=== PATIENT | female | born 1940 | race Caucasian/White ===

== ENCOUNTER → 2016-07-25 | Outpatient (CLI) | payer OTHER ==
[~2016-07-25] MED LIST: CHOL20007 PO; DXY100 PO; IBUP-1428 PO; IBUP-1450 PO
[2016-07-25 12:02] LABS: BASO % 0.3 %; BASO ABS # 0.03 K/uL (0-0.2); COMPLETE YES; EOS % 2.2 %; HEMATOCRIT 38.5 % (37-47); IG% 0.2 %; LYMPH % 17.2 %; LYMPH ABS # 1.53 K/uL (1.2-3.4); MEAN CELL VOLUME 83.9 fL (80-100); MEAN CORPUSCULAR HEMOGLOBIN 27.5 pg (25-34); MEAN CORPUSCULAR HGB CONC 32.7 g/dl (32-36); MEAN PLATELET VOLUME 9.3 fL (7.4-10.4); NEUT % 76.1 %; PLATELET COUNT 227 K/uL (130-400); RED BLOOD COUNT 4.59 M/uL (4.2-5.4); WHITE BLOOD COUNT 8.89 K/uL (4.8-10.8)
[2016-07-25 12:31] LABS: C-REACTIVE PROTEIN 1.84 mg/dl (0-0.29); RHEUMATOID FACTOR 16.2 U/mL (0-15); URIC ACID 4.1 mg/dl (2.6-7.2)
== END | disposition home or self-care (01) ==
LOC: C.LAB 11:27
PROVIDERS: ATTEND Orthopaedic Surgery Sports Medicine
DX: M25.532 Pain in left wrist (principal)

== ENCOUNTER 2016-12-28 22:10 | Inpatient (IN) | payer OTHER ==
[~2016-12-28] VITALS: Ht 154.9 cm; Wt 82.8 kg
[~2016-12-28 22:10] MED LIST changes: -DXY100 PO; -IBUP-1450 PO
[2016-12-28] MEDS ORDERED: SODIUM CHLORIDE 0.9% 1000ML 1,000 ML IV STA (23:13)
[2016-12-28] MEDS ORDERED: ONDANSETRON INJ 2 MG/ML 2 ML VIAL IV STA (23:13)
[2016-12-28] MEDS ORDERED: MoRPHine SULFATE 4 MG/ML 1 ML CARP\\VIAL IV STA (23:13)
[2016-12-28] MEDS ORDERED: CEFAZOLIN SOD 1000MG/55 ML D5W IV STA (23:19)
--- NOTE | 2016-12-28 23:19 | EMERGENCY ROOM VISIT NOTE ---
History Report prepared by Tamera: Radha Siegel Under the Supervision of: Dr. Tab Granados D.O. First contact with patient: 23:01 Chief Complaint: ABDOMINAL PAIN Stated Complaint: THROWING UP Nursing Triage Summary: pt reports abdominal pain X 1 days , reports NV X day also , now reports dizziness with movement for 1 day History of Present Illness The patient is a 76 year old female who presents to the Emergency Room with complaints of whole body muscular pain beginning this morning. The patient reports that she has vomited 6 times today and also complains of abdominal pain. Patient notes that she started vomiting from the abdominal pain. Several hours later she became dizzy. The patient states that she has felt dizzy for 4 hours and that her dizziness is exacerbated when she lays down. She states that she has also had a headache and has had diarrhea. Headache started following the vomiting. The patient states that she has been unable to eat or drink today. She denies having any recent surgeries, and states that she had breast cancer 3 years ago. Pt denies change in vision, fevers, chest pain, shortness of breath, pain with urination, and melena. Erythema on her chest and right arm just started today. She has not noticed this before. She does have a history of breast cancer. Source of History: patient Onset: this morning Position: other (whole body) Quality: other (muscular pain) Associated Symptoms: + headache, + vomiting, + abdominal pain, No fevers, No chest pain, No SOB, No melena, No urinary symptoms Note: additional symptom: dizziness Review of Systems See HPI for pertinent positives & negatives. A total of 10 systems reviewed and were otherwise negative. Past Medical & Surgical Medical Problems: (1) No known problems (2) Sepsis Family History No pertinent family history stated. Social History Smoking Status: Never Smoker Marital Status: single Current/Historical Medications Scheduled Cholecalciferol (Vitamin D3), 2,000 INTER.UNIT PO DAILY Scheduled PRN Ibuprofen (Motrin), 200-600 MG PO DIRECTED PRN for Pain or Fever Allergies Coded Allergies: No Known Allergies (Unverified , 12/28/16) Physical Exam Vital Signs Date Time Temp Pulse Resp B/P (MAP) Pulse Ox O2 Delivery O2 Flow Rate FiO2 12/29/16 02:51 36.9 12/29/16 02:00 79 24 137/58 92 Room Air 12/29/16 01:03 84 26 105/40 94 Room Air 12/29/16 00:01 86 27 144/65 95 Room Air 12/28/16 23:23 37.7 86 27 127/55 93 Room Air 12/28/16 23:07 88 12/28/16 22:15 37.6 110 20 138/69 96 Room Air Physical Exam GENERAL: Sitting up in bed, uncomfortable, disheveled non-toxic EYE EXAM: normal conjunctiva OROPHARYNX: no exudate, no erythema, lips, buccal mucosa, and tongue normal and mucous membranes are dry NECK: supple, no nuchal rigidity, no adenopathy, non-tender LUNGS: Clear to auscultation. Normal chest wall mechanics HEART: no murmurs, S1 normal and S2 normal ABDOMEN: abdomen soft, minimal tenderness in epigastric region, normo-active bowel sounds, no masses, no rebound or guarding. CHEST: erythema over right breast tracking into right humerus BACK: Back is symmetrical on inspection and there is no deformity, no midline tenderness, no CVA tenderness. SKIN: no rashes and no bruising UPPER EXTREMITIES: upper extremities are grossly normal. Entirety of right humerus no induration but it is warm and tender. LOWER EXTREMITIES: No pitting edema. NEURO EXAM: Normal sensorium, cranial nerves II-XII intact, normal speech, no weakness of arms, no weakness of legs. Medical Decision & Procedures ER Provider Diagnostic Interpretation: CT:Per my review, radiologist interpretation. CT ABDOMEN & PELVIS: No evidence of acute inflammatory or obstructive process in the abdomen or pelvis to account for epigastric pain. Yye-rj-tsakvvljjlja attenuation left renal lesion measuring approximately 4 cm with scattered calcifications. Further evaluation with renal mass protocol CT or MRI recommended. No hydronephrosis or ureteral calculus. Small hiatal hernia. Small fat-containing umbilical hernia. No associated inflammatory changes. No evidence of acute appendicitis. Atherosclerotic vascular disease. No abdominal aortic anuerysm. Enlarged fibroid uterus. Laboratory Results 12/28/16 23:19 Red Blood Count 4.87, Mean Corpuscular Volume 82.3, Mean Corpuscular Hemoglobin 26.5, Mean Corpuscular Hemoglobin Concent 32.2, Mean Platelet Volume 8.6, Neutrophils (%) (Auto) 94.4, Lymphocytes (%) (Auto) 2.8, Monocytes (%) (Auto) 2.4, Eosinophils (%) (Auto) 0.0, Basophils (%) (Auto) 0.0, Neutrophils # (Auto) 23.93, Lymphocytes # (Auto) 0.72, Monocytes # (Auto) 0.62, Eosinophils # (Auto) 0.00, Basophils # (Auto) 0.01 Test 12/28/16 23:19 12/29/16 00:00 12/29/16 00:30 12/29/16 02:50 White Blood Count 25.37 K/uL (4.8-10.8) Red Blood Count 4.87 M/uL (4.2-5.4) Hemoglobin 12.9 g/dL (12.0-16.0) Hematocrit 40.1 % (37-47) Mean Corpuscular Volume 82.3 fL (80-100) Mean Corpuscular Hemoglobin 26.5 pg (25-34) Mean Corpuscular Hemoglobin Concent 32.2 g/dl (32-36) Platelet Count 200 K/uL (130-400) Mean Platelet Volume 8.6 fL (7.4-10.4) Neutrophils (%) (Auto) 94.4 % Lymphocytes (%) (Auto) 2.8 % Monocytes (%) (Auto) 2.4 % Eosinophils (%) (Auto) 0.0 % Basophils (%) (Auto) 0.0 % Neutrophils # (Auto) 23.93 K/uL (1.4-6.5) Lymphocytes # (Auto) 0.72 K/uL (1.2-3.4) Monocytes # (Auto) 0.62 K/uL (0.11-0.59) Eosinophils # (Auto) 0.00 K/uL (0-0.5) Basophils # (Auto) 0.01 K/uL (0-0.2) RDW Standard Deviation 43.3 fL (36.4-46.3) RDW Coefficient of Variation 14.5 % (11.5-14.5) Immature Granulocyte % (Auto) 0.4 % Immature Granulocyte # (Auto) 0.09 K/uL (0.00-0.02) Est Creatinine Clear Calc Drug Dose 54.7 ml/min Magnesium Level 2.0 mg/dl (1.8-2.4) Total Bilirubin 0.6 mg/dl (0.2-1) Direct Bilirubin 0.2 mg/dl (0-0.2) Aspartate Amino Transf (AST/SGOT) 21 U/L (15-37) Alanine Aminotransferase (ALT/SGPT) 28 U/L (12-78) Alkaline Phosphatase 69 U/L (45-117) Total Protein 7.3 gm/dl (6.4-8.2) Albumin 3.5 gm/dl (3.4-5.0) Lipase 59 U/L (73-393) Lactic Acid Level 1.8 mmol/L (0.4-2.0) Urine Color YELLOW Urine Appearance CLEAR (CLEAR) Urine pH 7.5 (4.5-7.5) Urine Specific Nicholls 1.013 (1.000-1.030) Urine Protein NEG (NEG) Urine Glucose (UA) NEG (NEG) Urine Ketones NEG (NEG) Urine Occult Blood NEG (NEG) Urine Nitrite NEG (NEG) Urine Bilirubin NEG (NEG) Urine Urobilinogen NEG (NEG) Urine Leukocyte Esterase TRACE (NEG) Urine WBC (Auto) 1-5 /hpf (0-5) Urine RBC (Auto) 0-4 /hpf (0-4) Urine Hyaline Casts (Auto) 1-5 /lpf (0-5) Urine Epithelial Cells (Auto) >30 /lpf (0-5) Urine Bacteria (Auto) NEG (NEG) Laboratory results per my review. Medications Administered Medications (Trade) Dose Ordered Sig/Jonathan Route Start Time Stop Time Status Last Admin Dose Admin Sodium Chloride 1,000 ml @ 999 mls/hr Q1H1M STAT IV 12/28/16 23:13 12/29/16 00:13 DC 12/28/16 23:20 999 MLS/HR Ondansetron HCl (Zofran Inj) 4 mg NOW STAT IV 12/28/16 23:13 12/28/16 23:15 DC 12/29/16 00:14 4 MG Morphine Sulfate (MoRPHine SULFATE INJ) 4 mg NOW STAT IV 12/28/16 23:13 12/28/16 23:15 DC 12/29/16 00:15 4 MG Cefazolin Sodium (Ancef 1000mg/55 ml D5W) 1,000 mg NOW STAT IV 12/28/16 23:19 12/28/16 23:20 DC 12/29/16 00:16 1,000 MG Vancomycin HCl 1700 mg/Sodium Chloride 534 ml @ 200 mls/hr ONE STAT IV 12/29/16 01:03 12/29/16 03:43 12/29/16 01:59 200 MLS/HR Acetaminophen (Tylenol Tab) 650 mg 0202 ONCE PO 12/29/16 02:02 12/29/16 02:08 DC 12/29/16 02:53 650 MG ED Course ED COURSE: Vital signs were reviewed and showed hypertensive, tachycardic. The patients medical record was reviewed The above diagnostic studies were performed and reviewed. ED treatments and interventions as stated above. 2304: The patient was evaluated in room B11B. A complete history and physical examination was performed. 2313: Ordered Morphine Sulfate 4 mg IV, Ondansetron HCl 4 mg IV, Sodium Chloride 1,000 ml @ 999 mls/hr IV. 2319: Ordered Cefazolin Sodium 1,000 mg IV. 0051: The patient is in the CT room. 0103: Ordered Vancomycin HCl 1,700 mg/Sodium Chloride 534 mls/hr IV. 0140: I updated the patient. 0220: I reviewed the patient's case with Dr. Stroud. He will evaluate the patient for further management. Medical Decision Differential diagnosis includes etiologies such as sepsis, UTI, pneumonia, metabolic, electrolyte abnormalities, cardiac sources, intracerebral event, toxicologic, neurologic, as well as others were entertained. Patient is a 76-year-old female who presents the ER for nausea vomiting diarrhea which started earlier today. Following that she started to feel dizzy. She does have epigastric abdominal pain. She also has erythema of her right breast and right upper extremity. She admits to diffuse myalgias. History of previous breast cancer. Vitals are remarkable for a low-grade fever and tachycardia. This dose 25,000. BMP along with LFTs, bilirubin and lipase are normal. UA was negative. CT of the abdomen pelvis shows fibroids and calcified renal mass. Patient was given IV antibiotics and admitted to internal medicine for a cellulitis. Blood pressure screening: Patient was found to have an elevated blood pressure and was referred to their primary doctor for recheck and further treatment. Medication Reconciliation: I attest that I have personally reviewed the patient' s current medication list. Consults Time Called: 0200 Consulting Physician: Dr. Chris Arroyo Returned Call: 0220 I reviewed the patient's case with Dr. Stroud. He will evaluate the patient for further management. Impression Primary Impression: Cellulitis Additional Impression: Leukocytosis Scribe Attestation The scribe's documentation has been prepared under my direction and personally reviewed by me in its entirety. I confirm that the note above accurately reflects all work, treatment, procedures, and medical decision making performed by me. Departure Information Dispostion Being Evaluated By Hospitalist Referrals No Doctor, Assigned (PCP) Patient Instructions My [facility] Problem Qualifiers Primary Impression: Cellulitis Site of cellulitis: unspecified site Qualified Codes: L03.90 - Cellulitis, unspecified Additional Impression: Leukocytosis Leukocytosis type: unspecified Qualified Codes: D72.829 - Elevated white blood cell count, unspecified
[2016-12-28] MEDS ORDERED: OPTIRAY 320 IV PRN (23:30)
[2016-12-28 23:31] LABS: HEMATOCRIT 40.1 % (37-47); MEAN CELL VOLUME 82.3 fL (80-100); MEAN CORPUSCULAR HEMOGLOBIN 26.5 pg (25-34); MEAN CORPUSCULAR HGB CONC 32.2 g/dl (32-36); MEAN PLATELET VOLUME 8.6 fL (7.4-10.4); PLATELET COUNT 200 K/uL (130-400); RED BLOOD COUNT 4.87 M/uL (4.2-5.4); WHITE BLOOD COUNT 25.37 K/uL (4.8-10.8)
[2016-12-28] MEDS ORDERED: IBUP-1450 PO (23:40)
[2016-12-28] MEDS ORDERED: CHOL20007 PO (23:41)
[2016-12-28 23:51] LABS: BUN/CREATININE RATIO 18.1 (10-20); CALCIUM 8.7 mg/dl (8.5-10.1); CREATININE 0.88 mg/dl (0.60-1.20)
[2016-12-28 23:52] LABS: BASO ABS # 0.01 K/uL (0-0.2); COMPLETE YES; IG% 0.4 %; LYMPH % 2.8 %; LYMPH ABS # 0.72 K/uL (1.2-3.4); MONO % 2.4 %; NEUT % 94.4 %
[2016-12-29] VITALS (8 sets, daily range): BP systolic 89–149; BP diastolic 41–77; PULSE 69–78; TEMP 36.6–37.6; O2SAT 92–94; Ht 154.9 cm; Wt 82.8 kg
[2016-12-29 00:43] LABS: URINE APPEARANCE CLEAR (CLEAR); URINE BILIRUBIN NEG (NEG); URINE COLOR YELLOW; URINE EPITHELIAL CELL AUTO >30 /lpf (0-5); URINE NITRITE NEG (NEG); URINE PH 7.5 (4.5-7.5); URINE SPECIFIC GRAVITY 1.013 (1.000-1.030); UROBILINOGEN NEG (NEG); ZZUR CULT IF INDIC CLEAN CATCH NO
[2016-12-29 00:45] LABS: MANUAL MICROSCOPIC REQUIRED? NO; REVIEW REQ? NO; SULFASALICYLIC ACID NEG (NEG)
[2016-12-29] MEDS ORDERED: VANCOMYCIN INJ 1,700 MG in SODIUM CHLORIDE 0.9% 500ML 500 ML IV STA (01:03)
[2016-12-29] MEDS ORDERED: ACETAMINOPHEN 325 MG TAB PO ONE (02:02)
[2016-12-29] MEDS ORDERED: ACETAMINOPHEN 325 MG TAB PO PRN (02:15)
--- NOTE | 2016-12-29 02:59 | History and Physical ---
History & Physical Date & Time of Service: Dec 29, 2016 at 02:59 Chief Complaint: Throwing Up Primary Care Physician: Maureen Henderson D.O. History of Present Illness Source: patient, clinic records 2 days history of achy abdominal pain with nausea, emesis, diarrhea symptoms. No chest pain, no shortness of breath. Right upper extremity swelling more than usual which patient attributes to making some shish kebab. Patient denies dysuria symptoms. At the ER patient received IV vancomycin and cefazolin for possible sepsis. 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) Allergies Coded Allergies: No Known Allergies (Unverified , 12/28/16) Home Medications Scheduled Cholecalciferol (Vitamin D3), 2,000 INTER.UNIT PO DAILY Scheduled PRN Ibuprofen (Motrin), 200-600 MG PO DIRECTED PRN for Pain or Fever Physical Exam Vital Signs Date Time Temp Pulse Resp B/P (MAP) Pulse Ox O2 Delivery O2 Flow Rate FiO2 12/29/16 02:51 36.9 12/29/16 02:00 79 24 137/58 92 Room Air 12/29/16 01:03 84 26 105/40 94 Room Air 12/29/16 00:01 86 27 144/65 95 Room Air 12/28/16 23:23 37.7 86 27 127/55 93 Room Air 12/28/16 23:07 88 12/28/16 22:15 37.6 110 20 138/69 96 Room Air General Appearance: + obese, + pertinent finding (pleasant) Head: normocephalic Eyes: normal inspection ENT: normal ENT inspection Neck: + pertinent finding (short) Respiratory/Chest: + decreased breath sounds Cardiovascular: + tachycardia Abdomen/GI: soft Extremities/Musculoskelatal: + pertinent finding (tender right upper extremity swelling) Neurologic/Psych: alert, oriented x 3 Skin: normal color Diagnostics Laboratory Results Results Past 24 Hours Test 12/28/16 23:19 12/29/16 00:00 12/29/16 00:30 12/29/16 02:50 Range/Units White Blood Count 25.37 4.8-10.8 K/uL Red Blood Count 4.87 4.2-5.4 M/uL Hemoglobin 12.9 12.0-16.0 g/dL Hematocrit 40.1 37-47 % Mean Corpuscular Volume 82.3 80-100 fL Mean Corpuscular Hemoglobin 26.5 25-34 pg Mean Corpuscular Hemoglobin Concent 32.2 32-36 g/dl Platelet Count 200 130-400 K/uL Mean Platelet Volume 8.6 7.4-10.4 fL Neutrophils (%) (Auto) 94.4 % Lymphocytes (%) (Auto) 2.8 % Monocytes (%) (Auto) 2.4 % Eosinophils (%) (Auto) 0.0 % Basophils (%) (Auto) 0.0 % Neutrophils # (Auto) 23.93 1.4-6.5 K/uL Lymphocytes # (Auto) 0.72 1.2-3.4 K/uL Monocytes # (Auto) 0.62 0.11-0.59 K/uL Eosinophils # (Auto) 0.00 0-0.5 K/uL Basophils # (Auto) 0.01 0-0.2 K/uL RDW Standard Deviation 43.3 36.4-46.3 fL RDW Coefficient of Variation 14.5 11.5-14.5 % Immature Granulocyte % (Auto) 0.4 % Immature Granulocyte # (Auto) 0.09 0.00-0.02 K/uL Sodium Level 142 136-145 mmol/L Potassium Level 4.0 3.5-5.1 mmol/L Chloride Level 106 98-107 mmol/L Carbon Dioxide Level 27 21-32 mmol/L Anion Gap 9.0 3-11 mmol/L Blood Urea Nitrogen 16 7-18 mg/dl Creatinine 0.88 0.60-1.20 mg/dl Est Creatinine Clear Calc Drug Dose 54.7 ml/min Estimated GFR () 75.0 Estimated GFR (Non- 64.7 BUN/Creatinine Ratio 18.1 10-20 Random Glucose 142 70-99 mg/dl Calcium Level 8.7 8.5-10.1 mg/dl Magnesium Level 2.0 1.8-2.4 mg/dl Total Bilirubin 0.6 0.2-1 mg/dl Direct Bilirubin 0.2 0-0.2 mg/dl Aspartate Amino Transf (AST/SGOT) 21 15-37 U/L Alanine Aminotransferase (ALT/SGPT) 28 12-78 U/L Alkaline Phosphatase 69 45-117 U/L Total Protein 7.3 6.4-8.2 gm/dl Albumin 3.5 3.4-5.0 gm/dl Lipase 59 73-393 U/L Lactic Acid Level 1.8 0.4-2.0 mmol/L Urine Color YELLOW Urine Appearance CLEAR CLEAR Urine pH 7.5 4.5-7.5 Urine Specific Veteran 1.013 1.000-1.030 Urine Protein NEG NEG Urine Glucose (UA) NEG NEG Urine Ketones NEG NEG Urine Occult Blood NEG NEG Urine Nitrite NEG NEG Urine Bilirubin NEG NEG Urine Urobilinogen NEG NEG Urine Leukocyte Esterase TRACE NEG Urine WBC (Auto) 1-5 0-5 /hpf Urine RBC (Auto) 0-4 0-4 /hpf Urine Hyaline Casts (Auto) 1-5 0-5 /lpf Urine Epithelial Cells (Auto) >30 0-5 /lpf Urine Bacteria (Auto) NEG NEG Microbiology Results 12/29/16 Blood Culture, Received Pending 12/28/16 Blood Culture, Received Pending Diagnostic Radiology CT SCAN OF THE ABDOMEN AND PELVIS WITH IV CONTRAST CLINICAL HISTORY: Epigastric abdominal pain. COMPARISON STUDY: No priors. TECHNIQUE: Following the IV administration of 116 cc of Optiray 320, CT scan of the abdomen and pelvis is performed from the lung bases to the proximal femora. Images are reviewed in the axial, sagittal, and coronal planes. IV contrast was administered without complication. Automated dose control exposure was utilized. CT DOSE: 749.54 mGy.cm FINDINGS: Lung bases: The heart is normal in size and without pericardial effusion. The lung bases are clear noting dependent atelectasis. There is a small hiatal hernia. Liver: The contrast-enhanced liver is top normal in size and demonstrates diffusely diminished attenuation consistent with hepatic steatosis. There is no intrahepatic biliary ductal dilatation. The hepatic veins and portal veins are patent. Gallbladder: Unremarkable. Spleen: Normal in size and attenuation. Pancreas: Moderately atrophic. Adrenal glands: Unremarkable. Kidneys: The contrast enhanced kidneys demonstrate cortical atrophy and are without hydronephrosis. The kidneys enhance symmetrically. There is a 4.8 x 3.5 x 2.8 cm low-attenuation lesion arising exophytically from the lower pole of the left kidney. This contains internal septations which contain thick/coarse calcifications and this does not meet criteria for simple cyst. A subcentimeter cortical hypodensity in the upper pole of left kidney likely represents a cyst but is too small for definitive characterization. Abdominal vasculature: The abdominal aorta is normal in course and caliber noting moderate atherosclerotic calcification. Bowel: The small bowel and colon are normal in course and caliber. There are scattered colonic diverticula without CT evidence of acute diverticulitis. The appendix is well-visualized and normal. Peritoneum: There is no intraperitoneal free air or abdominal ascites. There is a fat-containing umbilical hernia. Lymphadenopathy: None. Pelvic viscera: The bladder is normal as visualized. The uterus is enlarged and contains numerous calcified fibroids. No adnexal lesion is seen. Skeletal structures: The skeletal structures are osteopenic. There is moderate lumbosacral spondylosis. No lytic or blastic lesions are seen. IMPRESSION: 1. There are no acute infectious or inflammatory findings in the abdomen or pelvis. 2. There is a 4.8 cm low-attenuation lesion rising the lower pole of left kidney. This contains thick internal calcifications, small septations, and does not meet CT criteria for simple cysts. The appearance is highly concerning for renal neoplasm. Nonemergent follow-up with urology is recommended. 3. Hepatic steatosis. 4. Enlarged fibroid uterus. 5. Additional findings as above. Impression Assessment and Plan AP Sepsis Possible sources : Cellulitis right upper extremity, history chronic lymphedema from right breast cancer surgery diarrhea rule out C. difficile: RUE swelling secondary to cellulitis rule out UE DVT Right breast cancer status post surgery sp hormonal therapy Patient refused chemoradiation as per [facility] outpatient notes. Px has been in remission for greater than 5 years . Recent PET scan negative. Left renal mass likely benign as per records Hyperglycemia rule out diabetes GMF Cultures, stool C. difficile Doxycycline for cellulitis Flagyl for presumptive C. difficile in light of leukocytosis DC Flagyl if stool C. difficile negative Patient may need Vancomycin if C. difficile positive - severe C. difficile, WBC greater than 15 K criterion Check hemoglobin A1c Right upper extremity venous Dopplers DVT prophylaxis Lovenox subcutaneous Full code VTE Prophylaxis VTE Risk Assessment Done? Y/N: Yes Risk Level: Moderate
[2016-12-29] MEDS ORDERED: ONDANSETRON INJ 2 MG/ML 2 ML VIAL IV PRN (03:00)
[2016-12-29] MEDS ORDERED: TRAMADOL HCL 50 MG TAB PO PRN (03:00)
[2016-12-29] MEDS ORDERED: PROMETHAZINE HCL INJ 12.5 MG in SODIUM CHLORIDE 0.9% 50ML 50 ML IV PRN (03:00)
[2016-12-29] MEDS ORDERED: KETOROLAC TROMETHAMINE 15 MG/ML VIAL IV. PRN (03:00)
[2016-12-29] MEDS ORDERED: IBUPROFEN 200 MG TAB PO PRN (03:00)
[2016-12-29] MEDS ORDERED: METRONIDAZOLE 250 MG TAB PO STA (03:04)
[2016-12-29] MEDS ORDERED: SODIUM CHLORIDE 0.45% 1000ML 1,000 ML IV ONE (03:30)
[2016-12-29 04:04] LABS: BUN/CREATININE RATIO 19.6 (10-20); CALCIUM 7.9 mg/dl (8.5-10.1); CREATININE 0.73 mg/dl (0.60-1.20); POTASSIUM 3.9 mmol/L (3.5-5.1)
--- NOTE | 2016-12-29 06:49 | DIAGNOSTIC IMAGING REPORT ---
ULTRASOUND RIGHT UPPER EXTREMITY VENOUS CLINICAL HISTORY: Right arm swelling. COMPARISON STUDY: No priors. TECHNIQUE: Real-time, grayscale, and color Doppler sonography of the deep veins of the right upper extremity is performed. Compression and augmentation were utilized. FINDINGS: There is no sonographic evidence of deep venous thrombosis identified in the right upper extremity. The right internal jugular, axillary, and brachial veins are patent and normally compressible. Normal venous waveforms and augmentation are seen within the right subclavian vein. The cephalic and basilic veins are clear. The visualized radial and ulnar veins are patent. IMPRESSION: There is no sonographic evidence of deep venous thrombosis identified in the right upper extremity. Electronically signed by: Frank Pimentel M.D. 12/29/2016 6:47 AM Dictated Date/Time: 12/29/2016 6:47 AM
[2016-12-29 06:52] LABS: INR 1.2 (0.9-1.1); PARTIAL THROMBOPLASTIN RATIO 1.1; PROTHROMBIN TIME (PATIENT) 12.4 SECONDS (9.0-12.0)
[2016-12-29 06:53] LABS: ESTIMATED AVERAGE GLUCOSE 120 mg/dl; HA1C FLAG Normal (Normal)
[2016-12-29 07:09] LABS: BASO % 0.1 %; BASO ABS # 0.02 K/uL (0-0.2); COMPLETE YES; EOS % 0.1 %; HEMATOCRIT 36.7 % (37-47); IG% 0.2 %; LYMPH % 6.1 %; LYMPH ABS # 1.05 K/uL (1.2-3.4); MEAN CELL VOLUME 83.2 fL (80-100); MEAN CORPUSCULAR HEMOGLOBIN 25.9 pg (25-34); MEAN CORPUSCULAR HGB CONC 31.1 g/dl (32-36); MEAN PLATELET VOLUME 8.7 fL (7.4-10.4); MONO % 3.2 %; NEUT % 90.3 %; PLATELET COUNT 196 K/uL (130-400); RED BLOOD COUNT 4.41 M/uL (4.2-5.4); WHITE BLOOD COUNT 17.35 K/uL (4.8-10.8)
[2016-12-29] MEDS: DOXYCYCLINE HYCLATE 100 MG CAP PO SCH ×2 (07:59→20:24)
--- NOTE | 2016-12-29 08:01 | DIAGNOSTIC IMAGING REPORT ---
CT SCAN OF THE ABDOMEN AND PELVIS WITH IV CONTRAST CLINICAL HISTORY: Epigastric abdominal pain. COMPARISON STUDY: No priors. TECHNIQUE: Following the IV administration of 116 cc of Optiray 320, CT scan of the abdomen and pelvis is performed from the lung bases to the proximal femora. Images are reviewed in the axial, sagittal, and coronal planes. IV contrast was administered without complication. Automated dose control exposure was utilized. CT DOSE: 749.54 mGy.cm FINDINGS: Lung bases: The heart is normal in size and without pericardial effusion. The lung bases are clear noting dependent atelectasis. There is a small hiatal hernia. Liver: The contrast-enhanced liver is top normal in size and demonstrates diffusely diminished attenuation consistent with hepatic steatosis. There is no intrahepatic biliary ductal dilatation. The hepatic veins and portal veins are patent. Gallbladder: Unremarkable. Spleen: Normal in size and attenuation. Pancreas: Moderately atrophic. Adrenal glands: Unremarkable. Kidneys: The contrast enhanced kidneys demonstrate cortical atrophy and are without hydronephrosis. The kidneys enhance symmetrically. There is a 4.8 x 3.5 x 2.8 cm low-attenuation lesion arising exophytically from the lower pole of the left kidney. This contains internal septations which contain thick/coarse calcifications and this does not meet criteria for simple cyst. A subcentimeter cortical hypodensity in the upper pole of left kidney likely represents a cyst but is too small for definitive characterization. Abdominal vasculature: The abdominal aorta is normal in course and caliber noting moderate atherosclerotic calcification. Bowel: The small bowel and colon are normal in course and caliber. There are scattered colonic diverticula without CT evidence of acute diverticulitis. The appendix is well-visualized and normal. Peritoneum: There is no intraperitoneal free air or abdominal ascites. There is a fat-containing umbilical hernia. Lymphadenopathy: None. Pelvic viscera: The bladder is normal as visualized. The uterus is enlarged and contains numerous calcified fibroids. No adnexal lesion is seen. Skeletal structures: The skeletal structures are osteopenic. There is moderate lumbosacral spondylosis. No lytic or blastic lesions are seen. IMPRESSION: 1. There are no acute infectious or inflammatory findings in the abdomen or pelvis. 2. There is a 4.8 cm low-attenuation lesion rising the lower pole of left kidney. This contains thick internal calcifications, small septations, and does not meet CT criteria for simple cysts. The appearance is highly concerning for renal neoplasm. Nonemergent follow-up with urology is recommended. 3. Hepatic steatosis. 4. Enlarged fibroid uterus. 5. Additional findings as above. Electronically signed by: Frank Pimentel M.D. 12/29/2016 8:00 AM Dictated Date/Time: 12/29/2016 7:51 AM
[2016-12-29] MEDS: ENOXAPARIN 40 MG/0.4 ML SYR SQ SCH (08:26)
[2016-12-29] MEDS ORDERED: METRONIDAZOLE 500 MG TAB PO SCH (12:00)
--- NOTE | 2016-12-29 12:31 | Progress Note ---
Medicine Progress Note Date & Time of Visit: Dec 29, 2016 at 11:55. Subjective Pt was seen and examined Lying in bed comfortable with no distress Pt said that she feels much better she does not have any more diarrhea and vomiting she said that her abdominal pain is much better Denies any chest pain, palpitation, dizziness and SOB Objective Last 8 Hrs Date Time Temp Pulse Resp B/P (MAP) Pulse Ox O2 Delivery O2 Flow Rate FiO2 12/29/16 09:10 92 Room Air 12/29/16 07:26 37.0 71 20 89/41 (57) 92 12/29/16 07:13 36.6 70 18 114/75 (88) 94 Room Air Physical Exam: General- No acute distress Head- atraumatic Eyes- PERRL, EOMI ENT- oropharynx clear Neck- supple, no JVD Lungs- clear to auscultation Heart- regular rhythm Abdomen- normal bowel sounds, soft, + mild tender Extremities- no calf tenderness, RUE redness (biceps and triceps area) and swelling Neuro- alert, oriented x 3; PERRL, EOMI; no facial palsy; no dysarthria Skin- warm & dry Laboratory Results: Last 24 Hours Test 12/28/16 23:19 12/29/16 00:00 12/29/16 00:30 12/29/16 03:38 White Blood Count 25.37 K/uL Red Blood Count 4.87 M/uL Hemoglobin 12.9 g/dL Hematocrit 40.1 % Mean Corpuscular Volume 82.3 fL Mean Corpuscular Hemoglobin 26.5 pg Mean Corpuscular Hemoglobin Concent 32.2 g/dl Platelet Count 200 K/uL Mean Platelet Volume 8.6 fL Neutrophils (%) (Auto) 94.4 % Lymphocytes (%) (Auto) 2.8 % Monocytes (%) (Auto) 2.4 % Eosinophils (%) (Auto) 0.0 % Basophils (%) (Auto) 0.0 % Neutrophils # (Auto) 23.93 K/uL Lymphocytes # (Auto) 0.72 K/uL Monocytes # (Auto) 0.62 K/uL Eosinophils # (Auto) 0.00 K/uL Basophils # (Auto) 0.01 K/uL RDW Standard Deviation 43.3 fL RDW Coefficient of Variation 14.5 % Immature Granulocyte % (Auto) 0.4 % Immature Granulocyte # (Auto) 0.09 K/uL Sodium Level 142 mmol/L 140 mmol/L Potassium Level 4.0 mmol/L 3.9 mmol/L Chloride Level 106 mmol/L 109 mmol/L Carbon Dioxide Level 27 mmol/L 27 mmol/L Anion Gap 9.0 mmol/L 4.0 mmol/L Blood Urea Nitrogen 16 mg/dl 14 mg/dl Creatinine 0.88 mg/dl 0.73 mg/dl Est Creatinine Clear Calc Drug Dose 54.7 ml/min 65.9 ml/min Estimated GFR () 75.0 94.0 Estimated GFR (Non- 64.7 81.1 BUN/Creatinine Ratio 18.1 19.6 Random Glucose 142 mg/dl 122 mg/dl Estimated Average Glucose 120 mg/dl Hemoglobin A1c 5.8 % Calcium Level 8.7 mg/dl 7.9 mg/dl Magnesium Level 2.0 mg/dl Total Bilirubin 0.6 mg/dl Direct Bilirubin 0.2 mg/dl Aspartate Amino Transf (AST/SGOT) 21 U/L Alanine Aminotransferase (ALT/SGPT) 28 U/L Alkaline Phosphatase 69 U/L Total Protein 7.3 gm/dl Albumin 3.5 gm/dl Lipase 59 U/L Lactic Acid Level 1.8 mmol/L Urine Color YELLOW Urine Appearance CLEAR Urine pH 7.5 Urine Specific Virgin 1.013 Urine Protein NEG Urine Glucose (UA) NEG Urine Ketones NEG Urine Occult Blood NEG Urine Nitrite NEG Urine Bilirubin NEG Urine Urobilinogen NEG Urine Leukocyte Esterase TRACE Urine WBC (Auto) 1-5 /hpf Urine RBC (Auto) 0-4 /hpf Urine Hyaline Casts (Auto) 1-5 /lpf Urine Epithelial Cells (Auto) >30 /lpf Urine Bacteria (Auto) NEG Test 12/29/16 06:20 12/29/16 06:45 Prothrombin Time 12.4 SECONDS Prothromb Time International Ratio 1.2 Activated Partial Thromboplast Time 29.5 SECONDS Partial Thromboplastin Ratio 1.1 White Blood Count 17.35 K/uL Red Blood Count 4.41 M/uL Hemoglobin 11.4 g/dL Hematocrit 36.7 % Mean Corpuscular Volume 83.2 fL Mean Corpuscular Hemoglobin 25.9 pg Mean Corpuscular Hemoglobin Concent 31.1 g/dl Platelet Count 196 K/uL Mean Platelet Volume 8.7 fL Neutrophils (%) (Auto) 90.3 % Lymphocytes (%) (Auto) 6.1 % Monocytes (%) (Auto) 3.2 % Eosinophils (%) (Auto) 0.1 % Basophils (%) (Auto) 0.1 % Neutrophils # (Auto) 15.66 K/uL Lymphocytes # (Auto) 1.05 K/uL Monocytes # (Auto) 0.56 K/uL Eosinophils # (Auto) 0.02 K/uL Basophils # (Auto) 0.02 K/uL RDW Standard Deviation 45.1 fL RDW Coefficient of Variation 14.9 % Immature Granulocyte % (Auto) 0.2 % Immature Granulocyte # (Auto) 0.04 K/uL Date/Time Source Procedure Growth Status 12/29/16 00:00 Blood Blood Culture Pending Received 12/28/16 23:55 Blood Blood Culture Pending Received Diagnostic Imaging: ULTRASOUND RIGHT UPPER EXTREMITY VENOUS CLINICAL HISTORY: Right arm swelling. COMPARISON STUDY: No priors. TECHNIQUE: Real-time, grayscale, and color Doppler sonography of the deep veins of the right upper extremity is performed. Compression and augmentation were utilized. FINDINGS: There is no sonographic evidence of deep venous thrombosis identified in the right upper extremity. The right internal jugular, axillary, and brachial veins are patent and normally compressible. Normal venous waveforms and augmentation are seen within the right subclavian vein. The cephalic and basilic veins are clear. The visualized radial and ulnar veins are patent. IMPRESSION: There is no sonographic evidence of deep venous thrombosis identified in the right upper extremity. Electronically signed by: Frank Pimentel M.D. 12/29/2016 6:47 AM Dictated Date/Time: 12/29/2016 6:[address] SCAN OF THE ABDOMEN AND PELVIS WITH IV CONTRAST CLINICAL HISTORY: Epigastric abdominal pain. COMPARISON STUDY: No priors. TECHNIQUE: Following the IV administration of 116 cc of Optiray 320, CT scan of the abdomen and pelvis is performed from the lung bases to the proximal femora. Images are reviewed in the axial, sagittal, and coronal planes. IV contrast was administered without complication. Automated dose control exposure was utilized. CT DOSE: 749.54 mGy.cm FINDINGS: Lung bases: The heart is normal in size and without pericardial effusion. The lung bases are clear noting dependent atelectasis. There is a small hiatal hernia. Liver: The contrast-enhanced liver is top normal in size and demonstrates diffusely diminished attenuation consistent with hepatic steatosis. There is no intrahepatic biliary ductal dilatation. The hepatic veins and portal veins are patent. Gallbladder: Unremarkable. Spleen: Normal in size and attenuation. Pancreas: Moderately atrophic. Adrenal glands: Unremarkable. Kidneys: The contrast enhanced kidneys demonstrate cortical atrophy and are without hydronephrosis. The kidneys enhance symmetrically. There is a 4.8 x 3.5 x 2.8 cm low-attenuation lesion arising exophytically from the lower pole of the left kidney. This contains internal septations which contain thick/coarse calcifications and this does not meet criteria for simple cyst. A subcentimeter cortical hypodensity in the upper pole of left kidney likely represents a cyst but is too small for definitive characterization. Abdominal vasculature: The abdominal aorta is normal in course and caliber noting moderate atherosclerotic calcification. Bowel: The small bowel and colon are normal in course and caliber. There are scattered colonic diverticula without CT evidence of acute diverticulitis. The appendix is well-visualized and normal. Peritoneum: There is no intraperitoneal free air or abdominal ascites. There is a fat-containing umbilical hernia. Lymphadenopathy: None. Pelvic viscera: The bladder is normal as visualized. The uterus is enlarged and contains numerous calcified fibroids. No adnexal lesion is seen. Skeletal structures: The skeletal structures are osteopenic. There is moderate lumbosacral spondylosis. No lytic or blastic lesions are seen. IMPRESSION: 1. There are no acute infectious or inflammatory findings in the abdomen or pelvis. 2. There is a 4.8 cm low-attenuation lesion rising the lower pole of left kidney. This contains thick internal calcifications, small septations, and does not meet CT criteria for simple cysts. The appearance is highly concerning for renal neoplasm. Nonemergent follow-up with urology is recommended. 3. Hepatic steatosis. 4. Enlarged fibroid uterus. 5. Additional findings as above. Electronically signed by: Frank Pimentel M.D. 12/29/2016 8:00 AM Dictated Date/Time: 12/29/2016 7:51 AM Assessment & Plan Abdominal pain/Diarrhea/Vomiting Possible related to viral gastroenteritis Doubt about C-diff because pt said that the stool is soft No episode of diarrhea so far today CT abdomen showed no acute infectious or inflammatory findings in the abdomen or pelvis. Was started on Flagyl for Cdiff Stool sample has not been collected since pt has not had any diarrhea since yesterday will d/c Flagyl continue zofran and tramadol for pain tolerated clear liquid diet will advance to full liquid, and advanced as tolerated to regular diet Continue IVF for now Clinically improved significantly Right upper extremities swelling/erythema Possible related to cellulitis vs lymphedema from s/p breast ca U/S RUE negative for DVT Continue doxycycline WBC trending down monitor CBC Left renal lesion Continue monitor as an outpatient Leukocytosis Possible related to RUE cellulitis vs gastroenteritis WBC on admission 23K WBC today 17K afebrile Continue monitor CBC Hx Right breast ca Stable Elevated glucose Hba1c 5.8 Counseling on limited concentrated sugar intake Obesity BMI 34.5 Counseling on diet and exercise DVT Px on Lovenox subq CODE status Full code Current Inpatient Medications: Current Inpatient Medications Medications (Trade) Dose Ordered Sig/Jonathan Route Start Time Stop Time Status Last Admin Dose Admin Ioversol (Optiray 320) 100 ml UD PRN IV 12/28/16 23:30 01/01/17 23:29 Acetaminophen (Tylenol Tab) 650 mg Q6H PRN PO 12/29/16 02:15 01/28/17 02:14 Enoxaparin Sodium (Lovenox Inj) 40 mg Q24H SQ 12/29/16 09:00 01/28/17 08:59 12/29/16 08:26 40 MG Metronidazole (Flagyl Tab) 500 mg TID PO 12/29/16 12:00 01/08/17 11:59 Ondansetron HCl (Zofran Inj) 4 mg Q6H PRN IV 12/29/16 03:00 01/28/17 02:59 Promethazine HCl 12.5 mg/Sodium Chloride 50.5 ml @ 204 mls/hr Q6H PRN IV 12/29/16 03:00 01/28/17 02:59 Tramadol HCl (Ultram Tab) 25 mg Q6H PRN PO 12/29/16 03:00 01/28/17 02:59 Sodium Chloride 1,000 ml @ 75 mls/hr [id number] ONCE IV 12/29/16 03:30 12/29/16 16:49 12/29/16 03:50 75 MLS/HR Ketorolac Tromethamine (Toradol Inj) 15 mg Q6H PRN IV. 12/29/16 03:00 01/03/17 02:59 Ibuprofen (Advil Tab) 400 mg Q6H PRN PO 12/29/16 03:00 01/28/17 02:59 Doxycycline Hyclate (Vibramycin Cap) 100 mg BID PO 12/29/16 09:00 01/08/17 08:59 12/29/16 07:59 100 MG
[2016-12-29] MEDS ORDERED: NURSING VERBAL MED ORDER ONE (12:45)
[2016-12-30] VITALS: O2SAT 94
[2016-12-30 08:00] VITALS: BP 149/83; PULSE 74; TEMP 37; O2SAT 94
[2016-12-30] MEDS: ENOXAPARIN 40 MG/0.4 ML SYR SQ SCH (08:12)
[2016-12-30] MEDS: DOXYCYCLINE HYCLATE 100 MG CAP PO SCH (08:12)
[2016-12-30 11:02] LABS: BASO % 0.2 %; BASO ABS # 0.02 K/uL (0-0.2); COMPLETE YES; EOS % 1.7 %; HEMATOCRIT 37.2 % (37-47); IG% 0.4 %; LYMPH % 12.5 %; LYMPH ABS # 1.26 K/uL (1.2-3.4); MEAN CORPUSCULAR HGB CONC 30.9 g/dl (32-36); MEAN PLATELET VOLUME 8.8 fL (7.4-10.4); MONO % 3.7 %; NEUT % 81.5 %; PLATELET COUNT 193 K/uL (130-400); RED BLOOD COUNT 4.43 M/uL (4.2-5.4); WHITE BLOOD COUNT 10.05 K/uL (4.8-10.8)
--- NOTE | 2016-12-30 13:53 | Progress Note ---
Medicine Progress Note Date & Time of Visit: Dec 30, 2016 at 13:44. Subjective Pt was seen and examined Sitting in chair comfortable with no distress Pt said that she feels much better she said that she does not have any diarrhea she denies any chest pain, palpitation, dizziness and sob Objective Last 8 Hrs Date Time Temp Pulse Resp B/P (MAP) Pulse Ox O2 Delivery O2 Flow Rate FiO2 12/30/16 08:00 37.0 74 18 149/83 (105) 94 Room Air 12/30/16 08:00 94 Room Air Physical Exam: General- No acute distress Head- atraumatic Eyes- PERRL, EOMI ENT- oropharynx clear Neck- supple, no JVD Lungs- clear to auscultation Heart- regular rhythm Abdomen- normal bowel sounds, soft, + mild tender Extremities- no calf tenderness, RUE redness (biceps and triceps area) and swelling improved Neuro- alert, oriented x 3; PERRL, EOMI; no facial palsy; no dysarthria Skin- warm & dry Laboratory Results: Last 24 Hours Test 12/30/16 10:48 White Blood Count 10.05 K/uL Red Blood Count 4.43 M/uL Hemoglobin 11.5 g/dL Hematocrit 37.2 % Mean Corpuscular Volume 84.0 fL Mean Corpuscular Hemoglobin 26.0 pg Mean Corpuscular Hemoglobin Concent 30.9 g/dl Platelet Count 193 K/uL Mean Platelet Volume 8.8 fL Neutrophils (%) (Auto) 81.5 % Lymphocytes (%) (Auto) 12.5 % Monocytes (%) (Auto) 3.7 % Eosinophils (%) (Auto) 1.7 % Basophils (%) (Auto) 0.2 % Neutrophils # (Auto) 8.19 K/uL Lymphocytes # (Auto) 1.26 K/uL Monocytes # (Auto) 0.37 K/uL Eosinophils # (Auto) 0.17 K/uL Basophils # (Auto) 0.02 K/uL RDW Standard Deviation 46.5 fL RDW Coefficient of Variation 15.1 % Immature Granulocyte % (Auto) 0.4 % Immature Granulocyte # (Auto) 0.04 K/uL Assessment & Plan Abdominal pain/Diarrhea/Vomiting Possible related to viral gastroenteritis Doubt about C-diff because pt said that the stool is soft No episode of diarrhea so far today CT abdomen showed no acute infectious or inflammatory findings in the abdomen or pelvis. Was started on Flagyl for Cdiff Stool sample has not been collected since pt has not had any diarrhea Flagyl was discontinued continue zofran and tramadol for pain Tolerated to regular diet D/C IVF Resolved Right upper extremities swelling/erythema Possible related to cellulitis vs lymphedema from s/p breast ca U/S RUE negative for DVT Continue doxycycline WBC trending down to normal monitor CBC Left renal lesion Continue monitor as an outpatient Leukocytosis Possible related to RUE cellulitis vs gastroenteritis WBC on admission 23K WBC today 1oK afebrile Stable Hx Right breast ca Stable Elevated glucose Hba1c 5.8 Counseling on limited concentrated sugar intake Obesity BMI 34.5 Counseling on diet and exercise DVT Px on Lovenox subq CODE status Full code Disposition Discharge home today Follow up with your primary care provider Dr. Henderson on 01/05/17 @ 11:15 am Current Inpatient Medications: Current Inpatient Medications Medications (Trade) Dose Ordered Sig/Jonathan Route Start Time Stop Time Status Last Admin Dose Admin Ioversol (Optiray 320) 100 ml UD PRN IV 12/28/16 23:30 01/01/17 23:29 Acetaminophen (Tylenol Tab) 650 mg Q6H PRN PO 12/29/16 02:15 01/28/17 02:14 12/29/16 16:57 650 MG Enoxaparin Sodium (Lovenox Inj) 40 mg Q24H SQ 12/29/16 09:00 01/28/17 08:59 12/30/16 08:12 40 MG Ondansetron HCl (Zofran Inj) 4 mg Q6H PRN IV 12/29/16 03:00 01/28/17 02:59 Promethazine HCl 12.5 mg/Sodium Chloride 50.5 ml @ 204 mls/hr Q6H PRN IV 12/29/16 03:00 01/28/17 02:59 Tramadol HCl (Ultram Tab) 25 mg Q6H PRN PO 12/29/16 03:00 01/28/17 02:59 Ketorolac Tromethamine (Toradol Inj) 15 mg Q6H PRN IV. 12/29/16 03:00 01/03/17 02:59 Ibuprofen (Advil Tab) 400 mg Q6H PRN PO 12/29/16 03:00 01/28/17 02:59 Doxycycline Hyclate (Vibramycin Cap) 100 mg BID PO 12/29/16 09:00 01/08/17 08:59 12/30/16 08:12 100 MG
[2016-12-30] MEDS ORDERED: DXY100 PO ×2 (13:56→14:03)
--- NOTE | 2016-12-30 14:01 | Discharge Instructions ---
Discharge Instructions Date of Service Dec 30, 2016. Admission Reason for Admission: Abdominal pain/Diarrhea/Vomiting Discharge Discharge Diagnosis / Problem: Gastroenteritis, RUE cellulitis, Left renal lesion, Elevated glucose Discharge Goals Goal(s): Decrease discomfort, Improve function, Increase independence, Improve disease control Activity Recommendations Activity Limitations: resume your previous activity (as tolerated) . Instructions / Follow-Up Instructions / Follow-Up Follow up with your Primary care provider Dr. Henderson on 01/05 @ 11:15 am Complete abx course Current Hospital Diet Patient's current hospital diet: Regular Diet Discharge Diet Recommended Diet: Regular Diet Pending Studies Studies pending at discharge: no Laboratory Results Hemoglobin A1c Test 12/28/16 23:19 Range/Units Estimated Average Glucose 120 mg/dl Hemoglobin A1c 5.8 H 4.5-5.6 % Medical Emergencies . Who to Call and When: Medical Emergencies: If at any time you feel your situation is an emergency, please call 911 immediately. . Non-Emergent Contact Non-Emergency issues call your: Primary Care Provider Call Non-Emergent contact if: you have a fever, you have any medication questions . . "Provider Documentation" section prepared by Kael Cheung. . VTE Core Measure Inpt VTE Proph given/why not?: Enoxaparin (Lovenox)SQ
[2016-12-30 14:17] VITALS: BP 149/83; PULSE 74; TEMP 37; O2SAT 94
--- NOTE | 2017-01-02 19:55 | Discharge Summary ---
Discharge Summary Date of Service Jan 02, 2017. Discharge Summary Admission Date: Dec 29, 2016 at 02:20 Discharge Date: Dec 30, 2016 Discharge Disposition: Home Principal Diagnosis: Gastroenteritis Secondary Diagnoses/Problems: Gastroenteritis RUE cellulitis Left renal lesion Elevated glucose Leukocytosis Obesity Hx of Right breast CA Procedures: CT SCAN OF THE ABDOMEN AND PELVIS WITH IV CONTRAST CLINICAL HISTORY: Epigastric abdominal pain. COMPARISON STUDY: No priors. TECHNIQUE: Following the IV administration of 116 cc of Optiray 320, CT scan of the abdomen and pelvis is performed from the lung bases to the proximal femora. Images are reviewed in the axial, sagittal, and coronal planes. IV contrast was administered without complication. Automated dose control exposure was utilized. CT DOSE: 749.54 mGy.cm FINDINGS: Lung bases: The heart is normal in size and without pericardial effusion. The lung bases are clear noting dependent atelectasis. There is a small hiatal hernia. Liver: The contrast-enhanced liver is top normal in size and demonstrates diffusely diminished attenuation consistent with hepatic steatosis. There is no intrahepatic biliary ductal dilatation. The hepatic veins and portal veins are patent. Gallbladder: Unremarkable. Spleen: Normal in size and attenuation. Pancreas: Moderately atrophic. Adrenal glands: Unremarkable. Kidneys: The contrast enhanced kidneys demonstrate cortical atrophy and are without hydronephrosis. The kidneys enhance symmetrically. There is a 4.8 x 3.5 x 2.8 cm low-attenuation lesion arising exophytically from the lower pole of the left kidney. This contains internal septations which contain thick/coarse calcifications and this does not meet criteria for simple cyst. A subcentimeter cortical hypodensity in the upper pole of left kidney likely represents a cyst but is too small for definitive characterization. Abdominal vasculature: The abdominal aorta is normal in course and caliber noting moderate atherosclerotic calcification. Bowel: The small bowel and colon are normal in course and caliber. There are scattered colonic diverticula without CT evidence of acute diverticulitis. The appendix is well-visualized and normal. Peritoneum: There is no intraperitoneal free air or abdominal ascites. There is a fat-containing umbilical hernia. Lymphadenopathy: None. Pelvic viscera: The bladder is normal as visualized. The uterus is enlarged and contains numerous calcified fibroids. No adnexal lesion is seen. Skeletal structures: The skeletal structures are osteopenic. There is moderate lumbosacral spondylosis. No lytic or blastic lesions are seen. IMPRESSION: 1. There are no acute infectious or inflammatory findings in the abdomen or pelvis. 2. There is a 4.8 cm low-attenuation lesion rising the lower pole of left kidney. This contains thick internal calcifications, small septations, and does not meet CT criteria for simple cysts. The appearance is highly concerning for renal neoplasm. Nonemergent follow-up with urology is recommended. 3. Hepatic steatosis. 4. Enlarged fibroid uterus. 5. Additional findings as above. Electronically signed by: Frank Pimentel M.D. 12/29/2016 8:00 AM Dictated Date/Time: 12/29/2016 7:51 AM [~ rep ct add3]] ULTRASOUND RIGHT UPPER EXTREMITY VENOUS CLINICAL HISTORY: Right arm swelling. COMPARISON STUDY: No priors. TECHNIQUE: Real-time, grayscale, and color Doppler sonography of the deep veins of the right upper extremity is performed. Compression and augmentation were utilized. FINDINGS: There is no sonographic evidence of deep venous thrombosis identified in the right upper extremity. The right internal jugular, axillary, and brachial veins are patent and normally compressible. Normal venous waveforms and augmentation are seen within the right subclavian vein. The cephalic and basilic veins are clear. The visualized radial and ulnar veins are patent. IMPRESSION: There is no sonographic evidence of deep venous thrombosis identified in the right upper extremity. Electronically signed by: Frank Pimentel M.D. 12/29/2016 6:47 AM Dictated Date/Time: 12/29/2016 6:47 AM Medication Reconciliation New Medications: Doxycycline Hyclate (Doxycycline Hyclate) 100 Mg Cap 100 MG PO BID for 6 Days, #12 CAP Continued Medications: Cholecalciferol (Vitamin D3) 2,000 Unit Tab 2000 INTER.UNIT PO DAILY for 90 Days, TAB 3 Refills Ibuprofen (Motrin) 600 Mg Tab 200-600 MG PO DIRECTED PRN for Pain or Fever, #15 TAB Admission Information HPI (per Admitting provider): 2 days history of achy abdominal pain with nausea, emesis, diarrhea symptoms. No chest pain, no shortness of breath. Right upper extremity swelling more than usual which patient attributes to making some shish kebab. Patient denies dysuria symptoms. At the ER patient received IV vancomycin and cefazolin for possible sepsis. Physical Exam (per Admitting): General Appearance: + obese, + pertinent finding (pleasant) Head: normocephalic Eyes: normal inspection ENT: normal ENT inspection Neck: + pertinent finding (short) Respiratory/Chest: + decreased breath sounds Cardiovascular: + tachycardia Abdomen/GI: soft Extremities/Musculoskelatal: + pertinent finding (tender right upper extremity swelling) Neurologic/Psych: alert, oriented x 3 Skin: normal color Hospital Course Abdominal pain/Diarrhea/Vomiting Possible related to viral gastroenteritis Doubt about C-diff because pt said that the stool is soft No episode of diarrhea so far today CT abdomen showed no acute infectious or inflammatory findings in the abdomen or pelvis. Was started on Flagyl for Cdiff Stool sample has not been collected since pt has not had any diarrhea Flagyl was discontinued continue zofran and tramadol for pain Tolerated to regular diet D/C IVF Resolved Right upper extremities swelling/erythema Possible related to cellulitis vs lymphedema from s/p breast ca U/S RUE negative for DVT Continue doxycycline WBC trending down to normal monitor CBC Left renal lesion Continue monitor as an outpatient Leukocytosis Possible related to RUE cellulitis vs gastroenteritis WBC on admission 23K WBC today 1oK afebrile Stable Hx Right breast ca Stable Elevated glucose Hba1c 5.8 Counseling on limited concentrated sugar intake Obesity BMI 34.5 Counseling on diet and exercise DVT Px on Lovenox subq CODE status Full code Disposition Discharge home today Follow up with your primary care provider Dr. Henderson on 01/05/17 @ 11:15 am Total time spent on discharge = 35 minutes This includes examination of the patient, discharge planning, medication reconciliation, and communication with other providers. Discharge Instructions Discharge Instructions Date of Service Dec 30, 2016. Admission Reason for Admission: Abdominal pain/Diarrhea/Vomiting Discharge Discharge Diagnosis / Problem: Gastroenteritis, RUE cellulitis, Left renal lesion, Elevated glucose Discharge Goals Goal(s): Decrease discomfort, Improve function, Increase independence, Improve disease control Activity Recommendations Activity Limitations: resume your previous activity (as tolerated) . Instructions / Follow-Up Instructions / Follow-Up Follow up with your Primary care provider Dr. Henderson on 01/05 @ 11:15 am Complete abx course Current Hospital Diet Patient's current hospital diet: Regular Diet Discharge Diet Recommended Diet: Regular Diet Pending Studies Studies pending at discharge: no Laboratory Results Hemoglobin A1c Test 12/28/16 23:19 Range/Units Estimated Average Glucose 120 mg/dl Hemoglobin A1c 5.8 H 4.5-5.6 % Medical Emergencies . Who to Call and When: Medical Emergencies: If at any time you feel your situation is an emergency, please call 911 immediately. . Non-Emergent Contact Non-Emergency issues call your: Primary Care Provider Call Non-Emergent contact if: you have a fever, you have any medication questions . . "Provider Documentation" section prepared by Kael Cheung. . VTE Core Measure Inpt VTE Proph given/why not?: Enoxaparin (Lovenox)SQ Additional Copies To Maureen Henderson D.O.
== END 2016-12-30 15:01 | disposition home or self-care (01) | DRG 603 ==
LOC: C.EDB 22:13 → MERGE 12-29 02:20 → EEVIPCON 12-29 02:20 → C.MS2W 12-29 02:20 → ENRESERV 12-29 02:28
PROVIDERS: ADMIT Emergency Medicine; ATTEND Internal Medicine
DX: L03.113 Cellulitis of right upper limb (principal); A08.4 Viral intestinal infection, unspecified; N61.0 Mastitis without abscess; Z85.3 Personal history of malignant neoplasm of breast; N28.9 Disorder of kidney and ureter, unspecified; E66.9 Obesity, unspecified; Z68.34 Body mass index [BMI] 34.0-34.9, adult

== ENCOUNTER 2021-06-24 15:58 | Inpatient (IN) ==
[2021-06-24] MEDS ORDERED: ONDANSETRON INJ 2 MG/ML 2 ML VIAL IV STA (16:56)
[2021-06-24] MEDS ORDERED: VANCOMYCIN HCL 1,250 MG in SODIUM CHLORIDE 0.9% 500 ML IV ONE (16:56)
[2021-06-24] MEDS ORDERED: VANCOMYCIN CONSULT ACTIVE PRN (16:56)
[2021-06-24] MEDS ORDERED: CEFEPIME 2,000 MG/20 ML VIAL IV STA (16:56)
[2021-06-24] MEDS ORDERED: SODIUM CHLORIDE 0.9% 500 ML IV SCH (17:00)
[2021-06-24] MEDS ORDERED: SODIUM CHLORIDE 0.9% 1000ML 1,000 ML IV SCH (17:00)
[2021-06-24 17:13] LABS: Basophils # (auto) 0.01 K/uL (0-0.2); Basophils % (auto) 0.1 %; Eosinophils # (auto) 0.01 K/uL (0-0.5); Eosinophils % (auto) 0.1 %; Hematocrit (blood only) 42.8 % (37-47); Hemoglobin 13.6 g/dL (12.0-16.0); Immature Granulocytes # (auto) 0.04 K/uL (0.00-0.02); Immature Granulocytes % (auto) 0.2 %; Lymphocytes # (auto) 0.66 K/uL (1.2-3.4); Lymphocytes % (auto) 3.9 %; Mean Corpuscular Hemoglobin 26.8 pg (25-34); Mean Corpuscular Hgb Conc 31.8 g/dL (32-36); Mean Corpuscular Volume 84.4 fL (80-100); Mean Platelet Volume 10.9 fL (7.4-10.4); Monocytes # (auto) 0.43 K/uL (0.11-0.59); Monocytes % (auto) 2.5 %; Neutrophils # (auto) 15.94 K/uL (1.4-6.5); Neutrophils % (auto) 93.2 %; Platelet Count 212 K/uL (130-400); RDW Standard Deviation 49.6 fL (36.4-46.3); Red Blood Count 5.07 M/uL (4.2-5.4); White Blood Count 17.09 K/uL (4.8-10.8)
--- NOTE | 2021-06-24 17:26 | XRay Report ---
XR chest 1V portable CLINICAL HISTORY: weakness COMPARISON STUDY: Chest radiograph January 10, 2019. FINDINGS: Lung volumes are diminished. There are probable bibasilar opacities. There is no pneumothor ax or pleural effusion. Cardiomediastinal silhouette is stable. There is no evidence for pulmonary ed lucy. Mild right hilar fullness is noted. IMPRESSION: 1. Suspected bibasilar opacities which may reflect an infectious process. Atelectasis could appear si milar although is considered less likely. Radiographic follow-up is recommended. 2. Right hilar fullness. This is likely due to pulmonary vessels however can be assessed on follow-up chest radiographs. ACT 112: Negative or not required by law. Electronically signed by: Luc Salvador M.D. 06/24/2021 5:25 PM
[2021-06-24 17:40] LABS: Alanine Aminotransferase 36 (12-78); Albumin Level 3.6 gm/dl (3.4-5.0); Aspartate Aminotransferase 32 U/L (15-37); BUN Creatinine Ratio 26.5 (10-20); Blood Urea Nitrogen 19 mg/dl (7-18); Calcium 9.5 mg/dl (8.5-10.1); Carbon Dioxide 25 mmol/L (21-32); Chloride 106 mmol/L (98-107); Creatinine Clr Calc Pharmacy 56.7 ml/min; Est GFR (African American) 92.3 ml/min; Est GFR (Non-African American) 79.7 ml/min; Glucose 136 mg/dl (70-99); Magnesium 2.1 mg/dl (1.8-2.4); Potassium 4.3 mmol/L (3.5-5.1); Sodium 138 mmol/L (136-145)
[2021-06-24 17:52] LABS: Albumin Globulin Ratio 0.8 (0.9-2); Alkaline Phosphatase 82 U/L (45-117); Bilirubin,Total 0.7 mg/dl (0.2-1); Globulin 4.7 gm/dl (2.5-4.0); Total Protein 8.3 gm/dl (6.4-8.2); Troponin I < 0.015 ng/ml (0-0.045)
--- NOTE | 2021-06-24 18:21 | Emergency Department Note ---
Impression & Plan Cellulitis of right breast, Alejandrina Gehrig disease, History of breast cancer, Sinus tachycardia, Leukocytosis ED Provider Note CHIEF COMPLAINT: Right breast pain HISTORY OF PRESENT ILLNESS: This 81-year-old female patient presents to the emergency department with complaints of right breast pain and burning. 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 She does live at home by herself and cares for her own needs however. Patient has close friends, but she does see daily but does not live with. According to the friend Dunia, the patient comes to their home daily " to get out" and states that she does not have any caregivers. The patient called her early this morning and stated that she was having 2 days of increasing right breast burning. Patient does have a history of breast cancer in the right breast. She does have a history of partial mastectomy but denies ever having radiation to this breast. She denies any recent injuries, open wounds or drainage. Patient is able to answer most questions appropriately with verbal cues. Friend Dunia states pt's primary language is Ecuadorean however she is able to understand most Arabic. REVIEW OF SYSTEMS: A review of systems was performed with positives and pertinent negatives listed in the history of present illness. 10 systems were reviewed and are otherwise negative. ALLERGIES: see below MEDICATIONS: see below PMH: see below SOCIAL HISTORY: see below DDx: Cellulitis, abscess, MRSA infection, necrotizing fasciitis, dermatitis, drug eruption, allergic reaction, as well as other pathologies. PHYSICAL EXAM: Vital signs reviewed. General: Well-appearing 81-year-old female, in no significant distress. HEENT: No scleral icterus, PERRLA, neck supple. Atraumatic. Cardiovascular: Regular rate and rhythm, no extra sounds. Pulmonary: Clear to auscultation bilaterally, normal work of breathing. On nasal cannula oxygen Abdomen: Soft, nontender, nondistended, positive bowel sounds. Musculoskeletal: Atraumatic, no peripheral edema. Neurologic: Patient awake alert and answers questions with verbal ques, nods appropriately. non-verbal at baseline. Skin: Warm, dry, erythematous and painful indurated right breast with blotchy rash spreading around to the back. No vesicular lesions or open wounds. Area is warm. EMERGENCY DEPARTMENT COURSE/MDM: Patient was evaluated and appeared to be in no significant distress. IV access was obtained and laboratory work was drawn. The patient was placed on a monitor car operator and noted to be in a normal sinus rhythm. Hydrated with normal saline solution, laboratory work including blood cultures and lactate were drawn. Patient is noted to have a leukocytosis. She was medicated with IV vancomycin and IV cefepime. I did speak with the patient's closest family member Dnuia who stated she is "not anointed a caregiver" and reiterated that the patient will likely need services if she becomes dependent. Case was discussed with the hospitalist service who evaluated the patient for admission and further management. MONITORING: An order for cardiac monitoring was placed and the patient is noted to be in a NSR at 100 beats per minute. EKG: Sinus tachycardia at 118 bpm. No PVCs, no PACs. Poor quality baseline for interpretation, normal QT interval. Normal axis. Nonspecific T wave abnormality DISPOSITION: Admission Past Med/Surg History Medical History History of breast cancer Alejandrina Gehrig disease Osteoarthritis Renal mass "PET scan 05/14/2010- partially calcified left renal lower pole 30x36 mm mass. PET scan 09/27/13 showed stable partially calcified mass lower pole L kidney." Uterine leiomyoma Surgical History History of carpal tunnel release History of partial mastectomy of right breast (04/14/10) Family History Mother Diabetes Other Heart disease Social History Smoking Status: Never smoker Second Hand Exposure: No; Hx Alcohol Use: No Hx Substance Use: No Preferred Language: Ecuadorean Communication Ability: Impaired Communication Tools: Other Crime Laboratory Analyst Required: Yes Beliefs That Will Affect Care: None marital status: Single Current Living Situation: Alone Feels Safe at Home: Yes Assistive Devices: Denture - Lower and Glasses Allergies Allergies Allergy/AdvReac Type Severity Reaction Status Date / Time No Known Drug Allergies Allergy Verified 03/14/19 07:51 Home Meds Home Medications Medication Instructions Recorded Confirmed acetaminophen 650 mg tablet 650 mg PO Q8H PRN 06/24/21 06/24/21 aspirin 81 mg capsule 81 mg PO MOFR@0900 06/24/21 06/24/21 cholecalciferol (vitamin D3) 25 25 mcg PO DAILY 06/24/21 06/24/21 mcg (1,000 unit) tablet food supplemt, lactose-reduced 1 ea PO DAILY 06/24/21 06/24/21 (Ensure High Protein) naproxen sodium 220 mg capsule 220 mg PO DAILY PRN 06/24/21 06/24/21 riluzole 50 mg tablet 50 mg PO BID 06/24/21 06/24/21 rosuvastatin 5 mg tablet 5 mg PO MOFR@0900 06/24/21 06/24/21 Previous Rx's Medication Instructions Recorded amoxicillin 875 mg-potassium 1 tab PO BID 8 Days #16 tab 06/27/21 clavulanate 125 mg tablet (Augmentin) Results & Data (ED) Vital Signs Vital Signs - 24 hr 06/24/21 15:51 06/24/21 16:11 06/24/21 16:57 Temperature 36.9 C 36.9 C Temperature Source Oral Oral Pulse Rate 105 H 99 H Pulse Rate [Apical] 105 H Pulse Rhythm Regular Pulse Strength Normal Respiratory Rate 18 18 14 Respiratory Effort / Characteristics Non-Labored Spontaneous Respiratory Depth Normal Normal Blood Pressure 162/114 H Blood Pressure [Right Arm] 162/114 H Blood Pressure Mean 130 Blood Pressure Mean [Right Arm] 130 Pulse Oximetry 89 L 95 94 Oxygen Delivery Method Room Air Nasal Cannula Nasal Cannula Oxygen Flow Rate 2 2 Sepsis Recent Fever Within 48 Hours No Sepsis New/Unexplained Change in Mental Status N/A Sepsis Action Taken by Nursing No Action Required 06/24/21 18:11 Temperature Temperature Source Pulse Rate Pulse Rate [Apical] 100 H Pulse Rhythm Pulse Strength Respiratory Rate 18 Respiratory Effort / Characteristics Respiratory Depth Blood Pressure Blood Pressure [Right Arm] 169/94 H Blood Pressure Mean Blood Pressure Mean [Right Arm] 119 Pulse Oximetry 95 Oxygen Delivery Method Nasal Cannula Oxygen Flow Rate 2 Sepsis Recent Fever Within 48 Hours Sepsis New/Unexplained Change in Mental Status Sepsis Action Taken by Alf Medications Current Medication List: was personally reviewed by me Laboratory Data Attestation: I reviewed the patient's lab results. Result diagrams: 06/27/21 07:33 06/27/21 07:33 Lab Results 06/24/21 06/24/21 06/24/21 Range/Units 16:20 16:20 16:20 WBC 17.09 H (4.8-10.8) K/uL RBC 5.07 (4.2-5.4) M/uL Hgb 13.6 (12.0-16.0) g/dL Hct 42.8 (37-47) % MCV 84.4 (80-100) fL MCH 26.8 (25-34) pg MCHC 31.8 L (32-36) g/dL RDW Std Deviation 49.6 H (36.4-46.3) fL RDW Coeff of Jazmin 16.0 H (11.5-14.5) % Plt Count 212 (130-400) K/uL MPV 10.9 H (7.4-10.4) fL Immature Gran % (Auto) 0.2 % Neut % (Auto) 93.2 % Lymph % (Auto) 3.9 % Early % (Auto) 2.5 % Eos % (Auto) 0.1 % Baso % (Auto) 0.1 % Neut # (Auto) 15.94 H (1.4-6.5) K/uL Lymph # (Auto) 0.66 L (1.2-3.4) K/uL Early # (Auto) 0.43 (0.11-0.59) K/uL Eos # (Auto) 0.01 (0-0.5) K/uL Baso # (Auto) 0.01 (0-0.2) K/uL Immature Gran # (Auto) 0.04 H (0.00-0.02) K/uL Sodium 138 (136-145) mmol/L Potassium 4.3 (3.5-5.1) mmol/L Chloride 106 (98-107) mmol/L Carbon Dioxide 25 (21-32) mmol/L Anion Gap 7.0 (3-11) BUN 19 H (7-18) mg/dl Creatinine 0.72 (0.6-1.2) mg/dl Est Cr Clr Drug Dosing 56.7 ml/min Est GFR ( Amer) 92.3 ml/min Est GFR (Non-Af Amer) 79.7 ml/min BUN/Creatinine Ratio 26.5 H (10-20) Glucose 136 H (70-99) mg/dl Lactate (0.4-2.0) mmol/L Calcium 9.5 (8.5-10.1) mg/dl Magnesium 2.1 (1.8-2.4) mg/dl Total Bilirubin 0.7 (0.2-1) mg/dl AST 32 (15-37) U/L ALT 36 (12-78) Alkaline Phosphatase 82 (45-117) U/L Troponin I < 0.015 (0-0.045) ng/ml Total Protein 8.3 H (6.4-8.2) gm/dl Albumin 3.6 (3.4-5.0) gm/dl Globulin 4.7 H (2.5-4.0) gm/dl Albumin/Globulin Ratio 0.8 L (0.9-2) Procalcitonin 0.24 (0-0.5) ng/ml TSH 1.420 (0.300-4.500) uIu/ml Specimen Hemolysis SARS-CoV-2 (PCR) (Negative) Influenza Type A (PCR) (Neg) Influenza Type B (PCR) (Neg) RSV (RT-PCR) (Neg) 06/24/21 06/24/21 Range/Units 16:53 17:37 WBC (4.8-10.8) K/uL RBC (4.2-5.4) M/uL Hgb (12.0-16.0) g/dL Hct (37-47) % MCV (80-100) fL MCH (25-34) pg MCHC (32-36) g/dL RDW Std Deviation (36.4-46.3) fL RDW Coeff of Jazmin (11.5-14.5) % Plt Count (130-400) K/uL MPV (7.4-10.4) fL Immature Gran % (Auto) % Neut % (Auto) % Lymph % (Auto) % Early % (Auto) % Eos % (Auto) % Baso % (Auto) % Neut # (Auto) (1.4-6.5) K/uL Lymph # (Auto) (1.2-3.4) K/uL Early # (Auto) (0.11-0.59) K/uL Eos # (Auto) (0-0.5) K/uL Baso # (Auto) (0-0.2) K/uL Immature Gran # (Auto) (0.00-0.02) K/uL Sodium (136-145) mmol/L Potassium (3.5-5.1) mmol/L Chloride (98-107) mmol/L Carbon Dioxide (21-32) mmol/L Anion Gap (3-11) BUN (7-18) mg/dl Creatinine (0.6-1.2) mg/dl Est Cr Clr Drug Dosing ml/min Est GFR ( Amer) ml/min Est GFR (Non-Af Amer) ml/min BUN/Creatinine Ratio (10-20) Glucose (70-99) mg/dl Lactate 0.7 (0.4-2.0) mmol/L Calcium (8.5-10.1) mg/dl Magnesium (1.8-2.4) mg/dl Total Bilirubin (0.2-1) mg/dl AST (15-37) U/L ALT (12-78) Alkaline Phosphatase (45-117) U/L Troponin I (0-0.045) ng/ml Total Protein (6.4-8.2) gm/dl Albumin (3.4-5.0) gm/dl Globulin (2.5-4.0) gm/dl Albumin/Globulin Ratio (0.9-2) Procalcitonin (0-0.5) ng/ml TSH (0.300-4.500) uIu/ml Specimen Hemolysis SARS-CoV-2 (PCR) NEGATIVE (Negative) Influenza Type A (PCR) Negative (Neg) Influenza Type B (PCR) Negative (Neg) RSV (RT-PCR) Negative (Neg) Administered Medications Discontinued Medications Acetaminophen (Acetaminophen 500 Mg Tab) 1,000 mg PO NOW STA Stop: 06/24/21 18:58 Last Admin: 06/24/21 19:36 Dose: Not Given Documented by: [id number] Acetaminophen (Acetaminophen 325 Mg Tab) 650 mg PO Q4H PRN PRN Reason: Pain or Fever Stop: 07/24/21 22:21 Last Admin: 06/25/21 01:36 Dose: 650 mg Documented by: [id number] Al Hydrox/Mg Hydrox/Simethicone (Gi Cocktail Ed Use) Confirm Administered Dose 1 dose PO .STK-MED ONE Stop: 06/24/21 19:40 Last Admin: 06/24/21 19:59 Dose: 1 dose Documented by: [id number] Al Hydrox/Mg Hydrox/Simethicone (Aluminum/Magnesium/Simeth (Maalox Max) 30 Ml Udc) 30 ml PO NOW STA Stop: 06/25/21 00:41 Last Admin: 06/25/21 01:38 Dose: Not Given Documented by: [id number] Aspirin (Aspirin 81 Mg Ectab) 81 mg PO MOFR@0900 [facility] Stop: 07/27/21 08:59 Last Admin: 06/27/21 08:09 Dose: 81 mg Documented by: [id number] Enoxaparin Sodium (Enoxaparin Inj 40 Mg/0.4 Ml Syr) 40 mg SQ HS [facility] Stop: 07/24/21 22:59 Last Admin: 06/26/21 20:05 Dose: 40 mg Documented by: [id number] Admin: 06/25/21 21:05 Dose: 40 mg Documented by: [id number] Admin: 06/25/21 01:34 Dose: 40 mg Documented by: [id number] Sodium Chloride (Nss) 500 mls @ 999 mls/hr IV .Q31M [facility] Stop: 06/24/21 17:30 Last Infusion: 06/24/21 18:14 Dose: 0 mls/hr Documented by: [id number] Admin: 06/24/21 17:00 Dose: 999 mls/hr Documented by: [id number] Sodium Chloride (Nss 1000ml) 1,000 mls @ 150 mls/hr IV .Q6H40M [facility] Stop: 06/24/21 23:39 Last Infusion: 06/25/21 00:10 Dose: 0 mls/hr Documented by: [id number] Admin: 06/24/21 19:58 Dose: 150 mls/hr Documented by: [id number] Vancomycin HCl 1,250 mg/ (Sodium Chloride) 525 mls @ 200 mls/hr IV NOW ONE Stop: 06/24/21 19:33 Last Infusion: 06/24/21 22:02 Dose: 0 mls/hr Documented by: [id number] Admin: 06/24/21 18:07 Dose: 200 mls/hr Documented by: [id number] Cefepime HCl (Maxipime) 2,000 mg in 20 mls @ 5 mls/min IV NOW STA; Protocol Stop: 06/24/21 16:59 Last Admin: 06/24/21 17:50 Dose: 5 mls/min Documented by: [id number] Piperacillin Sod/Tazobactam (Sod 3.375 gm/ Dextrose) 115 mls @ 230 mls/hr IV NOW ONE; Protocol Stop: 06/24/21 23:29 Last Infusion: 06/25/21 02:07 Dose: 0 mls/hr Documented by: [id number] Admin: 06/25/21 01:35 Dose: 230 mls/hr Documented by: [id number] Piperacillin Sod/Tazobactam (Sod 3.375 gm/ Dextrose) 115 mls @ 28.75 mls/hr IV Q8H MELITA; Protocol Stop: 07/02/21 05:59 Last Infusion: 06/25/21 17:05 Dose: 0 mls/hr Documented by: [id number] Admin: 06/25/21 13:26 Dose: 28.8 mls/hr Documented by: [id number] Infusion: 06/25/21 09:07 Dose: 0 mls/hr Documented by: [id number] Admin: 06/25/21 05:59 Dose: 28.8 mls/hr Documented by: [id number] Promethazine HCl 12.5 mg/ (Sodium Chloride) 50.5 mls @ 202 mls/hr IV NOW STA Stop: 06/25/21 00:54 Last Infusion: 06/25/21 01:37 Dose: 0 mls/hr Documented by: [id number] Admin: 06/25/21 00:59 Dose: 202 mls/hr Documented by: [id number] Famotidine 20 mg/ Syringe 5 mls @ 2.5 mls/min IV BID MELITA Stop: 07/25/21 00:44 Last Admin: 06/27/21 08:14 Dose: 2.5 mls/min Documented by: [id number] Admin: 06/26/21 20:05 Dose: 2.5 mls/min Documented by: [id number] Admin: 06/26/21 08:49 Dose: 2.5 mls/min Documented by: [id number] Admin: 06/25/21 21:05 Dose: 2.5 mls/min Documented by: [id number] Admin: 06/25/21 07:40 Dose: 2.5 mls/min Documented by: [id number] Admin: 06/25/21 00:59 Dose: 2.5 mls/min Documented by: [id number] Vancomycin HCl 750 mg/ Sodium (Chloride) 265 mls @ 200 mls/hr IV Q12H MELITA Stop: 07/02/21 05:59 Last Infusion: 06/25/21 07:22 Dose: 0 mls/hr Documented by: [id number] Admin: 06/25/21 05:59 Dose: 200 mls/hr Documented by: [id number] Ampicillin Sodium/Sulbactam Sodium 3,000 mg/ Sodium Chloride 108 mls @ 200 mls/hr IV Q6H MELITA; Protocol Stop: 07/02/21 19:59 Last Infusion: 06/27/21 14:21 Dose: 0 mls/hr Documented by: [id number] Admin: 06/27/21 13:37 Dose: 200 mls/hr Documented by: [id number] Infusion: 06/27/21 09:13 Dose: 0 mls/hr Documented by: [id number] Admin: 06/27/21 08:14 Dose: 200 mls/hr Documented by: [id number] Infusion: 06/27/21 02:03 Dose: 0 mls/hr Documented by: [id number] Admin: 06/27/21 01:27 Dose: 200 mls/hr Documented by: [id number] Infusion: 06/26/21 20:08 Dose: 0 mls/hr Documented by: [id number] Admin: 06/26/21 19:34 Dose: 200 mls/hr Documented by: [id number] Infusion: 06/26/21 15:11 Dose: 0 mls/hr Documented by: [id number] Admin: 06/26/21 14:31 Dose: 200 mls/hr Documented by: [id number] Infusion: 06/26/21 09:33 Dose: 0 mls/hr Documented by: [id number] Admin: 06/26/21 08:49 Dose: 200 mls/hr Documented by: [id number] Infusion: 06/26/21 02:10 Dose: 0 mls/hr Documented by: [id number] Admin: 06/26/21 01:37 Dose: 200 mls/hr Documented by: [id number] Infusion: 06/25/21 23:08 Dose: 0 mls/hr Documented by: [id number] Admin: 06/25/21 22:24 Dose: 200 mls/hr Documented by: [id number] Miscellaneous (Riluzole~Order Awaiting Action) 1 ea N/A QS MELITA Stop: 07/24/21 22:59 Last Admin: 06/27/21 14:38 Dose: Not Given Documented by: [id number] Admin: 06/27/21 08:09 Dose: Not Given Documented by: [id number] Admin: 06/26/21 23:00 Dose: Not Given Documented by: [id number] Admin: 06/26/21 17:18 Dose: Not Given Documented by: [id number] Admin: 06/26/21 08:49 Dose: Not Given Documented by: [id number] Admin: 06/25/21 23:45 Dose: Not Given Documented by: [id number] Admin: 06/25/21 13:26 Dose: Not Given Documented by: [id number] Admin: 06/25/21 07:54 Dose: Not Given Documented by: [id number] Admin: 06/25/21 01:36 Dose: Not Given Documented by: [id number] Admin: 06/25/21 01:36 Dose: Not Given Documented by: [id number] Miscellaneous Information (Consult Pharmacy) 1 ea N/A NOW STA Stop: 06/24/21 20:13 Last Admin: 06/25/21 01:36 Dose: Not Given Documented by: [id number] Nitroglycerin (Nitroglycerin Sl 0.4 Mg/Tab Tab) 0.4 mg SL NOW STA Stop: 06/24/21 20:03 Last Admin: 06/24/21 20:20 Dose: 0.4 mg Documented by: [id number] Ondansetron HCl (Ondansetron Inj 2 Mg/Ml 2 Ml Vial) 4 mg IV NOW STA Stop: 06/24/21 16:57 Last Admin: 06/24/21 17:50 Dose: 4 mg Documented by: [id number] Ondansetron HCl (Ondansetron Inj 2 Mg/Ml 2 Ml Vial) 4 mg IV Q6H PRN PRN Reason: Nausea Stop: 07/24/21 20:02 Last Admin: 06/24/21 20:23 Dose: 4 mg Documented by: [id number] Potassium Chloride (Potassium Chloride 20 Meq/15 Ml Udc) 40 meq PO NOW STA Stop: 06/26/21 09:44 Last Admin: 06/26/21 10:43 Dose: 40 meq Documented by: [id number] Rosuvastatin Calcium (Rosuvastatin Calcium 5 Mg Tab) 5 mg PO MOFR@0900 [facility] Stop: 07/27/21 08:59 Last Admin: 06/27/21 08:09 Dose: 5 mg Documented by: [id number] Vitamin D (Cholecalciferol 1,000 Units 25 Mcg Tab) 1,000 units PO DAILY MELITA Stop: 07/25/21 08:59 Last Admin: 06/27/21 08:09 Dose: 1,000 units Documented by: [id number] Admin: 06/26/21 08:49 Dose: 1,000 units Documented by: [id number] Admin: 06/25/21 09:03 Dose: 1,000 units Documented by: [id number] Imaging Data Radiologist's Impression: Chest X-Ray 06/24/21 16:57 XR chest 1V portable CLINICAL HISTORY: weakness COMPARISON STUDY: Chest radiograph January 10, 2019. FINDINGS: Lung volumes are diminished. There are probable bibasilar opacities. There is no pneumothorax or pleural effusion. Cardiomediastinal silhouette is stable. There is no evidence for pulmonary edema. Mild right hilar fullness is noted. IMPRESSION: 1. Suspected bibasilar opacities which may reflect an infectious process. Atelectasis could appear similar although is considered less likely. Radiographic follow-up is recommended. 2. Right hilar fullness. This is likely due to pulmonary vessels however can be assessed on follow-up chest radiographs. ACT 112: Negative or not required by law. Electronically signed by: Luc Salvador M.D. 06/24/2021 5:25 PM Blood Pressure Blood Pressure Findings: Elevated blood pressure Blood Pressure Disposition: further management by hospitalist Discharge Plan Visit Data Chief Complaint: Illness Stated Complaint: Illness ED Provider: Viridiana Correa Discharge Problem: Cellulitis of right breast, Alejandrina Gehrig disease, History of breast cancer, Sinus tachycardia, Leukocytosis Patient Disposition: Admitted As Inpatient Discharge Instructions Interventions: ED Discharge Assessment Last Done: 06/24/21 22:08
--- NOTE | 2021-06-24 18:59 | History & Physical Report ---
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 Afebrile, WBC 17.09, lactate wnl Cellulitis of R breast extending to back and R arm Started on empiric cefepime and vanco - will transition to zosyn/vanc to cover for possible aspiration pna in setting of dysphagia 2/2 ALS Follow blood culture (2) History of breast cancer: Plan: Remote history of right-sided breast cancer approximately 10 years ago and is status post partial mastectomy. Denies any previous radiation (3) Alejandrina Gehrig disease: Plan: Lives alone and completes ADLs but admits to needing more help. Essentially non- verbal, communicates by nodding yes/no. Eats pureed foods only and crushes pills in jello or applesauce Follows with Dr. Salmon Continue Riluzole BID Fall, aspiration precautions PT/OT evaluations for services, possible placement (4) Sinus tachycardia: Plan: HR 100-120 in setting of infection Initial troponin negative Difficult to elicit history from but endorsing epigastric pain - given ntg without improvement, refused GI cocktail Repeat trop once more, monitor on tele, continue gentle fluids (5) Abnormal CXR: Plan: CXR with suspected bibasilar opacities which may reflect an infectious process. Atelectasis could appear similar although is considered less likely Concern for aspiration given dysphagia 2/2 ALS, on a strict pureed diet Continue zosyn to cover for possible aspiration pna DVT Ppx: SQ lovenox Code status: DNR per discussion with patient via material stockkeeper yard PCP: [facility] Dispcelia: Admitted to [facility] tele Patient seen in collaboration with Dr. Anna. Please see addendum. 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 History of ALS and is essentially nonverbal but lives alone and cares for herself. Primary language is Bangladeshi but can understand some [place]ican. History obtained with help of Bangladeshi material stockkeeper yard over ipad as well as phone call with friend, Dunia. Patient developed right breast pain that is aching over the past 2 days with associated subjective fever and chills. Noted to have redness extended to right upper arm today which she did not notice earlier. No recent insect bites or skin tears to area. Does have remote history of right-sided breast cancer approximately 10 years ago and is status post partial mastectomy. Denies any previous radiation. Denies any headache, nausea, vomiting, abdominal pain, dysuria, diarrhea or constipation. Ambulates independently but has become less steady on her own. Both patient and Dunia feel she needs more assistance. Eats pureed foods and has pills crushed in applesauce or jello. Follows with Dr. Salmon of [facility]. During interview, patient with increased heart rate. Repeat EKG showing sinus tachycardia at 117 bpm. Patient then endorsed lower chest/epigastric discomfort. Difficult to tell if pain is from cellulitis given patient is non- verbal and in distress. Given nitroglycerin sublingual tab without improvement. Patient refused GI cocktail. Initial troponin negative. Will continue to monitor closely, admitting to med tele. Allergies Allergy/AdvReac Type Severity Reaction Status Date / Time No Known Drug Allergies Allergy Verified 03/14/19 07:51 Home Medications Medication Instructions Recorded Confirmed Type acetaminophen 650 mg tablet 650 mg PO Q8H PRN 06/24/21 06/24/21 History aspirin 81 mg capsule 81 mg PO MOFR@0900 06/24/21 06/24/21 History cholecalciferol (vitamin D3) 25 25 mcg PO DAILY 06/24/21 06/24/21 History mcg (1,000 unit) tablet food supplemt, lactose-reduced 1 ea PO DAILY 06/24/21 06/24/21 History (Ensure High Protein) naproxen sodium 220 mg capsule 220 mg PO DAILY PRN 06/24/21 06/24/21 History riluzole 50 mg tablet 50 mg PO BID 06/24/21 06/24/21 History rosuvastatin 5 mg tablet 5 mg PO MOFR@0900 06/24/21 06/24/21 History Past Med/Surg History Medical History History of breast cancer Alejandrina Gehrig disease Osteoarthritis Renal mass "PET scan 05/14/2010- partially calcified left renal lower pole 30x36 mm mass. PET scan 09/27/13 showed stable partially calcified mass lower pole L kidney." Uterine leiomyoma Surgical History History of carpal tunnel release History of partial mastectomy of right breast (04/14/10) Family History Mother Diabetes Other Heart disease Social History Smoking Status: Never smoker Second Hand Exposure: No; Hx Alcohol Use: No Hx Substance Use: No Preferred Language: Bangladeshi Communication Ability: Effective Plant Engineering Manager Required: Yes Beliefs That Will Affect Care: None Current Living Situation: Alone Other Information That Helps Us Care for You: No Feels Safe at Home: Yes Safety Concerns: Feels Safe At This Time Assistive Devices: None Review of Systems Review of Systems: At least ten systems reviewed and negative except as noted in the HPI. Physical Exam Physical Exam: General Appearance: WD/WN, vitals as above, NAD, sitting up at side of bed, answers yes/no questions Head: normocephalic, atraumatic Eyes: normal inspection, PERRL, conjunctivae normal, anicteric sclerae ENT: external ear and nose normal, oropharynx normal Neck: normal visual inspection, trachea midline, no thyromegaly Respiratory: normal respiratory effort, lungs clear to auscultation, no wheeze, rales, rhonchi. No accessory muscle use Cardiovascular: tachycardic rate, rhythm, no murmur, normal peripheral pulses, no BLE edema. Vessels: no JVD Abdomen/GI: normal bowel sounds, soft, nontender, no hepatosplenomegaly Extremities/Musculoskeletal: no cyanosis or clubbing, extremities motor strength 5/5 Neurologic: PERRL, EOMI, accommodation nl, no face palsy, CN's II-XI intact bilaterally and moves all extremities Psychiatric: Alert + Oriented, non-verbal, euthymic affect Skin: warm/dry, + warm, erythematous and painful indurated right breast with blotchy rash spreading around to the back and to R upper arm. No open lesions or wounds Results & Data Results & Data ([facility]) Vital Signs (Past 12 Hours) Vital Signs Temp Pulse Pulse Resp BP BP Pulse Ox 06/24/21 18:11 100 H 18 169/94 H 95 06/24/21 16:57 99 H 14 94 06/24/21 16:11 36.9 C 105 H 18 162/114 H 95 06/24/21 15:51 36.9 C 105 H 18 162/114 H 89 L Laboratory Results Short CBC 06/24/21 Range/Units 16:20 WBC 17.09 H (4.8-10.8) K/uL Hgb 13.6 (12.0-16.0) g/dL Hct 42.8 (37-47) % Plt Count 212 (130-400) K/uL BMP 06/24/21 16:20 Sodium 138 Potassium 4.3 Chloride 106 Carbon Dioxide 25 BUN 19 H Creatinine 0.72 Glucose 136 H Calcium 9.5 Cardiac Enzymes 06/24/21 Range/Units 16:20 Troponin I < 0.015 (0-0.045) ng/ml Liver Function 06/24/21 Range/Units 16:20 Total Bilirubin 0.7 (0.2-1) mg/dl AST 32 (15-37) U/L ALT 36 (12-78) Alkaline Phosphatase 82 (45-117) U/L Albumin 3.6 (3.4-5.0) gm/dl Diagnostic Findings Chest X-Ray 06/24/21 16:57 XR chest 1V portable CLINICAL HISTORY: weakness COMPARISON STUDY: Chest radiograph January 10, 2019. FINDINGS: Lung volumes are diminished. There are probable bibasilar opacities. There is no pneumothorax or pleural effusion. Cardiomediastinal silhouette is stable. There is no evidence for pulmonary edema. Mild right hilar fullness is noted. IMPRESSION: 1. Suspected bibasilar opacities which may reflect an infectious process. Atelectasis could appear similar although is considered less likely. Radiographic follow-up is recommended. 2. Right hilar fullness. This is likely due to pulmonary vessels however can be assessed on follow-up chest radiographs. ACT 112: Negative or not required by law. Electronically signed by: Luc Salvador M.D. 06/24/2021 5:25 PM ECG Additional Comments: sinus tachycardia Code Status & VTE Plan VTE Prophylaxis Plan VTE Prophylaxis will be ordered: Yes Supervising Physician Co-Signing Physician Notes Care coordinated with Lori Mortensen PA-C. Agree with above note. Patient seen and examined. Please refer to her notes for full details. Vital signs reviewed. Physical exam: General exam: Alert and oriented. Not in acute distress. CVS: S1 and S2 heard, regular rate and rhythm, no murmurs. RS: Clear to auscultation, no wheezing or crackles. ABD: Soft, bowel sounds present, nontender, no distention. CLINICAL SERVICES SPECIALIST: Nonfocal. skin: Erythema right breast extending to right arm EXT: No edema, no erythema. Labs: Reviewed. Assessment and plan: Right breast and arm cellulitis on vanco and zosyn. Mnitor response ALS non verbal answers yes and no by showing hand or nodding. on pureed diet lives alone Friend helps her But Need more help or placement. Bangladeshi speaking but seems to understand [place]ican. For complicated questions may need to use material stockkeeper yard. Other diagnosis and plan of care as per Lori Mortensen PA-C.. Norbert navarro MD.
[2021-06-24 19:17] LABS: Influenza A virus by PCR Negative (Neg); Influenza B virus by PCR Negative (Neg); RSV by PCR Negative (Neg); SARS CoV2 RNA(COVID-19) InHosp NEGATIVE (Negative)
[2021-06-24] MEDS: ACETAMINOPHEN 500 MG TAB PO STA ×2 (19:32→19:36)
[2021-06-24] MEDS ORDERED: GI COCKTAIL ED USE PO ONE (19:39)
[2021-06-24] MEDS ORDERED: NITROGLYCERIN SL 0.4 MG/TAB TAB SL STA (20:02)
[2021-06-24] MEDS ORDERED: ONDANSETRON INJ 2 MG/ML 2 ML VIAL IV PRN (20:03)
[2021-06-24] MEDS ORDERED: CONSULT PHARMACY STA (20:12)
[2021-06-24 21:35] LABS: Appearance Urine Cloudy (Clear); Bacteria Urine Automated Negative (Negative); Bilirubin Urine Negative (Negative); Blood Urine Negative (Negative); Color Urine Yellow; Epithelial Cell Urine Auto >30 /lpf (0-5); Glucose Urine UA Negative (Negative); Ketones Urine 3+ (Negative); Leukocyte Esterase Urine Negative (Negative); Nitrite Urine Negative (Negative); Protein Urine 1+ (Negative); RBC Urine Automated 0-4 /hpf (0-4); Specific Gravity Urine 1.021 (1.000-1.030); Urobilinogen Urine Negative (Negative)
[2021-06-24] MEDS ORDERED: POLYETHYLENE (MIRALAX) 17 GM PACK PO PRN (22:22)
[2021-06-24] MEDS ORDERED: ACETAMINOPHEN 325 MG TAB PO PRN (22:22)
[2021-06-24] MEDS ORDERED: PIPERACILL/TAZOBAC CONSULT ACTIVE PRN (22:48)
[2021-06-24] MEDS ORDERED: PIPERACILLIN/TAZOBACTAM 3.375 GM in DEXTROSE 5% 100 ML IV ONE (23:00)
[2021-06-25] MEDS ORDERED: PROMETHAZINE HCL 12.5 MG in SODIUM CHLORIDE 0.9% 50 ML IV STA (00:40)
[2021-06-25] MEDS ORDERED: ALUMINUM/MAGNESIUM/SIMETH (MAALOX MAX) 30 ML UDC PO STA (00:40)
[2021-06-25] MEDS: FAMOTIDINE 20 MG in SYRINGE 3 ML IV SCH ×3 (00:59→21:05)
[2021-06-25] MEDS: ENOXAPARIN INJ 40 MG/0.4 ML SYR SQ SCH ×2 (01:34→21:05)
[2021-06-25] MEDS: PIPERACILLIN/TAZOBACTAM 3.375 GM in DEXTROSE 5% 100 ML IV SCH ×2 (05:59→13:26)
[2021-06-25] MEDS ORDERED: VANCOMYCIN HCL 750 MG in SODIUM CHLORIDE 0.9% 250 ML IV SCH (06:00)
[2021-06-25 06:03] LABS: Hematocrit (blood only) 35.6 % (37-47); Mean Corpuscular Hemoglobin 26.3 pg (25-34); Mean Corpuscular Hgb Conc 30.9 g/dL (32-36); Mean Platelet Volume 10.2 fL (7.4-10.4); Platelet Count 173 K/uL (130-400); RDW Coefficient of Variation 16.3 % (11.5-14.5); RDW Standard Deviation 50.5 fL (36.4-46.3); Red Blood Count 4.19 M/uL (4.2-5.4); White Blood Count 14.21 K/uL (4.8-10.8)
[2021-06-25 06:32] LABS: BUN Creatinine Ratio 24.3 (10-20); Calcium 8.6 mg/dl (8.5-10.1); Creatinine Clr Calc Pharmacy 59.7 ml/min; Est GFR (African American) 96.9 ml/min; Est GFR (Non-African American) 83.6 ml/min; Potassium 3.7 mmol/L (3.5-5.1)
[2021-06-25] MEDS: CHOLECALCIFEROL 1,000 UNITS 25 MCG TAB PO SCH (09:03)
--- NOTE | 2021-06-25 11:16 | Electrocardiogram Report ---
Test Reason : Blood Pressure : / mmHG Vent. Rate : 118 BPM Atrial Rate : 118 BPM P-R Int : 170 ms QRS Dur : 074 ms QT Int : 308 ms P-R-T Axes : 052 -11 046 degrees QTc Int : 431 ms Poor data quality, interpretation may be adversely affected Sinus tachycardia Nonspecific T wave abnormality Abnormal ECG When compared with ECG of 24-JUN-2021 16:29, (unconfirmed) Nonspecific T wave abnormality, worse in Lateral leads Confirmed by Eulalio Hernandez ([id number]) on 06/25/2021 11:16:13 AM Referred By: REFERRED SELF Confirmed By:Kg Hernandez
--- NOTE | 2021-06-25 11:21 | Electrocardiogram Report ---
Test Reason : Blood Pressure : / mmHG Vent. Rate : 102 BPM Atrial Rate : 102 BPM P-R Int : 138 ms QRS Dur : 080 ms QT Int : 324 ms P-R-T Axes : 078 -12 044 degrees QTc Int : 422 ms Poor data quality, interpretation may be adversely affected Sinus tachycardia Poor R wave progression, consider anterior AL vs. lead placement vs. LVH Abnormal ECG When compared with ECG of 10-JAN-2019 17:13, Vent. rate has increased BY 41 BPM Nonspecific T wave abnormality now evident in Inferior leads Nonspecific T wave abnormality now evident in Lateral leads Confirmed by Eulalio Hernandez ([id number]) on 06/25/2021 11:21:19 AM Referred By: REFERRED SELF Confirmed By:Kg Hernandez
--- NOTE | 2021-06-25 18:37 | Hospitalist Progress Note ---
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 She is being managed for the following: (1) Cellulitis of right breast: Plan: Afebrile, WBC 17.09, lactate wnl at presentation. Cellulitis of R breast extending to back and R arm/right upper chest Started on empiric cefepime and vanco 06/24-->transitioned to zosyn/vanc 06/24 to cover for possible aspiration pna in setting of dysphagia 2/2 ALS 06/25 MRSA screen negative Admitting blood culture: Pending Per patient, no pain and redness has stayed same. We will discontinue vancomycin, switch Zosyn 06/24 to Unasyn 06/25. (2) History of breast cancer: Plan: Remote history of right-sided breast cancer approximately 10 years ago and is status post partial mastectomy. Denies any previous radiation (3) Alejandrina Gehrig disease: Plan: Lives alone and completes ADLs but admits to needing more help. Essentially non- verbal, communicates by nodding yes/no. Eats pureed foods only and crushes pills in jello or applesauce Follows with Dr. Salmon Continue Riluzole BID Fall, aspiration precautions Speech evaluated: Known silent aspirator with both thin and nectar thick liquids, recommends pured foods, medication crushed and placed in a carrier. Does not recommend thickened liquids. PT/OT evaluations for services, possible placement (4) Sinus tachycardia: Plan: HR 100-120 in setting of infection Continue telemetry, troponin x2 - Resolved (5) Abnormal CXR: Plan: CXR with suspected bibasilar opacities which may reflect an infectious process. Atelectasis could appear similar although is considered less likely Concern for aspiration given dysphagia 2/2 ALS, on a strict pureed diet Continue Unasyn 06/25 to cover for possible aspiration pna DVT Ppx: SQ lovenox Code status: DNR per discussion with patient via japanese interpreter PCP: [facility] Dispo: Continue med telemetry, expect discharge in next 1 to 2 days pending improvement in her erythema. Also pending blood culture results. Admission and Anticipated Discharge Date Admission Date: June 24, 2021 Subjective Patient was sitting up in bed, on room air, NAD, no new acute events overnight. Patient can reply in" no" to questions but cannot communicate in Kittitian. ROS were negative for any pain/fever/chills/increasing erythema on the right chest/other ROS. Physical Exam Physical Exam: GENERAL: Alert and oriented x3. NAD, on RA. HEENT: No pallor, no icterus. Pupils equal, round and reactive to light. Oral mucosa moist. NECK: No JVD, no neck masses. HEART: S1 and S2 heard. Regular rate and rhythm. No murmur, no gallop. RESPIRATORY SYSTEM: Normal AP diameter. No accessory muscle use. No wheezing, no crackles. ABDOMEN: Soft, bowel sounds present, nontender, no distention. CENTRAL NERVOUS SYSTEM: No facial droop. Speech is clear. Obeys simple commands. Moves extremities. EXTREMITIES: No edema, no erythema seen. Rt Breast / Chest Exam: Erythema noted, induration of skin noted, minimal tenderness over erythematous area, Erythema extending from Rt breast to Rt upper chest, no axillary LAD noted. Results & Data Results & Data ([facility]) Vital Signs (Past 12 Hours) Vital Signs Temp Pulse Pulse Resp BP BP Pulse Ox 06/25/21 15:50 36.5 C 64 16 110/65 90 06/25/21 14:50 77 06/25/21 11:45 36.9 C 81 18 121/84 95 06/25/21 10:57 64 06/25/21 07:14 37.4 C 69 18 109/51 L 95
[2021-06-25] MEDS: AMPICILLIN/SULBACTAM SOD 3,000 MG in 0.9 % SODIUM CHLORIDE 100 ML IV SCH (22:24)
[2021-06-26] MEDS: AMPICILLIN/SULBACTAM SOD 3,000 MG in 0.9 % SODIUM CHLORIDE 100 ML IV SCH ×4 (01:37→19:34)
[2021-06-26 07:35] LABS: Hematocrit (blood only) 35.9 % (37-47); Mean Corpuscular Hemoglobin 26.2 pg (25-34); Mean Corpuscular Hgb Conc 30.6 g/dL (32-36); Mean Corpuscular Volume 85.5 fL (80-100); Platelet Count 179 K/uL (130-400); RDW Coefficient of Variation 16.2 % (11.5-14.5); RDW Standard Deviation 50.3 fL (36.4-46.3); White Blood Count 8.61 K/uL (4.8-10.8)
[2021-06-26 08:01] LABS: BUN Creatinine Ratio 28.2 (10-20); Calcium 8.6 mg/dl (8.5-10.1); Creatinine Clr Calc Pharmacy 64.6 ml/min; Est GFR (African American) 99.4 ml/min; Est GFR (Non-African American) 85.8 ml/min; Potassium 3.4 mmol/L (3.5-5.1)
--- NOTE | 2021-06-26 08:41 | Ultrasound Report ---
RIGHT BREAST ULTRASOUND TO ASSESS FOR ABSCESS CLINICAL HISTORY: Previous right breast surgery. Breast erythema and induration. Evaluate for abscess . COMPARISON STUDY: Screening mammogram November 27, 2014. TECHNIQUE: Sonography of the right breast was performed at site of induration and erythema to assess for abscess. FINDINGS: No right breast fluid collection was identified to suggest abscess. No sonographic abnormal ity was identified within the right breast at site of pain and induration. However, please note that the study was not performed to evaluate for mass. IMPRESSION: 1. No right breast abscess identified by sonography. 2. Please note that this study was not performed to evaluate for mass. Therefore, follow-up nonemerge nt diagnostic breast ultrasound and mammogram is recommended. ACT 112: Negative or not required by law. Electronically signed by: Luc Salvador M.D. 06/26/2021 8:40 AM
[2021-06-26] MEDS: CHOLECALCIFEROL 1,000 UNITS 25 MCG TAB PO SCH (08:49)
[2021-06-26] MEDS: FAMOTIDINE 20 MG in SYRINGE 3 ML IV SCH ×2 (08:49→20:05)
[2021-06-26] MEDS ORDERED: POTASSIUM CHLORIDE CRTAB 20 MEQ TABCR PO STA (09:11)
[2021-06-26] MEDS ORDERED: POTASSIUM CHLORIDE 20 MEQ/15 ML UDC PO STA (09:43)
--- NOTE | 2021-06-26 15:25 | Hospitalist Progress Note ---
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 She is being managed for the following: (1) Cellulitis of right breast: Plan: Afebrile, WBC 17.09, lactate wnl at presentation. Cellulitis of R breast extending to back and R arm/right upper chest Started on empiric cefepime and vanco 06/24-->transitioned to zosyn/vanc 06/24 to cover for possible aspiration pna in setting of dysphagia /2 ALS 06/25 MRSA screen negative Admitting blood culture: No growth at 48 hours, await final results. Per patient, no pain Erythema has been resolving. switched Zosyn 06/24 to Unasyn 06/25. Continue with Unasyn Transition to Amoxil Clav upon discharge. (2) History of breast cancer: Plan: Remote history of right-sided breast cancer approximately 10 years ago and is status post partial mastectomy. Denies any previous radiation (3) Alejandrina Gehrig disease: Plan: Lives alone and completes ADLs but admits to needing more help. Essentially non- verbal, communicates by nodding yes/no. Eats pureed foods only and crushes pills in jello or applesauce Follows with Dr. Salmon Continue Riluzole BID Fall, aspiration precautions Speech evaluated: Known silent aspirator with both thin and nectar thick liquids, recommends pured foods, medication crushed and placed in a carrier. Does not recommend thickened liquids. PT/OT evaluations for services, possible placement (4) Sinus tachycardia: Plan: HR 100-120 in setting of infection Continue telemetry, troponin x2 - Resolved (5) Abnormal CXR: Plan: CXR with suspected bibasilar opacities which may reflect an infectious process. Atelectasis could appear similar although is considered less likely Concern for aspiration given dysphagia 2/2 ALS, on a strict pureed diet Continue Unasyn 06/25 to cover for possible aspiration pna DVT Ppx: SQ lovenox Code status: DNR per discussion with patient via certified court/medical interpreter PCP: [facility] Dispo: Stable for discharge unless new issues arises overnight. Prescription for outpatient speech therapy provided. Admission and Anticipated Discharge Date Admission Date: June 24, 2021 Subjective Patient was sitting up in bed, on room air, NAD, no new acute events overnight. Patient can reply in" no" to questions but cannot communicate effectively, can't produce voice. ROS were negative for any pain/fever/chills/increasing erythema on the right chest/other ROS. Physical Exam Physical Exam: GENERAL: Alert and oriented x3. NAD, on RA. HEENT: No pallor, no icterus. Pupils equal, round and reactive to light. Oral mucosa moist. NECK: No JVD, no neck masses. HEART: S1 and S2 heard. Regular rate and rhythm. No murmur, no gallop. RESPIRATORY SYSTEM: Normal AP diameter. No accessory muscle use. No wheezing, no crackles. ABDOMEN: Soft, bowel sounds present, nontender, no distention. CENTRAL NERVOUS SYSTEM: No facial droop. Speech is clear. Obeys simple commands. Moves extremities. EXTREMITIES: No edema, no erythema seen. Rt Breast / Chest Exam: Erythema over the right breast, right chest, right arm improving. No axillary LAD noted. Results & Data Results & Data ([facility]) Vital Signs (Past 12 Hours) Vital Signs Temp Pulse Resp BP Pulse Ox 06/26/21 11:13 36.5 C 83 18 153/81 H 93 06/26/21 07:51 36.4 C L 73 18 154/77 H 90 06/26/21 04:19 36.5 C 70 16 141/83 H 93
[2021-06-26] MEDS: ENOXAPARIN INJ 40 MG/0.4 ML SYR SQ SCH (20:05)
[2021-06-27] MEDS: AMPICILLIN/SULBACTAM SOD 3,000 MG in 0.9 % SODIUM CHLORIDE 100 ML IV SCH ×3 (01:27→13:37)
[2021-06-27] MEDS: CHOLECALCIFEROL 1,000 UNITS 25 MCG TAB PO SCH (08:09)
[2021-06-27] MEDS: FAMOTIDINE 20 MG in SYRINGE 3 ML IV SCH (08:14)
[2021-06-27 08:19] LABS: Hematocrit (blood only) 37.6 % (37-47); Hemoglobin 11.6 g/dL (12.0-16.0); Mean Corpuscular Hemoglobin 26.2 pg (25-34); Mean Corpuscular Hgb Conc 30.9 g/dL (32-36); Mean Corpuscular Volume 85.1 fL (80-100); Mean Platelet Volume 9.8 fL (7.4-10.4); Platelet Count 204 K/uL (130-400); RDW Coefficient of Variation 15.9 % (11.5-14.5); RDW Standard Deviation 50.2 fL (36.4-46.3); Red Blood Count 4.42 M/uL (4.2-5.4); White Blood Count 6.17 K/uL (4.8-10.8)
[2021-06-27 08:51] LABS: BUN Creatinine Ratio 26.6 (10-20); Calcium 8.8 mg/dl (8.5-10.1); Creatinine Clr Calc Pharmacy 65.8 ml/min; Est GFR (African American) 99.9 ml/min; Est GFR (Non-African American) 86.2 ml/min; Potassium 3.7 mmol/L (3.5-5.1)
[2021-06-27] MEDS ORDERED: ROSUVASTATIN CALCIUM 5 MG TAB PO SCH (09:00)
[2021-06-27] MEDS ORDERED: ASPIRIN 81 MG ECTAB PO SCH (09:00)
--- NOTE | 2021-06-27 11:58 | Discharge Summary ---
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 History of ALS and is essentially nonverbal but lives alone and cares for herself. Primary language is Monegasque but can understand some Solomon Islander. History obtained with help of Monegasque database marketing analyst over ipad as well as phone call with friend, Dunia. Patient developed right breast pain that is aching over the past 2 days with associated subjective fever and chills. Noted to have redness extended to right upper arm today which she did not notice earlier. No recent insect bites or skin tears to area. Does have remote history of right-sided breast cancer approximately 10 years ago and is status post partial mastectomy. Denies any previous radiation. Denies any headache, nausea, vomiting, abdominal pain, dysuria, diarrhea or constipation. Ambulates independently but has become less steady on her own. Both patient and Dunia feel she needs more assistance. Eats pureed foods and has pills crushed in applesauce or jello. Follows with Dr. Salmon of [place]. During interview, patient with increased heart rate. Repeat EKG showing sinus tachycardia at 117 bpm. Patient then endorsed lower chest/epigastric discomfort. Difficult to tell if pain is from cellulitis given patient is non-v erbal and in distress. Given nitroglycerin sublingual tab without improvement. Patient refused GI cocktail. Initial troponin negative. Will continue to monitor closely, admitting to [facility]. Admission Exam Per Admitting Provider General Appearance:WD/WN, vitals as above, NAD, sitting up at side of bed, answers yes/no questions Head: normocephalic, atraumatic Eyes:normal inspection, PERRL, conjunctivae normal, anicteric sclerae ENT: external ear and nose normal, oropharynx normal Neck: normal visual inspection, trachea midline, no thyromegaly Respiratory:normal respiratory effort, lungs clear to auscultation, no wheeze, rales, rhonchi. No accessory muscle use Cardiovascular: tachycardic rate, rhythm, no murmur, normal peripheral pulses, no BLE edema. Vessels: no JVD Abdomen/GI: normal bowel sounds, soft, nontender, no hepatosplenomegaly Extremities/Musculoskeletal: no cyanosis or clubbing, extremities motor strength 5/5 Neurologic: PERRL, EOMI, accommodation nl, no face palsy, CN's II-XI intact bilaterally and moves all extremities Psychiatric:Alert + Oriented, non-verbal, euthymic affect Skin: warm/dry, + warm, erythematous and painful indurated right breast with blotchy rash spreading around to the back and to R upper arm. No open lesions or wounds Principal Diagnosis Cellulitis of right breast Concern for aspiration pneumonia Discharge Exam GENERAL: Alert and oriented x3. NAD, on RA. HEENT: No pallor, no icterus. Pupils equal, round and reactive to light. Oral mucosa moist. NECK: No JVD, no neck masses. HEART: S1 and S2 heard. Regular rate and rhythm. No murmur, no gallop. RESPIRATORY SYSTEM: Normal AP diameter. No accessory muscle use. No wheezing, no crackles. ABDOMEN: Soft, bowel sounds present, nontender, no distention. CENTRAL NERVOUS SYSTEM: No facial droop. Speech is clear. Obeys simple commands. Moves extremities. EXTREMITIES: No edema, no erythema seen. Rt Breast / Chest Exam: Erythema over the right breast, right chest, right arm significantly improved. No axillary LAD noted. 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 She wasmanaged for the following: (1) Cellulitis of right breast: Plan: Afebrile, WBC 17.09, lactate wnl at presentation. Cellulitis of R breast extending to back and R arm/right upper chest Started on empiric cefepime and vanco 06/24-->transitioned to zosyn/vanc 06/24 to cover for possible aspiration pna in setting of dysphagia /2 ALS 06/25 MRSA screen negative Admitting blood culture: No growth at 48 hours, await final results. Per patient, no pain Erythema has been resolving-significant improvement on the day of discharge.. switched Zosyn 06/24 to Unasyn 06/25.---> Will be transitioned to Augmentin upon discharge. (2) History of breast cancer: Plan: Remote history of right-sided breast cancer approximately 10 years ago and is status post partial mastectomy. Denies any previous radiation (3) Alejandrina Gehrig disease: Plan: Lives alone and completes ADLs but admits to needing more help. Essentially non- verbal, communicates by nodding yes/no. Eats pureed foods only and crushes pills in jello or applesauce Follows with Dr. Salmon Continue Riluzole BID Fall, aspiration precautions Speech evaluated: Known silent aspirator with both thin and nectar thick liquids, recommends pured foods, medication crushed and placed in a carrier. Does not recommend thickened liquids. PT/OT evaluations for services, possible placement (4) Sinus tachycardia: Plan: HR 100-120 in setting of infection Continue telemetry, troponin x2 - Resolved (5) Abnormal CXR: Plan: CXR with suspected bibasilar opacities which may reflect an infectious process. Atelectasis could appear similar although is considered less likely Concern for aspiration given dysphagia 2/2 ALS, on a strict pureed diet Continue Unasyn 06/25 to cover for possible aspiration pna DVT Ppx: SQ lovenox Code status: DNR per discussion with patient via database marketing analyst Patient is being discharged home with following instruction at the point of discharge: Follow-up with your primary care physician within a week time. Take antibiotics for 8 more days. Follow-up with speech therapy as an outpatient, prescription has been provided. Speech therapy evaluated while inpatient, recommends pured foods, and medication crushed and placed in pured food. No thin, thick and nectar thick liquids recommended. Take medications as prescribed. Total Time Total Time Spent Total Time Spent (In Minutes): 35 Discharge Plan Discharge Items Patient Disposition: Home - Self-Care Reason For Visit: R BREAST CELLULITIS, POSSIBLE PNA Discharge Diagnosis: Cellulitis of right breast Concern for aspiration pneumonia Activity: Resume your previous activity Non-emergency contact: Primary Care Provider Call non-emergency contact if: you have any medication questions, your symptoms worsen, your temperature is above 101, your wound has increased redness and your wound has increased drainage Follow-up/Referrals: [facility] [Other] ([facility] will call you with an appointment for speech evaluation and treatment. ) Cindy Coelho MD [Primary Care Provider] - (Date & Time 07/01/2021 8:20 AM Provider Cindy Borrero MD Department General Internal Medicine [facility] ) Diet: Regular Diet Texture: Pureed (blended smooth) Addtl Attending Provider Instructions: Follow-up with your primary care physician within a week time. Take antibiotics for 8 more days. Follow-up with speech therapy as an outpatient, prescription has been provided. Speech therapy evaluated while inpatient, recommends pured foods, and medication crushed and placed in pured food. No thin, thick and nectar thick liquids recommended. Take medications as prescribed. Pending Studies at Discharge: Yes (Admitting blood culture final results.) Stand-Alone Forms: My [facility], Smoking Cessation Medications and DC Order Prescriptions: New amoxicillin-pot clavulanate [Augmentin] 875-125 mg tablet 1 tab PO BID 8 Days Qty: 16 RF: 0 Continued riluzole 50 mg tablet 50 mg PO BID RF: 0 acetaminophen 650 mg Tablet 650 mg PO Q8H PRN (Reason: Pain) RF: 0 Ensure High Protein Liquid 1 ea PO DAILY RF: 0 rosuvastatin 5 mg Tablet 5 mg PO MOFR@0900 RF: 0 cholecalciferol (vitamin D3) 25 mcg (1,000 unit) Tablet 25 mcg PO DAILY RF: 0 naproxen sodium 220 mg Capsule 220 mg PO DAILY PRN (Reason: Pain) RF: 0 aspirin 81 mg Capsule 81 mg PO MOFR@0900 RF: 0 Discharge Orders: Discharge Order (Routine); Ordered 06/27/21 Ordered By: Russ Lion Admission Data Admit Date/Time: 06/24/21 18:54 Attending Provider: Russ Lion Admit Provider: Norbert Anna Primary Care Provider: Cindy Coelho Other Providers: Norbert Anna
== END 2021-06-27 15:39 | disposition home or self-care (01) | DRG 602 ==
LOC: ED 15:58 → EDINP 18:54 → SUATTDRO 18:54 → 2N 22:08

== ENCOUNTER 2021-12-22 16:04 | Observation (INO) ==
[2021-12-22 18:23] LABS: Basophils # (auto) 0.02 K/uL (0-0.2); Basophils % (auto) 0.2 %; Eosinophils # (auto) 0.36 K/uL (0-0.5); Eosinophils % (auto) 3.4 %; Hematocrit (blood only) 42.9 % (37-47); Hemoglobin 13.4 g/dL (12.0-16.0); Immature Granulocytes # (auto) 0.02 K/uL (0.00-0.02); Immature Granulocytes % (auto) 0.2 %; Lymphocytes % (auto) 20.6 %; Mean Corpuscular Hemoglobin 26.6 pg (25-34); Mean Corpuscular Hgb Conc 31.2 g/dL (32-36); Mean Corpuscular Volume 85.3 fL (80-100); Mean Platelet Volume 9.7 fL (7.4-10.4); Monocytes # (auto) 0.57 K/uL (0.11-0.59); Monocytes % (auto) 5.3 %; Neutrophils # (auto) 7.51 K/uL (1.4-6.5); Neutrophils % (auto) 70.3 %; Platelet Count 218 K/uL (130-400); RDW Coefficient of Variation 16.2 % (11.5-14.5); RDW Standard Deviation 50.7 fL (36.4-46.3); Red Blood Count 5.03 M/uL (4.2-5.4); White Blood Count 10.68 K/uL (4.8-10.8)
[2021-12-22 19:11] LABS: Albumin Globulin Ratio 1.5 (0.9-2); Albumin Level 4.1 gm/dl (3.4-5.0); BUN Creatinine Ratio 30.1 (10-20); Bilirubin,Total 0.4 mg/dl (0.2-1.0); Calcium 9.3 mg/dl (8.5-10.1); Creatinine Clr Calc Pharmacy 49.4 ml/min; Est GFR (African American) 90.8 ml/min; Est GFR (Non-African American) 78.3 ml/min; Globulin 2.8 gm/dl (2.5-4.0); Potassium 4.5 mmol/L (3.5-5.1); Total Protein 6.9 gm/dl (6.0-8.3)
--- NOTE | 2021-12-22 19:23 | Emergency Department Note ---
Impression & Plan Dizziness, Fall, Chest pain, Low back pain ED Provider Note Provider: Ammon Bruno MD DATE OF SERVICE: 12/22/2021 CHIEF COMPLAINT: Dizzy, fall, chest pain, low back HISTORY OF PRESENT ILLNESS: Patient is a 81-year-old female history of ALS by report and breast cancer presenting here today for the past 2 days with feeling dizzy and suffered a fall yesterday. Patient primarily speaks Belizean but uses her family member as well as [employer] jerrica to communicate. Offered formal [place]an translation services which she declined but she does understand a fair amount of Korean at a minimum. Patient able to ambulate. Reports that she slid when she was getting onto the toilet and struck her low back and right elbow on the ground complaint of low back pain and minimal pain of the right elbow. Also having some pain across left chest with palpitations. Denies any headache but states she is still a bit dizzy. Denies neck pain or upper back pain. Denies abdominal pain. Reportedly has been losing weight over the last 2 years since her last diagnosis and family members concerned that she is not eating enough. Patient reports she did take some Tylenol which helped with her pain some. REVIEW OF SYSTEMS: A total of 10 review of systems was obtained and negative except as stated above in the HPI. 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 Head: normocephalic and atraumatic without chapa sign or raccoon eyes. EYES: No injection, discharge or icterus. PERRL, EOMI. NECK: Trachea midline. Supple. No midline cervical tenderness appreciated ENT: Mucous membranes pink and moist. Pharynx without erythema or exudate. TMs clear bilaterally LUNGS: Airway patent. No retractions. Breath sounds clear with good air entry bilaterally. HEART: Regular rate and rhythm. No chest wall tenderness ABDOMEN: Soft and non-tender, without guarding or rebound. No hepatosplenomegaly or masses BACK: Some mild upper lumbar back tenderness without significant bruising or crepitus or contusion noted. SKIN: Acyanotic, warm, dry, without rashes EXTREMITIES: Without swelling, tenderness or deformity except for a partially healed very small less than centimeter abrasion of the right elbow without significant bony tenderness. NEUROLOGICAL: No focal deficits. No facial droop. Normal strength and tone in the extremities. Sensation to gross touch normal. Ambulatory. EK bpm normal sinus rhythm. No PVC or PAC. No acute ST segment elevation or depression with a QTC of 418. Some baseline artifact in the lateral leads. CONTINUOUS CARDIAC MONITORING: was ordered and showed a heart rate of 70s-80s bpm in normal sinus rhythm GCS 15. Patient's laboratory studies and imaging reviewed. Differential includes Benign positional vertigo, dehydration, hypovolemia, anemia, tumor, infection, hypoglycemia, electrolyte abnormalities, cardiac sources, intracerebral event, toxicologic, neurologic, traumatic, as well as other pathologies. IMPRESSION/MEDICAL DECISION MAKING: Patient unable to speak but ambulatory in the room and seems understand what I am saying. She declined formal translation services. Here with family. On 81 mg aspirin suffered a fall but having dizziness since palpitations before this. Basic labs were obtained. EKG obtained. Patient with abrasion right elbow but moves it well without significant tenderness I doubt fracture. Lumbar x-rays to be obtained but lower suspicion for significant spinal fracture given her very ease of ambulation and lack of other neurological symptoms by report of lower extremities. For support little bit of chest discomfort could be fall related. EKG and again troponin were completed with her palpitation component anyway and x-rays obtained of the chest. CT of the head given the fall was obtained. Blood work without anemia white blood cell count of 10.6 top end of normal. No significant electrolyte abnormality is noted renal dysfunction. No significant LFT abnormality noted. CT of the head radiology without acute findings such as intracranial bleed. I doubt any significant cervical spine injury based on negative Nexus criteria. Troponin not elevated and I doubt acute ACS with this. CK not elevated. Chest x-ray without evidence of pneumothorax or other traumatic pathology. Lumbar spine x-ray without significant abnormality noted beyond spondylitic change and osteopenia. Reevaluation states her dizziness and palpitations were mainly yesterday and does not have any currently. Discussed with her at length options. Given a small amount of IV fluid. Given the fact she lives alone with intermittent palpitations and dizziness discussed further observation of her here overnight which she wished to pursue as opposed to further outpatient follow-up. DIAGNOSIS: Dizzy, fall, chest pain, low back pain, palpitations DISPOSITION: Hospitalist will evaluate Patient was agreeable with this plan. Past Med/Surg History Medical History History of breast cancer Alejandrina Gehrig disease Osteoarthritis Renal mass "PET scan 05/14/2010- partially calcified left renal lower pole 30x36 mm mass. PET scan 09/27/13 showed stable partially calcified mass lower pole L kidney." Uterine leiomyoma Surgical History History of carpal tunnel release History of partial mastectomy of right breast (04/14/10) Family History Mother Diabetes Other Heart disease Social History Smoking Status: Never smoker Second Hand Exposure: No; Hx Alcohol Use: No Hx Substance Use: No Preferred Language: Bel[place]an Communication Ability: Impaired Communication Tools: Other Quantitative Research Analyst Required: Yes Beliefs That Will Affect Care: None marital status: Single Current Living Situation: Alone Feels Safe at Home: Yes Assistive Devices: Denture - Lower and Glasses Allergies Allergies Allergy/AdvReac Type Severity Reaction Status Date / Time No Known Drug Allergies Allergy Unknown Verified 12/22/21 19:26 Home Meds Home Medications Medication Instructions Recorded Confirmed aspirin 81 mg tablet,delayed 81 mg PO 2XWK 12/22/21 12/22/21 release cholecalciferol (vitamin D3) 25 25 mcg PO DAILY 12/22/21 12/22/21 mcg (1,000 unit) tablet (Vitamin D3) fluticasone propionate 50 2 spray INTRANASAL QAM 12/22/21 12/22/21 mcg/actuation nasal spray,suspension food supplemt, lactose-reduced 1 ea PO TID 12/22/21 12/22/21 (Ensure High Protein) mirtazapine 15 mg tablet 7.45 mg PO HS 12/22/21 12/22/21 Results & Data (ED) Vital Signs Vital Signs - 24 hr 12/22/21 16:21 12/22/21 20:32 12/22/21 21:00 Temperature 36.5 C Temperature Source Temporal Artery Scan Pulse Rate 92 H 75 78 Respiratory Rate 20 25 H 24 Respiratory Effort / Characteristics Non-Labored Respiratory Depth Normal Blood Pressure 172/71 H Blood Pressure Mean 104 Pulse Oximetry 96 96 Oxygen Delivery Method Room Air Room Air Sepsis Recent Fever Within 48 Hours No Sepsis New/Unexplained Change in Mental Status No Sepsis Action Taken by Nursing No Action Required 12/22/21 21:28 12/22/21 21:30 12/22/21 22:00 Temperature Temperature Source Pulse Rate 72 70 70 Respiratory Rate 17 24 25 H Respiratory Effort / Characteristics Respiratory Depth Blood Pressure 172/91 H Blood Pressure Mean 118 Pulse Oximetry 97 Oxygen Delivery Method Room Air Sepsis Recent Fever Within 48 Hours Sepsis New/Unexplained Change in Mental Status Sepsis Action Taken by Nursing Laboratory Data Result diagrams: 12/22/21 18:07 12/22/21 18:07 Lab Results 12/22/21 12/22/21 12/22/21 Range/Units 16:21 18:07 18:07 WBC 10.68 (4.8-10.8) K/uL RBC 5.03 (4.2-5.4) M/uL Hgb 13.4 (12.0-16.0) g/dL Hct 42.9 (37-47) % MCV 85.3 (80-100) fL MCH 26.6 (25-34) pg MCHC 31.2 L (32-36) g/dL RDW Std Deviation 50.7 H (36.4-46.3) fL RDW Coeff of Jazmin 16.2 H (11.5-14.5) % Plt Count 218 (130-400) K/uL MPV 9.7 (7.4-10.4) fL Immature Gran % (Auto) 0.2 % Neut % (Auto) 70.3 % Lymph % (Auto) 20.6 % [place] % (Auto) 5.3 % Eos % (Auto) 3.4 % Baso % (Auto) 0.2 % Neut # (Auto) 7.51 H (1.4-6.5) K/uL Lymph # (Auto) 2.20 (1.2-3.4) K/uL [place] # (Auto) 0.57 (0.11-0.59) K/uL Eos # (Auto) 0.36 (0-0.5) K/uL Baso # (Auto) 0.02 (0-0.2) K/uL Immature Gran # (Auto) 0.02 (0.00-0.02) K/uL Sodium 143 (136-145) mmol/L Potassium 4.5 (3.5-5.1) mmol/L Chloride 105 (98-107) mmol/L Carbon Dioxide 34 H (21-32) mmol/L Anion Gap 4 (3-11) BUN 22 (6-23) mg/dl Creatinine 0.73 (0.6-1.2) mg/dl Est Cr Clr Drug Dosing 49.4 ml/min Est GFR ( Amer) 90.8 ml/min Est GFR (Non-Af Amer) 78.3 ml/min BUN/Creatinine Ratio 30.1 H (10-20) Glucose 93 (70-99(Fasting)) mg/dl Calcium 9.3 (8.5-10.1) mg/dl Magnesium 2.2 (1.7-2.4) mg/dl Total Bilirubin 0.4 (0.2-1.0) mg/dl AST 22 (13-39) U/L ALT 13 (7-52) U/L Alkaline Phosphatase 39 (34-104) U/L Total Creatine Kinase 169 (26-192) U/L Troponin I High Sens 7.3 (0-14) pg/ml Total Protein 6.9 (6.0-8.3) gm/dl Albumin 4.1 (3.4-5.0) gm/dl Globulin 2.8 (2.5-4.0) gm/dl Albumin/Globulin Ratio 1.5 (0.9-2) TSH (0.300-4.500) uIu/ml 12/22/21 Range/Units 18:07 WBC (4.8-10.8) K/uL RBC (4.2-5.4) M/uL Hgb (12.0-16.0) g/dL Hct (37-47) % MCV (80-100) fL MCH (25-34) pg MCHC (32-36) g/dL RDW Std Deviation (36.4-46.3) fL RDW Coeff of Jazmin (11.5-14.5) % Plt Count (130-400) K/uL MPV (7.4-10.4) fL Immature Gran % (Auto) % Neut % (Auto) % Lymph % (Auto) % [place] % (Auto) % Eos % (Auto) % Baso % (Auto) % Neut # (Auto) (1.4-6.5) K/uL Lymph # (Auto) (1.2-3.4) K/uL [place] # (Auto) (0.11-0.59) K/uL Eos # (Auto) (0-0.5) K/uL Baso # (Auto) (0-0.2) K/uL Immature Gran # (Auto) (0.00-0.02) K/uL Sodium (136-145) mmol/L Potassium (3.5-5.1) mmol/L Chloride (98-107) mmol/L Carbon Dioxide (21-32) mmol/L Anion Gap (3-11) BUN (6-23) mg/dl Creatinine (0.6-1.2) mg/dl Est Cr Clr Drug Dosing ml/min Est GFR ( Amer) ml/min Est GFR (Non-Af Amer) ml/min BUN/Creatinine Ratio (10-20) Glucose (70-99(Fasting)) mg/dl Calcium (8.5-10.1) mg/dl Magnesium (1.7-2.4) mg/dl Total Bilirubin (0.2-1.0) mg/dl AST (13-39) U/L ALT (7-52) U/L Alkaline Phosphatase (34-104) U/L Total Creatine Kinase (26-192) U/L Troponin I High Sens (0-14) pg/ml Total Protein (6.0-8.3) gm/dl Albumin (3.4-5.0) gm/dl Globulin (2.5-4.0) gm/dl Albumin/Globulin Ratio (0.9-2) TSH 1.377 (0.300-4.500) uIu/ml Administered Medications Discontinued Medications Lactated Ringer's (Lr) 500 mls @ 999 mls/hr IV .Q31M ONE Stop: 12/22/21 21:27 Last Infusion: 12/22/21 22:40 Dose: 0 mls/hr Documented by: [id number] Admin: 12/22/21 21:30 Dose: 999 mls/hr Documented by: [id number] Imaging Data Radiologist's Impression: Lumbar Spine X-Ray 12/22/21 19:16 LUMBAR SPINE 3 VIEWS CLINICAL HISTORY: Fall. Low back pain. FINDINGS: 3 views of the lumbar spine are compared to study dated 06/24/2011. The skeletal structures are osteopenic. There is no radiographic evidence of acute fracture or malalignment. Vertebral body height and alignment are maintained throughout the lumbar spine. Anterior and lateral marginal osteophyt es are seen throughout. The transverse and spinous processes appear intact. Minimal dextrocurvature of the lower lumbar spine is centered at L4. Facet arthropathy is noted in the mid to lower lumbar region. Moderate disc space narrowing is seen at L4-L5 and L5-S1 with posterior disc osteophyte complexes at these levels. Only mild disc space narrowing is seen at the remaining lumbar levels. The visualized bony pelvis appears intact. Sclerotic change is seen in the sacroiliac joints. There is no bowel obstruction. Atherosclerotic calcification is noted in the abdominal aorta. IMPRESSION: 1. No acute bony abnormality is seen involving the lumbar spine. 2. Osteopenia and spondylotic change as above. Dictated: 12/22/2021 7:49 PM Transcribed: 12/22/2021 8:15 PM Leah [id number] [facility] Electronically signed by: Frank Pimentel M.D. 12/22/2021 8:[address] 12/22/21 19:17 CT SCAN OF THE BRAIN WITHOUT IV CONTRAST CLINICAL HISTORY: Fall. Dizziness. COMPARISON STUDY: No priors. TECHNIQUE: Unenhanced axial CT scan of the brain is performed from the vertex to the skull base. A dose lowering technique was utilized adhering to the prin ciples of SELENA. CT DOSE: 537.48 mGy.cm FINDINGS: Brain parenchyma: There is age-related involutional change noting mild subcortical and periventricular microangiopathic disease. There is no hemorrhage, mass effect, or evidence of acute territorial ischemia by CT criteria. Kaplan-white matter differentiation is preserved. No extra-axial fluid collection is seen. Ventricles, sulci, cisterns: Prominent secondary to involutional change. Intracranial vasculature: There is atherosclerotic calcification of the cavernous carotid arteries. Calvarium: The skeletal structures are osteopenic. No depressed calvarial fracture is identified. Sinuses and mastoids: The visualized paranasal sinuses are clear. The mastoid air cells are well pneumatized. Orbits: The bony orbits are grossly intact. IMPRESSION: There is no hemorrhage, mass effect, or evidence of acute territorial ischemia by CT criteria. ACT 112: Negative or not required by law. Electronically signed by: Frank Pimentel M.D. 12/22/2021 8:30 PM Chest X-Ray 12/22/21 19:20 TWO VIEW CHEST CLINICAL HISTORY: Dizziness. Atypical chest pain. Fall. FINDINGS: PA and lateral chest radiographs are compared to study dated 06/16/2021. The cardiomediastinal silhouette is unremarkable. The lungs and pleural spaces are clear. There is no pneumothorax. The skeletal structures are osteopenic. The bony thorax appears intact. IMPRESSION: No active disease in the chest. ACT 112: Negative or not required by law. Electronically signed by: Frank Pimentel M.D. 12/22/2021 7:51 PM Discharge Plan Visit Data Chief Complaint: Illness Stated Complaint: NOT EATING, CANNOT TALK, THROAT ED Provider: Ammon Bruno Discharge Problem: Dizziness, Fall, Chest pain, Low back pain Patient Disposition: Being Evaluated by Hospitalist Discharge Instructions Interventions: ED Discharge Assessment Last Done: 12/22/21 23:50
--- NOTE | 2021-12-22 19:53 | XRay Report ---
TWO VIEW CHEST CLINICAL HISTORY: Dizziness. Atypical chest pain. Fall. FINDINGS: PA and lateral chest radiographs are compared to study dated 06/16/2021. The cardiomediasti nal silhouette is unremarkable. The lungs and pleural spaces are clear. There is no pneumothorax. Th e skeletal structures are osteopenic. The bony thorax appears intact. IMPRESSION: No active disease in the chest. ACT 112: Negative or not required by law. Electronically signed by: Frank Pimentel M.D. 12/22/2021 7:51 PM
--- NOTE | 2021-12-22 20:29 | XRay Report ---
LUMBAR SPINE 3 VIEWS CLINICAL HISTORY: Fall. Low back pain. FINDINGS: 3 views of the lumbar spine are compared to study dated 06/24/2011. The skeletal structures are osteopenic. There is no radiographic evidence of acute fracture or malali gnment. Vertebral body height and alignment are maintained throughout the lumbar spine. Anterior and lateral marginal osteophytes are seen throughout. The transverse and spinous processes appear intact. Minimal dextrocurvature of the lower lumbar spine is centered at L4. Facet arthropathy is noted in t he mid to lower lumbar region. Moderate disc space narrowing is seen at L4-L5 and L5-S1 with posterio r disc osteophyte complexes at these levels. Only mild disc space narrowing is seen at the remaining lumbar levels. The visualized bony pelvis appears intact. Sclerotic change is seen in the sacroiliac joints. There is no bowel obstruction. Atherosclerotic calcification is noted in the abdominal aorta. IMPRESSION: 1. No acute bony abnormality is seen involving the lumbar spine. 2. Osteopenia and spondylotic change as above. Dictated: 12/22/2021 7:49 PM Transcribed: 12/22/2021 8:15 PM Leah [id number] [facility] Electronically signed by: Frank Pimentel M.D. 12/22/2021 8:28 PM
[2021-12-22 20:31] LABS: Magnesium 2.2 mg/dl (1.7-2.4)
--- NOTE | 2021-12-22 20:31 | CT Scan Report ---
CT SCAN OF THE BRAIN WITHOUT IV CONTRAST CLINICAL HISTORY: Fall. Dizziness. COMPARISON STUDY: No priors. TECHNIQUE: Unenhanced axial CT scan of the brain is performed from the vertex to the skull base. A do se lowering technique was utilized adhering to the principles of ALARA. CT DOSE: 537.48 mGy.cm FINDINGS: Brain parenchyma: There is age-related involutional change noting mild subcortical and periventricula r microangiopathic disease. There is no hemorrhage, mass effect, or evidence of acute territorial isc hemia by CT criteria. Kaplan-white matter differentiation is preserved. No extra-axial fluid collection is seen. Ventricles, sulci, cisterns: Prominent secondary to involutional change. Intracranial vasculature: There is atherosclerotic calcification of the cavernous carotid arteries. Calvarium: The skeletal structures are osteopenic. No depressed calvarial fracture is identified. Sinuses and mastoids: The visualized paranasal sinuses are clear. The mastoid air cells are well pneu matized. Orbits: The bony orbits are grossly intact. IMPRESSION: There is no hemorrhage, mass effect, or evidence of acute territorial ischemia by CT surjit del cid. ACT 112: Negative or not required by law. Electronically signed by: Frank Pimentel M.D. 12/22/2021 8:30 PM
[2021-12-22 20:35] LABS: Troponin I High Sensitivity 7.3 pg/ml (0-14)
[2021-12-22] MEDS ORDERED: LACTATED RINGER'S 500 ML IV ONE (20:57)
--- NOTE | 2021-12-22 22:32 | History & Physical Report ---
Date of Service December 22, 2021 Assessment & Plan (1) Atypical chest pain: Plan: ? ACS Hypertension, elevated Not on maintenance medications. 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 No Cardiology consultation as per patient request unless necessary. 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 It may contain grammatical or spelling errors. Kindly contact undersigned for clarification of any documentation item in question. History of Present Illness Chief Complaint: Chest pain Primary Care Provider: Cindy Borrero MD History obtained from patient, family, and records. History somewhat limited from patient secondary to nonverbal state secondary to ALS. Medical history significant for hypertension, hyperlipidemia, right breast cancer status post surgery, radiation, ALS. Last confinement May 2021 for right breast cellulitis. 4 days history of achy chest pain complaints with palpitations. No shortness of breath no cough. Intermittent symptoms. 2 days ago, patient had a mechanical fall at home causing her to fall on her low back and right elbow. No head trauma, no LOC. Significant weight loss the last few months from swallowing problem as per patient's cousin. Patient currently comfortable at the ER. 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[place] Allergies Allergy/AdvReac Type Severity Reaction Status Date / Time No Known Drug Allergies Allergy Unknown Verified 12/22/21 19:26 Home Medications Medication Instructions Recorded Confirmed Type aspirin 81 mg tablet,delayed 81 mg PO 2XWK 12/22/21 12/22/21 History release cholecalciferol (vitamin D3) 25 25 mcg PO DAILY 12/22/21 12/22/21 History mcg (1,000 unit) tablet (Vitamin D3) fluticasone propionate 50 2 spray INTRANASAL QAM 12/22/21 12/22/21 History mcg/actuation nasal spray,suspension food supplemt, lactose-reduced 1 ea PO TID 12/22/21 12/22/21 History (Ensure High Protein) mirtazapine 15 mg tablet 7.45 mg PO HS 12/22/21 12/22/21 History Past Med/Surg History Medical History History of breast cancer Alejandrina Gehrig disease Osteoarthritis Renal mass "PET scan 05/14/2010- partially calcified left renal lower pole 30x36 mm mass. PET scan 09/27/13 showed stable partially calcified mass lower pole L kidney." Uterine leiomyoma Surgical History History of carpal tunnel release History of partial mastectomy of right breast (04/14/10) Family History Mother Diabetes Other Heart disease Social History Smoking Status: Never smoker Second Hand Exposure: No; Do You Dip or Chew Tobacco: No; Tobacco Cessation Education Requested by Patient: No Hx Alcohol Use: No Hx Substance Use: No Preferred Language: American Communication Ability: Effective Communication Tools: Other Embossing Clerk Required: No Beliefs That Will Affect Care: None marital status: Single Current Living Situation: Alone Other Information That Helps Us Care for You: No Feels Safe at Home: Yes Safety Concerns: Feels Safe At This Time Assistive Devices: Glasses Assistive Devices Comment: cell phone to translate and speak for her Review of Systems Review of Systems: Somewhat limited secondary to patient's nonverbal state Physical Exam Physical Exam: GENERAL: Comfortable, pleasant, nonverbal, no respiratory distress SKIN: Normal color, warm HEENT: Bespectacled, pink palpebral conjunctivae, no ptosis, moist buccal mucosa NECK : Supple, no tenderness CHEST : CTA, no tenderness HEART : RRR, no obvious murmurs ABDOMEN: Some distention, nontender EXTREMITIES : No LE swelling/tenderness, no other conspicuous deformities noted NEUROLOGIC : Coherent, no facial asymmetry, nonverbal, no other gross focality Results & Data Results & Data ([facility]) Vital Signs (Past 12 Hours) Vital Signs Temp Pulse Resp BP Pulse Ox 12/22/21 16:21 36.5 C 92 H 20 172/71 H 96 Laboratory Results Laboratory Results WBC 10.68 K/uL (4.8-10.8) 12/22/21 18:07 RBC 5.03 M/uL (4.2-5.4) 12/22/21 18:07 Hgb 13.4 g/dL (12.0-16.0) 12/22/21 18:07 Hct 42.9 % (37-47) 12/22/21 18:07 MCV 85.3 fL (80-100) 12/22/21 18:07 MCH 26.6 pg (25-34) 12/22/21 18:07 MCHC 31.2 g/dL (32-36) L 12/22/21 18:07 RDW Std Deviation 50.7 fL (36.4-46.3) H 12/22/21 18:07 RDW Coeff of Jazmin 16.2 % (11.5-14.5) H 12/22/21 18:07 Plt Count 218 K/uL (130-400) 12/22/21 18:07 MPV 9.7 fL (7.4-10.4) 12/22/21 18:07 Immature Gran % (Auto) 0.2 % 12/22/21 18:07 Neut % (Auto) 70.3 % 12/22/21 18:07 Lymph % (Auto) 20.6 % 12/22/21 18:07 [place] % (Auto) 5.3 % 12/22/21 18:07 Eos % (Auto) 3.4 % 12/22/21 18:07 Baso % (Auto) 0.2 % 12/22/21 18:07 Neut # (Auto) 7.51 K/uL (1.4-6.5) H 12/22/21 18:07 Lymph # (Auto) 2.20 K/uL (1.2-3.4) 12/22/21 18:07 [place] # (Auto) 0.57 K/uL (0.11-0.59) 12/22/21 18:07 Eos # (Auto) 0.36 K/uL (0-0.5) 12/22/21 18:07 Baso # (Auto) 0.02 K/uL (0-0.2) 12/22/21 18:07 Immature Gran # (Auto) 0.02 K/uL (0.00-0.02) 12/22/21 18:07 Sodium 143 mmol/L (136-145) 12/22/21 18:07 Potassium 4.5 mmol/L (3.5-5.1) 12/22/21 18:07 Chloride 105 mmol/L (98-107) 12/22/21 18:07 Carbon Dioxide 34 mmol/L (21-32) H 12/22/21 18:07 Anion Gap 4 (3-11) 12/22/21 18:07 BUN 22 mg/dl (6-23) 12/22/21 18:07 Creatinine 0.73 mg/dl (0.6-1.2) 12/22/21 18:07 Est Cr Clr Drug Dosing 49.4 ml/min 12/22/21 18:07 Est GFR ( Amer) 90.8 ml/min 12/22/21 18:07 Est GFR (Non-Af Amer) 78.3 ml/min 12/22/21 18:07 BUN/Creatinine Ratio 30.1 (10-20) H 12/22/21 18:07 Glucose 93 mg/dl (70-99(Fasting)) 12/22/21 18:07 Calcium 9.3 mg/dl (8.5-10.1) 12/22/21 18:07 Magnesium 2.2 mg/dl (1.7-2.4) 12/22/21 16:21 Total Bilirubin 0.4 mg/dl (0.2-1.0) 12/22/21 18:07 AST 22 U/L (13-39) 12/22/21 18:07 ALT 13 U/L (7-52) 12/22/21 18:07 Alkaline Phosphatase 39 U/L (34-104) 12/22/21 18:07 Total Creatine Kinase 169 U/L (26-192) 12/22/21 16:21 Troponin I High Sens 7.3 pg/ml (0-14) 12/22/21 16:21 Total Protein 6.9 gm/dl (6.0-8.3) 12/22/21 18:07 Albumin 4.1 gm/dl (3.4-5.0) 12/22/21 18:07 Globulin 2.8 gm/dl (2.5-4.0) 12/22/21 18:07 Albumin/Globulin Ratio 1.5 (0.9-2) 12/22/21 18:07 TSH 1.377 uIu/ml (0.300-4.500) 12/22/21 18:07 SARS-CoV-2, RNA, NAAT NEGATIVE (NEGATIVE) 12/22/21 Unknown Impressions Lumbar Spine X-Ray 12/22/21 19:16 LUMBAR SPINE 3 VIEWS CLINICAL HISTORY: Fall. Low back pain. FINDINGS: 3 views of the lumbar spine are compared to study dated 06/24/2011. The skeletal structures are osteopenic. There is no radiographic evidence of acute fracture or malalignment. Vertebral body height and alignment are maintained throughout the lumbar spine. Anterior and lateral marginal osteophytes are seen throughout. The transverse and spinous processes appear intact. Minimal dextrocurvature of the lower lumbar spine is centered at L4. Facet arthropathy is noted in the mid to lower lumbar region. Moderate disc space narrowing is seen at L4-L5 and L5-S1 with posterior disc osteophyte complexes at these levels. Only mild disc space narrowing is seen at the remaining lumbar levels. The visualized bony pelvis appears intact. Sclerotic change is seen in the sacroiliac joints. There is no bowel obstruction. Atherosclerotic calcification is noted in the abdominal aorta. IMPRESSION: 1. No acute bony abnormality is seen involving the lumbar spine. 2. Osteopenia and spondylotic change as above. Dictated: 12/22/2021 7:49 PM Transcribed: 12/22/2021 8:15 PM Leah [id number] [facility]_[place] Electronically signed by: Frank Pimentel M.D. 12/22/2021 8:[address] 12/22/21 19:17 CT SCAN OF THE BRAIN WITHOUT IV CONTRAST CLINICAL HISTORY: Fall. Dizziness. COMPARISON STUDY: No priors. TECHNIQUE: Unenhanced axial CT scan of the brain is performed from the vertex to the skull base. A dose lowering technique was utilized adhering to the principles of ALARA. CT DOSE: 537.48 mGy.cm FINDINGS: Brain parenchyma: There is age-related involutional change noting mild subcortical and periventricular microangiopathic disease. There is no hemorrhage, mass effect, or evidence of acute territorial ischemia by CT criteria. Kaplan-white matter differentiation is preserved. No extra-axial fluid collection is seen. Ventricles, sulci, cisterns: Prominent secondary to involutional change. Intracranial vasculature: There is atherosclerotic calcification of the cavernous carotid arteries. Calvarium: The skeletal structures are osteopenic. No depressed calvarial fracture is identified. Sinuses and mastoids: The visualized paranasal sinuses are clear. The mastoid air cells are well pneumatized. Orbits: The bony orbits are grossly intact. IMPRESSION: There is no hemorrhage, mass effect, or evidence of acute territorial ischemia by CT criteria. ACT 112: Negative or not required by law. Electronically signed by: Frank Pimentel M.D. 12/22/2021 8:30 PM Chest X-Ray 12/22/21 19:20 TWO VIEW CHEST CLINICAL HISTORY: Dizziness. Atypical chest pain. Fall. FINDINGS: PA and lateral chest radiographs are compared to study dated 06/16/2021. The cardiomediastinal silhouette is unremarkable. The lungs and pleural spaces are clear. There is no pneumothorax. The skeletal structures are osteopenic. The bony thorax appears intact. IMPRESSION: No active disease in the chest. ACT 112: Negative or not required by law. Electronically signed by: Frank Pimentel M.D. 12/22/2021 7:51 PM Diagnostic Findings EKG as per my interpretation: Rate 75, NSR, LAD, LAFB, no ischemia
[2021-12-23] MEDS ORDERED: PROMETHAZINE HCL 6.25 MG in SODIUM CHLORIDE 0.9% 50 ML IV PRN (00:26)
[2021-12-23] MEDS ORDERED: ACETAMINOPHEN 325 MG TAB PO PRN (00:26)
[2021-12-23] MEDS ORDERED: NITROGLYCERIN SL 0.4 MG/TAB TAB SL PRN (00:26)
[2021-12-23] MEDS ORDERED: lisinopril 2.5 MG TAB PO SCH (01:05)
[2021-12-23 01:44] LABS: D Dimer 300 ug/L FEU (0-500); Partial Thromboplastin Ratio 0.9
[2021-12-23 06:27] LABS: Basophils # (auto) 0.02 K/uL (0-0.2); Basophils % (auto) 0.2 %; Eosinophils # (auto) 0.29 K/uL (0-0.5); Eosinophils % (auto) 3.4 %; Hematocrit (blood only) 41.9 % (37-47); Hemoglobin 13.1 g/dL (12.0-16.0); Immature Granulocytes # (auto) 0.01 K/uL (0.00-0.02); Immature Granulocytes % (auto) 0.1 %; Lymphocytes # (auto) 1.82 K/uL (1.2-3.4); Lymphocytes % (auto) 21.5 %; Mean Corpuscular Hemoglobin 26.5 pg (25-34); Mean Corpuscular Hgb Conc 31.3 g/dL (32-36); Mean Corpuscular Volume 84.8 fL (80-100); Mean Platelet Volume 9.7 fL (7.4-10.4); Monocytes # (auto) 0.56 K/uL (0.11-0.59); Monocytes % (auto) 6.6 %; Neutrophils # (auto) 5.77 K/uL (1.4-6.5); Neutrophils % (auto) 68.2 %; Platelet Count 189 K/uL (130-400); RDW Coefficient of Variation 16.1 % (11.5-14.5); RDW Standard Deviation 50.1 fL (36.4-46.3); Red Blood Count 4.94 M/uL (4.2-5.4); White Blood Count 8.47 K/uL (4.8-10.8)
[2021-12-23 06:55] LABS: BUN Creatinine Ratio 31.5 (10-20); Creatinine Clr Calc Pharmacy 60.7 ml/min; Est GFR (Non-African American) 89.8 ml/min; Potassium 3.8 mmol/L (3.5-5.1)
[2021-12-23 07:16] LABS: Troponin I High Sensitivity 8.6 pg/ml (0-14)
[2021-12-23] MEDS ORDERED: ENOXAPARIN INJ 40 MG/0.4 ML SYR SQ SCH (09:00)
[2021-12-23] MEDS ORDERED: FOOD SUPPLEMT LACTOSE REDUCED PO SCH (09:00)
[2021-12-23] MEDS ORDERED: FLUTICASONE PROPIONATE NA SPR 16 GM BTL SCH (09:00)
--- NOTE | 2021-12-23 09:03 | Electrocardiogram Report ---
Test Reason : Blood Pressure : / mmHG Vent. Rate : 076 BPM Atrial Rate : 076 BPM P-R Int : 154 ms QRS Dur : 074 ms QT Int : 372 ms P-R-T Axes : 025 -12 026 degrees QTc Int : 418 ms Poor data quality, interpretation may be adversely affected Normal sinus rhythm Normal ECG When compared with ECG of 24-JUN-2021 19:29, Vent. rate has decreased BY 42 BPM Nonspecific T wave abnormality no longer present Confirmed by Aren Hanson ([id number]) on 12/23/2021 9:02:49 AM Referred By: REFERRED SELF Confirmed By:Aren Hanson
--- NOTE | 2021-12-23 15:53 | Hospitalist Progress Note ---
Date of Service December 23, 2021 Assessment & Plan (1) Atypical chest pain: Plan: Presented with atypical chest pain No more chest pain since admission Serial troponins have been negative EKG no significant change Echo of the heart showed-mild concentric LVH, LV systolic function is normal, LV wall motion is normal, EF 60 to 65%, RV systolic function is normal, left atrial size is normal, right atrial size is normal, no significant valvular pathology Remains free for any symptoms Should be discharged home this afternoon Hypertension, elevated Not on maintenance medications. 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 Advised to have pured diet, slippery with scanty fluid DVT prophylaxis per Lovenox subcu DNR Will discharge home this afternoon Admission and Anticipated Discharge Date Admission Date: December 22, 2021 Subjective 12/23/2021 The patient was seen and examined in telemetry unit She is verbally noncommunicative and communicates with writing through translation Denies any symptoms and definitely no chest pain since admission Has had swallowing evaluation and has been tolerating pured diet 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 and what she will be doing at home Review of Systems Review of Systems: All systems reviewed and are unremarkable except as noted below Physical Exam Physical Exam: Sitting at the edge of the bed without any acute distress Constitutional: well developed, well nourished and average body habitus; not ill appearing Eyes: PERRL, conjunctivae normal, anicteric sclerae ENMT: external ear and nose normal, oropharynx normal Neck: trachea midline, no thyromegaly Respiratory: no respiratory distress Auscultation: lungs clear to auscultation bilaterally; no crackles Cardiovascular: Rate/Rhythm: regular rate and regular rhythm; not tachycardic Heart Sounds: normal S1 and normal S2; no murmur Extremities: no edema Gastrointestinal (Abdomen): Inspection/Auscultation: abdomen not distended Percussion/Palpation: abdomen soft; abdomen nontender Musculoskeletal: No acute arthritis in any joint Neurologic: Alert and awake. Verbal and noncommunicative. Intelligent and communicates with writing with translation Lymphatic: no cervical or axillary lymphadenopathy Results & Data Results & Data ([facility]) Vital Signs (Past 12 Hours) Vital Signs Temp Pulse Pulse Resp BP Pulse Ox 12/23/21 15:48 36.6 C 78 18 121/77 95 12/23/21 07:52 36.4 C L 79 18 151/77 H 94 12/23/21 07:24 64 Laboratory Results Short CBC 12/22/21 12/23/21 Range/Units 18:07 05:21 WBC 10.68 8.47 (4.8-10.8) K/uL Hgb 13.4 13.1 (12.0-16.0) g/dL Hct 42.9 41.9 (37-47) % Plt Count 218 189 (130-400) K/uL BMP 12/22/21 12/23/21 18:07 05:21 Sodium 143 142 Potassium 4.5 3.8 Chloride 105 104 Carbon Dioxide 34 H 34 H BUN 22 17 Creatinine 0.73 0.54 L Glucose 93 89 Calcium 9.3 9.0 Cardiac Enzymes 12/22/21 Range/Units 16:21 Total Creatine Kinase 169 (26-192) U/L Liver Function 12/22/21 Range/Units 18:07 Total Bilirubin 0.4 (0.2-1.0) mg/dl AST 22 (13-39) U/L ALT 13 (7-52) U/L Alkaline Phosphatase 39 (34-104) U/L Albumin 4.1 (3.4-5.0) gm/dl Medications Administered Current Inpatient Medications Acetaminophen (Acetaminophen 325 Mg Tab) 650 mg PO Q4H PRN PRN Reason: Pain or Fever Stop: 01/22/22 00:25 Aspirin (Aspirin 81 Mg Ectab) 81 mg PO MoTh [facility] Stop: 01/24/22 08:59 Enoxaparin Sodium (Enoxaparin Inj 40 Mg/0.4 Ml Syr) 40 mg SQ QAM MELITA Stop: 01/22/22 08:59 Last Admin: 12/23/21 08:04 Dose: 40 mg Documented by: Fluticasone Propionate (Fluticasone Propionate Na Spr 16 Gm Btl) 2 sprays NA QAM MELITA Stop: 01/22/22 08:59 Last Admin: 12/23/21 08:04 Dose: 2 sprays Documented by: Promethazine HCl 6.25 mg/ (Sodium Chloride) 50.25 mls @ 201 mls/hr IV Q6H PRN PRN Reason: Nausea And Vomiting Stop: 01/22/22 00:25 Lisinopril (Lisinopril 2.5 Mg Tab) [facility] [place]: 01/22/22 01:04 Last Admin: 12/23/21 01:44 Dose: 2.5 mg Documented by: Mirtazapine (Mirtazapine Tab 15 Mg Tab) 7.5 mg PO [facility] Stop: 01/22/22 20:59 Nitroglycerin (Nitroglycerin Sl 0.4 Mg/Tab Tab) 0.4 mg SL UD PRN PRN Reason: Chest Pain Stop: 01/22/22 00:25
[2021-12-23] MEDS ORDERED: MIRTAZAPINE TAB 15 MG TAB PO SCH (21:00)
[2021-12-25] MEDS ORDERED: ASPIRIN 81 MG ECTAB PO SCH (09:00)
--- NOTE | 2021-12-30 11:44 | Discharge Summary ---
Date of Service December 23, 2021 Admission HPI Per Admitting Provider History obtained from patient, family, and records. History somewhat limited from patient secondary to nonverbal state secondary to ALS. Medical history significant for hypertension, hyperlipidemia, right breast cancer status post surgery, radiation, ALS. Last confinement May 2021 for right breast cellulitis. 4 days history of achy chest pain complaints with palpitations. No shortness of breath no cough. Intermittent symptoms. 2 days ago, patient had a mechanical fall at home causing her to fall on her low back and right elbow. No head trauma, no LOC. Significant weight loss the last few months from swallowing problem as per patient's cousin. Patient currently comfortable at the ER. 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[place] Admission Exam Per Admitting Provider Physical Exam: GENERAL: Comfortable, pleasant, nonverbal, no respiratory distress SKIN: Normal color, warm HEENT: Bespectacled, pink palpebral conjunctivae, no ptosis, moist buccal mucosa NECK : Supple, no tenderness CHEST : CTA, no tenderness HEART : RRR, no obvious murmurs ABDOMEN: Some distention, nontender EXTREMITIES : No LE swelling/tenderness, no other conspicuous deformities noted NEUROLOGIC : Coherent, no facial asymmetry, nonverbal, no other gross focality Principal Diagnosis Atypical chest pain, no ACS, difficulty with swallowing, hypertension,ALS Discharge Exam Sitting at the edge of the bed without any acute distress Constitutional well developed, well nourished and average body habitus; not ill appearing Eyes PERRL, conjunctivae normal, anicteric sclerae ENMT external ear and nose normal, oropharynx normal Neck trachea midline, no thyromegaly Respiratory no respiratory distress Auscultation: lungs clear to auscultation bilaterally; no crackles Cardiovascular Rate/Rhythm: regular rate and regular rhythm; not tachycardic Heart Sounds: normal S1 and normal S2; no murmur Extremities: no edema Gastrointestinal (Abdomen) Inspection/Auscultation: abdomen not distended Percussion/Palpation: abdomen soft; abdomen nontender Lymphatic no cervical or axillary lymphadenopathy Discharge Data Allergies Allergy/AdvReac Type Severity Reaction Status Date / Time No Known Drug Allergies Allergy Unknown Verified 12/22/21 19:26 Consultations 12/22/21 21:47 ED Decision to Admit Stat Ordered Studies 12/22/21 19:17 CT head/brain wo con Stat Hospital Course (1) Atypical chest pain: Presented with atypical chest pain No more chest pain since admission Serial troponins have been negative EKG no significant change Echo of the heart showed-mild concentric LVH, LV systolic function is normal, LV wall motion is normal, EF 60 to 65%, RV systolic function is normal, left atrial size is normal, right atrial size is normal, no significant valvular pathology Remains free for any symptoms Should be discharged home this afternoon Hypertension, elevated Not on maintenance medications. 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 Advised to have pured diet, slippery with scanty fluid DVT prophylaxis per Lovenox subcu DNR Will discharge home this afternoon Total Time Total Time Spent Total Time Spent (In Minutes): 35 minutes Discharge Plan Discharge Items Patient Disposition: Home - Self-Care Reason For Visit: CP Discharge Diagnosis: Atypical chest pain, no ACS, difficulty with swallowing, hypertension,ALS Condition on Discharge: Good Activity: Resume your previous activity Non-emergency contact: Primary Care Provider Call non-emergency contact if: you have any medication questions and your symptoms worsen Follow-up/Referrals: Cindy Borrero MD [Primary Care Provider] - (Your doctor's office will call with an appointment within 7 days) Diet Comment: Pured, slippery with thin liquids Addtl Attending Provider Instructions: Please take precautions to avoid falls Lisinopril 2.5 mg has been started to control your blood pressure please continue Take time to swallow and follow the instructions as per the speech therapist Pending Studies at Discharge: No Stand-Alone Forms: My QWiPS, Smoking Cessation Medications and DC Order Prescriptions: New lisinopril 2.5 mg Tablet 2.5 mg PO QAM 30 Days Qty: 30 RF: 0 Continued mirtazapine 15 mg tablet 7.45 mg PO HS RF: 0 aspirin 81 mg Tablet,Delayed Release (Dr/Ec) 81 mg PO 2XWK RF: 0 fluticasone propionate 50 mcg/actuation Evangeline,Suspension 2 spray INTRANASAL QAM RF: 0 Ensure High Protein Liquid 1 ea PO TID RF: 0 cholecalciferol (vitamin D3) [Vitamin D3] 25 mcg (1,000 unit) Tablet 25 mcg PO DAILY RF: 0 Discharge Orders: Discharge Order (Routine); Ordered 12/23/21 Ordered By: Duglas Bergman Admission Data Admit Date/Time: 12/22/21 22:35 Attending Provider: Duglas Bergman Admit Provider: Edis Stroud Primary Care Provider: Cindy Borrero Other Providers: Edis Stroud Other Interventions: Discharge Summary Assessment (RN) Last Done: 12/23/21 16:13
== END 2021-12-23 17:54 | disposition home or self-care (01) ==
LOC: ED 16:04 → 2S 16:04 → SUATTDRO 22:35 → 2S 23:50

== ENCOUNTER 2022-02-03 13:08 | Inpatient (IN) ==
[2022-02-03] MEDS ORDERED: VANCOMYCIN CONSULT ACTIVE PRN (13:46)
[2022-02-03] MEDS ORDERED: AMPICILLIN/SULBACTAM SOD 3,000 MG in 0.9 % SODIUM CHLORIDE 100 ML IV STA (13:46)
[2022-02-03 14:37] LABS: Basophils # (auto) 0.02 K/uL (0-0.2); Basophils % (auto) 0.3 %; Eosinophils # (auto) 0.01 K/uL (0-0.50); Eosinophils % (auto) 0.1 %; Hematocrit (blood only) 41.7 % (34.1-44.9); Hemoglobin 12.9 g/dl (12.0-16.0); Immature Granulocytes # (auto) 0.03 K/uL (0.00-0.02); Immature Granulocytes % (auto) 0.4 %; Lymphocytes # (auto) 0.86 K/uL (1.2-3.4); Lymphocytes % (auto) 11.7 %; Mean Corpuscular Hemoglobin 27.4 pg (25.0-34.0); Mean Corpuscular Hgb Conc 30.9 g/dL (32.0-36.0); Mean Corpuscular Volume 88.7 fL (80.0-100.0); Mean Platelet Volume 9.7 fL (9.4-12.3); Monocytes # (auto) 0.21 K/uL (0.24-0.82); Monocytes % (auto) 2.9 %; Neutrophils # (auto) 6.19 K/uL (1.4-6.5); Neutrophils % (auto) 84.6 %; Platelet Count 170 K/uL (130-400); RDW Coefficient of Variation 14.7 % (11.5-14.5); White Blood Count 7.32 K/ul (4.8-10.8)
--- NOTE | 2022-02-03 15:16 | Emergency Department Note ---
Impression & Plan Pneumonia ED Provider Note Addendum: After patient was admitted nursing noted that she was weak on the right side and had a right facial droop at around 1835 hrs. Stroke alert was initiated. I did evaluate the patient and she did have drift of the right arm and right facial droop. I did contact [facility] internal medicine, Dr. Merida as well as order CT and CT angiography. He did evaluate the patient in the emergency department as she was taken to her room after CT imaging. I did consult with [facility] telestroke, Dr. Castillo. As she is within the window a stroke telemetry consult was performed. [facility] hospitalist and [facility] consulted together and TNKase was recommended. Patient was given TNKase by hospitalist direction. I refer you to the EMR for further details. INFORMANT: Patient and friend ED PROVIDER(S): Winston Sanchez MD CHIEF COMPLAINT: Shortness of breath PLAN: Disposition: Admitted Condition: Good Outpatient prescription management: none Referral: None MEDICAL DECISION MAKING: Patient presented to the emergency department because of increased shortness of breath and weakness. 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 The patient underwent a work-up. Chest x-ray did not show any significant abnormalities. She was requiring some supplemental oxygen. Her CBC and chemistry panel were unremarkable except for mild elevation of her CO2. Patient was given broad-spectrum antibiotics due to the pneumonia found yesterday. She denied any significant problems with aspiration but does have occasional episodes of choking. She was covered with Unasyn and vancomycin. Consultation was made with the [facility] service. Patient was evaluated in the emergency department and admitted. Triage Nursing notes reviewed and agree them. Vital Signs: reviewed and remarkable for no significant abnormalities Differential diagnosis: Reactive airway disease, pneumonia, pneumothorax, COPD, CHF, infections, cardiac ischemia, pulmonary embolism, musculoskeletal, gastrointestinal, as well as other pathologies. Diagnostics interpreted by me: ECG: Twelve-lead ECG reveals normal sinus rhythm at 77 bpm. Left atrial lodgment. No ST elevation or depression. No PACs or PVCs. Cardiac Monitoring: Cardiac monitoring ordered by me: The patient was placed on continuous cardiac monitoring and observed. It revealed a normal sinus rhythm at 88 beats per minute without ectopy or evidence of dysrhythmia. Imaging studies: Chest x-ray. Findings: A chest x-ray was performed and revealed no pneumothorax, effusion, infiltrate, pulmonary edema, free air under the diaphragm, or wide mediastinum. Impression: No acute disease. 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 This started over the last few days and is worse. Patient was in the ER yesterday and had been found to have pneumonia on CT imaging. She was started on Levaquin yesterday. She was unable to take the medication and swallow today. Friend is present and notes that she was very weak and not doing well at home. The patient also notes the following associated symptoms, generalized weakness. The patient has found no relieving factors. Current pain is rated as 0/10. Patient does not speak but is able to follow commands well and does not yes or no to questions. Pt denies LOC, headache, fevers, chills, diaphoresis, visual changes, neck pain, chest pain, nausea, vomiting, abdominal pain, back pain, melena, hematochezia, urinary symptoms, numbness, rash, or other complaints. ROS: See above HPI for pertinent positives & negatives. A total of 10 systems reviewed and were otherwise negative. PAST MEDICAL HISTORY:See Below , ALS, aphasia PAST SURGICAL HISTORY:See Below, FAMILY HISTORY:See Below SOCIAL HISTORY:See Below, non-smoker HOME MEDICATIONS:See Below ALLERGIES:See Below VITALS:See Below PHYSICAL EXAMINATION: GENERAL: Awake, tired-appearing, in no distress HENT: Normocephalic, atraumatic. Oropharynx unremarkable. EYES: Normal conjunctiva. Sclera non-icteric. NECK: Inspection normal. Non-tender. Supple. No nuchal rigidity. FROM. No masses. RESPIRATORY: Clear to auscultation. No wheezes. No rales. Normal respiratory effort. CARDIAC: Normal rate. Normal rhythm. No murmurs. No rubs. Extremities warm and well perfused. Pulses equal. No JVD. GI: Soft, non-distended. No tenderness to palpation. No rebound or guarding. No masses. RECTAL: Deferred. MUSCULOSKELETAL: Atraumatic. Chest examination reveals no tenderness. The back is symmetrical on inspection without obvious abnormality. There is no CVA tenderness to palpation. No joint edema. LOWER EXTREMITIES: Calves are equal size bilaterally and non-tender. No edema. No discoloration. NEURO: Aphasia which patient friend and patient note is chronic. Focal normal sensorium. No sensory or motor deficits noted. SKIN: No rash or jaundice noted. Winston Sanchez MD Past Med/Surg History Medical History History of breast cancer Alejandrina Gehrig disease Osteoarthritis Renal mass "PET scan 05/14/2010- partially calcified left renal lower pole 30x36 mm mass. PET scan 09/27/13 showed stable partially calcified mass lower pole L kidney." Uterine leiomyoma Surgical History History of carpal tunnel release History of partial mastectomy of right breast (04/14/10) Family History Mother Diabetes Other Heart disease Social History Smoking Status: Never smoker Second Hand Exposure: No; Hx Alcohol Use: No Hx Substance Use: No Preferred Language: [facility] Communication Ability: Effective Communication Tools: Other Head Of Ict Required: No Beliefs That Will Affect Care: None marital status: Single Current Living Situation: Alone Feels Safe at Home: Yes Assistive Devices: None Allergies Allergies Allergy/AdvReac Type Severity Reaction Status Date / Time No Known Drug Allergies Allergy Unknown Verified 02/03/22 15:14 Home Meds Home Medications Medication Instructions Recorded Confirmed aspirin 81 mg tablet,delayed 81 mg PO 2XWK 12/22/21 02/03/22 release cholecalciferol (vitamin D3) 25 25 mcg PO DAILY 12/22/21 02/03/22 mcg (1,000 unit) tablet (Vitamin D3) fluticasone propionate 50 2 spray intranasal QAM 12/22/21 02/03/22 mcg/actuation nasal spray,suspension food supplemt, lactose-reduced 1 ea PO TID 12/22/21 02/03/22 (Ensure High Protein oral liquid) mirtazapine 15 mg tablet 7.45 mg PO HS 12/22/21 02/03/22 Previous Rx's Medication Instructions Recorded levofloxacin 750 mg tablet 750 mg PO DAILY 7 days #7 tabs 02/02/22 Results & Data (ED) Vital Signs Vital Signs - 24 hr 02/03/22 13:11 02/03/22 14:46 02/03/22 14:50 Temperature 36.7 C Temperature Source Temporal Artery Scan Pulse Rate 87 85 83 Pulse Rate from SpO2 Sensor 86 84 Respiratory Rate 18 20 21 Respiratory Effort / Characteristics Non-Labored Respiratory Depth Normal Respiratory Pattern Regular Blood Pressure 167/85 H Blood Pressure Mean 112 Pulse Oximetry 89 L 99 98 Oxygen Delivery Method Room Air Nasal Cannula Nasal Cannula Oxygen Flow Rate 2 2 Sepsis Recent Fever Within 48 Hours No Sepsis New/Unexplained Change in Mental Status No Sepsis Action Taken by Nursing No Action Required Oxygen Flow Rate - Titration Pulse Oximetry Post Tiitration 02/03/22 15:00 02/03/22 15:10 02/03/22 14:00 Temperature Temperature Source Pulse Rate 83 88 Pulse Rate from SpO2 Sensor 83 89 Respiratory Rate 22 21 Respiratory Effort / Characteristics Respiratory Depth Respiratory Pattern Blood Pressure 164/71 H Blood Pressure Mean 102 Pulse Oximetry 99 99 88 L Oxygen Delivery Method Nasal Cannula Nasal Cannula Room Air Oxygen Flow Rate 2 2 Sepsis Recent Fever Within 48 Hours Sepsis New/Unexplained Change in Mental Status Sepsis Action Taken by Nursing Oxygen Flow Rate - Titration 2 Pulse Oximetry Post Tiitration 99 02/03/22 15:18 02/03/22 16:30 02/03/22 17:00 Temperature Temperature Source Pulse Rate 85 88 92 H Pulse Rate from SpO2 Sensor 85 88 92 H Respiratory Rate 25 H 26 H 19 Respiratory Effort / Characteristics Respiratory Depth Respiratory Pattern Blood Pressure 168/80 H 150/94 H 153/77 H Blood Pressure Mean 109 112 102 Pulse Oximetry 99 98 98 Oxygen Delivery Method Room Air Oxygen Flow Rate Sepsis Recent Fever Within 48 Hours Sepsis New/Unexplained Change in Mental Status Sepsis Action Taken by Nursing Oxygen Flow Rate - Titration Pulse Oximetry Post Tiitration 02/03/22 17:30 Temperature Temperature Source Pulse Rate 88 Pulse Rate from SpO2 Sensor 88 Respiratory Rate 17 Respiratory Effort / Characteristics Respiratory Depth Respiratory Pattern Blood Pressure 145/65 H Blood Pressure Mean 91 Pulse Oximetry 98 Oxygen Delivery Method Room Air Oxygen Flow Rate Sepsis Recent Fever Within 48 Hours Sepsis New/Unexplained Change in Mental Status Sepsis Action Taken by Nursing Oxygen Flow Rate - Titration Pulse Oximetry Post Tiitration Laboratory Data Result diagrams: 02/03/22 14:26 02/03/22 14:26 Lab Results 02/03/22 02/03/22 02/03/22 Range/Units 14:26 14:26 14:26 WBC 7.32 (4.8-10.8) K/ul RBC 4.70 (3.93-5.22) M/uL Hgb 12.9 (12.0-16.0) g/dl Hct 41.7 (34.1-44.9) % MCV 88.7 (80.0-100.0) fL MCH 27.4 (25.0-34.0) pg MCHC 30.9 L (32.0-36.0) g/dL RDW Std Deviation 47.0 H (36.4-46.3) fL RDW Coeff of Jazmin 14.7 H (11.5-14.5) % Plt Count 170 (130-400) K/uL MPV 9.7 (9.4-12.3) fL Immature Gran % (Auto) 0.4 % Neut % (Auto) 84.6 % Lymph % (Auto) 11.7 % Zavala % (Auto) 2.9 % Eos % (Auto) 0.1 % Baso % (Auto) 0.3 % Neut # (Auto) 6.19 (1.4-6.5) K/uL Lymph # (Auto) 0.86 L (1.2-3.4) K/uL [place] # (Auto) 0.21 L (0.24-0.82) K/uL Eos # (Auto) 0.01 (0-0.50) K/uL Baso # (Auto) 0.02 (0-0.2) K/uL Immature Gran # (Auto) 0.03 H (0.00-0.02) K/uL Sodium 142 (136-145) mmol/L Potassium 4.0 (3.5-5.1) mmol/L Chloride 102 (98-107) mmol/L Carbon Dioxide 37 H (21-32) mmol/L Anion Gap 3 (3-11) BUN 17 (6-23) mg/dl Creatinine 0.56 L (0.6-1.2) mg/dl Est Cr Clr Drug Dosing Not Reportable Est GFR ( Amer) 102.8 ml/min Est GFR (Non-Af Amer) 88.7 ml/min BUN/Creatinine Ratio 30.4 H (10-20) Glucose 109 H (70-99(Fasting)) mg/dl POC Glucose (70-99) mg/dl Calcium 9.0 (8.5-10.1) mg/dl Magnesium 1.9 (1.7-2.4) mg/dl Total Bilirubin 0.5 (0.2-1.0) mg/dl AST 18 (13-39) U/L ALT 16 (7-52) U/L Alkaline Phosphatase 36 (34-104) U/L Troponin I High Sens 7.3 (0-14) pg/ml B-Natriuretic Peptide 19 (0-100) pg/ml Total Protein 6.6 (6.0-8.3) gm/dl Albumin 4.0 (3.4-5.0) gm/dl Globulin 2.6 (2.5-4.0) gm/dl Albumin/Globulin Ratio 1.5 (0.9-2) Procalcitonin (0-0.5) ng/ml Nasal Screen MRSA (PCR) (Negative) SARS-CoV-2 (PCR) (Negative) 02/03/22 02/03/22 02/03/22 Range/Units 14:26 15:32 15:48 WBC (4.8-10.8) K/ul RBC (3.93-5.22) M/uL Hgb (12.0-16.0) g/dl Hct (34.1-44.9) % MCV (80.0-100.0) fL MCH (25.0-34.0) pg MCHC (32.0-36.0) g/dL RDW Std Deviation (36.4-46.3) fL RDW Coeff of Jazmin (11.5-14.5) % Plt Count (130-400) K/uL MPV (9.4-12.3) fL Immature Gran % (Auto) % Neut % (Auto) % Lymph % (Auto) % [place] % (Auto) % Eos % (Auto) % Baso % (Auto) % Neut # (Auto) (1.4-6.5) K/uL Lymph # (Auto) (1.2-3.4) K/uL [place] # (Auto) (0.24-0.82) K/uL Eos # (Auto) (0-0.50) K/uL Baso # (Auto) (0-0.2) K/uL Immature Gran # (Auto) (0.00-0.02) K/uL Sodium (136-145) mmol/L Potassium (3.5-5.1) mmol/L Chloride (98-107) mmol/L Carbon Dioxide (21-32) mmol/L Anion Gap (3-11) BUN (6-23) mg/dl Creatinine (0.6-1.2) mg/dl Est Cr Clr Drug Dosing Est GFR ( Amer) ml/min Est GFR (Non-Af Amer) ml/min BUN/Creatinine Ratio (10-20) Glucose (70-99(Fasting)) mg/dl POC Glucose (70-99) mg/dl Calcium (8.5-10.1) mg/dl Magnesium (1.7-2.4) mg/dl Total Bilirubin (0.2-1.0) mg/dl AST (13-39) U/L ALT (7-52) U/L Alkaline Phosphatase (34-104) U/L Troponin I High Sens (0-14) pg/ml B-Natriuretic Peptide (0-100) pg/ml Total Protein (6.0-8.3) gm/dl Albumin (3.4-5.0) gm/dl Globulin (2.5-4.0) gm/dl Albumin/Globulin Ratio (0.9-2) Procalcitonin < 0.05 (0-0.5) ng/ml Nasal Screen MRSA (PCR) Negative (Negative) SARS-CoV-2 (PCR) NEGATIVE (Negative) 02/03/22 Range/Units 18:28 WBC (4.8-10.8) K/ul RBC (3.93-5.22) M/uL Hgb (12.0-16.0) g/dl Hct (34.1-44.9) % MCV (80.0-100.0) fL MCH (25.0-34.0) pg MCHC (32.0-36.0) g/dL RDW Std Deviation (36.4-46.3) fL RDW Coeff of Jazmin (11.5-14.5) % Plt Count (130-400) K/uL MPV (9.4-12.3) fL Immature Gran % (Auto) % Neut % (Auto) % Lymph % (Auto) % [place] % (Auto) % Eos % (Auto) % Baso % (Auto) % Neut # (Auto) (1.4-6.5) K/uL Lymph # (Auto) (1.2-3.4) K/uL [place] # (Auto) (0.24-0.82) K/uL Eos # (Auto) (0-0.50) K/uL Baso # (Auto) (0-0.2) K/uL Immature Gran # (Auto) (0.00-0.02) K/uL Sodium (136-145) mmol/L Potassium (3.5-5.1) mmol/L Chloride (98-107) mmol/L Carbon Dioxide (21-32) mmol/L Anion Gap (3-11) BUN (6-23) mg/dl Creatinine (0.6-1.2) mg/dl Est Cr Clr Drug Dosing Est GFR ( Amer) ml/min Est GFR (Non-Af Amer) ml/min BUN/Creatinine Ratio (10-20) Glucose (70-99(Fasting)) mg/dl POC Glucose 122 H (70-99) mg/dl Calcium (8.5-10.1) mg/dl Magnesium (1.7-2.4) mg/dl Total Bilirubin (0.2-1.0) mg/dl AST (13-39) U/L ALT (7-52) U/L Alkaline Phosphatase (34-104) U/L Troponin I High Sens (0-14) pg/ml B-Natriuretic Peptide (0-100) pg/ml Total Protein (6.0-8.3) gm/dl Albumin (3.4-5.0) gm/dl Globulin (2.5-4.0) gm/dl Albumin/Globulin Ratio (0.9-2) Procalcitonin (0-0.5) ng/ml Nasal Screen MRSA (PCR) (Negative) SARS-CoV-2 (PCR) (Negative) Administered Medications Sodium Chloride (Nss 1000ml) 1,000 mls @ 125 mls/hr IV .Q8H STA Stop: 02/03/22 23:24 Last Admin: 02/03/22 15:41 Dose: 125 mls/hr Documented By: LASHAY Discontinued Medications Ampicillin Sodium/Sulbactam Sodium 3,000 mg/ Sodium Chloride 108 mls @ 200 mls/hr IV NOW STA; Protocol Stop: 02/03/22 14:18 Last Infusion: 02/03/22 17:23 Dose: 0 mls/hr Documented By: Admin: 02/03/22 15:40 Dose: 200 mls/hr Documented By: LASHAY Vancomycin HCl 1,250 mg/ (Sodium Chloride) 525 mls @ 200 mls/hr IV NOW ONE Stop: 02/03/22 16:23 Last Admin: 02/03/22 16:22 Dose: Not Given Documented By: LASHAY Ioversol (Optiray 320 125ml) 118 ml IV ONCE ONE Stop: 02/03/22 18:41 Last Admin: 02/03/22 18:44 Dose: 118 ml Documented By: ASIYA Imaging Data Radiologist's Impression: Chest X-Ray 02/03/22 13:27 XR chest 1V portable CLINICAL HISTORY: Dyspnea COMPARISON STUDY: Chest radiograph February 02, 2022. FINDINGS: Lung volumes are mildly diminished. Minimal left basilar opacity favors atelectasis. There is no pneumothorax or pleural effusion. Cardiac size is normal. Mediastinal contours are normal. There is no evidence for pulmonary edema. IMPRESSION: No acute cardiopulmonary findings. ACT 112: Negative or not required by law. Electronically signed by: Luc Salvador M.D. 02/03/2022 3:[address] 02/03/22 18:37 CT OF THE HEAD WITHOUT CONTRAST CLINICAL HISTORY: Stroke Like Symptoms. Right arm weakness. COMPARISON STUDY: Head CT December 22, 2021. TECHNIQUE: Helical axial images of the head were obtained without IV contrast. Automated exposure control was utilized for the study. A dose lowering technique was utilized adhering to the principles of ALARA. FINDINGS: The study is mildly compromised by motion artifact. White matter hypodensities are similar to prior exam and favor small vessel disease. No acute intracranial hemorrhage, midline shift or mass effect is present. The ventricular system is unremarkable. The basal cisterns are patent. No extra- axial collections are present. There are no findings to suggest acute dural sinus thrombosis or acute territorial infarct. No significant calvarial abnormalities are present. Visualized portions of the sinuses and mastoid air cells are clear. IMPRESSION: No acute intracranial findings. Exam mildly compromised by motion artifact. ACT 112: Negative or not required by law. Electronically signed by: Luc Salvador M.D. 02/03/2022 6:52 PM Head CTA 02/03/22 18:37 CT angio head w con CLINICAL HISTORY: Stroke Like Symptoms . Right-sided arm weakness and right arm droop. Decreased responsiveness. COMPARISON STUDY: Noncontrast CT from 02/03/2022 CT DOSE: 1416.40 mGy.cm TECHNIQUE: CT Angio of the brain was performed.followed by image post processing with coronal, and sagittal MIP reformats. Contrast Volume: Optiray 320, 119 ml FINDINGS: Vascular findings: There is normal enhancement within the internal carotid arteries bilaterally. There is normal enhancement noted within the anterior, middle and posterior cerebral arteries. Nonvascular findings: There is homogeneous attenuation of the brain parenchyma bilaterally. There is no evidence for an acute infarct or cerebral edema. IMPRESSION: 1. Negative CT angiogram of the brain with contrast. ACT 112: Negative or not required by law. Electronically signed by: Pradeep Tapia M.D. 02/03/2022 7:04 PM Neck CTA 02/03/22 18:37 CT ANGIOGRAPHY OF THE NECK WITH CONTRAST CLINICAL HISTORY: Stroke Like Symptoms COMPARISON STUDY: No previous studies for comparison. Technique: CT angiography of the carotid and vertebral arteries was obtained using Optiray and 3D reconstruction on an independent workstation. NASCET criteria was utilized. Automated exposure control was utilized for the study. A dose lowering technique was utilized adhering to the principles of ALARA. Findings: Visualized portions of the lung apices are unremarkable. There is no acute cervical spine fracture. No cervical lymphadenopathy is present. This exam is moderately compromised by motion artifact. The bilateral vertebral arteries are patent. No stenosis or dissection within the bilateral vertebral arteries is noted. Moderate plaque is noted within visualized portions of the aortic arch. The right common carotid artery is patent. The cervical right internal carotid artery is suboptimally assessed given artifact although is likely patent. The left common carotid artery is patent. The cervical left internal carotid artery is suboptimally assessed due to artifact. There is atherosclerotic plaque within the proximal left internal carotid artery with suspected stenosis. IMPRESSION: 1. Atherosclerotic plaque with suspected stenosis of the proximal left internal carotid artery. However, exam significantly compromised by motion artifact. A repeat CTA of the neck is suggested. 2. Suboptimal evaluation of the cervical right internal carotid artery however no definite stenosis within this vessel. 3. Patent bilateral vertebral arteries. ACT 112: Negative or not required by law. Electronically signed by: Luc Salvador M.D. 02/03/2022 6:59 PM Discharge Plan Visit Data Chief Complaint: Shortness of Breath/Dyspnea Stated Complaint: Unable to eat / drink, unable to urinate, sob ED Provider: Winston Sanchez Discharge Problem: Pneumonia Forms Stand Alone Forms: My [facility] Prescriptions Prescriptions: No Action mirtazapine 15 mg tablet 7.45 mg PO HS Rx Instructions: 1/2 tablet dose aspirin 81 mg Tablet,Delayed Release (Dr/Ec) 81 mg PO 2XWK fluticasone propionate 50 mcg/actuation [place],Suspension 2 spray INTRANASAL QAM Rx Instructions: 2 sprays into each nostril Ensure High Protein Liquid 1 ea PO TID cholecalciferol (vitamin D3) [Vitamin D3] 25 mcg (1,000 unit) Tablet 25 mcg PO DAILY levofloxacin 750 mg tablet 750 mg PO DAILY 7 Days Qty: 7 0RF Referrals Referrals: Cindy Borrero MD [Primary Care Provider] -
[2022-02-03 15:20] LABS: Troponin I High Sensitivity 7.3 pg/ml (0-14)
[2022-02-03 15:22] LABS: Alanine Aminotransferase 16 U/L (7-52); Albumin Globulin Ratio 1.5 (0.9-2); Alkaline Phosphatase 36 U/L (34-104); Anion Gap 3 (3-11); Aspartate Aminotransferase 18 U/L (13-39); BUN Creatinine Ratio 30.4 (10-20); Bilirubin,Total 0.5 mg/dl (0.2-1.0); Blood Urea Nitrogen 17 mg/dl (6-23); Carbon Dioxide 37 mmol/L (21-32); Chloride 102 mmol/L (98-107); Est GFR (African American) 102.8 ml/min; Est GFR (Non-African American) 88.7 ml/min; Globulin 2.6 gm/dl (2.5-4.0); Glucose 109 mg/dl (70-99(Fasting)); Magnesium 1.9 mg/dl (1.7-2.4); Sodium 142 mmol/L (136-145); Total Protein 6.6 gm/dl (6.0-8.3)
--- NOTE | 2022-02-03 15:23 | XRay Report ---
XR chest 1V portable CLINICAL HISTORY: Dyspnea COMPARISON STUDY: Chest radiograph February 02, 2022. FINDINGS: Lung volumes are mildly diminished. Minimal left basilar opacity favors atelectasis. There is no pneumothorax or pleural effusion. Cardiac size is normal. Mediastinal contours are normal. Ther e is no evidence for pulmonary edema. IMPRESSION: No acute cardiopulmonary findings. ACT 112: Negative or not required by law. Electronically signed by: Luc Salvador M.D. 02/03/2022 3:21 PM
[2022-02-03] MEDS ORDERED: SODIUM CHLORIDE 0.9% 1000ML 1,000 ML IV STA (15:25)
--- NOTE | 2022-02-03 15:38 | History & Physical Report ---
Date of Service February 03, 2022 Assessment & Plan (1) Hypoxia: (2) Pneumonia: (3) Weakness: (4) Ambulatory dysfunction: (5) Alejandrina Gehrig disease: Plan This is a 81-year-old female who has significant past medical history of bulbar amyotrophic lateral sclerosis, HTN, HLD, LVH, history of right breast cancer status post partial mastectomy who presents to the ER secondary to inability to swallow antibiotic pills. Hypoxia Early RLL Pneumonia - documented on CT on 02/02, possible aspiration component admit to med tele continue antibiotics with IV unasyn and azithromycin, pt having difficulty swallowing pills supportive care gentle fluids x 1 L nebs prn pt did have speech eval 12/23/21 - dx with esophageal dysfunction recommending pureed diet, sippery with thin liquids, aspiration and gerd precautions, no further f/u was recommended procalcitonin negative Generalized Weakness Ambulatory dysfunction ALS follows [facility] neurology previously had been on riluzole, but currently not taking per OP neuro notes consult PT/OT pt may benefit from rehab as well as placement, per extended family Dunia pt having more and more difficulty caring for self and she is unable to care of her or be her caregiver DVT ppx: SQ Lovenox Dispo: med tele, CM to be involved as pt may beed rehab/placement after PNA treatment PCP: Dr. Borrero FULL CODE Pt was seen and examined in collaboration with Dr. Merida, please see addendum History of Present Illness Chief Complaint: SOB and inability to take pills. Primary Care Provider: Cindy Borrero MD This is a 81-year-old female who has significant past medical history of bulbar amyotrophic lateral sclerosis, HTN, HLD, LVH, history of right breast cancer status post partial mastectomy who presents to the ER secondary to inability to swallow antibiotic pills. Of significance patient was seen in ER yesterday on 02/02/2022. This visit was secondary to complaining of left lower back pain that started approximately 2 weeks ago. It was also noted that she has been eating and drinking less over the past several months secondary to her ALS. Yesterday her blood work did not show significant leukocytosis or anemia, her D-dimer was negative, BMP along with LFTs and troponin was negative. Her urinalysis was negative for infection. CT abdomen pelvis did reveal a questionable developing early pneumonia of the right lower lobe. She was given IV fluids and started on oral Levaquin. When patient returned home she continued to be generally weak, not eating and drinking and difficulty swallowing pills. She was then brought back to the ER by her friend. Today hemodynamically she remained stable although she was saturating 88% on room air requiring small amount of supplemental oxygen. She does wear 2 L of oxygen at bedtime. Her CBC and CMP was again generally unremarkable. Chest x-ray did not show any acute cardiopulmonary abnormality. She was started on IV vancomycin and Unasyn. Hx difficult to obtain from pt given ALS and lack of ability to communicate verbally. Hx mostly obtained from providers. She is able to shake head yes/no and she understands. She c/o sob and weakness. She denies f/c/s, cough, chest pain, n/v/d abdominal pain. Did talk to friend Dunia who is her second contact. Patient has been unable to take care of self. She has been getting increasingly weak and complaining of short of breath. She does wear 2 L of oxygen at bedtime. When discharged home from ER last evening was unable to swallow pills and therefore brought back to ED. Overall poor intake. Taina is an extended family member, there is no immediate family close by. They do make sure she has meals, although she rarely eats them. She was diagnosed with ALS approximately 3 years ago and since has lost about 100 pounds. Up until a few days ago has still been driving. Allergies Allergy/AdvReac Type Severity Reaction Status Date / Time No Known Drug Allergies Allergy Unknown Verified 02/03/22 15:14 Home Medications Medication Instructions Recorded Confirmed Type aspirin 81 mg tablet,delayed 81 mg PO 2XWK 12/22/21 02/03/22 History release cholecalciferol (vitamin D3) 25 25 mcg PO DAILY 12/22/21 02/03/22 History mcg (1,000 unit) tablet (Vitamin D3) fluticasone propionate 50 2 spray intranasal QAM 12/22/21 02/03/22 History mcg/actuation nasal spray,suspension food supplemt, lactose-reduced 1 ea PO TID 12/22/21 02/03/22 History (Ensure High Protein oral liquid) mirtazapine 15 mg tablet 7.45 mg PO HS 12/22/21 02/03/22 History levofloxacin 750 mg tablet 750 mg PO DAILY 7 days #7 tabs 02/02/22 02/03/22 Rx Past Med/Surg History Medical History History of breast cancer Alejandrina Gehrig disease Osteoarthritis Renal mass "PET scan 05/14/2010- partially calcified left renal lower pole 30x36 mm mass. PET scan 09/27/13 showed stable partially calcified mass lower pole L kidney." Uterine leiomyoma Surgical History History of carpal tunnel release History of partial mastectomy of right breast (04/14/10) Family History Mother Diabetes Other Heart disease Social History Smoking Status: Never smoker Second Hand Exposure: No; Hx Alcohol Use: No Hx Substance Use: No Preferred Language: Tanzanian Communication Ability: Effective Communication Tools: Other Signals Intelligence Superintendent Required: No Beliefs That Will Affect Care: None marital status: Single Current Living Situation: Alone Feels Safe at Home: Yes Assistive Devices: None Review of Systems Review of Systems: All systems reviewed & are unremarkable except as noted in HPI & below and Other (difficult in setting of als) Physical Exam Physical Exam: Please refer to the addendum for physical exam findings by Dr. Merida Results & Data Results & Data ([facility]) Vital Signs (Past 12 Hours) Vital Signs Temp Pulse Resp BP Pulse Ox O2 Del Method 02/03/22 13:11 36.7 C 87 18 167/85 H 89 L Room Air Diagnostic Findings Chest X-Ray 02/03/22 13:27 XR chest 1V portable CLINICAL HISTORY: Dyspnea COMPARISON STUDY: Chest radiograph February 02, 2022. FINDINGS: Lung volumes are mildly diminished. Minimal left basilar opacity favors atelectasis. There is no pneumothorax or pleural effusion. Cardiac size is normal. Mediastinal contours are normal. There is no evidence for pulmonary edema. IMPRESSION: No acute cardiopulmonary findings. ACT 112: Negative or not required by law. Electronically signed by: Luc Salvador M.D. 02/03/2022 3:21 PM Medications Administered Medication List Sodium Chloride (Nss 1000ml) 1,000 mls @ 125 mls/hr IV .Q8H STA Stop: 02/03/22 23:24 Last Admin: 02/03/22 15:41 Dose: 125 mls/hr Documented By: NH Discontinued Medications Ampicillin Sodium/Sulbactam Sodium 3,000 mg/ Sodium Chloride 108 mls @ 200 mls/hr IV NOW STA; Protocol Stop: 02/03/22 14:18 Last Admin: 02/03/22 15:40 Dose: 200 mls/hr Documented By: NH Vancomycin HCl 1,250 mg/ (Sodium Chloride) 525 mls @ 200 mls/hr IV NOW ONE Stop: 02/03/22 16:23 Last Admin: 02/03/22 16:22 Dose: Not Given Documented By: NH ECG Rate (beats per minute): 77 Rhythm: normal sinus Additional Comments: qtc 420ms COVID-19 Results Results COVID-19 Adm Lab Results: RBC 4.70 M/uL (3.93-5.22) 02/03/22 WBC 7.32 K/ul (4.8-10.8) 02/03/22 Hgb 12.9 g/dl (12.0-16.0) 02/03/22 Hct 41.7 % (34.1-44.9) 02/03/22 Plt Count 170 K/uL (130-400) 02/03/22 Neutrophils (%) (Auto) 84.6 % 02/03/22 Lymphocytes (%) (Auto) 11.7 % 02/03/22 Monocytes # (Auto) 0.21 K/uL (0.24-0.82) L 02/03/22 Eosinophils # (Auto) 0.01 K/uL (0-0.50) 02/03/22 Immature Granulocyte % (Auto) 0.4 % 02/03/22 Neutrophils # (Auto) 6.19 K/uL (1.4-6.5) 02/03/22 Lymphocytes # (Auto) 0.86 K/uL (1.2-3.4) L 02/03/22 Monocytes # (Auto) 0.21 K/uL (0.24-0.82) L 02/03/22 Eosinophils # (Auto) 0.01 K/uL (0-0.50) 02/03/22 Basophils # (Auto) 0.02 K/uL (0-0.2) 02/03/22 Immature Granulocyte # (Auto) 0.03 K/uL (0.00-0.02) H 02/03 Na 142 mmol/L (136-145) 02/03/22 K 4.0 mmol/L (3.5-5.1) 02/03/22 Cl 102 mmol/L (98-107) 02/03/22 CO2 37 mmol/L (21-32) H 02/03/22 Anion Gap 3 (3-11) 02/03/22 BUN 17 mg/dl (6-23) 02/03/22 Creatinine 0.56 mg/dl (0.6-1.2) L 02/03/22 BUN/Creatinine Ratio 30.4 (10-20) H 02/03/22 Glucose Level 109 mg/dl (70-99(Fasting)) H 02/03/22 Ca 9.0 mg/dl (8.5-10.1) 02/03/22 Total Bilirubin 0.5 mg/dl (0.2-1.0) 02/03/22 AST/SGOT 18 U/L (13-39) 02/03/22 ALT/SGPT 16 U/L (7-52) 02/03/22 Alkaline Phosphatase 36 U/L (34-104) 02/03/22 Total Protein 6.6 gm/dl (6.0-8.3) 02/03/22 Albumin 4.0 gm/dl (3.4-5.0) 02/03/22 Globulin 2.6 gm/dl (2.5-4.0) 02/03/22 Albumin/Globulin Ratio 1.5 (0.9-2) 02/03/22 Procalcitonin < 0.05 ng/ml (0-0.5) 02/03/22 PTT 24.8 Seconds (21.0-31.0) 02/03/22 INR 1.0 (0.9-1.1) 02/03/22 COVID-19 PCR NEGATIVE (Negative) 02/03/22 Chest X-Ray 02/03/22 Code Status & VTE Plan Code Status FULL CODE VTE Prophylaxis Plan VTE Prophylaxis will be ordered: Yes Supervising Physician Co-Signing Physician Notes Pt is a 81 y/o F with hx of ALS with dysarthria, HTN, HLD, R breast Ca s/p partial mastectomy initially admitted for pneumonia with hypoxia with decline in function. PE: NAD but appeared a little lethargic Lungs: overall good respiratory afford and CTA Cardiac: normal S1/S2, no murmur Abd: ND, NT, soft MSK: no LE edema Psych: pt is nonverbal but understand and follows command A/P: Acute CVA with R sided weakness and R facial droop: -stroke alert was called at 6:30 pm -CT head: no acute bleeding -[place] neurologist was called: since the symptoms started acutely pt is a candidate for tPA. However it was a difficult evaluation due to pts aphasia. -I discussed the case with pts niece (Maribeth who live in [place]: [phone]). Per her, pt does not have a POA. Pt's cousin lives in [place] and has a brother in [place]. Per Maribeth pt would proceed with tPA. ---- I tried to explain the benefit and risk (also the neurologist) of tPA. Pt nodded yes when we asked her whether she would like to proceed with tPA. -Stopped DVT ppx lovenox and aspirin -repeat CT head and MRI brain in 24 hrs and Neurology consult ordered -Pt transferred to ICU (Informed the ICU doc) Pneumonia with Hypoxia: -CXR showed no acute finding but on CT abd yesterday it showed Patchy alveolar opacity within the deep right costophrenic angle with air bronchograms most characteristic of an early pneumonia - due to difficulty with speech will cover for possible aspiration with unasyn and azithromycin - if pts hypoxia improve then can change the abx to liquid augmentin Ambulatory dysfunction with worsening functional status: -pt/ot -palliative care consult Dr. Merida
[2022-02-03] MEDS: VANCOMYCIN HCL 1,250 MG in SODIUM CHLORIDE 0.9% 500 ML IV ONE ×2 (15:40→16:22)
[2022-02-03] MEDS ORDERED: OPTIRAY 320 125ml IV ONE (18:40)
--- NOTE | 2022-02-03 18:54 | CT Scan Report ---
CT OF THE HEAD WITHOUT CONTRAST CLINICAL HISTORY: Stroke Like Symptoms. Right arm weakness. COMPARISON STUDY: Head CT December 22, 2021. TECHNIQUE: Helical axial images of the head were obtained without IV contrast. Automated exposure con trol was utilized for the study. A dose lowering technique was utilized adhering to the principles o f ALARA. FINDINGS: The study is mildly compromised by motion artifact. White matter hypodensities are similar to prior exam and favor small vessel disease. No acute intracranial hemorrhage, midline shift or mass effect is present. The ventricular system is unremarkable. The basal cisterns are patent. No extra-a xial collections are present. There are no findings to suggest acute dural sinus thrombosis or acute territorial infarct. No significant calvarial abnormalities are present. Visualized portions of the s inuses and mastoid air cells are clear. IMPRESSION: No acute intracranial findings. Exam mildly compromised by motion artifact. ACT 112: Negative or not required by law. Electronically signed by: Luc Salvador M.D. 02/03/2022 6:52 PM
--- NOTE | 2022-02-03 19:01 | CT Scan Report ---
CT ANGIOGRAPHY OF THE NECK WITH CONTRAST CLINICAL HISTORY: Stroke Like Symptoms COMPARISON STUDY: No previous studies for comparison. Technique: CT angiography of the carotid and vertebral arteries was obtained using Optiray and 3D rec onstruction on an independent workstation. NASCET criteria was utilized. Automated exposure control was utilized for the study. A dose lowering technique was utilized adhering to the principles of ALA RA. Findings: Visualized portions of the lung apices are unremarkable. There is no acute cervical spine f racture. No cervical lymphadenopathy is present. This exam is moderately compromised by motion artifa ct. The bilateral vertebral arteries are patent. No stenosis or dissection within the bilateral verte bral arteries is noted. Moderate plaque is noted within visualized portions of the aortic arch. The r ight common carotid artery is patent. The cervical right internal carotid artery is suboptimally asse ssed given artifact although is likely patent. The left common carotid artery is patent. The cervical left internal carotid artery is suboptimally assessed due to artifact. There is atherosclerotic plaq ue within the proximal left internal carotid artery with suspected stenosis. IMPRESSION: 1. Atherosclerotic plaque with suspected stenosis of the proximal left internal carotid artery. [facility] er, exam significantly compromised by motion artifact. A repeat CTA of the neck is suggested. 2. Suboptimal evaluation of the cervical right internal carotid artery however no definite stenosis w ithin this vessel. 3. Patent bilateral vertebral arteries. ACT 112: Negative or not required by law. Electronically signed by: Luc Salvador M.D. 02/03/2022 6:59 PM
--- NOTE | 2022-02-03 19:06 | CT Scan Report ---
CT angio head w con CLINICAL HISTORY: Stroke Like Symptoms . Right-sided arm weakness and right arm droop. Decreased resp onsiveness. COMPARISON STUDY: Noncontrast CT from 02/03/2022 CT DOSE: 1416.40 mGy.cm TECHNIQUE: CT Angio of the brain was performed.followed by image post processing with coronal, and s agittal MIP reformats. Contrast Volume: Optiray 320, 119 ml FINDINGS: Vascular findings: There is normal enhancement within the internal carotid arteries bilaterally. The re is normal enhancement noted within the anterior, middle and posterior cerebral arteries. Nonvascular findings: There is homogeneous attenuation of the brain parenchyma bilaterally. There is no evidence for an acute infarct or cerebral edema. IMPRESSION: 1. Negative CT angiogram of the brain with contrast. ACT 112: Negative or not required by law. Electronically signed by: Pradeep Tapia M.D. 02/03/2022 7:04 PM
[2022-02-03] MEDS ORDERED: TENECTEPLASE IV ONE ×2 (19:45→23:27)
[2022-02-03 19:58] LABS: Partial Thromboplastin Ratio 0.9; Partial Thromboplastin Time 24.8 Seconds (21.0-31.0); Prothrombin Time 11.1 Seconds (9.0-12.0)
--- NOTE | 2022-02-03 23:24 | Critical Care Consultation ---
Date of Consultation February 03, 2022 Assessment & Plan (1) Admitted to intensive care unit: Reason Critically Ill: 81-year-old female with acute RIGHT-sided facial droop concerning for CVA who is status post TNKase administration requiring close monitoring status post thrombolytic administration. NEURO - * CAM ICU: NEGATIVE * CVA: * Patient with acute RIGHT-sided facial droop while waiting on admission in the emergency department. She is status post TNKase administration. RIGHT-sided facial droop persists. Appears to have equal strength of the upper and lower extremities bilaterally. 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 * Continue neurochecks per unit protocol. * Permissive hypertension for now. * Follow-up MRI. * 24-hour follow-up CT. * Neuro consult. * ALS: * Patient still ambulates, but has been progressively weak. Additionally, she is reportedly lost approximately 100 pounds. Her p.o. intake is affected by aspiration. She is nonverbal. CARDIAC/VASCULAR - * HTN/HLD: * Continue home Rx when clinically appropriate. * Permissive HTN s/p acute CVA. * Monitor on telemetry. RESPIRATORY - * RLL Pneumonia: * Patient likely w/ chronic aspiration. * Recent swallow eval w/ pureed diet recommendation. Patient claims she keeps up with this diet. * Continue w/ current antibiotic regime for now. * Chronic hypoxic respiratory failure: * 2/2 ALS. * Continue w/ home O2 therapy (2L) GI/NUTRITION - * Consider GI consult for ongoing plan as patient continues to aspirate. RENAL/LYTES - * No significant electrolyte derangements. * IVF: NSS @ 80 mL/hr - * No concerns at this time. ENDO - * No h/o DM or Thyroid Dz * BSGs per unit protocol. ISS --> gtt per unit policy. HEME - * Stable H&H * Monitor s/s bleeding s/p TNKase administration. ID - * ??RLL PNA: * Likely 2/2 aspiration. * Unasyn/Azithromycin LINES/IV ACCESS - * PIVs x2 DVT PROPHYLAXIS - * Hold on chemoprophylaxis s/p TNKase administration. * SCDs I have personally spent 32 minutes of critical care time in the direct management of this patient. This is a life/limb threatening event. This includes time spent evaluating patient, direct bedside care, chart review, placing orders, interpretation of diagnostic studies, discussion with consultants, patient, and family members, as well as other required patient management activities. This time is exclusive of all separately billable procedures, and teaching time and separate from and in addition to any other critical care service time. Thank you for allowing us to participate in the care of this patient. Please refer to my attending physician's documentation for any further recommendations. (2) CVA (cerebral vascular accident): (3) Thrombolytic therapy administered within 2 hours of onset of symptoms: (4) Alejandrina Gehrig disease: (5) Pneumonia: Supervising Physician Co-Signing Physician Notes Patient seen and examined. EMR reviewed. Discussed with critical care EVELIN from overnight. Agree with assessment plan as noted. For additional details, please refer to critical care progress note from 02/04/2022 History of Present Illness Attending Physician: Carmine Merida MD History of Present Illness Patient is a 81-year-old female with a significant past medical history of ALS, hypertension, hyperlipidemia, and chronic respiratory failure on home oxygen. She presented the emergency department today with inability to swallow her pills. She was seen in the emergency department yesterday and diagnosed with RIGHT lower lobe pneumonia presumed to be aspiration. Unfortunately, she has felt increasingly weak and tired and there was concern for dehydration. She had been admitted for IV antibiotics for pneumonia, however during the stay in the emergency department, she developed acute RIGHT-sided facial droop. She was evaluated by stroke neurology and they had agreed to proceed with TNKase. Patient mid to the ICU for ongoing management status post TNKase administration. Upon evaluation in the ICU, the patient is awake, alert, and oriented. She communicates by nodding her head yes or no. She does complain of some ongoing flank pain for which she was seen in the emergency department yesterday. She reports the pain is not new or worse. She denies complaints of headaches, dizziness, lightheadedness, chest pain, palpitations, shortness of breath, nausea, or vomiting. She does ambulate, but does agree that she has been more weak recently. She acknowledges that she has been coughing after eating and drinking as well. Otherwise, HPI limited secondary to patient's inability to communicate verbally. Allergies Allergy/AdvReac Type Severity Reaction Status Date / Time No Known Drug Allergies Allergy Unknown Verified 02/03/22 15:14 Home Medications Medication Instructions Recorded Confirmed Type aspirin 81 mg tablet,delayed 81 mg PO 2XWK 12/22/21 02/03/22 History release cholecalciferol (vitamin D3) 25 25 mcg PO DAILY 12/22/21 02/03/22 History mcg (1,000 unit) tablet (Vitamin D3) fluticasone propionate 50 2 spray intranasal QAM 12/22/21 02/03/22 History mcg/actuation nasal spray,suspension food supplemt, lactose-reduced 1 ea PO TID 12/22/21 02/03/22 History (Ensure High Protein oral liquid) mirtazapine 15 mg tablet 7.45 mg PO HS 12/22/21 02/03/22 History levofloxacin 750 mg tablet 750 mg PO DAILY 7 days #7 tabs 02/02/22 02/03/22 Rx Patient History Medical History History of breast cancer Alejandrina Gehrig disease Osteoarthritis Renal mass "PET scan 05/14/2010- partially calcified left renal lower pole 30x36 mm mass. PET scan 09/27/13 showed stable partially calcified mass lower pole L kidney." Uterine leiomyoma Surgical History History of carpal tunnel release History of partial mastectomy of right breast (04/14/10) Family History Mother Diabetes Other Heart disease Social History Smoking Status: Never smoker Second Hand Exposure: No; Do You Dip or Chew Tobacco: No; Tobacco Cessation Education Requested by Patient: No Hx Alcohol Use: No Hx Substance Use: No Preferred Language: Palauan Communication Ability: Effective Communication Tools: Other Territory Account Representative Required: No Beliefs That Will Affect Care: None marital status: Single Current Living Situation: Alone Other Information That Helps Us Care for You: No Feels Safe at Home: Yes Safety Concerns: Feels Safe At This Time Assistive Devices: Glasses and Other Review of Systems Review of Systems: A complete 10 point review of systems was reviewed with the patient with pertinent positives and negatives as per history of present illness. All else were negative. Physical Exam Physical Exam: VITAL SIGNS - Vital signs and nursing notes were reviewed. GENERAL - 81-year-old female appearing her stated age who is in no acute distress. Answers yes/no questions by nodding her head. SKIN - Without rashes. HEAD - NC/AT. EYES - PERRL with EOMI bilaterally. Sclera anicteric. EARS - No deformities of external structures noted on gross examination bilaterally. NOSE - Midline and without cyanosis. No epistaxis or purulent drainage noted. MOUTH/OROPHARYNX - Without perioral cyanosis. Buccal mucosa pink and moist. NECK - Neck with FROM. Supple to palpation. No nuchal rigidity. LUNGS - Chest wall symmetric without accessory muscle use, intercostals retractions, or central cyanosis. Normal vesicular breath sounds CTA B/L. No wheezes, rales, or rhonchi appreciated. CARDIAC - RRR with S1/S2. No murmur, rubs, or gallops appreciated. ABDOMEN - Abdominal contour flat without pulsations or visible masses. BS normoactive all four quadrants. Mid abdominal TTP. EXTREMITIES - No clubbing or peripheral cyanosis. No pretibial edema present. +3/5 radial and dorsalis pedis pulses palpated throughout. +4/5 strength noted in UE/LE bilaterally. NEUROLOGIC - RIGHT sided facial droop present. Strength essential equal bilaterally of the extremities. PSYCH - A&Ox3 and cooperates fully with examiner. Answers yes/no questions. Results & Data Results & Data ([facility]) Vital Signs (Past 12 Hours) Vital Signs Temp Pulse Pulse Resp BP BP Pulse Ox 02/03/22 22:47 86 02/03/22 22:47 89 22 146/84 H 98 02/03/22 22:15 89 02/03/22 22:15 88 22 133/73 98 02/03/22 21:49 86 02/03/22 21:49 87 21 135/68 98 02/03/22 21:30 83 02/03/22 21:30 87 22 119/61 99 02/03/22 21:17 85 02/03/22 21:17 87 22 124/75 98 02/03/22 21:01 83 21 122/71 02/03/22 21:01 87 23 122/71 99 02/03/22 20:48 83 02/03/22 20:48 83 21 118/58 L 98 02/03/22 20:30 78 02/03/22 20:30 80 21 114/62 100 02/03/22 20:16 86 02/03/22 20:16 35.7 C L 86 22 136/66 92 02/03/22 20:05 87 94 02/03/22 20:06 88 02/03/22 20:00 86 02/03/22 20:00 87 22 125/70 92 02/03/22 19:45 86 21 130/65 92 02/03/22 17:30 88 17 145/65 H 98 02/03/22 17:00 92 H 19 153/77 H 98 02/03/22 16:30 88 26 H 150/94 H 98 02/03/22 15:18 85 25 H 168/80 H 99 02/03/22 14:00 88 L 02/03/22 15:10 88 21 164/71 H 99 02/03/22 15:00 83 22 99 02/03/22 14:50 83 21 98 02/03/22 14:46 85 20 99 02/03/22 13:11 36.7 C 87 18 167/85 H 89 L O2 Del Method O2 Flow Rate 02/03/22 22:47 02/03/22 22:47 Nasal Cannula 2 02/03/22 22:15 02/03/22 22:15 Nasal Cannula 2 02/03/22 21:49 02/03/22 21:49 Nasal Cannula 2 02/03/22 21:30 02/03/22 21:30 Nasal Cannula 2 02/03/22 21:17 02/03/22 21:17 Nasal Cannula 2 02/03/22 21:01 02/03/22 21:01 Nasal Cannula 2 02/03/22 20:48 02/03/22 20:48 Room Air 02/03/22 20:30 02/03/22 20:30 Nasal Cannula 2 02/03/22 20:16 02/03/22 20:16 Nasal Cannula 2 02/03/22 20:05 Nasal Cannula 2 02/03/22 20:06 02/03/22 20:00 02/03/22 20:00 Nasal Cannula 2 02/03/22 19:45 Nasal Cannula 2 02/03/22 17:30 Room Air 02/03/22 17:00 Room Air 02/03/22 16:30 02/03/22 15:18 02/03/22 14:00 Room Air 02/03/22 15:10 Nasal Cannula 2 02/03/22 15:00 Nasal Cannula 2 02/03/22 14:50 Nasal Cannula 2 02/03/22 14:46 Nasal Cannula 2 02/03/22 13:11 Room Air Coding Level of Care Code Critical Care 1st 30-74 mins Diagnoses Admitted to intensive care unit Z78.9 CVA (cerebral vascular accident) I63.9 Thrombolytic therapy administered within 2 hours of onset of symptoms Alejandrina Gehrig disease G12.21 Pneumonia J18.9 Time Spent (min) 32
[2022-02-03] MEDS ORDERED: PHARMACIST DISCHARGE MED REC CONSULT PRN (23:27)
[2022-02-03] MEDS ORDERED: No Aspirin within 24hrs of THROMBOLYTIC-Stroke SCH (23:27)
[2022-02-03] MEDS ORDERED: SODIUM CHLORIDE 0.9% 1000ML 1,000 ML IV SCH (23:27)
[2022-02-03] MEDS ORDERED: ACETAMINOPHEN 325 MG TAB PO PRN (23:27)
[2022-02-03] MEDS ORDERED: ALUMINUM/MAGNESIUM SUSP 30 ML UDC PO PRN (23:27)
[2022-02-03] MEDS ORDERED: STAT IV STA (23:27)
[2022-02-03] MEDS ORDERED: guaiFENesin 600 MG TABCR PO PRN (23:27)
[2022-02-03] MEDS ORDERED: FOOD SUPPLEMT LACTOSE REDUCED PO SCH (23:27)
[2022-02-03] MEDS ORDERED: ALBUTEROL 0.083% NEBU SOLN 3 ML VIAL NEB PRN (23:27)
[2022-02-03] MEDS ORDERED: MAGNESIUM HYDROXIDE SUSP 30 ML UDC PO PRN (23:27)
[2022-02-03] MEDS ORDERED: SODIUM CHLORIDE 0.9% 10ML FLUSH IV STA (23:27)
[2022-02-03] MEDS ORDERED: POLYETHYLENE (MIRALAX) 17 GM PACK PO PRN (23:27)
[2022-02-04] MEDS: Patient's HEIGHT &/or WEIGHT Needed SCH ×2 (01:17→01:28)
[2022-02-04] MEDS: AZITHROMYCIN 500 MG in DEXTROSE 5% 250 ML IV SCH ×2 (01:28→23:55)
[2022-02-04] MEDS: AMPICILLIN/SULBACTAM SOD 3,000 MG in 0.9 % SODIUM CHLORIDE 100 ML IV SCH ×5 (01:28→23:55)
[2022-02-04 02:01] LABS: Appearance Urine Clear (Clear); Bacteria Urine Automated Negative (Negative); Bilirubin Urine Negative (Negative); Blood Urine 3+ (Negative); Color Urine Yellow; Epithelial Cell Urine Auto >30 /lpf (0-5); Glucose Urine UA Negative (Negative); Ketones Urine Negative (Negative); Leukocyte Esterase Urine Negative (Negative); Nitrite Urine Negative (Negative); Protein Urine Negative (Negative); RBC Urine Automated >30 /hpf (0-4); Specific Gravity Urine > 1.045 (1.000-1.030); Urobilinogen Urine Negative (Negative); pH Urine 5.5 (4.5-7.5)
[2022-02-04 05:20] LABS: Basophils # (auto) 0.03 K/uL (0-0.2); Basophils % (auto) 0.2 %; Eosinophils # (auto) 0.01 K/uL (0-0.50); Eosinophils % (auto) 0.1 %; Hematocrit (blood only) 44.5 % (34.1-44.9); Hemoglobin 12.9 g/dl (12.0-16.0); Immature Granulocytes # (auto) 0.09 K/uL (0.00-0.02); Immature Granulocytes % (auto) 0.6 %; Lymphocytes # (auto) 0.87 K/uL (1.2-3.4); Lymphocytes % (auto) 6.2 %; Mean Corpuscular Hemoglobin 27.2 pg (25.0-34.0); Mean Corpuscular Volume 93.9 fL (80.0-100.0); Mean Platelet Volume 9.7 fL (9.4-12.3); Monocytes # (auto) 0.73 K/uL (0.24-0.82); Monocytes % (auto) 5.2 %; Neutrophils # (auto) 12.32 K/uL (1.4-6.5); Neutrophils % (auto) 87.7 %; Platelet Count 189 K/uL (130-400); RDW Coefficient of Variation 14.6 % (11.5-14.5); RDW Standard Deviation 50.1 fL (36.4-46.3); Red Blood Count 4.74 M/uL (3.93-5.22); White Blood Count 14.05 K/ul (4.8-10.8)
[2022-02-04] MEDS: CHOLECALCIFEROL 1,000 UNITS 25 MCG TAB PO SCH (05:31)
[2022-02-04 05:43] LABS: Albumin Globulin Ratio 1.7 (0.9-2); Albumin Level 3.8 gm/dl (3.4-5.0); BUN Creatinine Ratio 25.5 (10-20); Bilirubin,Total 0.3 mg/dl (0.2-1.0); Calcium 8.5 mg/dl (8.5-10.1); Creatinine Clr Calc Pharmacy 59.6 ml/min; Est GFR (African American) 103.4 ml/min; Est GFR (Non-African American) 89.2 ml/min; Globulin 2.3 gm/dl (2.5-4.0); Phosphorus 5.1 mg/dl (2.5-4.9); Potassium 3.9 mmol/L (3.5-5.1); Total Protein 6.1 gm/dl (6.0-8.3)
--- NOTE | 2022-02-04 06:33 | Electrocardiogram Report ---
Test Reason : Blood Pressure : / mmHG Vent. Rate : 077 BPM Atrial Rate : 077 BPM P-R Int : 146 ms QRS Dur : 080 ms QT Int : 372 ms P-R-T Axes : 054 -05 042 degrees QTc Int : 420 ms Poor data quality, interpretation may be adversely affected Normal sinus rhythm Possible Left atrial enlargement Borderline ECG When compared with ECG of 02-FEB-2022 16:35, No significant change was found Confirmed by Modesto Hale ([id number]) on 02/04/2022 6:32:49 AM Referred By: REFERRED SELF Confirmed By:Modesto Hale
[2022-02-04 07:12] LABS: Estimated Average Glucose 111 mg/dl; Hemoglobin A1C 5.5 % (4.5-5.6)
[2022-02-04 07:30] LABS: iSTAT Allen Test Pass; iSTAT Art Bld Gas pCO2 Correct 101 mmHg (35-46); iSTAT Arterial Blood Gas HCO3 46 meg/L (19-24); iSTAT Arterial Blood Gas pCO2 104 mmHg (35-46); iSTAT Arterial Blood Gas pH 7.25 (7.35-7.45); iSTAT Arterial Blood Gas pO2 185 mmHg (80-95); iSTAT Arterial Blood Gas pO2 C 181; iSTAT Carbon Dioxide > 40 mmol/L (24-31); iSTAT Hematocrit 42 % (37-47); iSTAT Hemoglobin 14.3 g/dl (12.0-16.0); iSTAT Potassium 3.9 mmol/L (3.3-5.0); iSTAT Site L Radial; iSTAT Sodium 141 mmol/L (135-144)
--- NOTE | 2022-02-04 09:49 | Neurology Consultation ---
Date of Consultation February 04, 2022 Assessment & Plan (1) Stroke-like episode: (2) Thrombolytic therapy administered within 2 hours of onset of symptoms: (3) Left carotid artery stenosis: (4) Alejandrina Gehrig disease: Plan Possible stroke localizing to the left cerebral hemisphere occurring in the context of possible stenosis of the proximal left internal carotid artery (technically compromised CTA examination) in a patient with bulbar ALS diagnosed about 3 years ago. Patient had presented with right-sided weakness yesterday occurring in the context of shortness of breath due to evolving right lower lobe pneumonia. She did have a telestroke consultation in the emergency department and was administered TNKase. She does not appear to have obvious focal deficits or right-sided weakness on her neurological examination this morning. She does have chronic bulbar weakness due to ALS. Follow-up with results of repeat CT of the head as well as brain MRI. Would recommend a carotid ultrasound as well as a repeat CT angiogram of the neck. Daily low-dose aspirin may be started 24 hours after administration of TNKase. Would also recommend a statin, goal LDL less than 70. Continue medical management of blood pressure per acute stroke parameters. Obtain up-to-date transthoracic echocardiogram with bubble study. Consider mobile cardiac outpatient telemetry. Consultations with PT/OT/speech therapy. Patient is not on specific treatment for her ALS, has not tolerated riluzole previously. Given elevated risk for aspiration due to patient's motor neuron disease may need to consider GI consultation. Continue supportive care, I will follow along. 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 She has not tolerated riluzole. Her bulbar ALS has continued to decline, notably affecting her speech. She has had intact strength for the limbs, no associated difficulty with walking. She presented to the emergency department yesterday for shortness of breath, weakness, noted to have right-sided weakness, right facial droop. Right upper extremity 3 out of 5, right lower extremity 4 out of5, downward drift. Telestroke consultation ensued, CT angiography/CT of the head revealing potential hypodensity within the left MCA deep white matter suggestive of low perfusion/stroke. Patient was administered IV TNKase. This morning, patient appears to have fairly symmetrical strength of the arms and legs. Follow-up CT of the head and brain MRI have been ordered. Her blood pressure has been fairly normal. Although she is nonverbal, she denies headache or vision loss. Patient was taking low-dose aspirin intermittently as an outpatient, not on a statin. Admission further complicated by early right lower lobe pneumonia, possible aspiration component, on IV antibiotics. She is also been weak in general with poor p.o. intake. Allergies Allergy/AdvReac Type Severity Reaction Status Date / Time No Known Drug Allergies Allergy Unknown Verified 02/03/22 15:14 Home Medications Medication Instructions Recorded Confirmed Type aspirin 81 mg tablet,delayed 81 mg PO 2XWK 12/22/21 02/03/22 History release cholecalciferol (vitamin D3) 25 25 mcg PO DAILY 12/22/21 02/03/22 History mcg (1,000 unit) tablet (Vitamin D3) fluticasone propionate 50 2 spray intranasal QAM 12/22/21 02/03/22 History mcg/actuation nasal spray,suspension food supplemt, lactose-reduced 1 ea PO TID 12/22/21 02/03/22 History (Ensure High Protein oral liquid) mirtazapine 15 mg tablet 7.45 mg PO HS 12/22/21 02/03/22 History levofloxacin 750 mg tablet 750 mg PO DAILY 7 days #7 tabs 02/02/22 02/03/22 Rx Patient History Medical History History of breast cancer Alejandrina Gehrig disease Osteoarthritis Renal mass "PET scan 05/14/2010- partially calcified left renal lower pole 30x36 mm mass. PET scan 09/27/13 showed stable partially calcified mass lower pole L kidney." Uterine leiomyoma Surgical History History of carpal tunnel release History of partial mastectomy of right breast (04/14/10) Family History Mother Diabetes Other Heart disease Social History Smoking Status: Never smoker Second Hand Exposure: No; Do You Dip or Chew Tobacco: No; Tobacco Cessation Education Requested by Patient: No Hx Alcohol Use: No Hx Substance Use: No Preferred Language: Bulgarian Communication Ability: Effective Communication Tools: Other Deputy Chief Executive Required: No Beliefs That Will Affect Care: None marital status: Single Current Living Situation: Alone Other Information That Helps Us Care for You: No Feels Safe at Home: Yes Safety Concerns: Feels Safe At This Time Assistive Devices: Glasses and Other Review of Systems Constitutional: no fever Eyes: no blind spots and no diplopia Ear, Nose, Mouth, Throat: no hearing loss Respiratory: + cough and + dyspnea Cardiovascular: no chest pain Gastrointestinal: no nausea and no vomiting Genitourinary: no dysuria Musculoskeletal: + back pain; no myalgia Integumentary: no rash Neurologic: as per Subjective / HPI; no headache(s) and no memory loss Psychiatric: no depression and no anxiety Hematologic / Lymphatic: no easy bleeding Exam (Neuro) Constitutional: well developed and well nourished; no acute distress Eyes: normal visual esposito by confrontation, PERRL, normal accommodation and EOM intact bilaterally; no fundoscopic abnormality, no nystagmus and no papilledema Cardiovascular: Vessels: normal carotid upstroke; no carotid bruit Neurologic: Oriented to:: Person, Place and Time Memory: Short Term Intact and Remote Intact Attention: Span Intact and Concentration Intact Desmond guage: Naming Objects and Repeating Phrases Speech Fluency: Dysarthria and Other (Nonverbal in the context of severe bulbar ALS) Fund of Knowledge: Vocabulary Cranial Nerves: Normal II (Visual esposito full to confrontation, visual acuity normal), III, IV, (Pupils equal round reactive to light and accommodation, eye movements normal), V (Facial sensation intact), VIII (Hearing intact), IX, X (Palate elevates to midline), XI (Shoulder shrug intact) and XII (Tongue protrudes to midline); Abnorm VII (There is bilateral facial weakness) Motor Strength: Normal Upper Extremities; negative Normal Lower Extremities or Pronator Drift Motor Tone: Normal Lower Extremities and Normal Upper Extremities Muscle Bulk/Involuntary Movements: No Involuntary Movements; negative Muscle Atrophy Sensation: Light Touch Intact, Pain/Temperature Intact, Vibration Intact and Proprioception Intact Coordination: negative Finger-Nose Abnormal or Heel-Lipscomb Abnormal Deep Tendon Reflexes: Rt Triceps: 2+, Lt Triceps: 2+, Rt Biceps: 2+, Lt Biceps: 2+, Rt Brachioradialis: 2+, Lt Brachioradialis: 2+, Rt Patellar: 2+, Lt Patellar: 2+, Rt Ankle: 2+ and Lt Ankle: 2+ Special Tests: negative Babinski Present Details: Gait cannot be tested in the context of patient's current neurological status. Patient does not have an obvious hemiparesis this morning, appears to move her arms symmetrically, withdraws both lower limbs symmetrically to plantar stimulation, but otherwise, legs seem symmetrically weak. Results & Data ([facility]) Vital Signs (Past 12 Hours) Vital Signs Temp Pulse Pulse Resp BP BP Pulse Ox 02/04/22 08:00 79 02/04/22 08:37 81 26 H 95 02/04/22 08:00 36.5 C 85 26 H 92 02/04/22 07:00 36.3 C L 81 20 140/74 97 02/04/22 06:00 36.9 C 75 18 107/49 L 99 02/04/22 05:00 76 19 127/65 99 02/04/22 04:00 83 20 131/67 98 02/04/22 03:30 81 20 125/64 98 02/04/22 03:00 83 19 127/64 99 02/04/22 02:30 84 18 124/67 99 02/04/22 02:00 36.8 C 73 20 102/56 L 100 02/04/22 01:30 85 24 131/65 96 02/04/22 01:00 36.9 C 82 23 132/57 L 98 02/03/22 23:30 02/04/22 00:54 02/04/22 00:30 73 21 103/55 L 98 02/04/22 00:00 75 19 111/58 L 98 02/03/22 23:27 02/03/22 23:30 86 24 138/85 98 02/03/22 23:00 36.8 C 83 22 144/73 H 98 02/03/22 23:30 86 24 98 02/03/22 23:30 138/85 02/03/22 23:00 83 22 98 02/03/22 23:00 144/73 H 02/03/22 22:47 86 02/03/22 22:47 89 22 146/84 H 98 02/03/22 22:15 89 02/03/22 22:15 88 22 133/73 98 02/03/22 21:49 86 02/03/22 21:49 87 21 135/68 98 02/03/22 21:30 83 02/03/22 21:30 87 22 119/61 99 02/03/22 21:17 85 02/03/22 21:17 87 22 124/75 98 Pulse Ox O2 Del Method O2 Del Method O2 Flow Rate FiO2 02/04/22 08:00 02/04/22 08:37 30 02/04/22 08:00 02/04/22 07:00 02/04/22 06:00 02/04/22 05:00 02/04/22 04:00 02/04/22 03:30 02/04/22 03:00 Nasal Cannula 2 02/04/22 02:30 Nasal Cannula 2 02/04/22 02:00 Nasal Cannula 2 02/04/22 01:30 Nasal Cannula 2 02/04/22 01:00 Nasal Cannula 2 02/03/22 23:30 Nasal Cannula 2 02/04/22 00:54 98 Nasal Cannula 02/04/22 00:30 02/04/22 00:00 Nasal Cannula 2 02/03/22 23:27 Nasal Cannula 02/03/22 23:30 Nasal Cannula 2 02/03/22 23:00 Nasal Cannula 2 02/03/22 23:30 02/03/22 23:30 02/03/22 23:00 Nasal Cannula 2 02/03/22 23:00 02/03/22 22:47 02/03/22 22:47 Nasal Cannula 2 02/03/22 22:15 02/03/22 22:15 Nasal Cannula 2 02/03/22 21:49 02/03/22 21:49 Nasal Cannula 2 02/03/22 21:30 02/03/22 21:30 Nasal Cannula 2 02/03/22 21:17 02/03/22 21:17 Nasal Cannula 2 Laboratory Results WBC 14.05, hemoglobin 12.9, hematocrit 44.5, MCV 93.9, platelet count 189, sodium 141, potassium 3.9, BUN 14, creatinine 0.55, glucose 155, hemoglobin A1c 5.5, calcium 8.5, magnesium 2.0, triglycerides 122, cholesterol 174, LDL 107, VLDL 24, HDL [address] of the head negative for hemorrhage or obvious acute findings. CT angiogram of the head and neck revealed atherosclerotic plaque with suspected stenosis of the proximal left internal carotid artery although exam compromised by motion artifact. Repeat CTA of the neck suggested. I did independently review these images. There are some periventricular white matter lucencies seen in both cerebral hemispheres, perhaps a bit more prominent in the left frontal region. I believe this is the area of abnormality that was mentioned by the telestroke specialist. This finding was not specifically mentioned by the interpreting radiologist. The finding, of course, is not highly specific. Medications Administered Electrocardiogram reveals a normal sinus rhythm, 82 bpm. An echocardiogram completed December 23, 2021 for chest pain, had revealed mild concentric left ventricular hypertrophy, normal left ventricular systolic function and wall motion, ejection fraction 60 to 65%, normal left atrial size, no significant valvular pathology, no ASD. Coding Level of Care Code 32960 Initial In Care Lvl 3 Diagnoses Stroke-like episode R29.90 Thrombolytic therapy administered within 2 hours of onset of symptoms Left carotid artery stenosis I65.22 Alejandrina Gehrig disease G12.21
[2022-02-04] MEDS: ONDANSETRON INJ 2 MG/ML 2 ML VIAL IV PRN ×2 (10:15→23:54)
--- NOTE | 2022-02-04 10:43 | Critical Care Progress Note ---
Date of Service February 04, 2022 Assessment & Plan (1) Stroke-like episode: (2) Left carotid artery stenosis: (3) Thrombolytic therapy administered within 2 hours of onset of symptoms: (4) Hypoxia: (5) Ambulatory dysfunction: (6) Pneumonia: (7) Alejandrina Gehrig disease: Plan Reason Critically Ill: Glen is a 81 year old female coming into the ICU s/p acute stroke episode requiring TNKase. Neuro CAM ICU: Negative Stroke-like Episode: -Developed R sided facial droop and weakness in ED ~18:30 last night, patient already non-verbal due to ALS. Initial NIHSS 12. -Given TNKase last night 19:48. -Head CT/CTA w/o acute intracranial findings. CTA neck w/ possible stenosis of L proximal carotid artery. -Neurology consulted: -Repeat CT head, CTA neck, obtain brain MRI, carotid duplex US. -Daily low dose ASA 24 hrs post TNKase. -BP per acute stroke parameters. -Repeat CT brain, MRI of brain ordered for 19:00. -Neuro checks per protocol. ALS: -Neuro consulted, patient had not tolerated riluzole previously. Recommend PT/OT/speech therapy consult. Cardiac Hypertension: -s/p stroke and TNKase, keep blood pressures below 170 systolic. Per neurology if blood pressure goes below 110-120 systolic can fluid resuscitate, avoid pressors. L Carotid Stenosis: -Possible stenosis of L carotid artery seen on CTA neck however motion artifact present. -Carotid duplex showing 50-69% L carotid artery. HLD: -Per neuro recommend statin with goal LDL <70. Respiratory Hypercapnic Hypoxic respiratory failure: -CO2 elevated to 46 on admission. -Most likely secondary to ALS progression causing decreased diaphragmatic and intercostal excursion. -BiPAP as needed. -May likely need continued BiPAP use at home at night and during day vs trach tube. -Will need to clarify goals of care. GI NPO, speech therapy consulted and recommended stay NPO. Dietiary/nutrition consulted. May benefit from PEG tube or other feeding apparatus given poor PO intake, aspiration risk, will depend on patient's goals of care. Renal/Electrolytes Kidney function and electrolytes within normal limits. Replete as needed. Strict I&Os. Endo No history of diabetes or thyroid disease. ICU Hyperglycemia protocol. Heme Hemoglobin, platelets stable. AM CBC. ID ?RLL Pneumonia: -Patient w/ previous early signs of pneumonia to RLL on imaging. Started on Levofloxacin at the time. -Cannot intake oral antibiotics at the current time. On Unasyn, azithromycin. -CXR w/o evidence of infiltrate or consolidation, either pneumonia resolved or bronchiectasis. -Patient has remained afebrile, WBC 7.32 -> 14.05 may be from acute stroke event. -Procal <0.05 -Continue to monitor Lines/IV Access Peripheral IV lines. DVT Prophylaxis Holding in setting of TNKase. SCDs. May need to hold on ASA 81mg due to difficulty with swallowing. Dispo: ICU. Palliative consulted for patient's goals of care. May need trach + PEG tube with new oxygen requirement and poor PO intake from ALS progression, if patient would not like to proceed with that may need to look further into hospice. Admission and Anticipated Discharge Date Admission Date: February 03, 2022 Supervising Physician Co-Signing Physician Notes Patient seen and examined. EMR reviewed. Images were independently reviewed. Case was discussed with the critical care EVELIN from overnight as well as with family practice resident. Agree with assessment plan as noted in the [facility] resident note. Patient was reviewed on multidisciplinary rounds and discussed with hospitalist at bedside. The patient has several issues currently. She has a stroke and received tPA. Her NIH remains unreliable given her underlying ALS but she is not had any bleeding complications. We will perform follow-up CT scan at about 7 PM tonight to ensure no bleeding complications associated with tPA. Post stroke order set completed although it is unclear how much of these orders may be applicable in someone who has advancing ALS. The bigger concern is that the patient has advancing ALS with hypercarbic respiratory failure and dysphagia. I met with the patient at bedside with the attending physician at bedside. We discussed the implications of her hypercarbic respiratory failure. Options would be to continue with noninvasive positive pressure ventilation or potentially consider intubation with plans for tracheostomy. The patient indicated that she wanted to function more on symptom management and quality of life which I certainly think is reasonable given her advanced age and prognosis. We also discussed her dysphagia and potential need for enteral access including long-term NG tube placement or PEG placement. The patient declines these interventions as well. It appears that she wants to focus more on palliative measures and palliative care consultation is currently pending. She may be appropriate for home hospice. We touched on CODE STATUS. I advised the patient that if she did not want to pursue tracheostomy or PEG tube placement and long-term, it does not seem consistent to pursue full-court measures in the event of a cardiopulmonary arrest. I would recommend against CPR or defibrillation or intubation or mechanical ventilation at this point. The patient is taking it under advisement. She appears to be appropriate to make decisions at this point in time. Would recommend transition to DNR/DNI status. The patient is critically ill at this point time with life-threatening illness. Total of 45 minutes in critical care time was spent evaluation management stabilization of this patient. Subjective Patient seen at the bedside today w/ BiPAP on and non-verbal at baseline tough to gauge subjective. Patient would shake head yes or no and point at times. She indicated she was having 3/10 abdominal pain throughout, most prominent at the left abdomen. Per nursing she hasn't had a bowel movement since she's been here but has not indicated she's had a bowel movement. She has had some nausea an deandre denies chest pain, fevers, or chills. Review of Systems Constitutional: as per Subjective / HPI Physical Exam Constitutional: WD/WN, vitals as above Patient resting comfortably in bed with head of bed up to around 65 degrees, BiPAP in place. ENMT: Pupils equal in size, constricted to 2-3mm. Mild droop noted to R orbicularis oculi muscle. Respiratory: Mild inspiratory and expiratory wheeze bilaterally. Cardiovascular: RRR, no murmur, no edema Gastrointestinal (Abdomen): BS+, mildly distended, soft, tender to palpation in all 4 quadrants, no rebound or guarding. Musculoskeletal: No cyanosis or clubbing, Strength 5/5 bilateral upper extremities, 3/5 bilateral lower extremities. Neurologic: Sensation in tact bilaterally at upper and lower extremities. CN 2-12 intact. Results & Data Results & Data ([facility]) Vital Signs (Past 12 Hours) Vital Signs Temp Pulse Pulse Resp BP BP Pulse Ox 02/04/22 09:00 36.5 C 84 22 143/78 H 90 02/04/22 08:00 79 02/04/22 08:37 81 26 H 95 02/04/22 08:00 36.5 C 85 26 H 92 02/04/22 07:00 36.3 C L 81 20 140/74 97 02/04/22 06:00 36.9 C 75 18 107/49 L 99 02/04/22 05:00 76 19 127/65 99 02/04/22 04:00 83 20 131/67 98 02/04/22 03:30 81 20 125/64 98 02/04/22 03:00 83 19 127/64 99 02/04/22 02:30 84 18 124/67 99 02/04/22 02:00 36.8 C 73 20 102/56 L 100 02/04/22 01:30 85 24 131/65 96 02/04/22 01:00 36.9 C 82 23 132/57 L 98 02/03/22 23:30 02/04/22 00:54 02/04/22 00:30 73 21 103/55 L 98 02/04/22 00:00 75 19 111/58 L 98 02/03/22 23:27 02/03/22 23:30 86 24 138/85 98 02/03/22 23:00 36.8 C 83 22 144/73 H 98 02/03/22 23:30 86 24 98 02/03/22 23:30 138/85 02/03/22 23:00 83 22 98 02/03/22 23:00 144/73 H 02/03/22 22:47 86 02/03/22 22:47 89 22 146/84 H 98 Pulse Ox O2 Del Method O2 Del Method O2 Flow Rate FiO2 02/04/22 09:00 BiPAP 30 02/04/22 08:00 02/04/22 08:37 30 02/04/22 08:00 02/04/22 07:00 02/04/22 06:00 02/04/22 05:00 02/04/22 04:00 02/04/22 03:30 02/04/22 03:00 Nasal Cannula 2 02/04/22 02:30 Nasal Cannula 2 02/04/22 02:00 Nasal Cannula 2 02/04/22 01:30 Nasal Cannula 2 02/04/22 01:00 Nasal Cannula 2 02/03/22 23:30 Nasal Cannula 2 02/04/22 00:54 98 Nasal Cannula 02/04/22 00:30 02/04/22 00:00 Nasal Cannula 2 02/03/22 23:27 Nasal Cannula 02/03/22 23:30 Nasal Cannula 2 02/03/22 23:00 Nasal Cannula 2 02/03/22 23:30 02/03/22 23:30 02/03/22 23:00 Nasal Cannula 2 02/03/22 23:00 02/03/22 22:47 02/03/22 22:47 Nasal Cannula 2 Resident Activity Tracking Resident Involvement: Resident Care Provided Care Provided: Adult Hospital Medicine
[2022-02-04 12:07] LABS: iSTAT Allen Test Pass; iSTAT Art Bld Gas pCO2 Correct 91 mmHg (35-46); iSTAT Art Bld Gas pH Corrected 7.252 (7.35-7.45); iSTAT Arterial Blood Gas HCO3 40 meg/L (19-24); iSTAT Arterial Blood Gas pCO2 93 mmHg (35-46); iSTAT Arterial Blood Gas pH 7.25 (7.35-7.45); iSTAT Arterial Blood Gas pO2 89 mmHg (80-95); iSTAT Arterial Blood Gas pO2 C 87; iSTAT Carbon Dioxide > 40 mmol/L (24-31); iSTAT Hematocrit 39 % (37-47); iSTAT Hemoglobin 13.3 g/dl (12.0-16.0); iSTAT Site L Brachial; iSTAT Sodium 144 mmol/L (135-144)
[2022-02-04 12:07] LABS: iSTAT Allen Test Pass; iSTAT Arterial Blood Gas HCO3 40 meg/L (19-24); iSTAT Arterial Blood Gas pCO2 97 mmHg (35-46); iSTAT Arterial Blood Gas pH 7.22 (7.35-7.45); iSTAT Arterial Blood Gas pO2 91 mmHg (80-95); iSTAT Carbon Dioxide > 40 mmol/L (24-31); iSTAT Site L Radial
--- NOTE | 2022-02-04 12:58 | Ultrasound Report ---
CAROTID ARTERY ULTRASOUND CLINICAL HISTORY: stenosis L proximal carotid artery on CTA COMPARISON STUDY: CTA of the neck February 03, 2022. TECHNIQUE: Real-time, grayscale, and color Doppler sonography of the carotid and vertebral arteries w as performed. Images were viewed in the transverse and longitudinal planes. FINDINGS: There is extensive atherosclerotic plaque present within the proximal left internal carotid artery a nd moderate plaque within the proximal right internal carotid. Velocity measurements are listed below . COMMON CAROTID PEAK SYSTOLIC VELOCITY (CM/S): RIGHT 54 LEFT 56 ICA PEAK SYSTOLIC VELOCITY (CM/S): RIGHT 91 LEFT 165 Systolic ratio between the left internal to common carotid artery is elevated at 2.9. Antegrade flow is seen in the vertebral arteries. The external carotid arteries are patent. IMPRESSION: Findings suggestive of 50-69% stenosis of the proximal left internal carotid artery. ACT 112: Negative or not required by law. Electronically signed by: Luc Salvador M.D. 02/04/2022 12:56 PM
--- NOTE | 2022-02-04 13:52 | Billing Data ---
Date of Service February 04, 2022 Coding Level of Care Code Critical Care 1st - mins
--- NOTE | 2022-02-04 16:02 | Hospitalist Progress Note ---
Date of Service February 04, 2022 Assessment & Plan (1) Hypoxia: (2) Pneumonia: (3) Weakness: (4) Ambulatory dysfunction: (5) Alejandrina Gehrig disease: Plan This is a 81-year-old female who has significant past medical history of bulbar amyotrophic lateral sclerosis, HTN, HLD, LVH, history of right breast cancer status post partial mastectomy who presents to the ER secondary to inability to swallow antibiotic pills then developed R sided facial droop and weakness in ED ~18:30 last night. Stroke-like episode: Stroke alert called and thrombolytic therapy (TNKase) administered within 2 hours of onset of symptoms CTA head/Neck showed no evidence for an acute infarct or cerebral edema. CT head negative for acute finding carotid u/s showed 50-69% stenosis of the proximal left internal carotid artery. Echo showed to hyperdynamic left ventricular systolic function is present with ejection fraction 65 to 70%. No significant valvular heart disease Neuro on board MRI head and repeat CT head pending Continue PT/OT/Speech eval Aspirin added, will add statin Continue monitor closely Hypercapnic Hypoxic respiratory failure Most likely secondary to ALS progression causing decreased diaphragmatic and int ercostal excursion. ABG showed PCO2 91 and pH 7.25 Possible related to aspiration pneumonia CXR showed minimal left basilar opacity favors atelectasis. speech on board recommended to continue to keep NPO (OK with Ice and sips water) for now and reevaluate procalcitonin negative Currently on IV unasyn and azithromycin Generalized Weakness Ambulatory dysfunction Dyshagia ALS follows [facility] neurology previously had been on riluzole, but currently not taking it because pt was not able to tolerate riluzole Dysphagia due to muscle weakness Pt made it clear that she does not want any invasive treatment such as tube feeding or tracheostomy DVT ppx: will start on subq anticoagulant as per protocol for the TNkase FULL CODE Discussed about code status. She is thinking about it. She said that she had a copy of her advance directive in the car. Will talk to her family member Dunia to try to look for the advance directive. Pt was seen and examined in collaboration with Dr. Merida, please see addendum Admission and Anticipated Discharge Date Admission Date: February 03, 2022 Subjective Pt was seen and examined for follow up of stroke like symptoms Stroke alert called for R sided facial droop and weakness in ED ~18:30 last night, patient already non-verbal due to ALS. Initial NIHSS 12. Lying in bed with no acute distress Pt failed swallow eval by speech Knot Tier discussed with patient about her prognosis and disease process Pt does not want any aggressive management such as tube feeding or tracheostomy Discussed about code status, pt said that she will think about it She asked me to call Dunia because she a copy of advance directive that she keeps in the car I spoke to Dunia provided with update and answered all her questions Dunia is on her way to come to the hospital. Dunia said that her patient's brother and sister are coming from [place] Currently patient said that she is ok Review of Systems Review of Systems: All systems reviewed & are unremarkable except as noted in Subjective Physical Exam Physical Exam: General- No acute distress Head- atraumatic Eyes- PERRL, EOMI, ENT- oropharynx clear Neck- supple, no JVD Lungs- clear to auscultation Heart- regular rhythm; no murmur Abdomen- normal bowel sounds, soft, nontender Extremities- no calf tenderness Neuro- alert, oriented, nonverbal but understand and follows command , moves extremity Skin- warm & dry Results & Data Results & Data ([facility]) Vital Signs (Past 12 Hours) Vital Signs Temp Pulse Pulse Resp BP Pulse Ox O2 Del Method 02/04/22 08:00 BiPAP 02/04/22 15:00 36.5 C 94 H 23 116/62 98 02/04/22 14:00 90 20 104/58 L 99 02/04/22 13:00 36.5 C 88 19 100/68 97 Nasal Cannula 02/04/22 12:00 36.5 C 91 H 26 H 101/55 L 97 Nasal Cannula 02/04/22 11:08 82 26 H 96 02/04/22 11:00 36.5 C 78 21 97/67 L 91 02/04/22 10:00 36.5 C 78 21 140/68 91 BiPAP 02/04/22 09:00 36.5 C 84 22 143/78 H 90 BiPAP 02/04/22 08:00 79 02/04/22 08:37 81 26 H 95 02/04/22 08:00 36.5 C 85 26 H 92 02/04/22 07:00 36.3 C L 81 20 140/74 97 02/04/22 06:00 36.9 C 75 18 107/49 L 99 02/04/22 05:00 76 19 127/65 99 O2 Flow Rate FiO2 02/04/22 08:00 30 02/04/22 15:00 02/04/22 14:00 02/04/22 13:00 2 02/04/22 12:00 2 02/04/22 11:08 30 02/04/22 11:00 02/04/22 10:00 30 02/04/22 09:00 30 02/04/22 08:00 02/04/22 08:37 30 02/04/22 08:00 02/04/22 07:00 02/04/22 06:00 02/04/22 05:00
[2022-02-04] MEDS ORDERED: GADOBUTROL 65ML VIAL IV ONE (19:37)
--- NOTE | 2022-02-04 20:00 | Magnetic Resonance Report ---
MR brain wo/w con HISTORY: 81 years-old Female 24 hrs TPA acute strokelike symptoms COMPARISON: Head CT 02/03/2022 TECHNIQUE: Multiplanar multisequence MRI of the brain was obtained both with and without the use of 4 .5 cc Gadavist FINDINGS: There is no restricted diffusion to suggest acute or subacute infarct. Midline structures appear unre markable. Partially empty sella. Degenerative changes of the imaged cervical spine. No acute intracra nial hemorrhage, midline shift, abnormal extra-axial collection, hydrocephalus or intracranial mass. Mild involutional changes with mild T2/FLAIR hyperintense foci throughout the white matter. The study is motion degraded. There is no abnormal intra-axial enhancement. There is mild diffuse thickening w ith increased enhancement of the pachymeninges. Cerebral venous sinuses and major arterial flow voids appear patent. Mastoid air cells and paranasal sinuses are clear. The skull, orbits and soft tissues are unremarkable. IMPRESSION: 1. Motion degraded exam. No acute intracranial hemorrhage, midline shift, hydrocephalus or acute infa rct. 2. There is mild diffuse thickening with increased enhancement of the pachymeninges. There is a nonsp ecific finding. The primary differential consideration would be spontaneous intracranial hypotension. Infection considered less likely. ACT 112: Negative or not required by law. The above report was generated using voice recognition software. It may contain grammatical, syntax o r spelling errors. Electronically signed by: Otf Sin M.D. 02/04/2022 7:57 PM
--- NOTE | 2022-02-04 20:06 | CT Scan Report ---
CT head/brain wo con CLINICAL HISTORY: 81 years-old Female with after tpa. Acute strokelike symptoms TECHNIQUE: Multiple axial CT images of the head were obtained without contrast. A dose lowering tech nique was utilized adhering to the principles of ALARA. CT DOSE: 638.56 mGycm COMPARISON: Head CT 02/03/2022 FINDINGS: No acute intracranial hemorrhage, midline shift, intracranial mass, hydrocephalus, territorial ischem ia or abnormal extra-axial collection. Mild involutional changes with mild white matter hypodensities . The calvarium is intact. The paranasal sinuses, mastoid air cells, and middle ear cavities are clear . IMPRESSION: No acute intracranial abnormality. ACT 112: Negative or not required by law. The above report was generated using voice recognition software. It may contain grammatical, syntax o r spelling errors. Electronically signed by: Otf Sin M.D. 02/04/2022 8:04 PM
[2022-02-04] MEDS: ASPIRIN 81 MG CHEW PO SCH (20:48)
--- NOTE | 2022-02-04 22:35 | Communication Note ---
Date of Service: February 04, 2022 At change of shift, it was communicated that the patient was DNR/DNI status. After speaking with nursing staff, this had not been officially changed, however the patient had expressed that she would not want intubation or aggressive measures otherwise. Unfortunately, the patient was at MRI followed by CT scan at change of shift initially went to evaluate the patient. Upon return, the patient was more somnolent and difficult to awake. I did apply BiPAP and addressed ventilator settings. After approximately 30 minutes, patient was able to respond. She was able to confirm her birthday and current year as well as location. I did ask about her discussion regarding CODE STATUS early in the day. She confirms with head-nodding that she would not want intubated or trach. Additionally, she confirms that she would not want chest compressions. Patient's CODE STATUS updated in chart. Coding Level of Care Code Critical Care 1st 30-74 mins Time Spent (min) 20
[2022-02-05] MEDS: AMPICILLIN/SULBACTAM SOD 3,000 MG in 0.9 % SODIUM CHLORIDE 100 ML IV SCH ×4 (06:11→23:26)
[2022-02-05 06:36] LABS: BUN Creatinine Ratio 30.3 (10-20); Calcium 8.9 mg/dl (8.5-10.1); Creatinine Clr Calc Pharmacy 36.8 ml/min; Est GFR (African American) 71.4 ml/min; Est GFR (Non-African American) 61.6 ml/min; Magnesium 2.1 mg/dl (1.7-2.4); Phosphorus 5.2 mg/dl (2.5-4.9); Potassium 4.3 mmol/L (3.5-5.1)
[2022-02-05 06:57] LABS: Hematocrit (blood only) 42.2 % (34.1-44.9); Mean Corpuscular Hemoglobin 26.9 pg (25.0-34.0); Mean Corpuscular Hgb Conc 28.4 g/dL (32.0-36.0); Mean Corpuscular Volume 94.6 fL (80.0-100.0); Mean Platelet Volume 9.9 fL (9.4-12.3); Platelet Count 166 K/uL (130-400); RDW Coefficient of Variation 14.6 % (11.5-14.5); RDW Standard Deviation 50.9 fL (36.4-46.3); Red Blood Count 4.46 M/uL (3.93-5.22); White Blood Count 14.68 K/ul (4.8-10.8)
[2022-02-05 07:02] LABS: Basophils # (auto) 0.02 K/uL (0-0.2); Basophils % (auto) 0.1 %; Immature Granulocytes # (auto) 0.07 K/uL (0.00-0.02); Immature Granulocytes % (auto) 0.5 %; Lymphocytes # (auto) 0.31 K/uL (1.2-3.4); Lymphocytes % (auto) 2.1 %; Monocytes % (auto) 2.7 %; Neutrophils # (auto) 13.88 K/uL (1.4-6.5); Neutrophils % (auto) 94.6 %
--- NOTE | 2022-02-05 07:30 | Critical Care Progress Note ---
Date of Service February 05, 2022 Assessment & Plan (1) Stroke-like episode: (2) Left carotid artery stenosis: (3) Thrombolytic therapy administered within 2 hours of onset of symptoms: (4) Hypoxia: (5) Ambulatory dysfunction: (6) Pneumonia: (7) Alejandrina Gehrig disease: Plan Reason Critically Ill: Glen is a 81 year old female coming into the ICU s/p acute stroke episode requiring TNKase. Neuro CAM ICU: Negative Stroke-like Episode: -Developed R sided facial droop and weakness in ED ~18:30 last night, patient already non-verbal due to ALS. Initial NIHSS 12. -Given TNKase last night 19:48. -Head CT/CTA w/o acute intracranial findings. CTA neck w/ possible stenosis of L proximal carotid artery. -Neurology consulted: -Repeat CT head, CTA neck, obtain brain MRI, carotid duplex US. -Daily low dose ASA 24 hrs post TNKase. -BP per acute stroke parameters. -Repeat CT brain, MRI of brain w/o signs of acute bleed or stroke. -Neuro checks per protocol. ALS: -Neuro consulted, patient had not tolerated riluzole previously. Recommend PT/OT/speech therapy consult. Cardiac Hypertension: -s/p stroke and TNKase, keep blood pressures below 170 systolic. Per neurology if blood pressure goes below 110-120 systolic can fluid resuscitate, avoid pressors. L Carotid Stenosis: -Possible stenosis of L carotid artery seen on CTA neck however motion artifact present. -Carotid duplex showing 50-69% L carotid artery. HLD: -Per neuro recommend statin with goal LDL <70. Respiratory Hypercapnic Hypoxic respiratory failure: -CO2 elevated to 46 on admission. -Most likely secondary to ALS progression causing decreased diaphragmatic and intercostal excursion. -May likely need continued BiPAP use at home at night and during day as patient indicated she would not want a trach tube. -BiPAP and O2 as needed. GI NPO, speech therapy consulted and recommended stay NPO. Dietiary/nutrition consulted. May benefit from PEG tube or other feeding apparatus given poor PO intake, aspiration risk, however patient seems to not want aggressive measures done. On LR at 125ml/hr. Renal/Electrolytes Kidney function and electrolytes within normal limits. Replete as needed. Strict I&Os. Endo No history of diabetes or thyroid disease. ICU Hyperglycemia protocol. Heme Hemoglobin, platelets stable. AM CBC. ID ?RLL Pneumonia: -Patient w/ previous early signs of pneumonia to RLL on imaging. Started on Levofloxacin at the time. -Cannot intake oral antibiotics at the current time. On Unasyn, azithromycin. -CXR w/o evidence of infiltrate or consolidation, either pneumonia resolved or bronchiectasis. -Patient has remained afebrile, WBC 7.32 -> 14.05 may be from acute stroke event. -Procal <0.05 -Continue to monitor Lines/IV Access Peripheral IV lines. DVT Prophylaxis Holding in setting of TNKase. SCDs. Patient unable to take ASA 81mg due to NPO status. Dispo: ICU, stable for downgrade at this time. Palliative consulted for patient's goals of care. Will need to get set up with palliative outpatient for further needs and goals of care assistance. Admission and Anticipated Discharge Date Admission Date: February 03, 2022 Supervising Physician Co-Signing Physician Notes Patient seen and examined. EMR reviewed. Discussed on multidisciplinary rounds and with family practice resident. Agree with assessment plan as noted. The patient has hypercapnic respiratory failure due to neuromuscular weakness. She also has dysphagia secondary to her ALS. Solutions to these problems have been well addressed with the patient previously and would include noninvasive positive pressure ventilation and or tracheostomy as well as enteric access and possible PEG tube placement. The patient has declined all of these interventions and wishes to be comfortable. Palliative care consultation is pending. There is no role for parenteral nutrition in this patient. She becomes somnolent and then when BiPAP is applied, she improves and then requests or removes the BiPAP. Unfortunately it appears that the patient is end-stage at this point time. Palliative care consultation is pending and appropriate. The patient would be eligible for hospice treatment. Should she elect to pursue additional interventions, tracheostomy might be considered as well as PEG tube placement but again the patient has declined these previously. Patient will be transferred out of the intensive care unit. Long-term manageme nt per the hospitalist. Critical care services will sign off. Feel free to contact us if we can be of additional assistance Subjective Patient seen at the bedside this morning, feeling so so based off her hand gestures. She indicates she does not like the BiPAP and would prefer to not have it on. Review of Systems Constitutional: as per Subjective / HPI Physical Exam Constitutional: WD/WN, vitals as above Patient lying comfortably in bed not in any acute distress with BiPAP on. Respiratory: Mild inspiratory and expiratory wheezes bilaterally. Cardiovascular: RRR, no murmur, no edema Psychiatric: Patient non-verbal, communicates via hand gestures and head nods. Results & Data Results & Data ([facility]) Vital Signs (Past 12 Hours) Vital Signs Temp Pulse Pulse Resp BP BP Pulse Ox 02/05/22 06:00 36.7 C 96 H 25 H 99 02/05/22 06:00 126/73 02/05/22 05:00 36.9 C 97 H 3 L 02/05/22 05:00 111/59 L 02/05/22 00:00 93 H 02/05/22 04:00 37.3 C 96 H 2 L 110/63 97 02/05/22 02:00 37.9 C H 99 H 27 H 97 02/05/22 02:00 100/62 02/05/22 01:10 98/52 L 02/05/22 01:10 38.1 C H 103 H 21 98 02/05/22 01:00 38.1 C H 91 H 13 99 02/05/22 00:24 207/167 H 02/05/22 00:24 37.9 C H 87 21 96 02/04/22 23:28 135/68 02/04/22 23:28 37.7 C H 106 H 26 H 96 02/04/22 22:00 36.9 C 101 H 2 L 99 02/04/22 22:00 133/61 02/04/22 21:00 37.1 C 101 H 7 L 100 02/04/22 21:00 129/58 L 02/04/22 22:40 29 H 94 02/04/22 20:32 96 H 1 L 100 02/04/22 20:32 37.1 C 120/55 L 02/04/22 20:00 02/04/22 20:00 37.1 C 96 H 8 L 120/55 L 100 O2 Del Method O2 Flow Rate FiO2 02/05/22 06:00 02/05/22 06:00 02/05/22 05:00 02/05/22 05:00 02/05/22 00:00 02/05/22 04:00 02/05/22 02:00 02/05/22 02:00 02/05/22 01:10 02/05/22 01:10 02/05/22 01:00 02/05/22 00:24 02/05/22 00:24 02/04/22 23:28 02/04/22 23:28 02/04/22 22:00 02/04/22 22:00 02/04/22 21:00 02/04/22 21:00 02/04/22 22:40 30 02/04/22 20:32 02/04/22 20:32 02/04/22 20:00 Nasal Cannula 2 02/04/22 20:00 Nasal Cannula 2 Resident Activity Tracking Resident Involvement: Resident Care Provided Care Provided: Adult Hospital Medicine
[2022-02-05] MEDS: CHOLECALCIFEROL 1,000 UNITS 25 MCG TAB PO SCH (07:50)
[2022-02-05] MEDS ORDERED: ICU PROTOCOL FOR HYPERGLYCEMIA SCH (09:00)
[2022-02-05] MEDS: LACTATED RINGER'S 1,000 ML IV SCH ×2 (11:10→21:00)
--- NOTE | 2022-02-05 11:30 | Billing Data ---
Date of Service February 05, 2022 Coding Level of Care Code 80736 Subseq Hosp Care Lvl 3
--- NOTE | 2022-02-05 13:02 | Neurology Progress Note ---
Date of Service February 05, 2022 Assessment & Plan (1) Stroke-like episode: (2) Left carotid artery stenosis: (3) Thrombolytic therapy administered within 2 hours of onset of symptoms: (4) IBALS (isolated bulbar amyotrophic lateral sclerosis): Plan 81-year-old female with a history of bulbar ALS which has been present for the past 3 to 4 years with associated weight loss, but without significant impact on gait, ambulatory function, or use of the limbs. Presented to the medical center 02/03 with shortness of breath and associated right-sided weakness, telestroke consultation ensued, received TNKase. Complete resolution of symptoms. Unremarkable brain MRI without evidence of acute or subacute stroke. Does have a moderate stenosis, 50 to 69%, of the proximal left internal carotid artery on ultrasound. This finding is not likely clinically significant, however. No evidence of hemorrhage on MRI or follow-up CT of the head. Would recommend daily low-dose aspirin, 81 mg/day. Would also recommend starting a statin, goal LDL less than 70. Consider mobile cardiac outpatient telemetry. No specific treatment for patient's bulbar ALS, has not tolerated riluzole previously. Fortunately, her motor neuron disease has not significantly affected her ability to walk or use of her limbs. Patient has indicated that she does not want any invasive treatment such as tube feeding or tracheostomy. She may continue to follow with [facility] neurology for her bulbar ALS. No further immediate neurologic recommendations. Admission and Anticipated Discharge Date Admission Date: February 03, 2022 Subjective Follow-up for stroke like episode Patient alert, family at bedside, no shortness of breath or hemiplegia. Continues to have profound bulbar palsy, inability to speak, protrude or move tongue, in the context of bulbar ALS. Follow-up imaging reviewed including brain MRI, CT of the head, and carotid ultrasound. Patient has a 50 to 69% stenosis of the proximal left internal carotid artery. Previous CT angiogram of the neck was technically limited but had also suggested a left carotid stenosis. MRI of the brain was a bit motion degraded but negative for acute or subacute stroke. There was nonspecific enhancement of the meninges as well. I did independently review these images. No restricted diffusion, no blooming artifact. There is mild chronic small vessel ischemic disease noted on T2/FLAIR sequences. There is mild generalized atrophy, no hydrocephalus. I was able to appreciate the mild leptomeningeal enhancement with gadolinium enhanced sequences. Review of Systems Eyes: no blind spots and no diplopia Neurologic: as per Subjective / HPI; no localized weakness, no loss of sensation and no headache(s) Results & Data ([facility]) Vital Signs (Past 12 Hours) Vital Signs Temp Pulse Pulse Resp BP Pulse Ox O2 Del Method 02/05/22 11:00 37.5 C 88 12 108/55 L 97 02/05/22 10:00 37.2 C 92 H 20 111/61 95 02/05/22 09:00 36.9 C 98 H 24 123/70 98 BiPAP 02/05/22 08:00 36.8 C 94 H 12 103/57 L 100 02/05/22 08:00 103/57 L 02/05/22 07:00 37.0 C 93 H 12 81/35 L 100 Room Air 02/05/22 08:00 93 H 02/05/22 10:08 90 29 H 94 02/05/22 10:07 90 29 H 94 BiPAP 02/05/22 06:00 36.7 C 96 H 25 H 99 02/05/22 06:00 126/73 02/05/22 05:00 36.9 C 97 H 3 L 02/05/22 05:00 111/59 L 02/05/22 04:00 37.3 C 96 H 2 L 110/63 97 02/05/22 02:00 37.9 C H 99 H 27 H 97 02/05/22 02:00 100/62 02/05/22 01:10 98/52 L 02/05/22 01:10 38.1 C H 103 H 21 98 02/05/22 01:00 38.1 C H 91 H 13 99 O2 Flow Rate FiO2 02/05/22 11:00 02/05/22 10:00 02/05/22 09:00 30 02/05/22 08:00 02/05/22 08:00 02/05/22 07:00 2 02/05/22 08:00 02/05/22 10:08 30 02/05/22 10:07 30 02/05/22 06:00 02/05/22 06:00 02/05/22 05:00 02/05/22 05:00 02/05/22 04:00 02/05/22 02:00 02/05/22 02:00 02/05/22 01:10 02/05/22 01:10 02/05/22 01:00 Laboratory Results WBC 14.68, hemoglobin 12.0, hematocrit 42.2, MCV 94.6, platelet count 166, sodium 145, potassium 4.3, BUN 27, creatinine 0.89, glucose 134, calcium 8.9, magnesium 2.1, triglycerides 122, cholesterol 174, LDL 107, VLDL 24, HDL 43 Diagnostic Findings Follow-up CT of the head, brain MRI, and carotid ultrasound are as described in the history of present illness. An echocardiogram completed yesterday revealed normal to hyperdynamic left ventricular systolic function, left ventricular EF 65 to 70%, no significant valvular disease. Exam (Neuro) Neurologic: Oriented to:: Person and Place Attention: Span Intact and Concentration Intact Speech Fluency: Other (Unable to speak due to profound bulbar palsy) Fund of Knowledge: Vocabulary Cranial Nerves: Normal II, III, IV, and VIII Motor Strength: Normal Lower Extremities and Normal Upper Extremities Sensation: Light Touch Intact Coding Level of Care Code 96001 Subseq Hosp Care Lvl 2 Diagnoses Stroke-like episode R29.90 Left carotid artery stenosis I65.22 Thrombolytic therapy administered within 2 hours of onset of symptoms IBALS (isolated bulbar amyotrophic lateral sclerosis) G12.21
[2022-02-05] MEDS: ONDANSETRON INJ 2 MG/ML 2 ML VIAL IV PRN (13:59)
--- NOTE | 2022-02-05 15:31 | Palliative Care Consultation ---
Date of Consultation February 05, 2022 Assessment & Plan (1) Palliative care encounter: I talked with Glen about her illness. From what I could get from our visit, she lives alone in her apartment. She is independent for her ADLs and apparently had been driving until recently. She has had significant weight loss of 72 lbs since December of 2018. She denies problems with eating or drinking at home. We talked about concerns that she is not swallowing properly and she indicated that she wanted a sip of water. I observed her taking a small sip and most of the water ran out of her mouth. She did have some coughing. She has indicated with other providers that she would not want PEG tube or artificial feeding, she would not want CPR or intubation. She nods when I asked her about this. I asked her who would make decisions for her if she were unable to do so and she indicated that it would be her brother. She attempted to write his name but I was not able to read it. I asked her if she had ever thought about her dying time and what she would want that to be like. She shook her head no and proceeded to push the call button to call for the nurse. She received zofran and was repositioned. I asked her if she would like to discuss this further and she shook her head no. (2) IBALS (isolated bulbar amyotrophic lateral sclerosis): History of Present Illness Reason for Consultation: goals of care Requesting Physician: Dr. Cheung Attending Physician: Kael Cheung MD History of Present Illness 81 yo lady with bulbar ALS three years ago [facility] She presented with shortness of breath and right sided weakness. MRI was negative for evidence of stroke and symptoms have improved. She does have hypercapnic, hypoxic respiratory failure and uses bipap at night and sometimes during the day. She is also being treated for possible aspiration pneumonia and was evaluated by speech therapy. She unfortunately had no evidence of functional swallow on evaluation. She is unable to speak and communicates by writing on a notepad, however, her writing is difficult to read and her primary language is Hungarian. She is awake and alert at the time of my visit. She answers yes or no questions and attempts to write some answers. She denies pain. SHe did complain of nausea and has received IV zofran for relief. She denied dyspnea or anxiety. Allergies Allergy/AdvReac Type Severity Reaction Status Date / Time No Known Drug Allergies Allergy Unknown Verified 02/03/22 15:14 Home Medications Medication Instructions Recorded Confirmed Type aspirin 81 mg tablet,delayed 81 mg PO 2XWK 12/22/21 02/03/22 History release cholecalciferol (vitamin D3) 25 25 mcg PO DAILY 12/22/21 02/03/22 History mcg (1,000 unit) tablet (Vitamin D3) fluticasone propionate 50 2 spray intranasal QAM 12/22/21 02/03/22 History mcg/actuation nasal spray,suspension food supplemt, lactose-reduced 1 ea PO TID 12/22/21 02/03/22 History (Ensure High Protein oral liquid) mirtazapine 15 mg tablet 7.45 mg PO HS 12/22/21 02/03/22 History levofloxacin 750 mg tablet 750 mg PO DAILY 7 days #7 tabs 02/02/22 02/03/22 Rx Patient History Medical History History of breast cancer Alejandrina Gehrig disease Osteoarthritis Renal mass "PET scan 05/14/2010- partially calcified left renal lower pole 30x36 mm mass. PET scan 09/27/13 showed stable partially calcified mass lower pole L ki tonyey." Uterine leiomyoma Surgical History History of carpal tunnel release History of partial mastectomy of right breast (04/14/10) Family History Mother Diabetes Other Heart disease Social History Smoking Status: Never smoker Second Hand Exposure: No; Do You Dip or Chew Tobacco: No; Tobacco Cessation Education Requested by Patient: No Hx Alcohol Use: No Hx Substance Use: No Preferred Language: Hungarian Communication Ability: Impaired Communication Tools: Other Smoke Jumper Supervisor Required: No Beliefs That Will Affect Care: None marital status: Single Current Living Situation: Alone How many Children do You have: 0 Other Information That Helps Us Care for You: No Feels Safe at Home: Yes Safety Concerns: Feels Safe At This Time Assistive Devices: Glasses and Other Review of Systems Review of Systems: ESAS Pain 0/3 Nausea 1/3 Fatigue 2/3 Drowsiness 0/3 Anxiety 0/3 Dyspnea 0/3 PPS 50% Physical Exam Constitutional: no acute distress Respiratory: normal respiratory effort; no labored breathing Cardiovascular: Rate/Rhythm: regular rate and regular rhythm Gastrointestinal (Abdomen): nontender Skin: cool to touch Neurologic: nonverbal Psychiatric: Orientation: oriented x 3 Results & Data ([facility]) Vital Signs (Past 12 Hours) Vital Signs Temp Pulse Pulse Resp BP Pulse Ox O2 Del Method 02/05/22 13:00 99.9 F H 88 12 124/65 99 02/05/22 12:00 99.5 F 106 H 26 H 118/84 99 Nasal Cannula 02/05/22 08:00 BiPAP 02/05/22 11:00 99.5 F 88 12 108/55 L 97 02/05/22 10:00 99.0 F 92 H 20 111/61 95 02/05/22 09:00 98.4 F 98 H 24 123/70 98 BiPAP 02/05/22 08:00 98.2 F 94 H 12 103/57 L 100 02/05/22 08:00 103/57 L 02/05/22 07:00 98.6 F 93 H 12 81/35 L 100 Room Air 02/05/22 08:00 93 H 02/05/22 10:08 90 29 H 94 02/05/22 10:07 90 29 H 94 BiPAP 02/05/22 06:00 98.1 F 96 H 25 H 99 02/05/22 06:00 126/73 02/05/22 05:00 98.4 F 97 H 3 L 02/05/22 05:00 111/59 L 02/05/22 04:00 99.1 F 96 H 2 L 110/63 97 O2 Flow Rate FiO2 02/05/22 13:00 02/05/22 12:00 2 02/05/22 08:00 30 02/05/22 11:00 02/05/22 10:00 02/05/22 09:00 30 02/05/22 08:00 02/05/22 08:00 02/05/22 07:00 2 02/05/22 08:00 02/05/22 10:08 30 02/05/22 10:07 30 02/05/22 06:00 02/05/22 06:00 02/05/22 05:00 02/05/22 05:00 02/05/22 04:00 PG Care Time/CCT Total # of Minutes Spent Total Time Spent: 45 Total Time Spent with Patient: Total time spent is greater than 50% in coordination of care (as documented) at patient's floor/unit and/or counseling patient: goals of care Coding Level of Care Code 48039 Initial Inpt Care Lvl 1 Diagnoses Palliative care encounter Z51.5 IBALS (isolated bulbar amyotrophic lateral sclerosis) G12.21
[2022-02-05] MEDS: ASPIRIN 81 MG CHEW PO SCH (21:30)
[2022-02-05] MEDS ORDERED: ACETAMINOPHEN 1,000 MG/100 ML VIAL IV PRN (22:49)
--- NOTE | 2022-02-05 22:54 | Electrocardiogram Report ---
Test Reason : Blood Pressure : / mmHG Vent. Rate : 082 BPM Atrial Rate : 082 BPM P-R Int : 158 ms QRS Dur : 080 ms QT Int : 356 ms P-R-T Axes : 057 -05 033 degrees QTc Int : 415 ms Normal sinus rhythm When compared with ECG of 03-FEB-2022 14:03, No significant change Confirmed by Modesto Hale [id number]) on 02/05/2022 10:54:23 PM Referred By: REFERRED SELF Confirmed By:Modesto Hale
[2022-02-05] MEDS: AZITHROMYCIN 500 MG in DEXTROSE 5% 250 ML IV SCH (23:29)
--- NOTE | 2022-02-05 23:55 | Hospitalist Progress Note ---
Date of Service February 05, 2022 Assessment & Plan (1) Hypoxia: (2) Pneumonia: (3) Weakness: (4) Ambulatory dysfunction: (5) Alejandrina Gehrig disease: Plan This is a 81-year-old female who has significant past medical history of bulbar amyotrophic lateral sclerosis, HTN, HLD, LVH, history of right breast cancer status post partial mastectomy who presents to the ER secondary to inability to swallow antibiotic pills then developed R sided facial droop and weakness in ED ~18:30 last night. Stroke-like episode: Stroke alert called and thrombolytic therapy (TNKase) administered within 2 hours of onset of symptoms CTA head/Neck showed no evidence for an acute infarct or cerebral edema. CT head negative for acute finding carotid u/s showed 50-69% stenosis of the proximal left internal carotid artery. Echo showed to hyperdynamic left ventricular systolic function is present with ejection fraction 65 to 70%. No significant valvular heart disease Neuro on board MRI head and CT head showed no acute infarct Continue PT/OT/Speech eval Pt has not been taking the aspirin since she is not able to swallow, will change to CO Continue monitor closely Hypercapnic Hypoxic respiratory failure Most likely secondary to ALS progression causing decreased diaphragmatic and intercostal excursion. ABG showed PCO2 91 and pH 7.25 Possible related to aspiration pneumonia CXR showed minimal left basilar opacity favors atelectasis. speech on board recommended to continue to keep NPO (OK with Ice and sips water) for now and reevaluate procalcitonin negative Currently on IV unasyn and azithromycin Generalized Weakness Ambulatory dysfunction Dyshagia ALS follows [facility] neurology previously had been on riluzole, but currently not taking it because pt was not able to tolerate riluzole Dysphagia due to muscle weakness Pt made it clear that she does not want any invasive treatment such as tube feeding or tracheostomy Palliative care on board for goal of care Will discuss with case management for placement DVT ppx: will start subq lovenox Code Status DNR Disposition Will transfer out of the ICU Admission and Anticipated Discharge Date Admission Date: February 03, 2022 Subjective Pt was seen and examined for follow up of stroke like symptoms Stroke alert called for R sided facial droop and weakness in ED on the day of the admission Currently pt lying in bed with no acute distress with family member at bedside Pt feels good due to her hand gesture thumb up She brianna not like to wear the Bipap She said that she would like to stay alive for her 82's old birthday Update provided with the family at bedside Denies any chest pain, palpitation, dizziness and SOB Review of Systems Review of Systems: All systems reviewed & are unremarkable except as noted in Subjective Physical Exam Physical Exam: General- No acute distress Head- atraumatic Eyes- PERRL, EOMI, ENT- oropharynx clear Neck- supple, no JVD Lungs- clear to auscultation Heart- regular rhythm; no murmur Abdomen- normal bowel sounds, soft, nontender Extremities- no calf tenderness Neuro- alert, oriented, nonverbal but understand and follows command , moves extremity Skin- warm & dry Results & Data Results & Data ([facility]) Vital Signs (Past 12 Hours) Vital Signs Temp Pulse Resp BP Pulse Ox O2 Del Method O2 Flow Rate 02/05/22 23:10 87 02/05/22 21:00 37.5 C 94 H 99 02/05/22 21:00 91/44 L 02/05/22 20:00 37.7 C H 91 H 19 98 02/05/22 19:00 37.8 C H 88 7 L 99 02/05/22 19:00 115/63 02/05/22 20:00 Nasal Cannula 2 02/05/22 16:00 88 02/05/22 13:00 37.7 C H 88 12 124/65 99 02/05/22 12:00 37.5 C 106 H 26 H 118/84 99 Nasal Cannula 2
[2022-02-06] MEDS: LACTATED RINGER'S 1,000 ML IV SCH ×2 (05:13→13:59)
[2022-02-06] MEDS: AMPICILLIN/SULBACTAM SOD 3,000 MG in 0.9 % SODIUM CHLORIDE 100 ML IV SCH ×4 (05:13→23:10)
[2022-02-06 07:44] LABS: Hematocrit (blood only) 40.3 % (34.1-44.9); Hemoglobin 11.5 g/dl (12.0-16.0); Mean Corpuscular Hemoglobin 27.1 pg (25.0-34.0); Mean Corpuscular Hgb Conc 28.5 g/dL (32.0-36.0); Platelet Count 115 K/uL (130-400); RDW Coefficient of Variation 14.6 % (11.5-14.5); RDW Standard Deviation 50.5 fL (36.4-46.3); Red Blood Count 4.24 M/uL (3.93-5.22); White Blood Count 11.25 K/ul (4.8-10.8)
[2022-02-06] MEDS: CHOLECALCIFEROL 1,000 UNITS 25 MCG TAB PO SCH (07:52)
[2022-02-06 07:59] LABS: BUN Creatinine Ratio 41.5 (10-20); Calcium 8.8 mg/dl (8.5-10.1); Creatinine Clr Calc Pharmacy 50.4 ml/min; Est GFR (African American) 97.9 ml/min; Est GFR (Non-African American) 84.4 ml/min; Potassium 3.8 mmol/L (3.5-5.1)
[2022-02-06] MEDS ORDERED: ENOXAPARIN INJ 40 MG/0.4 ML SYR SQ SCH (09:00)
[2022-02-06] MEDS: ACETAMINOPHEN 65 ML IV PRN (09:25)
--- NOTE | 2022-02-06 18:07 | Hospitalist Progress Note ---
Date of Service February 06, 2022 Assessment & Plan (1) Hypoxia: (2) Pneumonia: (3) Weakness: (4) Ambulatory dysfunction: (5) Alejandrina Gehrig disease: Plan This is a 81-year-old female who has significant past medical history of bulbar amyotrophic lateral sclerosis, HTN, HLD, LVH, history of right breast cancer status post partial mastectomy who presents to the ER secondary to inability to swallow antibiotic pills then developed R sided facial droop and weakness in ED ~18:30 last night. Stroke-like episode: Stroke alert called and thrombolytic therapy (TNKase) administered within 2 hours of onset of symptoms CTA head/Neck showed no evidence for an acute infarct or cerebral edema. CT head negative for acute finding carotid u/s showed 50-69% stenosis of the proximal left internal carotid artery. Echo showed to hyperdynamic left ventricular systolic function is present with ejection fraction 65 to 70%. No significant valvular heart disease Neuro on board MRI head and CT head showed no acute infarct Continue PT/OT/Speech eval Pt has not been taking the aspirin since she is not able to swallow, will change to [place] not sure if pt will take it Continue monitor closely Hypercapnic Hypoxic respiratory failure Most likely secondary to ALS progression causing decreased diaphragmatic and intercostal excursion. ABG showed PCO2 91 and pH 7.25 Possible related to aspiration pneumonia CXR showed minimal left basilar opacity favors atelectasis. speech on board recommended puree diet ( allow permissive aspiration). pat and brother understand the risk procalcitonin negative Currently on IV unasyn and azithromycin Pt does not want to use the Bipap at night Generalized Weakness Ambulatory dysfunction Dyshagia ALS follows [facility] [address] neurology previously had been on riluzole, but currently not taking it because pt was not able to tolerate riluzole Dysphagia due to muscle weakness Pt made it clear that she does not want any invasive treatment such as tube feeding or tracheostomy Palliative care on board for goal of care case discussed with case management for placement DVT ppx: on lovenox Code Status DNR Disposition Pt will need alf care Admission and Anticipated Discharge Date Admission Date: February 03, 2022 Subjective Pt was seen and examined for follow up of stroke like symptoms Sitting in chair eating her meal with brother and sister in law at bedside Pt feels good due to her hand gesture thumb up She did not use the Bipap last night because she does not like to wear the Bipap Update provided with the brother at bedside Brother lives in [place]. He agreed that patient needs 24hr care and pt will need placement Denies any chest pain, palpitation, dizziness and SOB Review of Systems Review of Systems: All systems reviewed & are unremarkable except as noted in Subjective Physical Exam Physical Exam: General- No acute distress Head- atraumatic Eyes- PERRL, EOMI, ENT- oropharynx clear Neck- supple, no JVD Lungs- clear to auscultation Heart- regular rhythm; no murmur Abdomen- normal bowel sounds, soft, nontender Extremities- no calf tenderness Neuro- alert, oriented, nonverbal but understand and follows command , moves extremity Skin- warm & dry Results & Data Results & Data ([facility]) Vital Signs (Past 12 Hours) Vital Signs Temp Pulse Resp BP Pulse Ox O2 Del Method O2 Flow Rate 02/06/22 11:00 37.0 C 124 H 14 88 L 02/06/22 11:00 166/98 H 02/06/22 08:00 Nasal Cannula 2 02/06/22 08:00 77 02/06/22 10:28 36.8 C 75 15 99 02/06/22 10:28 144/61 H 02/06/22 10:00 36.8 C 81 18 99 02/06/22 09:00 36.9 C 71 15 100 02/06/22 09:00 106/51 L 02/06/22 09:00 36.8 C 02/06/22 08:10 150/61 H 02/06/22 08:10 36.7 C 81 21 95 02/06/22 08:00 36.6 C 85 20 97 02/06/22 07:00 36.5 C 74 15 100
[2022-02-06] MEDS: ASPIRIN 81 MG CHEW PO SCH (20:15)
[2022-02-06] MEDS: AZITHROMYCIN 500 MG in DEXTROSE 5% 250 ML IV SCH (23:09)
[2022-02-07] MEDS: AMPICILLIN/SULBACTAM SOD 3,000 MG in 0.9 % SODIUM CHLORIDE 100 ML IV SCH ×4 (06:04→23:05)
[2022-02-07 06:57] LABS: Base Excess ABG 24.5 mEq/L (-9-1.8); HCO3 ABG 55 mmol/L (19-24); Oxygen Saturation ABG 96.1 % (90-95); PCO2 ABG 84 mmHg (35-46); PO2 ABG 61 mmHg (80-95); pH ABG 7.42 (7.35-7.45)
[2022-02-07 07:02] LABS: INR 1.1 (0.9-1.1); Prothrombin Time 11.3 Seconds (9.0-12.0)
[2022-02-07 07:20] LABS: Allen Test Pos (Pos)
[2022-02-07 07:23] LABS: BUN Creatinine Ratio 53.3 (10-20); Calcium 8.5 mg/dl (8.5-10.1); Creatinine Clr Calc Pharmacy 72.8 ml/min; Est GFR (African American) 110.5 ml/min; Est GFR (Non-African American) 95.3 ml/min; Phosphorus 1.9 mg/dl (2.5-4.9); Potassium 3.8 mmol/L (3.5-5.1)
[2022-02-07] MEDS ORDERED: POTASSIUM PHOS 3 MMOL/1 ML INFUSION IV STA (07:40)
[2022-02-07] MEDS ORDERED: POTASSIUM PHOSPHATE 15 MMOL in DEXTROSE 5% 250 ML IV ONE (08:15)
--- NOTE | 2022-02-07 08:55 | CT Scan Report ---
CT head/brain wo con CLINICAL HISTORY: ams, low platelets Technique: Contiguous axial CT images of the head were acquired from the base of the skull to the deandre siomara without intravenous contrast administration. Images were viewed in brain, subdural and bone [facility]. Automated dose lowering techniques and/or adjustment according to patient size were utilized for this exam. Comparison: Comparison is made to CT head 02/04/2022 Findings: The ventricles, basal cisterns, and cerebral sulci are normal. There is no acute intracranial hemorrh age or evidence of acute territorial infarction. Neither mass effect, shift of the midline structures , nor abnormal extra-axial fluid collections are shown. Imaged portions of the paranasal sinuses and mastoid air cells are clear. The orbits appear normal. There are no acute fractures of the calvaria or scalp swelling. Impression: No acute intracranial hemorrhage, no evidence of acute territorial infarction or other acute intracra nial disease process. ACT 112: Negative or not required by law. Electronically signed by: Bharat Haji M.D. 02/07/2022 8:54 AM
[2022-02-07] MEDS: CHOLECALCIFEROL 1,000 UNITS 25 MCG TAB PO SCH (11:55)
[2022-02-07] MEDS: ACETAMINOPHEN 65 ML IV PRN (16:15)
[2022-02-07] MEDS: ONDANSETRON INJ 2 MG/ML 2 ML VIAL IV PRN (16:54)
[2022-02-07] MEDS ORDERED: SODIUM CHLORIDE 0.45 % 1,000 ML IV ONE (21:09)
[2022-02-07] MEDS: AZITHROMYCIN 500 MG in DEXTROSE 5% 250 ML IV SCH (23:42)
--- NOTE | 2022-02-07 23:42 | Hospitalist Progress Note ---
Date of Service February 07, 2022 Assessment & Plan (1) Hypoxia: (2) Pneumonia: (3) Weakness: (4) Ambulatory dysfunction: (5) Alejandrina Gehrig disease: Plan This is a 81-year-old female who has significant past medical history of bulbar amyotrophic lateral sclerosis, HTN, HLD, LVH, history of right breast cancer status post partial mastectomy who presents to the ER secondary to inability to swallow antibiotic pills then developed R sided facial droop and weakness in ED ~18:30 last night. Stroke-like episode: Stroke alert called and thrombolytic therapy (TNKase) administered within 2 hours of onset of symptoms CTA head/Neck showed no evidence for an acute infarct or cerebral edema. CT head negative for acute finding carotid u/s showed 50-69% stenosis of the proximal left internal carotid artery. Echo showed to hyperdynamic left ventricular systolic function is present with ejection fraction 65 to 70%. No significant valvular heart disease Neuro on board MRI head and CT head showed no acute infarct Continue PT/OT/Speech eval Pt has not been taking the aspirin since she is not able to swallow, will change to [place] not sure if pt will take it Continue monitor closely Hypercapnic Hypoxic respiratory failure Most likely secondary to ALS progression causing decreased diaphragmatic and intercostal excursion. ABG showed PCO2 91 and pH 7.25 Refused to use BIPAP last night. ABG today with Pco2 84 Possible related to aspiration pneumonia CXR showed minimal left basilar opacity favors atelectasis. speech on board recommended puree diet ( allow permissive aspiration). pat and brother understand the risk procalcitonin negative Currently on IV unasyn and azithromycin Pt continue does not want to use the Bipap at night Generalized Weakness Ambulatory dysfunction Dyshagia ALS follows [facility] neurology previously had been on riluzole, but currently not taking it because pt was not able to tolerate riluzole Dysphagia due to muscle weakness Pt made it clear that she does not want any invasive treatment such as tube feeding or tracheostomy Palliative care on board for goal of care case discussed with case management for placement DVT ppx: on lovenox Code Status DNR Disposition Pt will need residential care Admission and Anticipated Discharge Date Admission Date: February 03, 2022 Subjective Pt was seen and examined for follow up of stroke like symptoms Lying in bed with no acute distress Pt refused to used the Bipap last night This morning she was confused and ABG showed CO2 retention Discussed with patient and brother at bedside about to use the bipap at night and during sleep Pt continue to make the "no" gesture that she is not going to use the BIPAP brother and sister in law are trying to talk to the patient to see if they can convince her to use the Bppap Denies any chest pain, palpitation, dizziness and SOB Review of Systems Review of Systems: All systems reviewed & are unremarkable except as noted in Subjective Physical Exam Physical Exam: General- No acute distress Head- atraumatic Eyes- PERRL, EOMI, ENT- oropharynx clear Neck- supple, no JVD Lungs- clear to auscultation Heart- regular rhythm; no murmur Abdomen- normal bowel sounds, soft, nontender Extremities- no calf tenderness Neuro- alert, oriented, nonverbal but understand and follows command , moves extremity Skin- warm & dry Results & Data Results & Data ([facility]) Vital Signs (Past 12 Hours) Vital Signs Temp Pulse Pulse Resp BP BP Pulse Ox 02/07/22 23:16 36.6 C 72 16 156/82 H 95 02/07/22 23:10 63 02/07/22 21:50 74 22 95 02/07/22 19:00 75 02/07/22 18:45 36.7 C 76 18 166/84 H 93 02/07/22 16:00 85 02/07/22 15:31 36.9 C 78 17 186/91 H 93 02/07/22 11:53 37.0 C 80 16 175/78 H 91 O2 Del Method O2 Flow Rate 02/07/22 23:16 Nasal Cannula 2 02/07/22 23:10 02/07/22 21:50 2 02/07/22 19:00 02/07/22 18:45 Nasal Cannula 2 02/07/22 16:00 02/07/22 15:31 Nasal Cannula 2 02/07/22 11:53
[2022-02-08 00:21] LABS: Base Excess VBG 26.2 mEq/L; HCO3 VBG 55 mmol/L; Oxygen Saturation VBG < 60.0 %; PCO2 VBG 76 mmHg (38-50); PO2 VBG 27 mmHg; pH VBG 7.47 (7.36-7.41)
[2022-02-08] MEDS: AMPICILLIN/SULBACTAM SOD 3,000 MG in 0.9 % SODIUM CHLORIDE 100 ML IV SCH ×4 (05:11→23:33)
[2022-02-08 06:37] LABS: INR 1.1 (0.9-1.1); Prothrombin Time 11.8 Seconds (9.0-12.0)
[2022-02-08] MEDS: CHOLECALCIFEROL 1,000 UNITS 25 MCG TAB PO SCH (08:50)
--- NOTE | 2022-02-08 17:01 | Hospitalist Progress Note ---
Date of Service February 08, 2022 Assessment & Plan (1) Hypoxia: (2) Pneumonia: (3) Weakness: (4) Ambulatory dysfunction: (5) Alejandrina Gehrig disease: Plan This is a 81-year-old female who has significant past medical history of bulbar amyotrophic lateral sclerosis, HTN, HLD, LVH, history of right breast cancer status post partial mastectomy who presents to the ER secondary to inability to swallow antibiotic pills then developed R sided facial droop and weakness in ED ~18:30 last night. Stroke-like episode: Stroke alert called and thrombolytic therapy (TNKase) administered within 2 hours of onset of symptoms CTA head/Neck showed no evidence for an acute infarct or cerebral edema. CT head negative for acute finding carotid u/s showed 50-69% stenosis of the proximal left internal carotid artery. Echo showed to hyperdynamic left ventricular systolic function is present with ejection fraction 65 to 70%. No significant valvular heart disease Neuro on board MRI head and CT head showed no acute infarct Continue PT/OT/Speech eval Pt has not been taking the aspirin since she is not able to swallow, will change to [place] not sure if pt will take it Continue monitor closely Hypercapnic Hypoxic respiratory failure Most likely secondary to ALS progression causing decreased diaphragmatic and intercostal excursion. ABG showed PCO2 91 and pH 7.25 Refused to use BIPAP last night. ABG today with Pco2 84 Possible related to aspiration pneumonia CXR showed minimal left basilar opacity favors atelectasis. speech on board recommended puree diet ( allow permissive aspiration). pat and brother understand the risk procalcitonin negative Currently on IV unasyn and azithromycin Pt continue does not want to use the Bipap at night Generalized Weakness Ambulatory dysfunction Dyshagia ALS follows [facility] neurology previously had been on riluzole, but currently not taking it because pt was not able to tolerate riluzole Dysphagia due to muscle weakness Pt made it clear that she does not want any invasive treatment such as tube feeding or tracheostomy Palliative care on board for goal of care case discussed with case management for placement I am planning to discuss with the family because nurse said that they wanted patient to get tube feeding I was present when decorative cutting machine tender talked to patient about tube feeding and pt refused it I again mentioned it to the patient and she refused it while she was AAOx3 Brother and Dunia mentioned tube feeding with her and she refused Now daughter in law is pushing for tube feeding Will discuss with daughter in the presence of the patient about tube feeding again Will discuss with palliative care in the morning DVT ppx: on lovenox Code Status DNR Disposition Pt will need jail care Admission and Anticipated Discharge Date Admission Date: February 03, 2022 Subjective Pt was seen and examined for follow up of stroke like symptoms, CO2 retention Lying in bed with no acute distress Last night acetylene plant operator spoke to family and family was able to convince pt to wear the Bipap Today patient had the BIPap for the entire morning I am planning to discuss with the family because nurse said that they wanted patient to get tube feeding I was present when decorative cutting machine tender talked to patient about tube feeding and pt refused it I again mentioned it to the patient and she refused it while she was oriented brother and Dunia mentioned tube feeding with her and she refused Now daughter in law is pushing for tube feeding Will discuss with daughter in the presence of the patient about tube feeding again Denies any chest pain, palpitation, dizziness and SOB Review of Systems Review of Systems: All systems reviewed & are unremarkable except as noted in Subjective Physical Exam Physical Exam: General- No acute distress Head- atraumatic Eyes- PERRL, EOMI, ENT- oropharynx clear Neck- supple, no JVD Lungs- clear to auscultation Heart- regular rhythm; no murmur Abdomen- normal bowel sounds, soft, nontender Extremities- no calf tenderness Neuro- alert, oriented, nonverbal but understand and follows command , moves extremity Skin- warm & dry Results & Data Results & Data ([facility]) Vital Signs (Past 12 Hours) Vital Signs Temp Pulse Pulse Resp BP Pulse Ox Pulse Ox 02/08/22 15:36 65 02/08/22 15:09 36.2 C L 68 18 172/79 H 98 02/08/22 15:06 69 17 95 02/08/22 11:43 68 16 92 02/08/22 09:51 02/08/22 08:00 96 02/08/22 09:23 87 02/08/22 09:23 63 24 93 02/08/22 08:00 36.5 C 76 16 166/83 H 97 O2 Del Method O2 Del Method O2 Flow Rate O2 Flow Rate 02/08/22 15:36 02/08/22 15:09 BiPAP 02/08/22 15:06 2 02/08/22 11:43 2 02/08/22 09:51 BiPAP 2 02/08/22 08:00 Nasal Cannula 2 02/08/22 09:23 02/08/22 09:23 2 02/08/22 08:00 Nasal Cannula 1
--- NOTE | 2022-02-08 22:51 | Communication Note ---
Date of Service: February 08, 2022 Received call from nurse that patient [id number] wanted to discuss with me about tube feeding. I went to the room to talk to her, unfortunately she left already. I used google engineering document control clerk to ask patient about tube finding. Pt now changed her mind now that she wants tube feeding. Will talk to palliative care tomorrow. Will consult GI for tube feeding placement. MD Skye
[2022-02-09] MEDS: AZITHROMYCIN 500 MG in DEXTROSE 5% 250 ML IV SCH (00:11)
[2022-02-09] MEDS: AMPICILLIN/SULBACTAM SOD 3,000 MG in 0.9 % SODIUM CHLORIDE 100 ML IV SCH ×3 (05:33→17:11)
[2022-02-09 07:40] LABS: Base Excess ABG 22.7 mEq/L (-9-1.8); HCO3 ABG 51 mmol/L (19-24); Oxygen Saturation ABG 99.2 % (90-95); PCO2 ABG 72 mmHg (35-46); PO2 ABG 93 mmHg (80-95); pH ABG 7.46 (7.35-7.45)
[2022-02-09 07:47] LABS: INR 1.1 (0.9-1.1); Prothrombin Time 11.9 Seconds (9.0-12.0)
[2022-02-09] MEDS: CHOLECALCIFEROL 1,000 UNITS 25 MCG TAB PO SCH (08:02)
[2022-02-09 08:06] LABS: Allen Test Pos (Pos)
[2022-02-09 08:09] LABS: BUN Creatinine Ratio 39.1 (10-20); Calcium 8.2 mg/dl (8.5-10.1); Creatinine Clr Calc Pharmacy 71.2 ml/min; Est GFR (African American) 109.7 ml/min; Est GFR (Non-African American) 94.6 ml/min; Potassium 3.4 mmol/L (3.5-5.1)
[2022-02-09] MEDS ORDERED: POTASSIUM CHLORIDE / WTR 10 MEQ/100 ML PLCT IV ONE (09:45)
--- NOTE | 2022-02-09 10:00 | Gastrointestinal Consultation ---
Date of Consultation February 09, 2022 Assessment & Plan (1) IBALS (isolated bulbar amyotrophic lateral sclerosis): 81 year old female with history of ALS admitted w/ acute stroke episode requiring TNKase GI asked to evaluate regarding PEG tube placement, video swallow from 2020 showing overall poor pharyngeal constriction resulting in silent aspiration, who had previously accepted the risk of permissive aspiration, now family and patient requesting PEG placement. No family at bedside. Unable to reach family member, Fred, by phone Will discuss with attending. Thank you for allowing us to participate in the care of this patient. Please call with any acute changes, questions or concerns. Please see addendum below with additional recommendation from my supervising physician. (2) Dysphagia: Supervising Physician Co-Signing Physician Notes I performed a history and physical examination of the patient today, including specifically on physical exam - soft abdomen. I have discussed the patient's management with the advanced practitioner. Please refer to the nurse practitioner's note for the documented findings and plan of care. Dysphagia due to ALS. Patient agreed for PEG and she can take her own decisions hence will proceed with EGD with PEG tube placement tomorrow. History of Present Illness Reason for Consultation: PEG consult Requesting Physician: Skye Attending Physician: Kael Cheung MD History of Present Illness 81 year female admitted to the ICU this admission for acute stroke episode requiring TNKase, history of ALS, HTN, carotid stenosis, dyslipidemia, hypercapnic hypoxic respiratory failure GI asked to evaluate for PEG tube. Cecilmateusz in her admission, this was offered to her however, she had denied. Presently, family requesting and now patient is agreeable to PEG placement. Video Swallow 2020: Overall poor pharyngeal constriction resulting in silent aspiration with the thin liquid and nectar thick liquid barium. This improved with chin tuck maneuver.. Please see the speech pathologist report for detailed findings and recommendations. Allergies Allergy/AdvReac Type Severity Reaction Status Date / Time No Known Drug Allergies Allergy Unknown Verified 02/03/22 15:14 Home Medications Medication Instructions Recorded Confirmed Type aspirin 81 mg tablet,delayed 81 mg PO 2XWK 12/22/21 02/03/22 History release cholecalciferol (vitamin D3) 25 25 mcg PO DAILY 12/22/21 02/03/22 History mcg (1,000 unit) tablet (Vitamin D3) fluticasone propionate 50 2 spray intranasal QAM 12/22/21 02/03/22 History mcg/actuation nasal spray,suspension food supplemt, lactose-reduced 1 ea PO TID 12/22/21 02/03/22 History (Ensure High Protein oral liquid) mirtazapine 15 mg tablet 7.45 mg PO HS 12/22/21 02/03/22 History levofloxacin 750 mg tablet 750 mg PO DAILY 7 days #7 tabs 02/02/22 02/03/22 Rx Patient History Medical History History of breast cancer Alejandrina Gehrig disease Osteoarthritis Renal mass "PET scan 05/14/2010- partially calcified left renal lower pole 30x36 mm mass. PET scan 09/27/13 showed stable partially calcified mass lower pole L k idney." Uterine leiomyoma Surgical History History of carpal tunnel release History of partial mastectomy of right breast (04/14/10) Family History Mother Diabetes Other Heart disease Social History Smoking Status: Never smoker Second Hand Exposure: No; Hx Alcohol Use: No Hx Substance Use: No Preferred Language: Faroese Communication Ability: Impaired Communication Tools: Other Research Statistician Required: No Beliefs That Will Affect Care: None marital status: Single Current Living Situation: Alone How many Children do You have: 0 Feels Safe at Home: Yes Assistive Devices: Glasses and Other Review of Systems Review of Systems: All systems reviewed & are unremarkable except as noted in HPI & below Physical Exam Constitutional: WD/WN, vitals as above Neck: trachea midline, no thyromegaly Respiratory: normal respiratory effort; no respiratory distress and no labored breathing Gastrointestinal (Abdomen): normal bowel sounds, soft, nontender, no hepat osplenomegaly Skin: no rashes, warm and dry Results & Data ([facility]) Vital Signs (Past 12 Hours) Vital Signs Temp Pulse Pulse Resp BP BP Pulse Ox 02/09/22 08:00 02/09/22 07:52 36.4 C L 56 L 16 130/62 96 02/09/22 07:29 65 02/09/22 07:17 65 25 H 97 02/09/22 02:59 36.5 C 67 18 168/78 H 94 02/08/22 22:30 65 26 H 96 02/08/22 22:43 36.5 C 61 20 147/89 H 94 02/08/22 22:59 61 02/08/22 22:04 Pulse Ox O2 Del Method O2 Del Method O2 Flow Rate 02/09/22 08:00 96 BiPAP 02/09/22 07:52 BiPAP 02/09/22 07:29 02/09/22 07:17 2 02/09/22 02:59 Nasal Cannula 2 02/08/22 22:30 2 02/08/22 22:43 BiPAP 02/08/22 22:59 02/08/22 22:04 Nasal Cannula 2 Laboratory Results 02/09/22 02/09/22 02/09/22 Range/Units 07:21 07:21 07:21 PT 11.9 (9.0-12.0) Seconds INR 1.1 (0.9-1.1) ABG pH 7.46 H (7.35-7.45) ABG pCO2 72 H (35-46) mmHg ABG pO2 93 (80-95) mmHg ABG HCO3 51 H (19-24) mmol/L ABG O2 Saturation 99.2 H (90-95) % ABG Base Excess 22.7 H (-9-1.8) mEq/L [place] Test Pos (Pos) Oxygen Given 2L Sodium 146 H (136-145) mmol/L Potassium 3.4 L (3.5-5.1) mmol/L Chloride 98 (98-107) mmol/L Carbon Dioxide 44 H* (21-32) mmol/L Anion Gap 4 (3-11) BUN 18 (6-23) mg/dl Creatinine 0.46 L (0.6-1.2) mg/dl Est Cr Clr Drug Dosing 71.2 ml/min Est GFR ( Amer) 109.7 ml/min Est GFR (Non-Af Amer) 94.6 ml/min BUN/Creatinine Ratio 39.1 H (10-20) Glucose 88 (70-99(Fasting)) mg/dl Calcium 8.2 L (8.5-10.1) mg/dl
--- NOTE | 2022-02-09 13:54 | Palliative Care Progress Note ---
Date of Service February 09, 2022 Assessment & Plan (1) Dysphagia: Plan: Currently on a pureed diet. She had consistently indicated with multiple provides that she did not want artificial feeding when asked last week. She is DNR/DNI. She also indicated that she would want her brother Andrea to be her surrogate decision maker. Over the weekend she indicated that she would like to have PEG tube placement. I spoke with her about this and she nodded and pointed to her abdomen when I asked her what she thought about a feeding tube. She nodded both times on different occasions when I asked her if she would want to be fed through the tube rather than by mouth. I pointed out the change from her previously indicated wishes and she essentially denied not wanting feeding tube in the past. We talked about risk of aspiration of oral secretions even with artificial feeding. I confirmed with her that she would want her brother, Andrea, to be her surrogate decision maker. She nodded. She then dialed the number for her cousin Irina Gonsales and asked me to talk with her. Irina tells me that Andrea and his are in the area visiting from [place]. She does not want to make decisions for Anaida. I explained that at this time, she is capable of making her own decisions and that we want to honor what she wants as long as its clear that she understands the implications of her decision. She will be coming in with Andrea and his tomorrow and we will meet to discuss this further. (2) Palliative care encounter: (3) IBALS (isolated bulbar amyotrophic lateral sclerosis): Admission and Anticipated Discharge Date Admission Date: February 03, 2022 Subjective Ambulating with walker and PT supervision today. Denies pain or dyspnea. She is now saying that she would want PEG tube for artificial feeding. Review of Systems Review of Systems: ESAS Pain 0/3 Dyspnea 0/3 Anxiety 0/3 Nausea 0/3 Drowsiness 0/3 PPS 50% Physical Exam Constitutional: no acute distress ENMT: Mouth: oral mucous membranes not dry Respiratory: normal respiratory effort; no labored breathing Musculoskeletal: Extremities: extremities normal to inspection Neurologic: nonverbal, cognition intact Results & Data ([facility]) Vital Signs (Past 12 Hours) Vital Signs Temp Pulse Pulse Pulse Resp BP BP 02/09/22 10:54 97.9 F 65 18 179/83 H 02/09/22 08:00 02/09/22 07:52 97.5 F L 56 L 16 130/62 02/09/22 07:29 65 02/09/22 07:17 65 25 H 02/09/22 02:59 97.7 F 67 18 168/78 H Pulse Ox Pulse Ox O2 Del Method O2 Del Method O2 Flow Rate 02/09/22 10:54 96 Nasal Cannula 2 02/09/22 08:00 96 BiPAP 02/09/22 07:52 96 BiPAP 02/09/22 07:29 02/09/22 07:17 97 2 02/09/22 02:59 94 Nasal Cannula 2 PG Care Time/CCT Total # of Minutes Spent Total Time Spent: 30 Total Time Spent with Patient: Total time spent is greater than 50% in coordination of care (as documented) at patient's floor/unit and/or counseling patient:goals of care, surrogate decision maker Coding Level of Care Code 36359 Subseq Hosp Care Lvl 2 Diagnoses Dysphagia R13.10 Palliative care encounter Z51.5 IBALS (isolated bulbar amyotrophic lateral sclerosis) G12.21
[2022-02-09] MEDS ORDERED: hydrALAZINE HCL 20 MG/ML VIAL IV PRN (18:35)
--- NOTE | 2022-02-09 22:39 | Hospitalist Progress Note ---
Date of Service February 09, 2022 Assessment & Plan (1) Hypoxia: (2) Pneumonia: (3) Weakness: (4) Ambulatory dysfunction: (5) Alejandrina Gehrig disease: Plan This is a 81-year-old female who has significant past medical history of bulbar amyotrophic lateral sclerosis, HTN, HLD, LVH, history of right breast cancer status post partial mastectomy who presents to the ER secondary to inability to swallow antibiotic pills then developed R sided facial droop and weakness in ED ~18:30 last night. Stroke-like episode: Stroke alert called and thrombolytic therapy (TNKase) administered within 2 hours of onset of symptoms CTA head/Neck showed no evidence for an acute infarct or cerebral edema. CT head negative for acute finding carotid u/s showed 50-69% stenosis of the proximal left internal carotid artery. Echo showed to hyperdynamic left ventricular systolic function is present with ejection fraction 65 to 70%. No significant valvular heart disease Neuro on board MRI head and CT head showed no acute infarct Continue PT/OT/Speech eval Pt has not been taking the aspirin since she is not able to swallow, will change to NH not sure if pt will take it Continue monitor closely Hypercapnic Hypoxic respiratory failure Most likely secondary to ALS progression causing decreased diaphragmatic and intercostal excursion. ABG showed PCO2 72 and pH 7.46 today Possible related to aspiration pneumonia CXR showed minimal left basilar opacity favors atelectasis. speech on board recommended puree diet ( allow permissive aspiration). pat and brother understand the risk procalcitonin negative Currently on IV unasyn and azithromycin She has been using the Bipap Generalized Weakness Ambulatory dysfunction Dyshagia ALS follows [facility] neurology previously had been on riluzole, but currently not taking it because pt was not able to tolerate riluzole Dysphagia due to muscle weakness Pt made it clear that she does not want any invasive treatment such as tube feeding or tracheostomy Palliative care on board for goal of care case discussed with case management for placement I am planning to discuss with the family because nurse said that they wanted patient to get tube feeding I was present when business objects developer talked to patient about tube feeding and pt refused it I again mentioned it to the patient and she refused it while she was AAOx3 Brother and Dunia mentioned tube feeding with her and she refused Now daughter in law is pushing for tube feeding Will discuss with Cousin in the presence of the patient about tube feeding again Will discuss with palliative care in the morning 02/09 Gastro on board Plan for Peg tube tomorrow DVT ppx: on lovenox Code Status DNR Disposition Pt will need senior care care Admission and Anticipated Discharge Date Admission Date: February 03, 2022 Subjective Pt was seen and examined for follow up of stroke like symptoms, CO2 retention Lying in bed with no acute distress with brother, sister in law and her cousin Fred Pt has been using the Bipap at night I updated the family at bedside and answered all the questions Denies any chest pain, palpitation, dizziness and SOB Review of Systems Review of Systems: All systems reviewed & are unremarkable except as noted in Subjective Physical Exam Physical Exam: General- No acute distress Head- atraumatic Eyes- PERRL, EOMI, ENT- oropharynx clear Neck- supple, no JVD Lungs- clear to auscultation Heart- regular rhythm; no murmur Abdomen- normal bowel sounds, soft, nontender Extremities- no calf tenderness Neuro- alert, oriented, nonverbal but understand and follows command , moves extremity Skin- warm & dry Results & Data Results & Data ([facility]) Vital Signs (Past 12 Hours) Vital Signs Temp Pulse Pulse Resp BP BP Pulse Ox 02/09/22 20:37 02/09/22 19:38 182/84 H 02/09/22 19:15 36.7 C 72 18 185/80 H 98 02/09/22 16:00 70 02/09/22 14:46 37.0 C 71 16 185/80 H 97 02/09/22 10:54 36.6 C 65 18 179/83 H 96 O2 Del Method O2 Flow Rate 02/09/22 20:37 Nasal Cannula 2 02/09/22 19:38 02/09/22 19:15 Nasal Cannula 2 02/09/22 16:00 02/09/22 14:46 Nasal Cannula 3 02/09/22 10:54 Nasal Cannula 2
[2022-02-10] MEDS: AZITHROMYCIN 500 MG in DEXTROSE 5% 250 ML IV SCH ×2 (00:44→23:48)
[2022-02-10] MEDS: AMPICILLIN/SULBACTAM SOD 3,000 MG in 0.9 % SODIUM CHLORIDE 100 ML IV SCH ×5 (00:44→22:54)
[2022-02-10] MEDS ORDERED: METOPROLOL TARTRATE 1 MG/ML VIAL IV STA ×2 (04:15→20:16)
[2022-02-10] MEDS: ACETAMINOPHEN 1,000 MG/100 ML VIAL IV PRN ×2 (05:30→11:14)
--- NOTE | 2022-02-10 06:06 | Communication Note ---
Date of Service: February 10, 2022
[2022-02-10] MEDS ORDERED: cloNIDine HCL 0.1 MG/24 HR TRANSDERM SYS TD SCH (06:15)
[2022-02-10] MEDS ORDERED: LORazepam 0.25 MG in SYRINGE 0.125 ML IV STA ×2 (06:45→20:16)
[2022-02-10] MEDS: METOPROLOL TARTRATE 1 MG/ML VIAL IV SCH ×4 (07:03→23:49)
[2022-02-10] MEDS ORDERED: CHECK CLONIDINE PATCH PLACEMENT SCH (08:00)
--- NOTE | 2022-02-10 08:00 | Anesthesiology Consultation ---
Date of Service February 10, 2022 Assessment & Plan (1) Encounter for pre-operative examination: Chart Review Chart Review: Acceptable Risk for Surgery, Patient NOT seen in Pre Admission Testing and entry engineer initiated Consults Requested none Proposed Anesthesia Anesthesia Type: MAC Risk / Benefits Reviewed With: PT / POA / Parent / Guardian, Accepts Plan and Informed Consent Obtained History Surgery Operation Date: 02/10/22 16:00 Proposed Procedures p Esophagogastroduodenoscopy Dr Tha Almazan MD s Peg Tube Placement Dr Tha Almazan MD Height/Weight Height: 5 ft Weight: 52.7 kg Allergies Allergy/AdvReac Type Severity Reaction Status Date / Time No Known Drug Allergies Allergy Unknown Verified 02/03/22 15:14 Medications Home Medications Medication Instructions Recorded Confirmed Last Taken aspirin 81 mg tablet,delayed 81 mg PO 2XWK 12/22/21 02/03/22 Unknown release cholecalciferol (vitamin D3) 25 25 mcg PO DAILY 12/22/21 02/03/22 Unknown mcg (1,000 unit) tablet (Vitamin D3) fluticasone propionate 50 2 spray intranasal QAM 12/22/21 02/03/22 Unknown mcg/actuation nasal spray,suspension food supplemt, lactose-reduced 1 ea PO TID 12/22/21 02/03/22 Unknown (Ensure High Protein oral liquid) mirtazapine 15 mg tablet 7.45 mg PO HS 12/22/21 02/03/22 Unknown levofloxacin 750 mg tablet 750 mg PO DAILY 7 days #7 tabs 02/02/22 02/03/22 Unknown Active Medications Generic Name Dose Route Start Last Admin Trade Name Freq PRN Reason Stop Dose Admin Albuterol 2.5 mg 02/03/22 23:27 02/05/22 10:06 Albuterol 0.083% Nebu Soln 3 Ml Vial NEB 03/05/22 23:26 2.5 mg Q6R PRN Administration sob/wheezing Protocol Aspirin 81 mg 02/04/22 20:00 02/06/22 20:15 Aspirin 81 Mg Chew PO 03/06/22 19:59 81 mg Q24H MELITA Administration Enoxaparin Sodium 40 mg 02/06/22 09:00 02/06/22 09:26 Enoxaparin Inj 40 Mg/0.4 Ml Syr SQ 03/08/22 08:59 40 mg QAM MELITA Administration Hydralazine HCl 5 mg 02/09/22 18:35 02/10/22 06:14 Hydralazine Hcl 20 Mg/Ml Vial IV 03/11/22 18:44 5 mg Q6H PRN Administration for SBP above 160 Ampicillin Sodium/Sulbactam 108 mls @ 200 mls/hr 02/04/22 00:00 02/10/22 06:20 Sodium 3,000 mg/ Sodium IV 02/11/22 00:00 Infused Chloride Q6H MELITA Infusion Protocol Azithromycin 500 mg/ Dextrose 255 mls @ 125 mls/hr 02/04/22 00:00 02/10/22 02:50 IV 02/11/22 00:00 Infused Q24H MELITA Infusion Acetaminophen 1,000 mg in 100 mls @ 400 mls/hr 02/10/22 04:14 02/10/22 05:45 Ofirmev IV 02/13/22 04:13 Infused Q8H PRN Infusion pain/fever Metoprolol Tartrate 2.5 mg 02/10/22 06:40 02/10/22 07:03 Metoprolol Tartrate 1 Mg/Ml Vial IV 03/12/22 06:39 2.5 mg Q6 MELITA Administration Ondansetron HCl 4 mg 02/03/22 23:27 02/07/22 16:54 Ondansetron Inj 2 Mg/Ml 2 Ml Vial IV 03/05/22 23:26 4 mg Q6H PRN Administration Nausea Vitamin D 1,000 units 02/04/22 09:00 02/09/22 08:02 Cholecalciferol 1,000 Units 25 Mcg Tab PO 03/06/22 08:59 Not Given DAILY MELITA Past Medical History Medical History Encounter for pre-operative examination History of breast cancer Alejandrina Gehrig disease Osteoarthritis Renal mass "PET scan 05/14/2010- partially calcified left renal lower pole 30x36 mm mass. PET scan 09/27/13 showed stable partially calcified mass lower pole L kidney." Uterine leiomyoma Past Family History Family History Mother Diabetes Other Heart disease Past Surgical History Surgical History History of carpal tunnel release History of partial mastectomy of right breast (04/14/10) Social History Smoking Status: Never smoker Do You Dip or Chew Tobacco: No Hx Alcohol Use: No Hx Substance Use: No substance use type: does not use Physical Exam Vital Signs Last Vital Signs Temp 36.7 C 02/10/22 06:40 Pulse 68 02/10/22 07:03 Resp 18 02/10/22 06:40 BP 184/80 H 02/10/22 07:03 Pulse Ox 97 02/10/22 06:40 O2 Del Method 02/10/22 06:40 O2 Flow Rate 2 02/10/22 06:40 FiO2 30 02/05/22 10:08 Testing Laboratory Results 02/06/22 07:27 02/09/22 07:21 PT 11.9 Seconds (9.0-12.0) 02/09/22 07:21 INR 1.1 (0.9-1.1) 02/09/22 07:21 APTT 24.8 Seconds (21.0-31.0) 02/03/22 19:27 Hemoglobin A1c 5.5 % (4.5-5.6) 02/04/22 04:48 Urine Color Yellow 02/04/22 01:40 Urine Appearance Clear (Clear) 02/04/22 01:40 Urine pH 5.5 (4.5-7.5) 02/04/22 01:40 Ur Specific [place] > 1.045 (1.000-1.030) H 02/04/22 01:40 Urine Protein Negative (Negative) 02/04/22 01:40 Urine Glucose (UA) Negative (Negative) 02/04/22 01:40 Urine Ketones Negative (Negative) 02/04/22 01:40 Urine Nitrite Negative (Negative) 02/04/22 01:40 Ur Leukocyte Esterase Negative (Negative) 02/04/22 01:40 Urine WBC (Auto) 10-30 /hpf (0-5) H 02/04/22 01:40 Urine RBC (Auto) >30 /hpf (0-4) H 02/04/22 01:40 U Hyaline Cast (Auto) 5-10 /lpf (0-5) H 02/04/22 01:40 U Epithel Cells (Auto) >30 /lpf (0-5) H 02/04/22 01:40 Urine Bacteria (Auto) Negative (Negative) 02/04/22 01:40 Blood Type AB Positive 02/03/22 19:27 Antibody Screen NEGATIVE 02/03/22 19:27 02/03/22 14:26 Aerobic Blood Culture - Final Blood No growth in Aerobic bottle after 5 days. Anaerobic Blood Culture - Final No growth in Anaerobic bottle after 5 days. 02/03/22 14:26 Aerobic Blood Culture - Final Blood No growth in Aerobic bottle after 5 days. Anaerobic Blood Culture - Final No growth in Anaerobic bottle after 5 days. 02/04/22 01:40 Urine Culture - Final Urine,Clean Catch Gardnerella-like bacilli Corynbact.sp not urealyticum Electrocardiogram Date: 02/03/22 Blood Pressure : / mmHG Vent. Rate : 082 BPM Atrial Rate : 082 BPM P-R Int : 158 ms QRS Dur : 080 ms QT Int : 356 ms P-R-T Axes : 057 -05 033 degrees QTc Int : 415 ms Normal sinus rhythm When compared with ECG of 03-FEB-2022 14:03, No significant change Chest X-Ray Date: 02/03/22 CLINICAL HISTORY: Dyspnea COMPARISON STUDY: Chest radiograph February 02, 2022. FINDINGS: Lung volumes are mildly diminished. Minimal left basilar opacity favors atelectasis. There is no pneumothorax or pleural effusion. Cardiac size is normal. Mediastinal contours are normal. There is no evidence for pulmonary edema. IMPRESSION: No acute cardiopulmonary findings. Echocardiogram Date: 02/04/22 EF: 65-70% LV Function: normal Other Findings: + LVH (mild, concentric) Valvular Disease: + no significant valvular disease
[2022-02-10] MEDS ORDERED: PROPOFOL IV EMULSION 10 MG/ML 20 ML VIAL IV ONE (08:29)
[2022-02-10] MEDS ORDERED: LIDOCAINE 2% MPF LOCAL 5 ML VIAL INFIL ONE (08:32)
--- NOTE | 2022-02-10 08:47 | History & Physical Bridge Note ---
Date of Service February 10, 2022 History & Physical Bridge Note I have examined the patient, reviewed the History & Physical and in the interval since the performance of the History & Physical I have noted the following changes of clinical significance: no changes noted PEG tube today. Patient was explained in detail regarding risks, benefits, limitations and alternatives of the above endoscopic procedure. Risks of intravenous sedation used for procedure were also explained. Risks include, but not limited to perforation, bleeding, infection, respiratory distress, cardiac arrest and . Patient is also aware about the possibility of missed lesion. Patient's questions were answered. The patient verbalized understanding the information and agreed to undergo the procedure.
[2022-02-10 09:22] LABS: Hematocrit (blood only) 38.8 % (34.1-44.9); Hemoglobin 11.9 g/dl (12.0-16.0); Mean Corpuscular Hemoglobin 27.2 pg (25.0-34.0); Mean Corpuscular Hgb Conc 30.7 g/dL (32.0-36.0); Mean Corpuscular Volume 88.6 fL (80.0-100.0); Platelet Count 121 K/uL (130-400); RDW Standard Deviation 45.7 fL (36.4-46.3); Red Blood Count 4.38 M/uL (3.93-5.22); White Blood Count 8.12 K/ul (4.8-10.8)
[2022-02-10 09:25] LABS: BUN Creatinine Ratio 32.6 (10-20); Calcium 8.7 mg/dl (8.5-10.1); Creatinine Clr Calc Pharmacy 76.2 ml/min; Est GFR (African American) 112.1 ml/min; Est GFR (Non-African American) 96.7 ml/min; Potassium 3.4 mmol/L (3.5-5.1)
--- NOTE | 2022-02-10 09:32 | GI REPORT ---
Patient Name: Glen Govea Procedure Date: 02/10/2022 8:43 AM Date of : 1940 Admit Type: Inpatient Age: 81 Gender: Female Attending MD: Avila Almazan MD Procedure: Upper GI endoscopy Providers: Avila Almazan MD Referring MD: DALILA SIMENTAL Indications: Place PEG due to neurological disorder causing impaired swallowing Medicines: Propofol per Anesthesia Complications: No immediate complications. Estimated Blood Loss: Estimated blood loss: none. Procedure: Pre-Anesthesia Assessment: - Prior to the procedure, a History and Physical was performed, and patient medications, allergies and sensitivities were reviewed. The patient's tolerance of previous anesthesia was reviewed. - The risks and benefits of the procedure and the sedation options and risks were discussed with the patient. All questions were answered and informed consent was obtained. - Patient identification and proposed procedure were verified prior to the procedure by the physician and the nurse. The procedure was verified in the procedure room. - Pre-procedure physical examination revealed no contraindications to sedation. After obtaining informed consent, the endoscope was passed under direct vision. Throughout the procedure, the patient's blood pressure, pulse, and oxygen saturations were monitored continuously. The Endoscope was introduced through the mouth, and advanced to the second part of duodenum. The upper GI endoscopy was accomplished without difficulty. The patient tolerated the procedure well. Findings: The examined esophagus was normal. The entire examined stomach was normal. The patient was placed in the supine position for PEG placement. The stomach was insufflated to appose gastric and abdominal burgess. A site was located in the body of the stomach with excellent transillumination and manual external pressure for placement. The abdominal wall was marked and prepped in a sterile manner. The area was anesthetized with 2 mL of 1% lidocaine. The trocar needle was introduced through the abdominal wall and into the stomach under direct endoscopic view. A snare was introduced through the endoscope and opened in the gastric lumen. The guide wire was passed through the trocar and into the open snare. The snare was closed around the guide wire. The endoscope and snare were removed, pulling the wire out through the mouth. A skin incision was made at the site of needle insertion. The externally removable 20 Fr Nadeem-Cook gastrostomy tube was lubricated. The G-tube was tied to the guide wire and pulled through the mouth and into the stomach. The trocar needle was removed, and the gastrostomy tube was pulled out from the stomach through the skin. The external bumper was attached to the gastrostomy tube, and the tube was cut to remove the guide wire. The final position of the gastrostomy tube was confirmed by relook endoscopy, and skin marking noted to be 2 cm at the external bumper. The final tension and compression of the abdominal wall by the PEG tube and external bumper were checked and revealed that the bumper was moderately tight and mildly deforming the skin. The feeding tube was capped, and the tube site cleaned and dressed. The duodenal bulb and second portion of the duodenum were normal. Impression: - Normal esophagus. - Normal stomach. - Normal duodenal bulb and second portion of the duodenum. - An externally removable PEG placement was successfully completed. - No specimens collected. Recommendation: - [facility]. - Please follow the post-PEG recommendations including: Nutrition consult for formula and volume, dry dressing only, NPO x4 hrs then water today and may use PEG tomorrow for feedings. Avila Almazan MD 02/10/2022 9:31:51 AM This report has been signed electronically. Note Initiated On: 02/10/2022 8:43 AM Number of Addenda: 0 I attest to the content of the Intraoperative Record and orders documented therein, exceptions below {[id number]}
[2022-02-10] MEDS: CHOLECALCIFEROL 1,000 UNITS 25 MCG TAB PO SCH (10:39)
[2022-02-10] MEDS ORDERED: hydrALAZINE HCL 20 MG/ML VIAL IV STA (10:39)
--- NOTE | 2022-02-10 11:04 | Anesthesiology Progress Note ---
Date of Service February 10, 2022 Anesthesia Post Procedure Vital Signs Vital Signs: Temp Pulse Pulse Pulse Resp BP BP 02/10/22 10:20 36.6 C 63 18 201/83 H 02/10/22 10:03 61 16 195/95 H 02/10/22 09:48 68 14 199/87 H 02/10/22 09:33 71 14 203/100 H 02/10/22 08:18 36.5 C 60 16 205/98 H 02/10/22 06:40 36.7 C 69 18 02/10/22 07:03 68 184/80 H 02/10/22 06:00 63 177/77 H 02/10/22 05:17 02/10/22 05:17 75 02/10/22 05:17 60 183/70 H 02/10/22 04:36 36.9 C 69 18 188/89 H 02/10/22 04:32 69 188/89 H 02/09/22 19:45 144/78 H 02/09/22 22:55 36.8 C 68 18 167/80 H 02/09/22 20:37 02/09/22 19:38 182/84 H 02/09/22 19:15 36.7 C 72 18 185/80 H 02/09/22 16:00 70 02/09/22 14:46 37.0 C 71 16 BP Pulse Ox O2 Del Method O2 Flow Rate 02/10/22 10:20 96 Nasal Cannula 2 02/10/22 10:03 97 Nasal Cannula 2 02/10/22 09:48 93 Room Air 02/10/22 09:33 97 Nasal Cannula 2 02/10/22 08:18 98 Room Air 02/10/22 06:40 116/73 97 Nasal Cannula 2 02/10/22 07:03 02/10/22 06:00 02/10/22 05:17 Nasal Cannula 2 02/10/22 05:17 02/10/22 05:17 02/10/22 04:36 96 Nasal Cannula 2 02/10/22 04:32 02/09/22 19:45 02/09/22 22:55 99 Nasal Cannula 2 02/09/22 20:37 Nasal Cannula 2 02/09/22 19:38 02/09/22 19:15 98 Nasal Cannula 2 02/09/22 16:00 02/09/22 14:46 185/80 H 97 Nasal Cannula 3 Pain Intensity Left Back: Pain Intensity: 0 Head: Pain Intensity: 0 Transfer of Care Handoff Completed per policy Notes Mental Status: alert / awake / arousable and participated in evaluation Patient Amnestic to Procedure: Yes Nausea / Vomiting: adequately controlled Pain: adequately controlled Airway Patency, RR, SpO2: stable & adequate BP & HR: stable & adequate Hydration State: stable & adequate Anesthetic Complications: no major complications apparent and Pt Satisfied with anesthetic care
[2022-02-10] MEDS ORDERED: KETOROLAC TROMETHAMINE 15 MG/ML VIAL IV ONE (13:58)
[2022-02-10] MEDS ORDERED: MoRPHine SULFATE 5 MG/0.25 ML UDP PO PRN (17:09)
--- NOTE | 2022-02-10 17:17 | Hospitalist Progress Note ---
Date of Service February 10, 2022 Assessment & Plan (1) Hypoxia: (2) Pneumonia: (3) Weakness: (4) Ambulatory dysfunction: (5) Alejandrina Gehrig disease: Plan This is a 81-year-old female who has significant past medical history of bulbar amyotrophic lateral sclerosis, HTN, HLD, LVH, history of right breast cancer status post partial mastectomy who presents to the ER secondary to inability to swallow antibiotic pills then developed R sided facial droop and weakness in ED ~18:30 last night. Stroke-like episode: Stroke alert called and thrombolytic therapy (TNKase) administered within 2 hours of onset of symptoms CTA head/Neck showed no evidence for an acute infarct or cerebral edema. CT head negative for acute finding carotid u/s showed 50-69% stenosis of the proximal left internal carotid artery. Echo showed to hyperdynamic left ventricular systolic function is present with ejection fraction 65 to 70%. No significant valvular heart disease Neuro on board MRI head and CT head showed no acute infarct Continue PT/OT/Speech eval Will change aspirin to Peg tube starting tomorrow Continue monitor closely Hypercapnic Hypoxic respiratory failure Most likely secondary to ALS progression causing decreased diaphragmatic and intercostal excursion. ABG showed PCO2 72 and pH 7.46 today Possible related to aspiration pneumonia CXR showed minimal left basilar opacity favors atelectasis. speech on board recommended puree diet ( allow permissive aspiration). pat and brother understand the risk procalcitonin negative Currently on IV unasyn and azithromycin She has been using the Bipap Generalized Weakness Ambulatory dysfunction Dyshagia ALS follows [facility] neurology previously had been on riluzole, but currently not taking it because pt was not able to tolerate riluzole Dysphagia due to muscle weakness Pt made it clear that she does not want any invasive treatment such as tube feeding or tracheostomy Palliative care on board for goal of care case discussed with case management for placement I am planning to discuss with the family because nurse said that they wanted patient to get tube feeding I was present when chemist helper talked to patient about tube feeding and pt refused it I again mentioned it to the patient and she refused it while she was AAOx3 Brother and Dunia mentioned tube feeding with her and she refused Now daughter in law is pushing for tube feeding Will discuss with Cousin in the presence of the patient about tube feeding again Will discuss with palliative care in the morning 02/10 S/P peg tube placement by gastro Ok to use peg tube tomorrow Nutrition consult Will Change her medication to PO HTN Started on Vasotec IV Will plan to start on PO med once able to use the peg tube DVT ppx: will resume lovenox subq in am Code Status DNR Disposition Pt will need senior living care placement Admission and Anticipated Discharge Date Admission Date: February 03, 2022 Subjective Pt was seen and examined for follow up of stroke like symptoms, CO2 retention Lying in bed with no acute distress with brother, sister in law and her cousin Fred at bedside Pt just came back from the OR for the peg tube placement She is complaint of tenderness around the peg tube placement Denies any chest pain, palpitation, dizziness and SOB Review of Systems Review of Systems: All systems reviewed & are unremarkable except as noted in Subjective Physical Exam Physical Exam: General- No acute distress Head- atraumatic Eyes- PERRL, EOMI, ENT- oropharynx clear Neck- supple, no JVD Lungs- clear to auscultation Heart- regular rhythm; no murmur Abdomen- normal bowel sounds, +peg tube placement Extremities- no calf tenderness Neuro- alert, oriented, nonverbal but understand and follows command , moves extremity Skin- warm & dry Results & Data Results & [facility] ([facility]) Vital Signs (Past 12 Hours) Vital Signs Temp Pulse Pulse Pulse Resp BP BP 02/10/22 15:54 36.6 C 80 19 195/92 H 02/10/22 15:45 02/10/22 14:55 70 02/10/22 08:00 68 02/10/22 12:27 81 179/81 H 02/10/22 10:20 36.6 C 63 18 201/83 H 02/10/22 10:03 61 16 195/95 H 02/10/22 09:48 68 14 199/87 H 02/10/22 09:33 71 14 203/100 H 02/10/22 08:18 36.5 C 60 16 205/98 H 02/10/22 06:40 36.7 C 69 18 02/10/22 07:03 68 184/80 H 02/10/22 06:00 63 177/77 H 02/10/22 05:17 02/10/22 05:17 75 02/10/22 05:17 60 183/70 H BP Pulse Ox O2 Del Method O2 Flow Rate 02/10/22 15:54 95 Nasal Cannula 2 02/10/22 15:45 Nasal Cannula 2 02/10/22 14:55 02/10/22 08:00 02/10/22 12:27 02/10/22 10:20 96 Nasal Cannula 2 02/10/22 10:03 97 Nasal Cannula 2 02/10/22 09:48 93 Room Air 02/10/22 09:33 97 Nasal Cannula 2 02/10/22 08:18 98 Room Air 02/10/22 06:40 116/73 97 Nasal Cannula 2 02/10/22 07:03 02/10/22 06:00 02/10/22 05:17 Nasal Cannula 2 02/10/22 05:17 02/10/22 05:17
[2022-02-10] MEDS: POTASSIUM CHLORIDE / WTR 10 MEQ/100 ML PLCT IV SCH ×2 (18:22→19:26)
[2022-02-10] MEDS: ENALAPRILAT 1.25 MG in DEXTROSE 5% 25 ML IV SCH (19:41)
[2022-02-10] MEDS ORDERED: LORazepam 0.25 MG in SYRINGE 0.125 ML IV PRN (20:15)
[2022-02-11] MEDS: ENALAPRILAT 1.25 MG in DEXTROSE 5% 25 ML IV SCH ×3 (02:25→18:31)
[2022-02-11] MEDS: cloNIDine HCL 0.1 MG/24 HR TRANSDERM SYS TD SCH ×2 (03:06→23:14)
[2022-02-11] MEDS: METOPROLOL TARTRATE 1 MG/ML VIAL IV SCH ×4 (06:32→23:15)
[2022-02-11] MEDS: AMPICILLIN/SULBACTAM SOD 3,000 MG in 0.9 % SODIUM CHLORIDE 100 ML IV SCH ×4 (06:32→23:20)
[2022-02-11] MEDS: CHOLECALCIFEROL 1,000 UNITS 25 MCG TAB PO SCH (08:58)
[2022-02-11] MEDS: CHECK CLONIDINE PATCH PLACEMENT SCH ×3 (08:59→23:13)
--- NOTE | 2022-02-11 09:30 | Gastroenterology Progress Note ---
Date of Service February 11, 2022 Assessment & Plan (1) IBALS (isolated bulbar amyotrophic lateral sclerosis): Plan: 81 year old female with history of ALS admitted w/ acute stroke episode requiring TNKase GI asked to evaluate regarding PEG tube placement, video liam w from 2020 showingoverall poor pharyngeal constriction resulting in silent aspiration, who had previously accepted the risk of permissive aspiration, now family and patient requesting PEG placement. S/P PEG placement. No GI contraindication to PEG use for meds/nutrition. Please follow the post-PEG recommendations including: Nutrition consult for formula and volume Will sign off. Recall as needed. Thank you for allowing us to participate in the care of this patient. Please call with any acute changes, questions or concerns. Please see addendum below with additional recommendation from my supervising physician. Admission and Anticipated Discharge Date Admission Date: February 03, 2022 Supervising Physician Co-Signing Physician Notes I performed a history and physical examination of the patient today, including s pecifically on physical exam - soft abdomen. I have discussed the patient's management with the advanced practitioner. Please refer to the nurse practitioner's note for the documented findings and plan of care. Subjective Pt was seen and evaluated, chart reviewed. S/P PEG tube placement. Feeling well. No pain or discomfort with manipulation of tube. Bumper checked. Review of Systems Review of Systems: All systems reviewed & are unremarkable except as noted in HPI & below Physical Exam Constitutional: WD/WN, vitals as above Respiratory: normal respiratory effort; no respiratory distress and no labored breathing Cardiovascular: Rate/Rhythm: regular rate Gastrointestinal (Abdomen): Inspection/Auscultation: abdomen normal to inspection; abdomen not distended PEG in place, in tact Skin: no rashes, warm and dry Results & Data ([facility]) Vital Signs (Past 12 Hours) Vital Signs Temp Pulse Pulse Resp BP BP Pulse Ox 02/11/22 08:18 36.3 C L 79 18 158/75 H 98 02/11/22 06:32 76 186/76 H 02/11/22 02:38 36.2 C L 75 18 185/84 H 96 02/11/22 02:02 02/10/22 23:49 77 170/83 H 02/10/22 23:05 35.9 C L 74 18 170/83 H 98 08/16/22 22:48 84 O2 Del Method O2 Flow Rate 02/11/22 08:18 Nasal Cannula 2 02/11/22 06:32 02/11/22 02:38 Nasal Cannula 2 02/11/22 02:02 Nasal Cannula 1 02/10/22 23:49 02/10/22 23:05 Nasal Cannula 2 02/10/22 22:48
[2022-02-11] MEDS ORDERED: FIBERSOURCE HN 1.2 CAL 1000 ML BAG GT SCH (10:00)
[2022-02-11] MEDS: TUBE FEEDING WATER FLUSH PEG SCH ×4 (11:37→21:18)
--- NOTE | 2022-02-11 13:38 | Electrocardiogram Report ---
Test Reason : Blood Pressure : / mmHG Vent. Rate : 070 BPM Atrial Rate : 070 BPM P-R Int : 124 ms QRS Dur : 076 ms QT Int : 392 ms P-R-T Axes : 004 001 049 degrees QTc Int : 423 ms Normal sinus rhythm Possible Anterior infarct (cited on or before 10-FEB-2022) Abnormal ECG When compared with ECG of 03-FEB-2022 19:41, Questionable change in initial forces of Anteroseptal leads Confirmed by Cesar Flood ([id number]) on 02/11/2022 1:38:00 PM Referred By: REFERRED SELF Confirmed By:Cesar Flood
--- NOTE | 2022-02-11 17:06 | Hospitalist Progress Note ---
Date of Service February 11, 2022 Assessment & Plan (1) Hypoxia: (2) Pneumonia: (3) Weakness: (4) Ambulatory dysfunction: (5) Alejandrina Gehrig disease: Plan Input This is a 81-year-old female who has significant past medical history of bulbar amyotrophic lateral sclerosis, HTN, HLD, LVH, history of right breast cancer status post partial mastectomy who presents to the ER secondary to inability to swallow antibiotic pills then developed R sided facial droop and weakness in ED ~18:30 last night. Stroke-like episode: Stroke alert called and thrombolytic therapy (TNKase) administered within 2 hours of onset of symptoms CTA head/Neck showed no evidence for an acute infarct or cerebral edema. CT head negative for acute finding carotid u/s showed 50-69% stenosis of the proximal left internal carotid artery. Echo showed to hyperdynamic left ventricular systolic function is present with ejection fraction 65 to 70%. No significant valvular heart disease Appreciate neurology input and recommendation MRI head and CT head showed no acute infarct Continue PT/OT/Speech eval ALS Follows [facility] neurology Previously had been on riluzole, but currently not taking it because pt was not able to tolerate riluzole Dysphagia Will change aspirin to Peg tube starting tomorrow Dysphagia due to muscle weakness Pt made it clear that she does not want any invasive treatment such as tube feeding or tracheostomy Initially the patient and the family members refused for any PEG tube placement GI was consulted and the PEG tube was placed on 02/10/2022 Has been started on PEG tube feeding from 02/11/2022 Nutrition consult Medication changed to PEG Palliative care on board for goal of care Case discussed with case management for placement Hypercapnic Hypoxic respiratory failure Most likely secondary to ALS progression causing decreased diaphragmatic and intercostal excursion. ABG showed PCO2 72 and pH 7.46 She has been using the Bipap Pneumonia Possible related to aspiration pneumonia CXR showed minimal left basilar opacity favors atelectasis. procalcitonin negative Currently on IV unasyn and azithromycin We will continue current antibiotic From prior hospitalist:: Generalized Weakness Ambulatory dysfunction I am planning to discuss with the family because nurse said that they wanted patient to get tube feeding I was present when speech and language specialist talked to patient about tube feeding and pt refused it I again mentioned it to the patient and she refused it while she was AAOx3 Brother and Dunia mentioned tube feeding with her and she refused Now daughter in law is pushing for tube feeding Will discuss with Cousin in the presence of the patient about tube feeding again Will discuss with palliative care in the morning 02/10 S/P peg tube placement by gastro Ok to use peg tube tomorrow Nutrition consult Will Change her medication to PO HTN Started on Vasotec IV Will plan to start on PO med once able to use the peg tube DVT ppx: will resume lovenox subq in am Code Status DNR Disposition Pt will need [facility] care placement Admission and Anticipated Discharge Date Admission Date: February 03, 2022 Subjective 02/11/2022 The patient was seen and examined in medical telemetry unit She has been feeling much better and the communication was met through signs as she cannot speak She has minimal abdominal discomfort without any nausea and or vomiting Review of Systems Review of Systems: All systems reviewed and are unremarkable except as noted below Physical Exam Physical Exam: Sitting on a chair without any acute distress Constitutional: well developed, well nourished, + ill appearing and average body habitus Eyes: PERRL, conjunctivae normal, anicteric sclerae ENMT: external ear and nose normal, oropharynx normal Respiratory: no respiratory distress Auscultation: lungs clear to auscultation bilaterally; no crackles Cardiovascular: Rate/Rhythm: regular rate and regular rhythm; not tachycardic Heart Sounds: normal S1, normal S2 and + murmur Extremities: + edema (Trace edema bilaterally) Gastrointestinal (Abdomen): Inspection/Auscultation: normal bowel sounds; abdomen not distended Percussion/Palpation: + abdomen tender (Minimally tender in the epigastric area) and abdomen soft PEG tube in situ Musculoskeletal: No acute arthritis in any joint Neurologic: Alert awake and oriented x3. Cannot communicate due to bulbar ALS Lymphatic: no cervical or axillary lymphadenopathy Results & Data Results & Data ([facility]) Vital Signs (Past 12 Hours) Vital Signs Temp Pulse Pulse Resp BP BP Pulse Ox 02/11/22 15:49 36.5 C 82 19 169/78 H 98 02/11/22 10:53 36.3 C L 81 20 167/88 H 97 02/11/22 11:44 81 174/76 H 02/11/22 11:43 81 174/76 H 02/11/22 08:00 02/11/22 08:18 36.3 C L 79 18 158/75 H 98 02/11/22 06:32 76 186/76 H O2 Del Method O2 Flow Rate 02/11/22 15:49 Nasal Cannula 2 02/11/22 10:53 Nasal Cannula 2 02/11/22 11:44 02/11/22 11:43 02/11/22 08:00 Nasal Cannula 1 02/11/22 08:18 Nasal Cannula 2 02/11/22 06:32 Medications Administered Current Inpatient Medications Acetaminophen (Acetaminophen 325 Mg Tab) 650 mg PO Q4H PRN PRN Reason: Pain or Fever Stop: 03/05/22 23:26 Al Hydrox/Mg Hydrox/Simethicone (Aluminum/Magnesium Susp 30 Ml Udc) 15 ml PO Q4H PRN PRN Reason: Dyspepsia Stop: 03/05/22 23:26 Albuterol (Albuterol 0.083% Nebu Soln 3 Ml Vial) 2.5 mg NEB Q6R PRN; Protocol PRN Reason: sob/wheezing Stop: 03/05/22 23:26 Last Admin: 02/05/22 10:06 Dose: 2.5 mg Aspirin (Aspirin 81 Mg Chew) 81 mg PO Q24H [facility] Stop: 03/06/22 19:59 Last Admin: 02/06/22 20:15 Dose: 81 mg Clonidine HCl (Clonidine Hcl 0.1 Mg/24 Hr Transderm Sys) 1 patch TD Q7D@0900 [facility] Stop: 03/13/22 01:14 Last Admin: 02/11/22 03:06 Dose: 1 patch Enoxaparin Sodium (Enoxaparin Inj 40 Mg/0.4 Ml Syr) 40 mg SQ QAM [facility] Stop: 03/08/22 08:59 Last Admin: 02/06/22 09:26 Dose: 40 mg Enteral Nutritional Formula (Fibersource Hn 1.2 Vaughn 1000 Ml Bag) 1,000 ml GT UD [facility]; Protocol Stop: 03/13/22 09:59 Guaifenesin (Guaifenesin 600 Mg Tabcr) 600 mg PO Q12 PRN PRN Reason: cough Stop: 03/05/22 23:26 Hydralazine HCl (Hydralazine Hcl 20 Mg/Ml Vial) 5 mg IV Q6H PRN PRN Reason: for SBP above 160 Stop: 03/11/22 18:44 Last Admin: 02/10/22 06:14 Dose: 5 mg Acetaminophen (Ofirmev) 1,000 mg in 100 mls @ 400 mls/hr IV Q8H PRN PRN Reason: pain/fever Stop: 02/13/22 04:13 Last Infusion: 02/10/22 11:46 Dose: Infused Enalaprilat 1.25 mg/ Dextrose 26 mls @ 100 mls/hr IV Q8H [facility] Stop: 03/12/22 17:14 Last Infusion: 02/11/22 10:42 Dose: Infused Lorazepam 0.25 mg/ Syringe 0.25 mls @ 2 mls/min IV Q6H PRN PRN Reason: Anxiety Stop: 03/12/22 20:14 Ampicillin Sodium/Sulbactam Sodium 3,000 mg/ Sodium Chloride 108 mls @ 200 mls/hr IV Q6H [facility]; Protocol Stop: 02/13/22 15:00 Last Infusion: 02/11/22 12:14 Dose: Infused Magnesium Hydroxide (Magnesium Hydroxide Susp 30 Ml Udc) 30 ml PO Q12H PRN PRN Reason: Constipation Stop: 03/05/22 23:26 Metoprolol Tartrate (Metoprolol Tartrate 1 Mg/Ml Vial) 2.5 mg IV Q6 [facility] Stop: 03/12/22 06:39 Last Admin: 02/11/22 11:44 Dose: 2.5 mg Miscellaneous (Remove Clonidine Patch) 1 each N/A Q7D@0859 [facility] Stop: 03/20/22 08:58 Miscellaneous (Check Clonidine Patch Placement) 1 each N/A QS [facility] Stop: 03/13/22 07:59 Last Admin: 02/11/22 15:20 Dose: 1 each Miscellaneous Information (Pharmacist Discharge Med Rec Consult) 1 each N/A UD PRN PRN Reason: Consult Stop: 03/05/22 23:26 Morphine Sulfate (Morphine Sulfate 5 Mg/0.25 Ml Udp) 2.5 mg PO Q8H PRN PRN Reason: Moderate Pain Stop: 02/24/22 17:08 Last Admin: 02/10/22 17:41 Dose: 2.5 mg Multivitamins/Minerals (Multi Vit W/Minerals Liquid 15 Ml Udp) 15 ml PEG QAM [facility] Stop: 03/14/22 08:59 Ondansetron HCl (Ondansetron Inj 2 Mg/Ml 2 Ml Vial) 4 mg IV Q6H PRN PRN Reason: Nausea Stop: 03/05/22 23:26 Last Admin: 02/07/22 16:54 Dose: 4 mg Polyethylene Glycol (Polyethylene (Miralax) 17 Gm Pack) 17 gm PO DAILY PRN PRN Reason: Constipation Stop: 03/05/22 23:26 Sterile Water (Tube Feeding Water Flush) 125 ml PEG Q4H [facility] Stop: 03/13/22 09:29 Last Admin: 02/11/22 11:46 Dose: Not Given Vitamin D (Cholecalciferol 1,000 Units 25 Mcg Tab) 1,000 units PO DAILY [facility] Stop: 03/06/22 08:59 Last Admin: 02/11/22 08:58 Dose: 1,000 units
[2022-02-11] MEDS: ACETAMINOPHEN 1,000 MG/100 ML VIAL IV PRN (23:21)
[2022-02-12] MEDS: TUBE FEEDING WATER FLUSH PEG SCH ×6 (00:56→20:46)
[2022-02-12] MEDS: ENALAPRILAT 1.25 MG in DEXTROSE 5% 25 ML IV SCH ×3 (02:11→17:17)
[2022-02-12] MEDS: METOPROLOL TARTRATE 1 MG/ML VIAL IV SCH ×4 (05:01→23:24)
[2022-02-12] MEDS: AMPICILLIN/SULBACTAM SOD 3,000 MG in 0.9 % SODIUM CHLORIDE 100 ML IV SCH ×4 (05:03→23:30)
[2022-02-12 07:24] LABS: Hematocrit (blood only) 35.8 % (34.1-44.9); Hemoglobin 11.2 g/dl (12.0-16.0); Mean Corpuscular Hemoglobin 27.1 pg (25.0-34.0); Mean Corpuscular Hgb Conc 31.3 g/dL (32.0-36.0); Mean Corpuscular Volume 86.5 fL (80.0-100.0); Platelet Count 130 K/uL (130-400); RDW Coefficient of Variation 14.5 % (11.5-14.5); RDW Standard Deviation 45.3 fL (36.4-46.3); Red Blood Count 4.14 M/uL (3.93-5.22); White Blood Count 8.93 K/ul (4.8-10.8)
[2022-02-12 07:42] LABS: BUN Creatinine Ratio 24.4 (10-20); Basophils # (auto) 0.02 K/uL (0-0.2); Basophils % (auto) 0.2 %; Calcium 8.5 mg/dl (8.5-10.1); Creatinine Clr Calc Pharmacy 72.8 ml/min; Eosinophils # (auto) 0.27 K/uL (0-0.50); Est GFR (African American) 110.5 ml/min; Est GFR (Non-African American) 95.3 ml/min; Immature Granulocytes # (auto) 0.03 K/uL (0.00-0.02); Immature Granulocytes % (auto) 0.3 %; Lymphocytes # (auto) 1.15 K/uL (1.2-3.4); Lymphocytes % (auto) 12.9 %; Magnesium 1.7 mg/dl (1.7-2.4); Monocytes # (auto) 0.64 K/uL (0.24-0.82); Monocytes % (auto) 7.2 %; Neutrophils # (auto) 6.82 K/uL (1.4-6.5); Neutrophils % (auto) 76.4 %; Potassium 3.1 mmol/L (3.5-5.1); Toxic Vacuolation Occasional
[2022-02-12] MEDS ORDERED: POTASSIUM CHLORIDE CRTAB 20 MEQ TABCR PO STA (08:20)
[2022-02-12] MEDS: CHECK CLONIDINE PATCH PLACEMENT SCH ×3 (08:26→23:24)
[2022-02-12] MEDS: MULTI VIT W/MINERALS LIQUID 15 ML UDP PEG SCH (08:27)
[2022-02-12] MEDS: CHOLECALCIFEROL 1,000 UNITS 25 MCG TAB PO SCH (08:27)
--- NOTE | 2022-02-12 15:34 | Hospitalist Progress Note ---
Date of Service February 12, 2022 Assessment & Plan (1) Hypoxia: (2) Pneumonia: (3) Weakness: (4) Ambulatory dysfunction: (5) Alejandrina Gehrig disease: Plan Input This is a 81-year-old female who has significant past medical history of bulbar amyotrophic lateral sclerosis, HTN, HLD, LVH, history of right breast cancer status post partial mastectomy who presents to the ER secondary to inability to swallow antibiotic pills then developed R sided facial droop and weakness in ED ~18:30 last night. Stroke-like episode: Stroke alert called and thrombolytic therapy (TNKase) administered within 2 hours of onset of symptoms CTA head/Neck showed no evidence for an acute infarct or cerebral edema. CT head negative for acute finding carotid u/s showed 50-69% stenosis of the proximal left internal carotid artery. Echo showed to hyperdynamic left ventricular systolic function is present with ejection fraction 65 to 70%. No significant valvular heart disease Appreciate neurology input and recommendation MRI head and CT head showed no acute infarct Continue PT/OT/Speech eval -Will need placement ALS Follows [facility] neurology Previously had been on riluzole, but currently not taking it because pt was not able to tolerate riluzole Dysphagia Will change aspirin to Peg tube starting tomorrow Dysphagia due to muscle weakness Pt made it clear that she does not want any invasive treatment such as tube feeding or tracheostomy Initially the patient and the family members refused for any PEG tube placement GI was consulted and the PEG tube was placed on 02/10/2022 Has been started on PEG tube feeding from 02/11/2022 Nutrition consult Medication changed to PEG Will increase the PEG tube feeding as advised Palliative care on board for goal of care Case discussed with case management for placement Hypercapnic Hypoxic respiratory failure Most likely secondary to ALS progression causing decreased diaphragmatic and intercostal excursion. ABG showed PCO2 72 and pH 7.46 She has been using the Bipap Pneumonia Possible related to aspiration pneumonia CXR showed minimal left basilar opacity favors atelectasis. procalcitonin negative Currently on IV unasyn and azithromycin We will continue current antibiotic Antibiotic course will be done by today From prior hospitalist:: Generalized Weakness Ambulatory dysfunction I am planning to discuss with the family because nurse said that they wanted patient to get tube feeding I was present when mesh worker talked to patient about tube feeding and pt refused it I again mentioned it to the patient and she refused it while she was AAOx3 Brother and Dunia mentioned tube feeding with her and she refused Now daughter in law is pushing for tube feeding Will discuss with Cousin in the presence of the patient about tube feeding again Will discuss with palliative care in the morning 02/10 S/P peg tube placement by gastro Ok to use peg tube tomorrow Nutrition consult Will Change her medication to PO HTN Started on Vasotec IV Will plan to start on PO med once able to use the peg tube DVT ppx: will resume lovenox subq in am Code Status DNR Disposition Pt will need skilled nursing care placement Admission and Anticipated Discharge Date Admission Date: February 03, 2022 Subjective 02/11/2022 The patient was seen and examined in medical telemetry unit She has been feeling much better and the communication was met through signs as she cannot speak She has minimal abdominal discomfort without any nausea and or vomiting 02/12/2022 The patient was seen and examined in medical telemetry unit Review of Systems Review of Systems: All systems reviewed and are unremarkable except as noted below Physical Exam Physical Exam: Sitting on a chair without any acute distress Constitutional: well developed, well nourished, + ill appearing and average body habitus Eyes: PERRL, conjunctivae normal, anicteric sclerae ENMT: external ear and nose normal, oropharynx normal Neck: trachea midline, no thyromegaly Respiratory: no respiratory distress Auscultation: lungs clear to auscultation bilaterally; no crackles Cardiovascular: Rate/Rhythm: regular rate and regular rhythm; not tachycardic Heart Sounds: normal S1, normal S2 and + murmur Extremities: + edema (Trace edema bilaterally) Gastrointestinal (Abdomen): Inspection/Auscultation: normal bowel sounds; abdomen not distended Percussion/Palpation: + abdomen tender (Minimally tender in the epigastric area) and abdomen soft Musculoskeletal: No acute arthritis in any joint Neurologic: Alert, awake and oriented x3. Nonverbal due to ALS and bulbar paralysis, generally weak Psychiatric: A+Ox3, euthymic affect Lymphatic: no cervical or axillary lymphadenopathy Results & Data Results & Data ([facility]) Vital Signs (Past 12 Hours) Vital Signs Temp Pulse Pulse Resp BP BP Pulse Ox 02/12/22 13:15 164/76 H 02/12/22 12:01 81 171/77 H 02/12/22 11:13 36.8 C 81 16 171/77 H 99 02/12/22 08:08 37.1 C 80 16 174/86 H 97 02/12/22 05:01 81 158/79 H O2 Del Method O2 Flow Rate 02/12/22 13:15 02/12/22 12:01 02/12/22 11:13 Nasal Cannula 2 02/12/22 08:08 Nasal Cannula 2 02/12/22 05:01 Laboratory Results Short CBC 02/12/22 Range/Units 06:25 WBC 8.93 (4.8-10.8) K/ul Hgb 11.2 L (12.0-16.0) g/dl Hct 35.8 (34.1-44.9) % Plt Count 130 (130-400) K/uL BMP 02/12/22 06:25 Sodium 145 Potassium 3.1 L Chloride 100 Carbon Dioxide 40 H BUN 11 Creatinine 0.45 L Glucose 103 H Calcium 8.5 Medications Administered Current Inpatient Medications Acetaminophen (Acetaminophen 325 Mg Tab) 650 mg PO Q4H PRN PRN Reason: Pain or Fever Stop: 03/05/22 23:26 Al Hydrox/Mg Hydrox/Simethicone (Aluminum/Magnesium Susp 30 Ml Udc) 15 ml PO Q4H PRN PRN Reason: Dyspepsia Stop: 03/05/22 23:26 Albuterol (Albuterol 0.083% Nebu Soln 3 Ml Vial) 2.5 mg NEB Q6R PRN; Protocol PRN Reason: sob/wheezing Stop: 03/05/22 23:26 Last Admin: 02/05/22 10:06 Dose: 2.5 mg Aspirin (Aspirin 81 Mg Chew) 81 mg PO Q24H [facility] Stop: 03/06/22 19:59 Last Admin: 02/06/22 20:15 Dose: 81 mg Clonidine HCl (Clonidine Hcl 0.1 Mg/24 Hr Transderm Sys) 1 patch TD Q7D@0900 [facility] Stop: 03/13/22 01:14 Last Admin: 02/11/22 23:14 Dose: 1 patch Enoxaparin Sodium (Enoxaparin Inj 40 Mg/0.4 Ml Syr) 40 mg SQ QAM [facility] Stop: 03/08/22 08:59 Last Admin: 02/06/22 09:26 Dose: 40 mg Enteral Nutritional Formula (Fibersource Hn 1.2 Vaughn 1000 Ml Bag) 1,000 ml GT UD [facility]; Protocol Stop: 03/13/22 09:59 Guaifenesin (Guaifenesin 600 Mg Tabcr) 600 mg PO Q12 PRN PRN Reason: cough Stop: 03/05/22 23:26 Hydralazine HCl (Hydralazine Hcl 20 Mg/Ml Vial) 5 mg IV Q6H PRN PRN Reason: for SBP above 160 Stop: 03/11/22 18:44 Last Admin: 02/10/22 06:14 Dose: 5 mg Acetaminophen (Ofirmev) 1,000 mg in 100 mls @ 400 mls/hr IV Q8H PRN PRN Reason: pain/fever Stop: 02/13/22 04:13 Last Infusion: 02/11/22 23:59 Dose: Infused Enalaprilat 1.25 mg/ Dextrose 26 mls @ 100 mls/hr IV Q8H [facility] Stop: 03/12/22 17:14 Last Infusion: 02/12/22 12:33 Dose: Infused Lorazepam 0.25 mg/ Syringe 0.25 mls @ 2 mls/min IV Q6H PRN PRN Reason: Anxiety Stop: 03/12/22 20:14 Ampicillin Sodium/Sulbactam Sodium 3,000 mg/ Sodium Chloride 108 mls @ 200 mls/hr IV Q6H [facility]; Protocol Stop: 02/13/22 15:00 Last Infusion: 02/12/22 13:25 Dose: Infused Magnesium Hydroxide (Magnesium Hydroxide Susp 30 Ml Udc) 30 ml PO Q12H PRN PRN Reason: Constipation Stop: 03/05/22 23:26 Metoprolol Tartrate (Metoprolol Tartrate 1 Mg/Ml Vial) 2.5 mg IV Q6 [facility] Stop: 03/12/22 06:39 Last Admin: 02/12/22 12:01 Dose: 2.5 mg Miscellaneous (Remove Clonidine Patch) 1 each N/A Q7D@0859 [facility] Stop: 03/20/22 08:58 Miscellaneous (Check Clonidine Patch Placement) 1 each N/A QS [facility] Stop: 03/13/22 07:59 Last Admin: 02/12/22 08:26 Dose: 1 each Miscellaneous Information (Pharmacist Discharge Med Rec Consult) 1 each N/A UD PRN PRN Reason: Consult Stop: 03/05/22 23:26 Morphine Sulfate (Morphine Sulfate 5 Mg/0.25 Ml Udp) 2.5 mg PO Q8H PRN PRN Reason: Moderate Pain Stop: 02/24/22 17:08 Last Admin: 02/10/22 17:41 Dose: 2.5 mg Multivitamins/Minerals (Multi Vit W/Minerals Liquid 15 Ml Udp) 15 ml PEG QAM [facility] Stop: 03/14/22 08:59 Last Admin: 02/12/22 08:27 Dose: 15 ml Ondansetron HCl (Ondansetron Inj 2 Mg/Ml 2 Ml Vial) 4 mg IV Q6H PRN PRN Reason: Nausea Stop: 03/05/22 23:26 Last Admin: 02/07/22 16:54 Dose: 4 mg Polyethylene Glycol (Polyethylene (Miralax) 17 Gm Pack) 17 gm PO DAILY PRN PRN Reason: Constipation Stop: 03/05/22 23:26 Sterile Water (Tube Feeding Water Flush) 125 ml PEG Q4H [facility] Stop: 03/13/22 09:29 Last Admin: 02/12/22 13:37 Dose: 125 ml Vitamin D (Cholecalciferol 1,000 Units 25 Mcg Tab) 1,000 units PO DAILY [facility] Stop: 03/06/22 08:59 Last Admin: 02/12/22 08:27 Dose: 1,000 units
[2022-02-13] MEDS: TUBE FEEDING WATER FLUSH PEG SCH ×4 (01:43→13:51)
[2022-02-13] MEDS: ENALAPRILAT 1.25 MG in DEXTROSE 5% 25 ML IV SCH ×2 (01:51→12:40)
[2022-02-13] MEDS: ACETAMINOPHEN 1,000 MG/100 ML VIAL IV PRN (02:03)
[2022-02-13] MEDS: METOPROLOL TARTRATE 1 MG/ML VIAL IV SCH ×2 (05:12→12:44)
[2022-02-13] MEDS: AMPICILLIN/SULBACTAM SOD 3,000 MG in 0.9 % SODIUM CHLORIDE 100 ML IV SCH ×2 (05:17→13:51)
[2022-02-13 10:00] LABS: BUN Creatinine Ratio 23.3 (10-20); Blood Urea Nitrogen 10 mg/dl (6-23); Calcium 8.8 mg/dl (8.5-10.1); Carbon Dioxide > 45 mmol/L (21-32); Chloride 103 mmol/L (98-107); Creatinine Clr Calc Pharmacy 76.2 ml/min; Est GFR (African American) 112.1 ml/min; Est GFR (Non-African American) 96.7 ml/min; Glucose 128 mg/dl (70-99(Fasting)); Phosphorus 3.8 mg/dl (2.5-4.9); Potassium 3.9 mmol/L (3.5-5.1); Sodium 149 mmol/L (136-145)
[2022-02-13] MEDS: CHECK CLONIDINE PATCH PLACEMENT SCH ×2 (11:50→16:00)
[2022-02-13] MEDS ORDERED: ASPIRIN 81 MG CHEW PEG SCH (12:11)
[2022-02-13] MEDS ORDERED: MAGNESIUM HYDROXIDE SUSP 30 ML UDC PEG PRN (12:11)
[2022-02-13] MEDS ORDERED: MoRPHine SULFATE 5 MG/0.25 ML UDP GT PRN (12:11)
[2022-02-13] MEDS ORDERED: ALUMINUM/MAGNESIUM SUSP 30 ML UDC PEG PRN (12:11)
[2022-02-13] MEDS: CHOLECALCIFEROL 1,000 UNITS 25 MCG TAB PO SCH (12:40)
[2022-02-13] MEDS: MULTI VIT W/MINERALS LIQUID 15 ML UDP PEG SCH (13:51)
--- NOTE | 2022-02-13 16:10 | Hospitalist Progress Note ---
Date of Service February 13, 2022 Assessment & Plan (1) Hypoxia: (2) Pneumonia: (3) Weakness: (4) Ambulatory dysfunction: (5) Alejandrina Gehrig disease: Plan Input This is a 81-year-old female who has significant past medical history of bulbar amyotrophic lateral sclerosis, HTN, HLD, LVH, history of right breast cancer status post partial mastectomy who presents to the ER secondary to inability to swallow antibiotic pills then developed R sided facial droop and weakness in ED ~18:30 last night. Stroke-like episode: Stroke alert called and thrombolytic therapy (TNKase) administered within 2 hours of onset of symptoms CTA head/Neck showed no evidence for an acute infarct or cerebral edema. CT head negative for acute finding carotid u/s showed 50-69% stenosis of the proximal left internal carotid artery. Echo showed to hyperdynamic left ventricular systolic function is present with ejection fraction 65 to 70%. No significant valvular heart disease Appreciate neurology input and recommendation MRI head and CT head showed no acute infarct Continue PT/OT/Speech eval -Will need placement ALS Follows [facility] neurology Previously had been on riluzole, but currently not taking it because pt was not able to tolerate riluzole Dysphagia and dysphonia Likely secondary to isolated bulbar amyotrophic lateral sclerosis Will change aspirin to Peg tube starting tomorrow Dysphagia due to muscle weakness Pt made it clear that she does not want any invasive treatment such as tube feeding or tracheostomy Initially the patient and the family members refused for any PEG tube placement GI was consulted and the PEG tube was placed on 02/10/2022 Has been started on PEG tube feeding from 02/11/2022 Nutrition consult Medication changed to PEG Has been tolerating PEG tube feeding and the medications are being introduced through the PEG tube Palliative care on board for goal of care Case discussed with case management for placement Hypercapnic Hypoxic respiratory failure Most likely secondary to ALS progression causing decreased diaphragmatic and intercostal excursion. ABG showed PCO2 72 and pH 7.46 She has been using the Bipap Pneumonia Possible related to aspiration pneumonia CXR showed minimal left basilar opacity favors atelectasis. procalcitonin negative Currently on IV unasyn and azithromycin We will continue current antibiotic Antibiotic course is finished From prior hospitalist:: Generalized Weakness Ambulatory dysfunction I am planning to discuss with the family because nurse said that they wanted patient to get tube feeding I was present when rolling mill operator talked to patient about tube feeding and pt refused it I again mentioned it to the patient and she refused it while she was AAOx3 Brother and Dunia mentioned tube feeding with her and she refused Now daughter in law is pushing for tube feeding Will discuss with Cousin in the presence of the patient about tube feeding again Will discuss with palliative care in the morning 02/10 S/P peg tube placement by gastro Ok to use peg tube tomorrow Nutrition consult Will Change her medication to PO HTN Started on Vasotec IV Will plan to start on PO med once able to use the peg tube DVT ppx: will resume lovenox subq in am Code Status DNR Disposition Pt will need residential care placement Awaiting placement Admission and Anticipated Discharge Date Admission Date: February 03, 2022 Subjective 02/11/2022 The patient was seen and examined in medical telemetry unit She has been feeling much better and the communication was met through signs as she cannot speak She has minimal abdominal discomfort without any nausea and or vomiting 02/12/2022 The patient was seen and examined in medical telemetry unit 02/13/2022 The patient was seen and examined in medical telemetry unit She has been feeling much better and tolerating tube feeding at a rate of 40 mL/h Remains medically stable to be discharged Denies any other significant symptoms except minimal discomfort in the epigastrium Review of Systems Review of Systems: All systems reviewed and are unremarkable except as noted below Physical Exam Physical Exam: Sitting on a chair without any acute distress Constitutional: well developed, well nourished, + ill appearing and average body habitus Eyes: PERRL, conjunctivae normal, anicteric sclerae ENMT: external ear and nose normal, oropharynx normal Neck: trachea midline, no thyromegaly Respiratory: no respiratory distress Auscultation: lungs clear to auscultation bilaterally; no crackles Cardiovascular: Rate/Rhythm: regular rate and regular rhythm; not tachycardic Heart Sounds: normal S1, normal S2 and + murmur Extremities: + edema (Trace edema bilaterally) Gastrointestinal (Abdomen): Inspection/Auscultation: normal bowel sounds; abdomen not distended Percussion/Palpation: + abdomen tender (Minimally tender in the epigastric area) and abdomen soft Psychiatric: A+Ox3, euthymic affect Lymphatic: no cervical or axillary lymphadenopathy Results & Data Results & Data ([facility]) Vital Signs (Past 12 Hours) Vital Signs Temp Pulse Pulse Resp BP BP Pulse Ox 02/13/22 06:45 66 02/13/22 14:30 81 02/13/22 11:16 36.7 C 86 18 121/73 97 02/13/22 08:16 36.5 C 75 18 146/74 H 99 02/13/22 05:12 74 152/75 H O2 Del Method O2 Flow Rate 02/13/22 06:45 02/13/22 14:30 02/13/22 11:16 Nasal Cannula, Aerosol Mask 2 02/13/22 08:16 Nasal Cannula 2 02/13/22 05:12 Laboratory Results BMP 02/13/22 09:05 Sodium 149 H Potassium 3.9 D Chloride 103 Carbon Dioxide > 45 H* BUN 10 Creatinine 0.43 L Glucose 128 H Calcium 8.8 Medications Administered Current Inpatient Medications Acetaminophen (Acetaminophen 325 Mg Tab) 650 mg PEG Q4H PRN PRN Reason: Pain or Fever Stop: 03/05/22 23:26 Al Hydrox/Mg Hydrox/Simethicone (Aluminum/Magnesium Susp 30 Ml Udc) 15 ml PEG Q4H PRN PRN Reason: Dyspepsia Stop: 03/05/22 23:26 Albuterol (Albuterol 0.083% Nebu Soln 3 Ml Vial) 2.5 mg NEB Q6R PRN; Protocol PRN Reason: sob/wheezing Stop: 03/05/22 23:26 Last Admin: 02/05/22 10:06 Dose: 2.5 mg Aspirin (Aspirin 81 Mg Chew) 81 mg PEG Q24H [facility] Stop: 03/15/22 12:08 Clonidine HCl (Clonidine Hcl 0.1 Mg/24 Hr Transderm Sys) 1 patch TD Q7D@0900 [facility] Stop: 03/13/22 01:14 Last Admin: 02/11/22 23:14 Dose: 1 patch Enoxaparin Sodium (Enoxaparin Inj 40 Mg/0.4 Ml Syr) 40 mg SQ QAM [facility] Stop: 03/08/22 08:59 Last Admin: 02/06/22 09:26 Dose: 40 mg Enteral Nutritional Formula (Fibersource Hn 1.2 Vaughn 1000 Ml Bag) 90 ml GT BID@1600,2000 [facility]; Protocol Stop: 02/13/22 20:01 Enteral Nutritional Formula (Fibersource Hn 1.2 Vaughn 1000 Ml Bag) 180 ml GT BID@0800,1200 [facility]; Protocol Stop: 02/14/22 12:01 Enteral Nutritional Formula (Fibersource Hn 1.2 Vaughn 1000 Ml Bag) 240 ml GT BID@1600,2000 [facility]; Protocol Stop: 02/14/22 20:01 Enteral Nutritional Formula (Fibersource Hn 1.2 Vaughn 1000 Ml Bag) 300 ml GT QID@0800,1200,1600,2000 [facility]; Protocol Stop: 03/17/22 07:59 Fluticasone Propionate (Fluticasone Propionate Na Spr 16 Gm Btl) 2 sprays NA QAM [facility] Stop: 03/16/22 08:59 Hydralazine HCl (Hydralazine Hcl 20 Mg/Ml Vial) 5 mg IV Q6H PRN PRN Reason: for SBP above 160 Stop: 03/11/22 18:44 Last Admin: 02/10/22 06:14 Dose: 5 mg Lorazepam 0.25 mg/ Syringe 0.25 mls @ 2 mls/min IV Q6H PRN PRN Reason: Anxiety Stop: 03/12/22 20:14 Magnesium Hydroxide (Magnesium Hydroxide Susp 30 Ml Udc) 30 ml PEG Q12H PRN PRN Reason: Constipation Stop: 03/05/22 23:26 Metoprolol Tartrate (Metoprolol Tartrate 25 Mg Tab) 25 mg PO BID [facility] Stop: 03/15/22 20:59 Mirtazapine (Mirtazapine Tab 15 Mg Tab) 7.5 mg GT HS [facility] Stop: 03/15/22 20:59 Miscellaneous (Remove Clonidine Patch) 1 each N/A Q7D@0859 [facility] Stop: 03/20/22 08:58 Miscellaneous (Check Clonidine Patch Placement) 1 each N/A QS [facility] Stop: 03/13/22 07:59 Last Admin: 02/13/22 11:50 Dose: 1 each Morphine Sulfate (Morphine Sulfate 5 Mg/0.25 Ml Udp) 2.5 mg GT Q8H PRN PRN Reason: Moderate Pain Stop: 02/24/22 17:08 Multivitamins/Minerals (Multi Vit W/Minerals Liquid 15 Ml Udp) 15 ml PEG QAM [facility] Stop: 03/14/22 08:59 Last Admin: 02/13/22 13:51 Dose: 15 ml Ondansetron HCl (Ondansetron Inj 2 Mg/Ml 2 Ml Vial) 4 mg IV Q6H PRN PRN Reason: Nausea Stop: 03/05/22 23:26 Last Admin: 02/07/22 16:54 Dose: 4 mg Polyethylene Glycol (Polyethylene (Miralax) 17 Gm Pack) 17 gm PO DAILY PRN PRN Reason: Constipation Stop: 03/05/22 23:26 Sterile Water (Tube Feeding Water Flush) 90 ml GT QID@0800,1200,1600,2000 [facility] Stop: 03/15/22 15:59 Sterile Water (Tube Feeding Water Flush) 90 ml GT QID@0815,1215,1615,2015 [facility] Stop: 03/15/22 16:14 Vitamin D (Cholecalciferol 1,000 Units 25 Mcg Tab) 1,000 units PEG DAILY [facility] Stop: 03/16/22 08:59
[2022-02-13] MEDS: TUBE FEEDING WATER FLUSH GT SCH ×4 (16:30→20:55)
[2022-02-13] MEDS: FIBERSOURCE HN 1.2 CAL 1000 ML BAG GT SCH ×2 (18:08→20:08)
[2022-02-13] MEDS: ACETAMINOPHEN 325 MG TAB PEG PRN (19:45)
[2022-02-13] MEDS: METOPROLOL TARTRATE 25 MG TAB PO SCH (20:07)
[2022-02-13] MEDS: MIRTAZAPINE TAB 15 MG TAB GT SCH (20:08)
[2022-02-14] MEDS: CHECK CLONIDINE PATCH PLACEMENT SCH ×4 (00:22→23:46)
[2022-02-14] MEDS: FIBERSOURCE HN 1.2 CAL 1000 ML BAG GT SCH ×4 (08:08→20:18)
[2022-02-14] MEDS: METOPROLOL TARTRATE 25 MG TAB PO SCH ×2 (08:09→20:11)
[2022-02-14] MEDS: TUBE FEEDING WATER FLUSH GT SCH ×8 (08:09→20:18)
[2022-02-14] MEDS: FLUTICASONE PROPIONATE NA SPR 16 GM BTL SCH (08:09)
[2022-02-14] MEDS: CHOLECALCIFEROL 1,000 UNITS 25 MCG TAB PEG SCH (08:10)
[2022-02-14] MEDS: MULTI VIT W/MINERALS LIQUID 15 ML UDP PEG SCH (08:10)
[2022-02-14 08:25] LABS: Hematocrit (blood only) 37.6 % (34.1-44.9); Hemoglobin 11.3 g/dl (12.0-16.0); Mean Corpuscular Hemoglobin 27.6 pg (25.0-34.0); Mean Corpuscular Hgb Conc 30.1 g/dL (32.0-36.0); Mean Corpuscular Volume 91.7 fL (80.0-100.0); Mean Platelet Volume 10.4 fL (9.4-12.3); Platelet Count 159 K/uL (130-400); RDW Coefficient of Variation 14.7 % (11.5-14.5); RDW Standard Deviation 48.8 fL (36.4-46.3)
[2022-02-14 08:38] LABS: Basophils # (auto) 0.03 K/uL (0-0.2); Basophils % (auto) 0.4 %; Eosinophils # (auto) 0.16 K/uL (0-0.50); Eosinophils % (auto) 2.4 %; Immature Granulocytes # (auto) 0.03 K/uL (0.00-0.02); Immature Granulocytes % (auto) 0.4 %; Lymphocytes % (auto) 16.2 %; Monocytes # (auto) 0.64 K/uL (0.24-0.82); Monocytes % (auto) 9.4 %; Neutrophils # (auto) 4.84 K/uL (1.4-6.5); Neutrophils % (auto) 71.2 %; RBC Morphology Unremarkable
[2022-02-14 09:05] LABS: BUN Creatinine Ratio 28.6 (10-20); Blood Urea Nitrogen 12 mg/dl (6-23); Calcium 8.6 mg/dl (8.5-10.1); Carbon Dioxide > 45 mmol/L (21-32); Chloride 101 mmol/L (98-107); Est GFR (Non-African American) 97.5 ml/min; Glucose 103 mg/dl (70-99(Fasting)); Magnesium 2.1 mg/dl (1.7-2.4); Phosphorus 4.8 mg/dl (2.5-4.9); Potassium 3.9 mmol/L (3.5-5.1); Sodium 147 mmol/L (136-145)
--- NOTE | 2022-02-14 15:23 | Hospitalist Progress Note ---
Date of Service February 14, 2022 Assessment & Plan (1) Hypoxia: (2) Pneumonia: (3) Weakness: (4) Ambulatory dysfunction: (5) Alejandrina Gehrig disease: Plan Input This is a 81-year-old female who has significant past medical history of bulbar amyotrophic lateral sclerosis, HTN, HLD, LVH, history of right breast cancer status post partial mastectomy who presents to the ER secondary to inability to swallow antibiotic pills then developed R sided facial droop and weakness in ED ~18:30 last night. Stroke-like episode: Stroke alert called and thrombolytic therapy (TNKase) administered within 2 hours of onset of symptoms CTA head/Neck showed no evidence for an acute infarct or cerebral edema. CT head negative for acute finding carotid u/s showed 50-69% stenosis of the proximal left internal carotid artery. Echo showed to hyperdynamic left ventricular systolic function is present with ejection fraction 65 to 70%. No significant valvular heart disease Appreciate neurology input and recommendation MRI head and CT head showed no acute infarct Continue PT/OT/Speech eval -Will need placement ALS Follows [facility] neurology Previously had been on riluzole, but currently not taking it because pt was not able to tolerate riluzole Dysphagia and dysphonia Likely secondary to isolated bulbar amyotrophic lateral sclerosis Will change aspirin to Peg tube starting tomorrow Dysphagia due to muscle weakness Pt made it clear that she does not want any invasive treatment such as tube feeding or tracheostomy Initially the patient and the family members refused for any PEG tube placement GI was consulted and the PEG tube was placed on 02/10/2022 Has been started on PEG tube feeding from 02/11/2022 Nutrition consult Medication changed to PEG Has been tolerating PEG tube feeding and the medications are being introduced through the PEG tube Has been tolerating PEG tube feeding and trying to get 4 times daily doses Palliative care on board for goal of care Case discussed with case management for placement Hypercapnic Hypoxic respiratory failure Most likely secondary to ALS progression causing decreased diaphragmatic and intercostal excursion. ABG showed PCO2 72 and pH 7.46 She has been using the Bipap Strongly advised to continue to use BiPAP to improve CO2 Pneumonia Possible related to aspiration pneumonia CXR showed minimal left basilar opacity favors atelectasis. procalcitonin negative Currently on IV unasyn and azithromycin We will continue current antibiotic Antibiotic course is finished From prior hospitalist:: Generalized Weakness Ambulatory dysfunction I am planning to discuss with the family because nurse said that they wanted patient to get tube feeding I was present when wood tool maker talked to patient about tube feeding and pt refused it I again mentioned it to the patient and she refused it while she was AAOx3 Brother and Dunia mentioned tube feeding with her and she refused Now daughter in law is pushing for tube feeding Will discuss with Cousin in the presence of the patient about tube feeding again Will discuss with palliative care in the morning 02/10 S/P peg tube placement by gastro Ok to use peg tube tomorrow Nutrition consult Will Change her medication to PO HTN Started on Vasotec IV Will plan to start on PO med once able to use the peg tube DVT ppx: will resume lovenox subq in am Code Status DNR Disposition Pt will need half-way care placement Awaiting placement Admission and Anticipated Discharge Date Admission Date: February 03, 2022 Subjective 02/11/2022 The patient was seen and examined in medical telemetry unit She has been feeling much better and the communication was met through signs as she cannot speak She has minimal abdominal discomfort without any nausea and or vomiting 02/12/2022 The patient was seen and examined in medical telemetry unit 02/13/2022 The patient was seen and examined in medical telemetry unit She has been feeling much better and tolerating tube feeding at a rate of 40 mL/h Remains medically stable to be discharged Denies any other significant symptoms except minimal discomfort in the epigastrium 02/14/2022 The patient was seen and examined in medical telemetry unit She has been feeling much better and has been tolerating the tube feeding Denies any acute symptoms and awaiting placement Review of Systems Review of Systems: All systems reviewed and are unremarkable except as noted below Physical Exam Physical Exam: Sitting on a chair without any acute distress Constitutional: well developed, well nourished, + ill appearing and average body habitus Eyes: PERRL, conjunctivae normal, anicteric sclerae ENMT: external ear and nose normal, oropharynx normal Neck: trachea midline, no thyromegaly Respiratory: no respiratory distress Auscultation: lungs clear to auscultation bilaterally; no crackles Cardiovascular: Rate/Rhythm: regular rate and regular rhythm; not tachycardic Heart Sounds: normal S1, normal S2 and + murmur Extremities: + edema (Trace edema bilaterally) Gastrointestinal (Abdomen): Inspection/Auscultation: normal bowel sounds; abdomen not distended Percussion/Palpation: + abdomen tender (Minimally tender in the epigastric area) and abdomen soft Psychiatric: A+Ox3, euthymic affect Lymphatic: no cervical or axillary lymphadenopathy Results & Data Results & Data ([facility]) Vital Signs (Past 12 Hours) Vital Signs Temp Pulse Pulse Resp BP Pulse Ox O2 Del Method 02/14/22 15:18 37.0 C 71 18 122/72 97 Nasal Cannula 02/14/22 15:07 103 H 02/14/22 09:52 Nasal Cannula 02/14/22 08:48 67 02/14/22 07:18 36.4 C L 69 18 124/72 100 Nasal Cannula 02/14/22 03:28 68 99 O2 Flow Rate 02/14/22 15:18 2 02/14/22 15:07 02/14/22 09:52 2 02/14/22 08:48 02/14/22 07:18 2 02/14/22 03:28 Laboratory Results Short CBC 02/14/22 Range/Units 07:24 WBC 6.80 (4.8-10.8) K/ul Hgb 11.3 L (12.0-16.0) g/dl Hct 37.6 (34.1-44.9) % Plt Count 159 (130-400) K/uL BMP 02/14/22 07:24 Sodium 147 H Potassium 3.9 Chloride 101 Carbon Dioxide > 45 H* BUN 12 Creatinine 0.42 L Glucose 103 H Calcium 8.6 Medications Administered Current Inpatient Medications Acetaminophen (Acetaminophen 325 Mg Tab) 650 mg PEG Q4H PRN PRN Reason: Pain or Fever Stop: 03/05/22 23:26 Last Admin: 02/13/22 19:45 Dose: 650 mg Al Hydrox/Mg Hydrox/Simethicone (Aluminum/Magnesium Susp 30 Ml Udc) 15 ml PEG Q4H PRN PRN Reason: Dyspepsia Stop: 03/05/22 23:26 Albuterol (Albuterol 0.083% Nebu Soln 3 Ml Vial) 2.5 mg NEB Q6R PRN; Protocol PRN Reason: sob/wheezing Stop: 03/05/22 23:26 Last Admin: 02/05/22 10:06 Dose: 2.5 mg Aspirin (Aspirin 81 Mg Chew) 81 mg PEG Q24H [facility] Stop: 03/15/22 12:08 Clonidine HCl (Clonidine Hcl 0.1 Mg/24 Hr Transderm Sys) 1 patch TD Q7D@0900 [facility] Stop: 03/13/22 01:14 Last Admin: 02/11/22 23:14 Dose: 1 patch Enoxaparin Sodium (Enoxaparin Inj 40 Mg/0.4 Ml Syr) 40 mg SQ QAM [facility] Stop: 03/08/22 08:59 Last Admin: 02/06/22 09:26 Dose: 40 mg Enteral Nutritional Formula (Fibersource Hn 1.2 [place]n 1000 Ml Bag) 240 ml GT BID@1600,2000 [facility]; Protocol Stop: 02/14/22 20:01 Enteral Nutritional Formula (Fibersource Hn 1.2 [place] 1000 Ml Bag) 300 ml GT QID@0800,1200,1600,2000 [facility]; Protocol Stop: 03/17/22 07:59 Fluticasone Propionate (Fluticasone Propionate Na Spr 16 Gm Btl) 2 sprays NA QAM [facility] Stop: 03/16/22 08:59 Last Admin: 02/14/22 08:09 Dose: Not Given Hydralazine HCl (Hydralazine Hcl 20 Mg/Ml Vial) 5 mg IV Q6H PRN PRN Reason: for SBP above 160 Stop: 03/11/22 18:44 Last Admin: 02/10/22 06:14 Dose: 5 mg Lorazepam 0.25 mg/ Syringe 0.25 mls @ 2 mls/min IV Q6H PRN PRN Reason: Anxiety Stop: 03/12/22 20:14 Magnesium Hydroxide (Magnesium Hydroxide Susp 30 Ml Udc) 30 ml PEG Q12H PRN PRN Reason: Constipation Stop: 03/05/22 23:26 Metoprolol Tartrate (Metoprolol Tartrate 25 Mg Tab) 25 mg PO BID [facility] Stop: 03/15/22 20:59 Last Admin: 02/14/22 08:09 Dose: 25 mg Mirtazapine (Mirtazapine Tab 15 Mg Tab) 7.5 mg GT HS [facility] Stop: 03/15/22 20:59 Last Admin: 02/13/22 20:08 Dose: 7.5 mg Miscellaneous (Remove Clonidine Patch) 1 each N/A Q7D@0859 [facility] Stop: 03/20/22 08:58 Miscellaneous (Check Clonidine Patch Placement) 1 each N/A QS [facility] Stop: 03/13/22 07:59 Last Admin: 02/14/22 08:07 Dose: 1 each Morphine Sulfate (Morphine Sulfate 5 Mg/0.25 Ml Udp) 2.5 mg GT Q8H PRN PRN Reason: Moderate Pain Stop: 02/24/22 17:08 Multivitamins/Minerals (Multi Vit W/Minerals Liquid 15 Ml Udp) 15 ml PEG QAM [facility] Stop: 03/14/22 08:59 Last Admin: 02/14/22 08:10 Dose: 15 ml Ondansetron HCl (Ondansetron Inj 2 Mg/Ml 2 Ml Vial) 4 mg IV Q6H PRN PRN Reason: Nausea Stop: 03/05/22 23:26 Last Admin: 02/07/22 16:54 Dose: 4 mg Polyethylene Glycol (Polyethylene (Miralax) 17 Gm Pack) 17 gm PO DAILY PRN PRN Reason: Constipation Stop: 03/05/22 23:26 Sterile Water (Tube Feeding Water Flush) 90 ml GT QID@0800,1200,1600,2000 [facility] Stop: 03/15/22 15:59 Last Admin: 02/14/22 11:19 Dose: 90 ml Sterile Water (Tube Feeding Water Flush) 90 ml GT QID@0815,1215,1615,2015 [facility] Stop: 03/15/22 16:14 Last Admin: 02/14/22 12:23 Dose: 90 ml Vitamin D (Cholecalciferol 1,000 Units 25 Mcg Tab) 1,000 units PEG DAILY [facility] Stop: 03/16/22 08:59 Last Admin: 02/14/22 08:10 Dose: 1,000 units
[2022-02-14] MEDS: ACETAMINOPHEN 325 MG TAB PEG PRN ×2 (17:44→22:20)
[2022-02-14] MEDS: MIRTAZAPINE TAB 15 MG TAB GT SCH (20:11)
[2022-02-15] MEDS: METOPROLOL TARTRATE 25 MG TAB PO SCH ×2 (07:45→20:59)
[2022-02-15] MEDS: CHOLECALCIFEROL 1,000 UNITS 25 MCG TAB PEG SCH (07:45)
[2022-02-15] MEDS: CHECK CLONIDINE PATCH PLACEMENT SCH ×2 (07:46→15:54)
[2022-02-15] MEDS: MULTI VIT W/MINERALS LIQUID 15 ML UDP PEG SCH (07:46)
[2022-02-15] MEDS: FLUTICASONE PROPIONATE NA SPR 16 GM BTL SCH (07:47)
[2022-02-15] MEDS: TUBE FEEDING WATER FLUSH GT SCH ×8 (08:20→21:03)
[2022-02-15] MEDS: FIBERSOURCE HN 1.2 CAL 1000 ML BAG GT SCH ×4 (08:20→21:01)
[2022-02-15 08:36] LABS: Creatinine Clr Calc Pharmacy 65.5 ml/min; Est GFR (African American) 106.7 ml/min; Est GFR (Non-African American) 92.1 ml/min
--- NOTE | 2022-02-15 13:32 | Hospitalist Progress Note ---
Date of Service February 15, 2022 Assessment & Plan (1) Hypoxia: (2) Pneumonia: (3) Weakness: (4) Ambulatory dysfunction: (5) Alejandrina Gehrig disease: Plan Input This is a 81-year-old female who has significant past medical history of bulbar amyotrophic lateral sclerosis, HTN, HLD, LVH, history of right breast cancer status post partial mastectomy who presents to the ER secondary to inability to swallow antibiotic pills then developed R sided facial droop and weakness in ED ~18:30 last night. Stroke-like episode: Stroke alert called and thrombolytic therapy (TNKase) administered within 2 hours of onset of symptoms CTA head/Neck showed no evidence for an acute infarct or cerebral edema. CT head negative for acute finding carotid u/s showed 50-69% stenosis of the proximal left internal carotid artery. Echo showed to hyperdynamic left ventricular systolic function is present with ejection fraction 65 to 70%. No significant valvular heart disease Appreciate neurology input and recommendation MRI head and CT head showed no acute infarct Continue PT/OT/Speech eval -Will need placement ALS Follows [facility] neurology Previously had been on riluzole, but currently not taking it because pt was not able to tolerate riluzole Dysphagia and dysphonia Likely secondary to isolated bulbar amyotrophic lateral sclerosis Will change aspirin to Peg tube starting tomorrow Dysphagia due to muscle weakness Pt made it clear that she does not want any invasive treatment such as tube feeding or tracheostomy Initially the patient and the family members refused for any PEG tube placement GI was consulted and the PEG tube was placed on 02/10/2022 Has been started on PEG tube feeding from 02/11/2022 Nutrition consult Medication changed to PEG Has been tolerating PEG tube feeding and the medications are being introduced through the PEG tube Has been tolerating PEG tube feeding and trying to get 4 times daily doses Occasional discomfort and more received will with current tube feeding and tolerating 300 mL 4 times daily regimen with 90 mL of water pre and post administration of the feeding Palliative care on board for goal of care Case discussed with case management for placement Hypercapnic Hypoxic respiratory failure Most likely secondary to ALS progression causing decreased diaphragmatic and intercostal excursion. ABG showed PCO2 72 and pH 7.46 She has been using the Bipap Strongly advised to continue to use BiPAP to improve CO2 She has been using BiPAP at nighttime but today she was very drowsy Will get an ABG to document the level of CO2 Pneumonia Possible related to aspiration pneumonia CXR showed minimal left basilar opacity favors atelectasis. procalcitonin negative Currently on IV unasyn and azithromycin We will continue current antibiotic Antibiotic course is finished From prior hospitalist:: Generalized Weakness Ambulatory dysfunction I am planning to discuss with the family because nurse said that they wanted patient to get tube feeding I was present when field recorder talked to patient about tube feeding and pt refused it I again mentioned it to the patient and she refused it while she was AAOx3 Brother and Dunia mentioned tube feeding with her and she refused Now daughter in law is pushing for tube feeding Will discuss with Cousin in the presence of the patient about tube feeding again Will discuss with palliative care in the morning 02/10 S/P peg tube placement by gastro Ok to use peg tube tomorrow Nutrition consult Will Change her medication to PO HTN Started on Vasotec IV Will plan to start on PO med once able to use the peg tube DVT ppx: will resume lovenox subq in am Code Status DNR Disposition Pt will need senior care care placement Awaiting placement Admission and Anticipated Discharge Date Admission Date: February 03, 2022 Subjective 02/11/2022 The patient was seen and examined in medical telemetry unit She has been feeling much better and the communication was met through signs as she cannot speak She has minimal abdominal discomfort without any nausea and or vomiting 02/12/2022 The patient was seen and examined in medical telemetry unit 02/13/2022 The patient was seen and examined in medical telemetry unit She has been feeling much better and tolerating tube feeding at a rate of 40 mL/h Remains medically stable to be discharged Denies any other significant symptoms except minimal discomfort in the epigastrium 02/14/2022 The patient was seen and examined in medical telemetry unit She has been feeling much better and has been tolerating the tube feeding Denies any acute symptoms and awaiting placement 02/15/2022 The patient was seen and examined in medical telemetry unit She was noted to be a little drowsy today but has been communicating normally Denies any significant symptoms Has had bloating of the abdomen last night but seems to be improved now Review of Systems Review of Systems: All systems reviewed and are unremarkable except as noted below Physical Exam Physical Exam: Sitting on a chair without any acute distress but looked a bit drowsy today though the patient denies Constitutional: well developed, well nourished, + ill appearing and average body habitus Eyes: PERRL, conjunctivae normal, anicteric sclerae ENMT: external ear and nose normal, oropharynx normal Neck: trachea midline, no thyromegaly Respiratory: no respiratory distress Auscultation: lungs clear to auscultation bilaterally; no crackles Cardiovascular: Rate/Rhythm: regular rate and regular rhythm; not tachycardic Heart Sounds: normal S1, normal S2 and + murmur Extremities: + edema (Trace edema bilaterally) Gastrointestinal (Abdomen): Inspection/Auscultation: normal bowel sounds; abdomen not distended Percussion/Palpation: + abdomen tender (Minimally tender in the epigastric area) and abdomen soft Musculoskeletal: No acute arthritis in any joint Neurologic: Alert, awake and oriented. Generalized weakness and more drowsy today Psychiatric: A+Ox3, euthymic affect Lymphatic: no cervical or axillary lymphadenopathy Results & Data Results & Data ([facility]) Vital Signs (Past 12 Hours) Vital Signs Temp Pulse Pulse Resp BP Pulse Ox O2 Del Method 02/15/22 11:08 36.3 C L 64 16 128/79 100 Nasal Cannula 02/15/22 08:27 Nasal Cannula 02/15/22 08:11 36.0 C L 68 16 130/76 100 Nasal Cannula 02/15/22 07:04 65 02/15/22 03:00 36.6 C 74 20 150/73 H 91 Nasal Cannula O2 Flow Rate 02/15/22 11:08 2 02/15/22 08:27 2 02/15/22 08:11 2 02/15/22 07:04 02/15/22 03:00 2 Laboratory Results [facility] 02/15/22 07:23 Creatinine 0.50 L Medications Administered Current Inpatient Medications Acetaminophen (Acetaminophen 325 Mg Tab) 650 mg PEG Q4H PRN PRN Reason: Pain or Fever Stop: 03/05/22 23:26 Last Admin: 02/14/22 22:20 Dose: 650 mg Al Hydrox/Mg Hydrox/Simethicone (Aluminum/Magnesium Susp 30 Ml Udc) 15 ml PEG Q4H PRN PRN Reason: Dyspepsia Stop: 03/05/22 23:26 Albuterol (Albuterol 0.083% Nebu Soln 3 Ml Vial) 2.5 mg NEB Q6R PRN; Protocol PRN Reason: sob/wheezing Stop: 03/05/22 23:26 Last Admin: 02/05/22 10:06 Dose: 2.5 mg Aspirin (Aspirin 81 Mg Chew) 81 mg PEG Q24H [facility] Stop: 03/15/22 12:08 Clonidine HCl (Clonidine Hcl 0.1 Mg/24 Hr Transderm Sys) 1 patch TD Q7D@0900 [facility] Stop: 03/13/22 01:14 Last Admin: 02/11/22 23:14 Dose: 1 patch Enoxaparin Sodium (Enoxaparin Inj 40 Mg/0.4 Ml Syr) 40 mg SQ QAM [facility] Stop: 03/08/22 08:59 Last Admin: 02/06/22 09:26 Dose: 40 mg Enteral Nutritional Formula (Fibersource Hn 1.2 Vaughn 1000 Ml Bag) 300 ml GT QID@0800,1200,1600,2000 [facility]; Protocol Stop: 03/17/22 07:59 Last Admin: 02/15/22 12:16 Dose: 240 ml Fluticasone Propionate (Fluticasone Propionate Na Spr 16 Gm Btl) 2 sprays NA QAM [facility] Stop: 03/16/22 08:59 Last Admin: 02/15/22 07:47 Dose: Not Given Hydralazine HCl (Hydralazine Hcl 20 Mg/Ml Vial) 5 mg IV Q6H PRN PRN Reason: for SBP above 160 Stop: 03/11/22 18:44 Last Admin: 02/10/22 06:14 Dose: 5 mg Lorazepam 0.25 mg/ Syringe 0.25 mls @ 2 mls/min IV Q6H PRN PRN Reason: Anxiety Stop: 03/12/22 20:14 Last Admin: 02/15/22 03:21 Dose: 2 mls/min Magnesium Hydroxide (Magnesium Hydroxide Susp 30 Ml Udc) 30 ml PEG Q12H PRN PRN Reason: Constipation Stop: 03/05/22 23:26 Metoprolol Tartrate (Metoprolol Tartrate 25 Mg Tab) 25 mg PO BID [facility] Stop: 03/15/22 20:59 Last Admin: 02/15/22 07:45 Dose: 25 mg Mirtazapine (Mirtazapine Tab 15 Mg Tab) 7.5 mg GT HS [facility] Stop: 03/15/22 20:59 Last Admin: 02/14/22 20:11 Dose: 7.5 mg Miscellaneous (Remove Clonidine Patch) 1 each N/A Q7D@0859 [facility] Stop: 03/20/22 08:58 Miscellaneous (Check Clonidine Patch Placement) 1 each N/A QS [facility] Stop: 03/13/22 07:59 Last Admin: 02/15/22 07:46 Dose: 1 each Morphine Sulfate (Morphine Sulfate 5 Mg/0.25 Ml Udp) 2.5 mg GT Q8H PRN PRN Reason: Moderate Pain Stop: 02/24/22 17:08 Last Admin: 02/15/22 02:45 Dose: 2.5 mg Multivitamins/Minerals (Multi Vit W/Minerals Liquid 15 Ml Udp) 15 ml PEG QAM [facility] Stop: 03/14/22 08:59 Last Admin: 02/15/22 07:46 Dose: 15 ml Ondansetron HCl (Ondansetron Inj 2 Mg/Ml 2 Ml Vial) 4 mg IV Q6H PRN PRN Reason: Nausea Stop: 03/05/22 23:26 Last Admin: 02/07/22 16:54 Dose: 4 mg Polyethylene Glycol (Polyethylene (Miralax) 17 Gm Pack) 17 gm PO DAILY PRN PRN Reason: Constipation Stop: 03/05/22 23:26 Sterile Water (Tube Feeding Water Flush) 90 ml GT QID@0800,1200,1600,2000 [facility] Stop: 03/15/22 15:59 Last Admin: 02/15/22 12:17 Dose: 90 ml Sterile Water (Tube Feeding Water Flush) 90 ml GT QID@0815,1215,1615,2015 [facility] Stop: 03/15/22 16:14 Last Admin: 02/15/22 09:55 Dose: 90 ml Vitamin D (Cholecalciferol 1,000 Units 25 Mcg Tab) 1,000 units PEG DAILY [facility] Stop: 03/16/22 08:59 Last Admin: 02/15/22 07:45 Dose: 1,000 units
[2022-02-15 13:59] LABS: Allen Test Pos (Pos); Base Excess ABG 22.8 mEq/L (-9-1.8); HCO3 ABG 55 mmol/L (19-24); Oxygen Saturation ABG 99.3 % (90-95); PCO2 ABG 107 mmHg (35-46); PO2 ABG 196 mmHg (80-95); pH ABG 7.32 (7.35-7.45)
[2022-02-15] MEDS: MIRTAZAPINE TAB 15 MG TAB GT SCH (20:57)
[2022-02-16] MEDS: CHECK CLONIDINE PATCH PLACEMENT SCH ×2 (00:47→08:13)
[2022-02-16] MEDS: METOPROLOL TARTRATE 25 MG TAB PO SCH (08:01)
[2022-02-16] MEDS: CHOLECALCIFEROL 1,000 UNITS 25 MCG TAB PEG SCH (08:01)
[2022-02-16] MEDS: MULTI VIT W/MINERALS LIQUID 15 ML UDP PEG SCH (08:01)
[2022-02-16] MEDS: FIBERSOURCE HN 1.2 CAL 1000 ML BAG GT SCH ×2 (08:13→12:13)
[2022-02-16] MEDS: TUBE FEEDING WATER FLUSH GT SCH ×4 (08:14→12:13)
[2022-02-16 08:25] LABS: BUN Creatinine Ratio 36.7 (10-20); Blood Urea Nitrogen 18 mg/dl (6-23); Calcium 8.6 mg/dl (8.5-10.1); Carbon Dioxide > 45 mmol/L (21-32); Creatinine Clr Calc Pharmacy 66.9 ml/min; Est GFR (African American) 107.4 ml/min; Est GFR (Non-African American) 92.7 ml/min; Glucose 103 mg/dl (70-99(Fasting)); Potassium 3.9 mmol/L (3.5-5.1); Sodium 144 mmol/L (136-145)
[2022-02-16 08:35] LABS: Chloride 97 mmol/L (98-107)
[2022-02-16] MEDS: FLUTICASONE PROPIONATE NA SPR 16 GM BTL SCH (10:03)
[2022-02-16 12:08] LABS: Base Excess ABG 20.2 mEq/L (-9-1.8); HCO3 ABG 50 mmol/L (19-24); Oxygen Saturation ABG 99.8 % (90-95); PCO2 ABG 85 mmHg (35-46); PO2 ABG 138 mmHg (80-95); pH ABG 7.38 (7.35-7.45)
[2022-02-16 12:09] LABS: Allen Test Pos (Pos)
--- NOTE | 2022-02-16 14:32 | Hospitalist Progress Note ---
Date of Service February 16, 2022 Assessment & Plan (1) Hypoxia: (2) Pneumonia: (3) Weakness: (4) Ambulatory dysfunction: (5) Alejandrina Gehrig disease: Plan Input This is a 81-year-old female who has significant past medical history of bulbar amyotrophic lateral sclerosis, HTN, HLD, LVH, history of right breast cancer status post partial mastectomy who presents to the ER secondary to inability to swallow antibiotic pills then developed R sided facial droop and weakness in ED ~18:30 last night. Stroke-like episode: Stroke alert called and thrombolytic therapy (TNKase) administered within 2 hours of onset of symptoms CTA head/Neck showed no evidence for an acute infarct or cerebral edema. CT head negative for acute finding carotid u/s showed 50-69% stenosis of the proximal left internal carotid artery. Echo showed to hyperdynamic left ventricular systolic function is present with ejection fraction 65 to 70%. No significant valvular heart disease Appreciate neurology input and recommendation MRI head and CT head showed no acute infarct Continue PT/OT/Speech eval -Will need placement She has been accepted to [facility] and will be transferred there as soon as transportation is available ALS Follows [facility] neurology Previously had been on riluzole, but currently not taking it because pt was not able to tolerate riluzole Will be seeing [facility] neurology as an outpatient Has bulbar ALS with dysphagia and dysphonia Dysphagia and dysphonia Likely secondary to isolated bulbar amyotrophic lateral sclerosis Will change aspirin to Peg tube starting tomorrow Dysphagia due to muscle weakness Pt made it clear that she does not want any invasive treatment such as tube feeding or tracheostomy Initially the patient and the family members refused for any PEG tube placement GI was consulted and the PEG tube was placed on 02/10/2022 Has been started on PEG tube feeding from 02/11/2022 Nutrition consult Medication changed to PEG Has been tolerating PEG tube feeding and the medications are being introduced through the PEG tube Has been tolerating PEG tube feeding and trying to get 4 times daily doses Occasional discomfort and more received will with current tube feeding and tolerating 300 mL 4 times daily regimen with 90 mL of water pre and post administration of the feeding Has been tolerating tube feeding and will be discharged to [facility] this afternoon Palliative care on board for goal of care Case discussed with case management for placement Hypercapnic Hypoxic respiratory failure Most likely secondary to ALS progression causing decreased diaphragmatic and intercostal excursion. ABG showed PCO2 72 and pH 7.46 She has been using the Bipap Strongly advised to continue to use BiPAP to improve CO2 She has been using BiPAP at nighttime but today she was very drowsy Will get an ABG to document the level of CO2 Strongly advised to use BiPAP specially throughout the night and also as long as possible during daytime to avoid hypercarbia Pneumonia Possible related to aspiration pneumonia CXR showed minimal left basilar opacity favors atelectasis. procalcitonin negative Currently on IV unasyn and azithromycin We will continue current antibiotic Antibiotic course is finished From prior hospitalist:: Generalized Weakness Ambulatory dysfunction I am planning to discuss with the family because nurse said that they wanted patient to get tube feeding I was present when supportability engineer talked to patient about tube feeding and pt refused it I again mentioned it to the patient and she refused it while she was AAOx3 Brother and Dunia mentioned tube feeding with her and she refused Now daughter in law is pushing for tube feeding Will discuss with Cousin in the presence of the patient about tube feeding again Will discuss with palliative care in the morning 02/10 S/P peg tube placement by gastro Ok to use peg tube tomorrow Nutrition consult Will Change her medication to PO HTN Started on Vasotec IV Will plan to start on PO med once able to use the peg tube DVT ppx: will resume lovenox subq in am Code Status DNR Disposition Pt will need correction care placement Awaiting placement-Will be transferred to [facility] sometime today and/or tomorrow Admission and Anticipated Discharge Date Admission Date: February 03, 2022 Subjective 02/11/2022 The patient was seen and examined in medical telemetry unit She has been feeling much better and the communication was met through signs as she cannot speak She has minimal abdominal discomfort without any nausea and or vomiting 02/12/2022 The patient was seen and examined in medical telemetry unit 02/13/2022 The patient was seen and examined in medical telemetry unit She has been feeling much better and tolerating tube feeding at a rate of 40 mL/h Remains medically stable to be discharged Denies any other significant symptoms except minimal discomfort in the epigastrium 02/14/2022 The patient was seen and examined in medical telemetry unit She has been feeling much better and has been tolerating the tube feeding Denies any acute symptoms and awaiting placement 02/15/2022 The patient was seen and examined in medical telemetry unit She was noted to be a little drowsy today but has been communicating normally Denies any significant symptoms Has had bloating of the abdomen last night but seems to be improved now 02/16/2022 The patient was seen and examined in medical telemetry unit She does not have any more drowsiness Her ABG showed improvement with CO2 level come down to 84 range She was strongly advised to use BiPAP She has been stable for the last few days and wants to get out of the hospital Review of Systems Review of Systems: All systems reviewed and are unremarkable except as noted below Physical Exam Physical Exam: Sitting on a chair without any acute distress but looked a bit drowsy today though the patient denies Constitutional: well developed, well nourished, + ill appearing and average body habitus Eyes: PERRL, conjunctivae normal, anicteric sclerae ENMT: external ear and nose normal, oropharynx normal Neck: trachea midline, no thyromegaly Respiratory: no respiratory distress Auscultation: lungs clear to auscultation bilaterally; no crackles Cardiovascular: Rate/Rhythm: regular rate and regular rhythm; not tachycardic Heart Sounds: normal S1, normal S2 and + murmur Extremities: + edema (Trace edema bilaterally) Gastrointestinal (Abdomen): Inspection/Auscultation: normal bowel sounds; abdomen not distended Percussion/Palpation: + abdomen tender (Minimally tender in the epigastric area) and abdomen soft Musculoskeletal: No acute arthritis in any joint Neurologic: Alert, awake and orient. Nonverbal due to bulbar ALS. Psychiatric: A+Ox3, euthymic affect Lymphatic: no cervical or axillary lymphadenopathy Results & Data Results & Data ([facility]) Vital Signs (Past 12 Hours) Vital Signs Temp Pulse Pulse Resp BP Pulse Ox O2 Del Method 02/16/22 11:38 36.7 C 71 17 101/65 99 Nasal Cannula 02/16/22 10:28 Nasal Cannula, BiPAP, CPAP 02/16/22 08:00 68 02/16/22 07:45 36.5 C 67 18 116/65 100 Nasal Cannula 02/16/22 05:22 36.5 C 68 18 125/68 100 Nasal Cannula O2 Flow Rate 02/16/22 11:38 2 02/16/22 10:28 3 02/16/22 08:00 02/16/22 07:45 3 08/22/22 05:22 3 Laboratory Results BMP 02/16/22 07:02 Sodium 144 Potassium 3.9 Chloride 97 L Carbon Dioxide > 45 H* BUN 18 Creatinine 0.49 L Glucose 103 H Calcium 8.6 Medications Administered Current Inpatient Medications Acetaminophen (Acetaminophen 325 Mg Tab) 650 mg PEG Q4H PRN PRN Reason: Pain or Fever Stop: 03/05/22 23:26 Last Admin: 02/14/22 22:20 Dose: 650 mg Al Hydrox/Mg Hydrox/Simethicone (Aluminum/Magnesium Susp 30 Ml Udc) 15 ml PEG Q4H PRN PRN Reason: Dyspepsia Stop: 03/05/22 23:26 Albuterol (Albuterol 0.083% Nebu Soln 3 Ml Vial) 2.5 mg NEB Q6R PRN; Protocol PRN Reason: sob/wheezing Stop: 03/05/22 23:26 Last Admin: 02/05/22 10:06 Dose: 2.5 mg Aspirin (Aspirin 81 Mg Chew) 81 mg PEG Q24H [facility] Stop: 03/15/22 12:08 Clonidine HCl (Clonidine Hcl 0.1 Mg/24 Hr Transderm Sys) 1 patch TD Q7D@0900 [facility] Stop: 03/13/22 01:14 Last Admin: 02/11/22 23:14 Dose: 1 patch Enoxaparin Sodium (Enoxaparin Inj 40 Mg/0.4 Ml Syr) 40 mg SQ QAM [facility] Stop: 03/08/22 08:59 Last Admin: 02/06/22 09:26 Dose: 40 mg Enteral Nutritional Formula (Fibersource Hn 1.2 Vaughn 1000 Ml Bag) 300 ml GT QID@0800,1200,1600,2000 [facility]; Protocol Stop: 03/17/22 07:59 Last Admin: 02/16/22 12:13 Dose: 300 ml Fluticasone Propionate (Fluticasone Propionate Na Spr 16 Gm Btl) 2 sprays NA QAM [facility] Stop: 03/16/22 08:59 Last Admin: 02/16/22 10:03 Dose: 2 sprays Hydralazine HCl (Hydralazine Hcl 20 Mg/Ml Vial) 5 mg IV Q6H PRN PRN Reason: for SBP above 160 Stop: 03/11/22 18:44 Last Admin: 02/10/22 06:14 Dose: 5 mg Lorazepam 0.25 mg/ Syringe 0.25 mls @ 2 mls/min IV Q6H PRN PRN Reason: Anxiety Stop: 03/12/22 20:14 Last Admin: 02/15/22 03:21 Dose: 2 mls/min Magnesium Hydroxide (Magnesium Hydroxide Susp 30 Ml Udc) 30 ml PEG Q12H PRN PRN Reason: Constipation Stop: 03/05/22 23:26 Metoprolol Tartrate (Metoprolol Tartrate 25 Mg Tab) 25 mg PO BID [facility] Stop: 03/15/22 20:59 Last Admin: 02/16/22 08:01 Dose: 25 mg Mirtazapine (Mirtazapine Tab 15 Mg Tab) 7.5 mg GT HS [facility] Stop: 03/15/22 20:59 Last Admin: 02/15/22 20:57 Dose: 7.5 mg Miscellaneous (Remove Clonidine Patch) 1 each N/A Q7D@0859 [facility] Stop: 03/20/22 08:58 Miscellaneous (Check Clonidine Patch Placement) 1 each N/A QS [facility] Stop: 03/13/22 07:59 Last Admin: 02/16/22 08:13 Dose: 1 each Morphine Sulfate (Morphine Sulfate 5 Mg/0.25 Ml Udp) 2.5 mg GT Q8H PRN PRN Reason: Moderate Pain Stop: 02/24/22 17:08 Last Admin: 02/15/22 02:45 Dose: 2.5 mg Multivitamins/Minerals (Multi Vit W/Minerals Liquid 15 Ml Udp) 15 ml PEG QAM [facility] Stop: 03/14/22 08:59 Last Admin: 02/16/22 08:01 Dose: 15 ml Ondansetron HCl (Ondansetron Inj 2 Mg/Ml 2 Ml Vial) 4 mg IV Q6H PRN PRN Reason: Nausea Stop: 03/05/22 23:26 Last Admin: 02/07/22 16:54 Dose: 4 mg Polyethylene Glycol (Polyethylene (Miralax) 17 Gm Pack) 17 gm PO DAILY PRN PRN Reason: Constipation Stop: 03/05/22 23:26 Last Admin: 02/16/22 12:14 Dose: 17 gm Sterile Water (Tube Feeding Water Flush) 90 ml GT QID@0800,1200,1600,2000 [facility] Stop: 03/15/22 15:59 Last Admin: 02/16/22 12:13 Dose: 90 ml Sterile Water (Tube Feeding Water Flush) 90 ml GT QID@7715,1215,1615,2015 [facility] Stop: 03/15/22 16:14 Last Admin: 02/16/22 12:13 Dose: 90 ml Vitamin D (Cholecalciferol 1,000 Units 25 Mcg Tab) 1,000 units PEG DAILY [facility] Stop: 03/16/22 08:59 Last Admin: 02/16/22 08:01 Dose: 1,000 units
--- NOTE | 2022-03-03 09:20 | Discharge Summary ---
Date of Service February 16, 2022 Admission HPI Per Admitting Provider This is a 81-year-old female who has significant past medical history of bulbar amyotrophic lateral sclerosis, HTN, HLD, LVH, history of right breast cancer status post partial mastectomy who presents to the ER secondary to inability to swallow antibiotic pills. Of significance patient was seen in ER yesterday on 02/02/2022. This visit was secondary to complaining of left lower back pain that started approximately 2 weeks ago. It was also noted that she has been eating and drinking less over the past several months secondary to her ALS. Yesterday her blood work did not show significant leukocytosis or anemia, her D-dimer was negative, BMP along with LFTs and troponin was negative. Her urinalysis was negative for infection. CT abdomen pelvis did reveal a questionable developing early pneumonia of the right lower lobe. She was given IV fluids and started on oral Levaquin. When patient returned home she continued to be generally weak, not eating and drinking and difficulty swallowing pills. She was then brought back to the ER by her friend. Today hemodynamically she remained stable although she was saturating 88% on room air requiring small amount of supplemental oxygen. She does wear 2 L of oxygen at bedtime. Her CBC and CMP was again generally unremarkable. Chest x-ray did not show any acute cardiopulmonary abnormality. She was started on IV vancomycin and Unasyn. Hx difficult to obtain from pt given ALS and lack of ability to communicate verbally. Hx mostly obtained from providers. She is able to shake head yes/no and she understands. She c/o sob and weakness. She denies f/c/s, cough, chest pain, n/v/d abdominal pain. Did talk to friend Dunia who is her second contact. Patient has been unable to take care of self. She has been getting increasingly weak and complaining of short of breath. She does wear 2 L of oxygen at bedtime. When discharged home from ER last evening was unable to swallow pills and therefore brought back to ED. Overall poor intake. Taina is an extended family member, there is no immediate family close by. They do make sure she has meals, although she rarely eats them. She was diagnosed with ALS approximately 3 years ago and since has lost about 100 pounds. Up until a few days ago has still been driving. Admission Exam Per Admitting Provider PE: NAD but appeared a little lethargic Lungs: overall good respiratory afford and CTA Cardiac: normal S1/S2, no murmur Abd: ND, NT, soft MSK: no LE edema Psych: pt is nonverbal but understand and follows command Principal Diagnosis Strokelike symptom status post TNKase administration, isolated bulbar amyotrophic lateral sclerosis with history of ALS, dysphagia and dysphonia, hypercarbic hypoxic respiratory failure Discharge Exam Sitting on a chair without any acute distress but looked a bit drowsy today though the patient denies Constitutional well developed, well nourished, + ill appearing and average body habitus Eyes PERRL, conjunctivae normal, anicteric sclerae ENMT external ear and nose normal, oropharynx normal Neck trachea midline, no thyromegaly Respiratory no respiratory distress Auscultation: lungs clear to auscultation bilaterally; no crackles Cardiovascular Rate/Rhythm: regular rate and regular rhythm; not tachycardic Heart Sounds: normal S1, normal S2 and + murmur Extremities: + edema (Trace edema bilaterally) Gastrointestinal (Abdomen) Inspection/Auscultation: normal bowel sounds; abdomen not distended Percussion/Palpation: + abdomen tender (Minimally tender in the epigastric area) and abdomen soft Psychiatric A+Ox3, euthymic affect Lymphatic no cervical or axillary lymphadenopathy Discharge Data Allergies Allergy/AdvReac Type Severity Reaction Status Date / Time No Known Drug Allergies Allergy Unknown Verified 02/03/22 15:14 Consultations 02/03/22 15:25 ED Decision to Admit Stat 02/03/22 19:45 Consult Turning And Beading Machine Operator Routine 02/03/22 23:27 Consult Neurology Routine Consult Palliative Care Routine 02/09/22 09:21 Consult Gastroenterology Routine Procedures Performed Operation Date: 02/10/22 16:00 Actual Procedures p EGD Gastric Tube Placement - Avila Almazan MD Ordered Studies 02/03/22 18:37 CT angio head w con Stat CT angio neck with con Stat CT head/brain wo con Stat 02/04/22 10:03 Carotid duplex [US carotid doppler BI] Routine 02/04/22 19:00 CT head/brain wo con Routine MR brain wo/w con Routine 02/07/22 06:18 CT head/brain wo con Stat Hospital Course (1) Hypoxia: (2) Pneumonia: (3) Weakness: (4) Ambulatory dysfunction: (5) Alejandrina Gehrig disease: Plan Input This is a 81-year-old female who has significant past medical history of bulbar amyotrophic lateral sclerosis, HTN, HLD, LVH, history of right breast cancer status post partial mastectomy who presents to the ER secondary to inability to swallow antibiotic pills then developed R sided facial droop and weakness in ED ~18:30 last night. Stroke-like episode: Stroke alert called and thrombolytic therapy (TNKase) administered within 2 hours of onset of symptoms CTA head/Neck showed no evidence for an acute infarct or cerebral edema. CT head negative for acute finding carotid u/s showed 50-69% stenosis of the proximal left internal carotid artery. Echo showed to hyperdynamic left ventricular systolic function is present with ejection fraction 65 to 70%. No significant valvular heart disease Appreciate neurology input and recommendation MRI head and CT head showed no acute infarct Continue PT/OT/Speech eval -Will need placement She has been accepted to [facility] and will be transferred there as soon as transportation is available ALS Follows [facility] neurology Previously had been on riluzole, but currently not taking it because pt was not able to tolerate riluzole Will be seeing [facility] neurology as an outpatient Has bulbar ALS with dysphagia and dysphonia Dysphagia and dysphonia Likely secondary to isolated bulbar amyotrophic lateral sclerosis Will change aspirin to Peg tube starting tomorrow Dysphagia due to muscle weakness Pt made it clear that she does not want any invasive treatment such as tube feeding or tracheostomy Initially the patient and the family members refused for any PEG tube placement GI was consulted and the PEG tube was placed on 02/10/2022 Has been started on PEG tube feeding from 02/11/2022 Nutrition consult Medication changed to PEG Has been tolerating PEG tube feeding and the medications are being introduced through the PEG tube Has been tolerating PEG tube feeding and trying to get 4 times daily doses Occasional discomfort and more received will with current tube feeding and tolerating 300 mL 4 times daily regimen with 90 mL of water pre and post administration of the feeding Has been tolerating tube feeding and will be discharged to [facility] this afternoon Palliative care on board for goal of care Case discussed with case management for placement Hypercapnic Hypoxic respiratory failure Most likely secondary to ALS progression causing decreased diaphragmatic and intercostal excursion. ABG showed PCO2 72 and pH 7.46 She has been using the Bipap Strongly advised to continue to use BiPAP to improve CO2 She has been using BiPAP at nighttime but today she was very drowsy Will get an ABG to document the level of CO2 Strongly advised to use BiPAP specially throughout the night and also as long as possible during daytime to avoid hypercarbia Pneumonia Possible related to aspiration pneumonia CXR showed minimal left basilar opacity favors atelectasis. procalcitonin negative Currently on IV unasyn and azithromycin We will continue current antibiotic Antibiotic course is finished From prior hospitalist:: Generalized Weakness Ambulatory dysfunction I am planning to discuss with the family because nurse said that they wanted patient to get tube feeding I was present when rubber production machine operator talked to patient about tube feeding and pt refused it I again mentioned it to the patient and she refused it while she was AAOx3 Brother and Dunia mentioned tube feeding with her and she refused Now daughter in law is pushing for tube feeding Will discuss with Cousin in the presence of the patient about tube feeding again Will discuss with palliative care in the morning 02/10 S/P peg tube placement by gastro Ok to use peg tube tomorrow Nutrition consult Will Change her medication to PO HTN Started on Vasotec IV Will plan to start on PO med once able to use the peg tube DVT ppx: will resume lovenox subq in am Code Status DNR Disposition Pt will need care home care placement Awaiting placement-Will be transferred to [facility] sometime today and/or tomorrow Total Time Total Time Spent Total Time Spent (In Minutes): 40 minutes Discharge Plan Discharge Items Patient Disposition: Transfer Inpatient Rehab Fac Reason For Visit: HYPOXIA, PNA Discharge Diagnosis: Strokelike symptom status post TNKase administration, isolated bulbar amyotrophic lateral sclerosis with history of ALS, dysphagia and dysphonia, hypercarbic hypoxic respiratory failure Condition on Discharge: Fair Activity: Resume your previous activity Non-emergency contact: Primary Care Provider Call non-emergency contact if: you have any medication questions and your symptoms worsen Follow-up/Referrals: Cindy Borrero MD [Primary Care Provider] - (Please make an appointment with your PCP within 7 days following discharge from the facility) Diet: Other - See Diet Comment Diet Comment: Continue PEG tube feeding as advised Addtl Attending Provider Instructions: Please take precautions to avoid falls Strongly advised not to eat or drink orally Continue PEG tube feeding as advised Use medications through the PEG tube Continue BiPAP at night and during the daytime as well as much as possible to avoid carbon dioxide retention in your system Please keep appointments with your healthcare providers Pending Studies at Discharge: No Stand-Alone Forms: Medications to Prevent Stroke, My [facility] Skilled Items Patient informed of condition?: Yes DNR: Yes Discharge Level of Care: Acute rehab Communicable Disease: No Discharge Prognosis: Stable Lines: None Urinary Catheter: No Medications and DC Order Prescriptions: New clonidine 0.1 mg/24 hr Patch Weekly 1 patch transdermal Q7D@0900 30 Days Qty: 4 0RF aspirin [Children's Aspirin] 81 mg Tablet,Chewable 81 mg PEG Q24H 30 Days Qty: 30 0RF metoprolol tartrate 25 mg Tablet 25 mg feeding tube BID 30 Days Qty: 60 0RF Centrum 9 mg iron/15 mL Liquid 15 ml PEG QAM Qty: 236 0RF Continued fluticasone propionate 50 mcg/actuation [place],Suspension 2 spray INTRANASAL QAM Rx Instructions: 2 sprays into each nostril cholecalciferol (vitamin D3) [Vitamin D3] 25 mcg (1,000 unit) Tablet 25 mcg PO DAILY Changed Ensure High Protein Liquid 1 ea feeding tube TID Qty: 237 0RF Discontinued mirtazapine 15 mg tablet 7.45 mg PO HS Rx Instructions: 1/2 tablet dose aspirin 81 mg Tablet,Delayed Release (Dr/Ec) 81 mg PO 2XWK levofloxacin 750 mg tablet 750 mg PO DAILY 7 Days Qty: 7 0RF Discharge Orders: Discharge Order (Routine); Ordered 02/16/22 Ordered By: Duglas Silva/Other Patient Handouts: Dysphagia Aspiration Admission Data Admit Date/Time: 02/03/22 15:33 Attending Provider: Duglas Bergman Admit Provider: Carmine Merida Primary Care Provider: Cindy Borrero Other Providers: Carmine Merida ; Haseeb Grey ; Ace Rodriguez ; Lynda Rivera ; Avila Almazan ; [facility] ; [place] ; Kael Cheung
--- NOTE | 2022-03-04 05:15 | Coding Query ---
CODING QUERY To promote full compliance with coding requirements relating to patient care, provider participation is requested in all cases of cylinder filler uncertainty. Please assist us with the question(s) below: Coding Question(s): Patient with ALS admitted with stroke-like symptoms: dysphagia and right facial droop. TKA administered within 2 hrs after symptoms began with resolution of symptoms. Carotid U/S 50-58% stenosis of left carotid. Please document, if known or suspected, the etiology of the stroke-like symptoms. Thanks for your help LETTY Zurita [facility] Physician's Response(s): Isolated bulbar amyotrophic lateral sclerosis with history of ALS Principal Diagnosis: "that condition established after study, to be chiefly responsible for occasioning the admission of the patient to the hospital for care." Co-Existing Principal Diagnosis: "when two or more diagnoses equally meet the criteria for principal diagnosis as determined by the circumstances of admission, diagnostic work up, and/or therapy provided, and the Alphabetic Index, Tabular List, or another coding guideline does not provide sequencing direction, any one of the diagnoses may be sequenced first." "When the physician has documented what appears to be a current diagnosis in the body of the record, but has not included the diagnosis in the final diagnostic statement, the physician should be asked whether the diagnosis should be added." (Source [facility]oding [facility] 2 QTR90. p3-4) SHANDA
== END 2022-02-16 16:25 | DRG 56 ==
LOC: ED 13:08 → 1E 15:32 → SUATTDRO 15:32 → 1E 23:16 → 2S 02-06 21:38 → 2W 02-07 18:39

== ENCOUNTER 2022-10-27 14:45 | Inpatient (IN) ==
--- NOTE | 2022-10-27 14:56 | ED Triage Note ---
Date of Service October 27, 2022 History of Present Illness This patient was briefly evaluated while in triage. An abbreviated physical exam was performed. This patient is a 82-year-old Female, history of bulbar amyotrophic lateral sclerosis, HTN, HLD, LVH, history of right breast cancer status post partial mas tectomy who was brought to the emergency department by a neighbor friend for unknown reasons. The patient's care provider was not with her at that time, and he is nonverbal. The neighbor only knows that the patient has problems with her heart and kidneys. Further details will need to be assessed with the care provider once they arrive. Physical Exam CONSTITUTIONAL: Patient has a towel in her mouth. She does respond when asking questions, I did eventually try to write some stuff on a notepad when asked why she was in the emergency department. The neighbor reports that she wrote that her care provider was coming to the emergency department. HEENT: Normocephalic, atraumatic. RESPIRATORY: Clear to auscultation bilaterally with no wheezing, crackles, rhonchi or stridor. CARDIOVASCULAR: Regular rate and rhythm with no murmurs, rubs or gallops. INTEGUMENTARY: No rash or other significant dermatologic conditions noted. HEMATOLOGIC: No ecchymosis or petechiae. NEUROLOGIC: No obvious focal neurologic deficits noted. Initial orders for labs and / or imaging were placed and patient was placed in the waiting area until a bed is available. Please see further documentation for the full ED course.
[2022-10-27 15:39] LABS: Basophils # (auto) 0.02 K/uL (0-0.2); Basophils % (auto) 0.2 %; Eosinophils # (auto) 0.05 K/uL (0-0.50); Eosinophils % (auto) 0.5 %; Hematocrit (blood only) 37.2 % (37.0-47.0); Hemoglobin 11.9 g/dl (12.0-16.0); Immature Granulocytes # (auto) 0.03 K/uL (0.01-0.20); Immature Granulocytes % (auto) 0.3 %; Lymphocytes # (auto) 1.16 K/uL (1.2-3.4); Lymphocytes % (auto) 10.8 %; Mean Corpuscular Hemoglobin 28.9 pg (25.0-34.0); Mean Corpuscular Volume 90.3 fL (80.0-100.0); Mean Platelet Volume 10.8 fL (9.4-12.4); Monocytes # (auto) 0.39 K/uL (0.11-0.59); Monocytes % (auto) 3.6 %; Neutrophils # (auto) 9.07 K/uL (1.40-6.50); Neutrophils % (auto) 84.6 %; Platelet Count 215 K/uL (130-400); RDW Coefficient of Variation 13.9 % (11.5-14.5); RDW Standard Deviation 45.8 fL (36.4-46.3); Red Blood Count 4.12 M/uL (4.20-5.40); White Blood Count 10.72 K/ul (4.8-10.8)
--- NOTE | 2022-10-27 15:52 | Emergency Department Note ---
History of Present Illness General Chief complaint: Illness Stated complaint: does not feel good, burning in chest Time Seen by Provider: 10/27/22 15:26 Source: family History of Present Illness Provider complaint: Placement 82-year-old Thai female presents emergency department with daughters. 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 Daughter reports that she is here to be admitted for placement. They state they believe that the patient is having chest pain as well as left flank pain. No falls. No fevers. No vomiting. Home Medications Medication Instructions Recorded Confirmed Type famotidine 20 mg tablet 20 mg PO QAM 10/27/22 10/27/22 History lactose-reduced food with fiber 1 ea feeding tube QID 10/27/22 10/27/22 History 0.06 gram-1.5 kcal/mL oral liquid (Jevity 1.5 Vaughn) metoprolol tartrate 25 mg tablet 12.5 mg feeding tube [facility] 10/27/22 10/27/22 History ondansetron 4 mg disintegrating 4 mg translingual Q8 PRN Nausea 10/27/22 10/27/22 History tablet Allergies Allergy/AdvReac Type Severity Reaction Status Date / Time No Known Drug Allergies Allergy Unknown Verified 10/27/22 19:23 Past Med/Surg History Medical History Encounter for pre-operative examination History of breast cancer Alejandrina Gehrig disease Osteoarthritis Renal mass "PET scan 05/14/2010- partially calcified left renal lower pole 30x36 mm mass. PET scan 09/27/13 showed stable partially calcified mass lower pole L kidney." Uterine leiomyoma Surgical History History of carpal tunnel release History of partial mastectomy of right breast (04/14/10) Family History Mother Diabetes Other Heart disease Social History Smoking Status: Never smoker Second Hand Exposure: No; Do You Dip or Chew Tobacco: No; Hx Alcohol Use: No Hx Substance Use: No Preferred Language: Thai Communication Ability: Impaired Communication Ability Comment: Patient understands some [place] and is able to answer yes and no questions Communication Tools: Writing Tablet Shorer Required: Yes Beliefs That Will Affect Care: None marital status: Single Current Living Situation: Alone How many Children do You have: 0 Feels Safe at Home: Yes Assistive Devices: None Physical Exam Vital Signs Vital Signs - 24 hr 10/27/22 14:53 10/27/22 15:38 10/27/22 15:50 Pulse Rate 100 H 89 Pulse Rate [Apical] Pulse Rate from SpO2 Sensor Pulse Rhythm Regular Pulse Strength Normal Pulse Strength [Apical] Respiratory Rate 20 Respiratory Effort / Characteristics Non-Labored Spontaneous Respiratory Depth Normal Blood Pressure 123/64 Blood Pressure [Left Arm] Blood Pressure Mean 83 Blood Pressure Mean [Left Arm] Blood Pressure Position Sitting Pulse Oximetry 94 100 Oxygen Delivery Method Nasal Cannula Nasal Cannula Oxygen Flow Rate 2 Sepsis Recent Fever Within 48 Hours No Sepsis New/Unexplained Change in Mental Status No Sepsis Action Taken by Nursing No Action Required 10/27/22 15:50 10/27/22 15:51 10/27/22 15:33 Pulse Rate 89 Pulse Rate [Apical] 89 Pulse Rate from SpO2 Sensor 89 Pulse Rhythm Pulse Strength Pulse Strength [Apical] Normal Respiratory Rate 20 29 H Respiratory Effort / Characteristics Non-Labored Spontaneous Respiratory Depth Normal Blood Pressure Blood Pressure [Left Arm] 160/68 H Blood Pressure Mean Blood Pressure Mean [Left Arm] 98 Blood Pressure Position Pulse Oximetry 100 100 100 Oxygen Delivery Method Nasal Cannula Nasal Cannula Oxygen Flow Rate 2 2 Sepsis Recent Fever Within 48 Hours Sepsis New/Unexplained Change in Mental Status Sepsis Action Taken by Nursing 10/27/22 16:00 10/27/22 16:30 10/27/22 17:00 Pulse Rate 91 H 91 H 87 Pulse Rate [Apical] Pulse Rate from SpO2 Sensor 91 H 91 H 87 Pulse Rhythm Pulse Strength Pulse Strength [Apical] Respiratory Rate 17 24 26 H Respiratory Effort / Characteristics Respiratory Depth Blood Pressure Blood Pressure [Left Arm] Blood Pressure Mean Blood Pressure Mean [Left Arm] Blood Pressure Position Pulse Oximetry 100 100 100 Oxygen Delivery Method Oxygen Flow Rate Sepsis Recent Fever Within 48 Hours Sepsis New/Unexplained Change in Mental Status Sepsis Action Taken by Nursing 10/27/22 17:30 10/27/22 18:00 10/27/22 18:30 Pulse Rate 90 94 H 94 H Pulse Rate [Apical] Pulse Rate from SpO2 Sensor 89 94 H 94 H Pulse Rhythm Pulse Strength Pulse Strength [Apical] Respiratory Rate 28 H 28 H 28 H Respiratory Effort / Characteristics Respiratory Depth Blood Pressure 136/76 Blood Pressure [Left Arm] Blood Pressure Mean 96 Blood Pressure Mean [Left Arm] Blood Pressure Position Pulse Oximetry 100 100 98 Oxygen Delivery Method Oxygen Flow Rate Sepsis Recent Fever Within 48 Hours Sepsis New/Unexplained Change in Mental Status Sepsis Action Taken by Nursing Physical Exam GENERAL: Ill-appearing. HENT: Exam performed. -Head: Normocephalic and atraumatic. -Right Ear: External ear normal. No mastoid erythema -Left Ear: External ear normal. No mastoid erythema CV: Normal rate, regular rhythm, normal heart sounds and intact distal pulses. There is no peripheral edema. Palpable radial pulses bue. PULM/CHEST: Rhonchi bilaterally. ABD: The abdomen is soft. Course Course 1526: The patient was evaluated in room A2. A complete history and physical exam was performed Cardiac monitoring: An order was placed for continuous cardiac monitoring. The monitor shows a rate of 90 with sinus rhythm interpreted by dc 2001: Vital signs stable. Labs showed a venous pH of 7.33 a venous PCO2 of 91. Patient appears to be in a compensated respiratory acidosis with a bicarb of 43 and an anion gap of 2. Labs are otherwise unremarkable with the exception of urinalysis positive for UTI. Patient placed on Rocephin. Patient was unable to lie down for CT scan of her abdomen pelvis and ultrasound was performed. On reassessment after ultrasound, the patient is not in any respiratory distress, a lert and oriented on her home oxygen. We will hold off on BiPAP at this time, again patient is DNR/DNI. [facility] and family's request for placement. He will evaluate the patient. Administered Medications Acetaminophen (Acetaminophen Susp 325 Mg/10.15 Ml Udc) 650 mg PEG Q4H PRN PRN Reason: Pain or Fever Stop: 11/26/22 22:48 Last Admin: 10/28/22 14:56 Dose: 650 mg Documented By: Admin: 10/28/22 09:29 Dose: 650 mg Documented By: AM Famotidine (Famotidine 20 Mg Tab) 20 mg JT QAM MELITA Stop: 11/27/22 08:59 Last Admin: 10/28/22 09:24 Dose: 20 mg Documented By: AM Ceftriaxone Sodium 2,000 mg/ (Dextrose) 70 mls @ 100 mls/hr IV Q24H [facility]; Protocol Stop: 11/07/22 17:59 Last Infusion: 10/28/22 17:54 Dose: 0 mls/hr Documented By: Admin: 10/28/22 17:08 Dose: 100 mls/hr Documented By: LDS Dextrose/Sodium Chloride (D5w And Nss) 1,000 mls @ 75 mls/hr IV .[id number] MELITA Stop: 11/27/22 16:59 Last Admin: 10/28/22 17:16 Dose: 75 mls/hr Documented By: CHANDRA Metoprolol Tartrate (Metoprolol Tartrate 25 Mg Tab) 12.5 mg PEG BID MELITA Stop: 11/26/22 23:44 Last Admin: 10/28/22 21:05 Dose: 12.5 mg Documented By: Admin: 10/28/22 09:23 Dose: 12.5 mg Documented By: Admin: 10/27/22 23:54 Dose: 12.5 mg Documented By: NATHALIA Morphine Sulfate (Morphine Sulfate 2 Mg/Ml Carp) 2 mg IV Q3H PRN PRN Reason: Pain Stop: 11/11/22 01:48 Last Admin: 10/28/22 18:42 Dose: 2 mg Documented By: Admin: 10/28/22 04:01 Dose: 2 mg Documented By: KATERINE Discontinued Medications Aspirin (Aspirin 300 Mg Supp) 300 mg VT ONE ONE Stop: 10/28/22 01:46 Last Admin: 10/28/22 03:49 Dose: 300 mg Documented By: FEED MILL OPERATOR Atorvastatin Calcium (Atorvastatin 40 Mg Tab) 40 mg PEG QAM MELITA Stop: 11/27/22 08:59 Last Admin: 10/28/22 09:24 Dose: 40 mg Documented By: AM Ceftriaxone Sodium 1,000 mg/ (Dextrose) 50 mls @ 100 mls/hr IV NOW STA Stop: 10/27/22 18:16 Last Infusion: 10/27/22 19:15 Dose: 0 mls/hr Documented By: Admin: 10/27/22 18:29 Dose: 100 mls/hr Documented By: SUSANNE Sodium Chloride (1/2 Nss) 1,000 mls @ 75 mls/hr IV .[id number] STA Stop: 10/28/22 10:45 Last Infusion: 10/28/22 16:28 Dose: 0 mls/hr Documented By: Admin: 10/27/22 23:42 Dose: 75 mls/hr Documented By: NATHALIA Heparin Sodium/Dextrose (Heparin Sodium/Dextrose) 25,000 units in 500 mls @ 18 mls/hr IV .Q24H [facility]; Protocol Stop: 11/27/22 01:44 Last Titration: 10/28/22 11:20 Dose: 0 units/hr, 0 mls/hr Documented By: ELLA Co-signed By: JOHNATHON Titration: 10/28/22 10:51 Dose: 900 units/hr, 18 mls/hr Documented By: AM Co-signed By: JOHNATHON Admin: 10/28/22 03:41 Dose: 850 units/hr, 17 mls/hr Documented By: KATERINE Co-signed By: NAOMI Ketorolac Tromethamine (Ketorolac Tromethamine 15 Mg/Ml Vial) 15 mg IV NOW STA Stop: 10/27/22 21:27 Last Admin: 10/27/22 23:49 Dose: Not Given Documented By: NATHALIA Miscellaneous (Heparin Stop Order) 1 each N/A ONE ONE Stop: 10/28/22 11:16 Last Admin: 10/28/22 11:20 Dose: 1 each Documented By: AM Medical Decision Making Medical Records Attestation: I reviewed the patient's medical records. External medical records reviewed. Patient is a DNR/DNI per the external medical records. Laboratory Data Attestation: I reviewed the patient's lab results. 10/27/22 15:12 10/27/22 15:12 Lab Results 10/27/22 10/27/22 10/27/22 Range/Units 15:12 15:12 15:12 WBC 10.72 (4.8-10.8) K/ul RBC 4.12 L (4.20-5.40) M/uL Hgb 11.9 L (12.0-16.0) g/dl Hct 37.2 (37.0-47.0) % MCV 90.3 (80.0-100.0) fL MCH 28.9 (25.0-34.0) pg MCHC 32.0 (32.0-36.0) g/dL RDW Std Deviation 45.8 (36.4-46.3) fL RDW Coeff of Jazmin 13.9 (11.5-14.5) % Plt Count 215 (130-400) K/uL MPV 10.8 (9.4-12.4) fL Immature Gran % (Auto) 0.3 % Neut % (Auto) 84.6 % Lymph % (Auto) 10.8 % [place] % (Auto) 3.6 % Eos % (Auto) 0.5 % Baso % (Auto) 0.2 % Neut # (Auto) 9.07 H (1.40-6.50) K/uL Lymph # (Auto) 1.16 L (1.2-3.4) K/uL [place] # (Auto) 0.39 (0.11-0.59) K/uL Eos # (Auto) 0.05 (0-0.50) K/uL Baso # (Auto) 0.02 (0-0.2) K/uL Immature Gran # (Auto) 0.03 (0.01-0.20) K/uL PT 10.4 (9.0-12.0) Seconds INR 0.9 (0.9-1.1) APTT 26.5 (21.0-31.0) Seconds PTT Ratio 0.9 VBG pH (7.36-7.41) VBG pCO2 (38-50) mmHg VBG pO2 mmHg VBG HCO3 mmol/L VBG O2 Saturation % VBG Base Excess mEq/L Sodium 141 (136-145) mmol/L Potassium 4.4 (3.5-5.1) mmol/L Chloride 96 L (98-107) mmol/L Carbon Dioxide 43 H* (21-32) mmol/L Anion Gap 2 L (3-11) BUN 30 H (6-23) mg/dl Creatinine 0.57 L (0.6-1.2) mg/dl Est Cr Clr Drug Dosing Not Reportable Est GFR ( Amer) 101.5 ml/min Est GFR (Non-Af Amer) 87.6 ml/min BUN/Creatinine Ratio 52.6 H (10-20) Glucose 163 H (70-99(Fasting)) mg/dl Lactate (0.4-2.0) mmol/L Calcium 9.3 (8.6-10.3) mg/dl Magnesium 2.1 (1.7-2.4) mg/dl Total Bilirubin 0.3 (0.2-1.0) mg/dl AST 25 (13-39) U/L ALT 21 (7-52) U/L Alkaline Phosphatase 54 (34-104) U/L Troponin I High Sens 8.7 (0-14) pg/ml Total Protein 7.0 (6.0-8.3) gm/dl Albumin 4.0 (3.4-5.0) gm/dl Globulin 3.0 (2.5-4.0) gm/dl Albumin/Globulin Ratio 1.3 (0.9-2) Lipase 33 (11-82) U/L Procalcitonin (0-0.5) ng/ml SARS-CoV-2, RNA, NAAT (NEGATIVE) 10/27/22 10/27/22 10/27/22 Range/Units 15:12 15:26 16:06 WBC (4.8-10.8) K/ul RBC (4.20-5.40) M/uL Hgb (12.0-16.0) g/dl Hct (37.0-47.0) % MCV (80.0-100.0) fL MCH (25.0-34.0) pg MCHC (32.0-36.0) g/dL RDW Std Deviation (36.4-46.3) fL RDW Coeff of Jazmin (11.5-14.5) % Plt Count (130-400) K/uL MPV (9.4-12.4) fL Immature Gran % (Auto) % Neut % (Auto) % Lymph % (Auto) % [place] % (Auto) % Eos % (Auto) % Baso % (Auto) % Neut # (Auto) (1.40-6.50) K/uL Lymph # (Auto) (1.2-3.4) K/uL [place] # (Auto) (0.11-0.59) K/uL Eos # (Auto) (0-0.50) K/uL Baso # (Auto) (0-0.2) K/uL Immature Gran # (Auto) (0.01-0.20) K/uL PT (9.0-12.0) Seconds INR (0.9-1.1) APTT (21.0-31.0) Seconds PTT Ratio VBG pH (7.36-7.41) VBG pCO2 (38-50) mmHg VBG pO2 mmHg VBG HCO3 mmol/L VBG O2 Saturation % VBG Base Excess mEq/L Sodium (136-145) mmol/L Potassium (3.5-5.1) mmol/L Chloride (98-107) mmol/L Carbon Dioxide (21-32) mmol/L Anion Gap (3-11) BUN (6-23) mg/dl Creatinine (0.6-1.2) mg/dl Est Cr Clr Drug Dosing Est GFR ( Amer) ml/min Est GFR (Non-Af Amer) ml/min BUN/Creatinine Ratio (10-20) Glucose (70-99(Fasting)) mg/dl Lactate 1.4 (0.4-2.0) mmol/L Calcium (8.6-10.3) mg/dl Magnesium Cancelled (1.7-2.4) mg/dl Total Bilirubin (0.2-1.0) mg/dl AST (13-39) U/L ALT (7-52) U/L Alkaline Phosphatase (34-104) U/L Troponin I High Sens (0-14) pg/ml Total Protein (6.0-8.3) gm/dl Albumin (3.4-5.0) gm/dl Globulin (2.5-4.0) gm/dl Albumin/Globulin Ratio (0.9-2) Lipase (11-82) U/L Procalcitonin < 0.05 (0-0.5) ng/ml SARS-CoV-2, RNA, NAAT (NEGATIVE) 10/27/22 10/27/22 Range/Units 19:25 19:30 WBC (4.8-10.8) K/ul RBC (4.20-5.40) M/uL Hgb (12.0-16.0) g/dl Hct (37.0-47.0) % MCV (80.0-100.0) fL MCH (25.0-34.0) pg MCHC (32.0-36.0) g/dL RDW Std Deviation (36.4-46.3) fL RDW Coeff of Jazmin (11.5-14.5) % Plt Count (130-400) K/uL MPV (9.4-12.4) fL Immature Gran % (Auto) % Neut % (Auto) % Lymph % (Auto) % [place] % (Auto) % Eos % (Auto) % Baso % (Auto) % Neut # (Auto) (1.40-6.50) K/uL Lymph # (Auto) (1.2-3.4) K/uL [place] # (Auto) (0.11-0.59) K/uL Eos # (Auto) (0-0.50) K/uL Baso # (Auto) (0-0.2) K/uL Immature Gran # (Auto) (0.01-0.20) K/uL PT (9.0-12.0) Seconds INR (0.9-1.1) APTT (21.0-31.0) Seconds PTT Ratio VBG pH 7.33 L (7.36-7.41) VBG pCO2 91 H (38-50) mmHg VBG pO2 45 mmHg VBG HCO3 48 mmol/L VBG O2 Saturation 75.8 % VBG Base Excess 17.2 mEq/L Sodium (136-145) mmol/L Potassium (3.5-5.1) mmol/L Chloride (98-107) mmol/L Carbon Dioxide (21-32) mmol/L Anion Gap (3-11) BUN (6-23) mg/dl Creatinine (0.6-1.2) mg/dl Est Cr Clr Drug Dosing Est GFR ( Amer) ml/min Est GFR (Non-Af Amer) ml/min BUN/Creatinine Ratio (10-20) Glucose (70-99(Fasting)) mg/dl Lactate (0.4-2.0) mmol/L Calcium (8.6-10.3) mg/dl Magnesium (1.7-2.4) mg/dl Total Bilirubin (0.2-1.0) mg/dl AST (13-39) U/L ALT (7-52) U/L Alkaline Phosphatase (34-104) U/L Troponin I High Sens (0-14) pg/ml Total Protein (6.0-8.3) gm/dl Albumin (3.4-5.0) gm/dl Globulin (2.5-4.0) gm/dl Albumin/Globulin Ratio (0.9-2) Lipase (11-82) U/L Procalcitonin (0-0.5) ng/ml SARS-CoV-2, RNA, NAAT NEGATIVE (NEGATIVE) Imaging Data Radiologist's Impression: Chest X-Ray 10/27/22 15:26 XR chest 1V portable HISTORY: 82 years-old Female Sepsis acute sepsis COMPARISON: 02/03/2022 TECHNIQUE: Supine AP view of the chest FINDINGS: Cardiac silhouette is enlarged. The patient's chin partially obscures the lung apices. No pneumothorax, pleural effusion, airspace consolidation or pulmonary edema. Suggested gastric tube. Bones of the chest appear grossly intact. IMPRESSION: No acute process. ACT 112: Negative or not required by law. The above report was generated using voice recognition software. It may contain grammatical, syntax or spelling errors. Electronically signed by: Otf Sin M.D. 10/27/2022 4:13 PM ECG Data Attestation: I personally reviewed and interpreted this ECG as follows: Rate (beats per minute): 92 Rhythm: + normal sinus ECG Intervals/blocks: + Normal VT and + Normal QT-c ECG ST segments: + Normal ST segments Additional Comments: QRS 70 MDM Narrative 1526: The patient was evaluated in room A2. A complete history and physical exam was performed Cardiac monitoring: An order was placed for continuous cardiac monitoring. The monitor shows a rate of 90 with sinus rhythm interpreted by 2001: Vital signs stable. Labs showed a venous pH of 7.33 a venous PCO2 of 91. Patient appears to be in a compensated respiratory acidosis with a bicarb of 43 and an anion gap of 2. Labs are otherwise unremarkable with the exception of urinalysis positive for UTI. Patient placed on Rocephin. Patient was unable to lie down for CT scan of her abdomen pelvis and ultrasound was performed. On reassessment after ultrasound, the patient is not in any respiratory distress, alert and oriented on her home oxygen. We will hold off on BiPAP at this time, again patient is DNR/DNI. I did make Dr. Moore the admitting [facility] hospitalist aware of the patient's presentation and family's request for placement. He will evaluate the patient. Impression & Plan Acute UTI Discharge Plan Visit Data Chief Complaint: Illness Stated Complaint: does not feel good, burning in chest ED Provider: Guanako Enriquez Discharge Problem: Acute UTI Patient Disposition: Admitted As Inpatient Discharge Instructions Interventions: ED Discharge Assessment Last Done: 10/27/22 22:17
[2022-10-27 16:03] LABS: INR 0.9 (0.9-1.1); Partial Thromboplastin Ratio 0.9; Partial Thromboplastin Time 26.5 Seconds (21.0-31.0); Prothrombin Time 10.4 Seconds (9.0-12.0)
[2022-10-27 16:04] LABS: Alanine Aminotransferase 21 U/L (7-52); Albumin Globulin Ratio 1.3 (0.9-2); Alkaline Phosphatase 54 U/L (34-104); Anion Gap 2 (3-11); Aspartate Aminotransferase 25 U/L (13-39); BUN Creatinine Ratio 52.6 (10-20); Bilirubin,Total 0.3 mg/dl (0.2-1.0); Blood Urea Nitrogen 30 mg/dl (6-23); Calcium 9.3 mg/dl (8.6-10.3); Carbon Dioxide 43 mmol/L (21-32); Chloride 96 mmol/L (98-107); Est GFR (African American) 101.5 ml/min; Est GFR (Non-African American) 87.6 ml/min; Glucose 163 mg/dl (70-99(Fasting)); Lipase 33 U/L (11-82); Magnesium 2.1 mg/dl (1.7-2.4); Potassium 4.4 mmol/L (3.5-5.1); Sodium 141 mmol/L (136-145); Troponin I High Sensitivity 8.7 pg/ml (0-14)
--- NOTE | 2022-10-27 16:14 | XRay Report ---
XR chest 1V portable HISTORY: 82 years-old Female Sepsis acute sepsis COMPARISON: 02/03/2022 TECHNIQUE: Supine AP view of the chest FINDINGS: Cardiac silhouette is enlarged. The patient's chin partially obscures the lung apices. No pneumothora x, pleural effusion, airspace consolidation or pulmonary edema. Suggested gastric tube. Bones of the chest appear grossly intact. IMPRESSION: No acute process. ACT 112: Negative or not required by law. The above report was generated using voice recognition software. It may contain grammatical, syntax o r spelling errors. Electronically signed by: Otf Sin M.D. 10/27/2022 4:13 PM
[2022-10-27 17:22] LABS: Appearance Urine Turbid (Clear); Bacteria Urine Automated 4+ (Negative); Bilirubin Urine Negative (Negative); Blood Urine Negative (Negative); Cast Urine Automated 0 /lpf (0-5); Color Urine Yellow; Epithelial Cell Urine Auto 0-5 /lpf (0-5); Glucose Urine UA Negative (Negative); Ketones Urine Negative (Negative); Leukocyte Esterase Urine 3+ (Negative); Nitrite Urine Negative (Negative); Protein Urine Negative (Negative); RBC Urine Automated 0-4 /hpf (0-4); Specific Gravity Urine 1.013 (1.000-1.030); Urobilinogen Urine Negative (Negative); WBC Urine Automated >30 /hpf (0-5); pH Urine 8.5 (4.5-7.5)
[2022-10-27] MEDS ORDERED: cefTRIAXone SODIUM 1,000 MG in DEXTROSE 5% AD-VAN 50 ML IV STA (17:47)
[2022-10-27 19:40] LABS: Base Excess VBG 17.2 mEq/L; HCO3 VBG 48 mmol/L; Oxygen Saturation VBG 75.8 %; PCO2 VBG 91 mmHg (38-50); PO2 VBG 45 mmHg; pH VBG 7.33 (7.36-7.41)
--- NOTE | 2022-10-27 20:20 | Ultrasound Report ---
Exam(s): US RENAL EXAM: US Retroperitoneal Limited, Renal CLINICAL HISTORY: Reason for exam: L flank pain uti. TECHNIQUE: Real-time limited ultrasound of the retroperitoneum with image documentation. COMPARISON: CT abdomen and pelvis February 02, 2022 FINDINGS: Right kidney: Unremarkable. No stones. No solid mass. No hydronephrosis. Left kidney: LEFT kidney mass identified on CT scan from February 02, 2022 is not visualized. Consider repeat CT scan with contrast. Bladder: Debris in the urinary bladder. Correlate with urinalysis. Bladder ureteral jets are not visualized. IMPRESSION: 1. LEFT kidney mass identified on CT scan from February 02, 2022 is not visualized. Consider repeat CT scan with contrast. 2. Debris in the urinary bladder. Correlate with urinalysis. Electronically signed by: Corey Lira MD 10/27/22 20:19 PM
--- NOTE | 2022-10-27 21:00 | Electrocardiogram Report ---
Test Reason : Blood Pressure : / mmHG Vent. Rate : 092 BPM Atrial Rate : 092 BPM P-R Int : 128 ms QRS Dur : 070 ms QT Int : 334 ms P-R-T Axes : 014 -14 045 degrees QTc Int : 413 ms Normal sinus rhythm Minimal voltage criteria for LVH, may be normal variant ( R in aVL ) Possible Lateral infarct (cited on or before 10-FEB-2022) Abnormal ECG When compared with ECG of 10-FEB-2022 14:00, No significant change Confirmed by Kaiden Cutler ([id number]) on 10/27/2022 9:00:00 PM Referred By: Confirmed By:Kaiden Cutler
--- NOTE | 2022-10-27 21:20 | History & Physical Report ---
Date of Service October 27, 2022 Assessment & Plan (1) NSTEMI (non-ST elevated myocardial infarction): Plan: Second troponin noted to be abnormal. 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 PCU Aspirin, beta-james, statin, IV heparin TTE, Cardiology consult Re: NSTEMI Urine CS, Cefepime PT OT eval once medically stable Social service re: discharge planning/placement DVT prophylaxis IV heparin DNR as per patient's prior directives. Patient's aunt in law requesting updates from providers. Ms. Dunia Gonsales (contact numbers # [phone].) Text document was generated using [employer] voice recognition software. It may contain grammatical or spelling errors. Kindly contact undersigned for clarification of any documentation item in question. History of Present Illness Chief Complaint: Weakness, unable to care for self, left flank pain, chest pain. Primary Care Provider: Cindy Borrero MD History obtained from patient, family, and records.istory somewhat limited from patient secondary to nonverbal state secondary to ALS. 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 Strokelike episode confinement status post TNKase. Carotid ultrasound showed proximal left ICA stenosis 50 to 69%. Patient discharged on aspirin. Patient has been feeling increasingly weak over the last few days. Can no longer take care of self. Patient noted achy left flank pain and increased urinary frequency. Patient also complained of substernal pain with some shortness of breath. No unusual cough symptoms. IV ceftriaxone administered at the ER for possible UTI. Medical Historyas above Surgical History : Arm surgery, right knee surgery, partial mastectomy right, endometrial polyp removal, PEG tube placement Family History : DM, heart disease Personal/Social history : Non-smoker, no EtOH intake, retired dentist originally from [place] Allergies Allergy/AdvReac Type Severity Reaction Status Date / Time No Known Drug Allergies Allergy Unknown Verified 10/27/22 19:23 Home Medications Medication Instructions Recorded Confirmed Type famotidine 20 mg tablet 20 mg PO QAM 10/27/22 10/27/22 History lactose-reduced food with fiber 1 ea feeding tube QID 10/27/22 10/27/22 History 0.06 gram-1.5 kcal/mL oral liquid (Jevity 1.5 Vaughn) metoprolol tartrate 25 mg tablet 12.5 mg feeding tube [facility]HS 10/27/22 10/27/22 History ondansetron 4 mg disintegrating 4 mg translingual Q8 PRN Nausea 10/27/22 10/27/22 History tablet Past Med/Surg History Medical History Encounter for pre-operative examination History of breast cancer Alejandrina Gehrig disease Osteoarthritis Renal mass "PET scan 05/14/2010- partially calcified left renal lower pole 30x36 mm mass. PET scan 09/27/13 showed stable partially calcified mass lower pole L kidney." Uterine leiomyoma Surgical History History of carpal tunnel release History of partial mastectomy of right breast (04/14/10) Family History Mother Diabetes Other Heart disease Social History Smoking Status: Never smoker Second Hand Exposure: No; Do You Dip or Chew Tobacco: No; Hx Alcohol Use: No Hx Substance Use: No Preferred Language: Turkmen Communication Ability: Effective Communication Ability Comment: Patient understands some Cuban and is able to answer yes and no questions Communication Tools: Other Front Office Attendant Required: Yes Beliefs That Will Affect Care: None marital status: Single Current Living Situation: Alone How many Children do You have: 0 Feels Safe at Home: Yes Assistive Devices: None Review of Systems Review of Systems: Could not be reliably obtained secondary to nonverbal state Physical Exam Physical Exam: GENERAL: Slightly uncomfortable, nonverbal, no respiratory distress SKIN: Normal color, warm HEENT: Bespectacled, pink palpebral conjunctivae, no ptosis, dry buccal mucosa, nasal cannula in place NECK : Supple, no tenderness CHEST : Decreased breath sounds, no tenderness HEART : RRR, no obvious murmurs ABDOMEN: Some distention, PEG tube in place, nontender EXTREMITIES : No LE swelling/tenderness, no other conspicuous deformities noted NEUROLOGIC : Coherent, no facial asymmetry, nonverbal, gait and stance not assessed Results & Data Results & Data Vital Signs (Past 12 Hours) Vital Signs Pulse Pulse Resp BP BP Pulse Ox O2 Del Method 10/27/22 20:01 96 H 10/27/22 18:30 94 H 28 H 136/76 98 10/27/22 18:00 94 H 28 H 100 10/27/22 17:30 90 28 H 100 10/27/22 17:00 87 26 H 100 10/27/22 16:30 91 H 24 100 10/27/22 16:00 91 H 17 100 10/27/22 15:33 89 29 H 100 10/27/22 15:51 100 Nasal Cannula 10/27/22 15:50 89 20 160/68 H 100 Nasal Cannula 10/27/22 15:50 100 Nasal Cannula 10/27/22 15:38 89 10/27/22 14:53 100 H 20 123/64 94 Nasal Cannula O2 Flow Rate 10/27/22 20:01 10/27/22 18:30 10/27/22 18:00 10/27/22 17:30 10/27/22 17:00 10/27/22 16:30 10/27/22 16:00 10/27/22 15:33 10/27/22 15:51 2 10/27/22 15:50 2 10/27/22 15:50 2 10/27/22 15:38 10/27/22 14:53 Laboratory Results Laboratory Results WBC 10.72 K/ul (4.8-10.8) 10/27/22 15:12 RBC 4.12 M/uL (4.20-5.40) L 10/27/22 15:12 Hgb 11.9 g/dl (12.0-16.0) L 10/27/22 15:12 Hct 37.2 % (37.0-47.0) 10/27/22 15:12 MCV 90.3 fL (80.0-100.0) 10/27/22 15:12 MCH 28.9 pg (25.0-34.0) 10/27/22 15:12 MCHC 32.0 g/dL (32.0-36.0) 10/27/22 15:12 RDW Std Deviation 45.8 fL (36.4-46.3) 10/27/22 15:12 RDW Coeff of Jazmin 13.9 % (11.5-14.5) 10/27/22 15:12 Plt Count 215 K/uL (130-400) 10/27/22 15:12 MPV 10.8 fL (9.4-12.4) 10/27/22 15:12 Immature Gran % (Auto) 0.3 % 10/27/22 15:12 Neut % (Auto) 84.6 % 10/27/22 15:12 Lymph % (Auto) 10.8 % 10/27/22 15:12 [place] % (Auto) 3.6 % 10/27/22 15:12 Eos % (Auto) 0.5 % 10/27/22 15:12 Baso % (Auto) 0.2 % 10/27/22 15:12 Neut # (Auto) 9.07 K/uL (1.40-6.50) H 10/27/22 15:12 Lymph # (Auto) 1.16 K/uL (1.2-3.4) L 10/27/22 15:12 [place] # (Auto) 0.39 K/uL (0.11-0.59) 10/27/22 15:12 Eos # (Auto) 0.05 K/uL (0-0.50) 10/27/22 15:12 Baso # (Auto) 0.02 K/uL (0-0.2) 10/27/22 15:12 Immature Gran # (Auto) 0.03 K/uL (0.01-0.20) 10/27/22 15:12 PT 10.4 Seconds (9.0-12.0) 10/27/22 15:12 INR 0.9 (0.9-1.1) 10/27/22 15:12 APTT 26.5 Seconds (21.0-31.0) 10/27/22 15:12 PTT Ratio 0.9 10/27/22 15:12 VBG pH 7.33 (7.36-7.41) L 10/27/22 19:25 VBG pCO2 91 mmHg (38-50) H 10/27/22 19:25 VBG pO2 45 mmHg 10/27/22 19:25 VBG HCO3 48 mmol/L 10/27/22 19:25 VBG O2 Saturation 75.8 % 10/27/22 19:25 VBG Base Excess 17.2 mEq/L 10/27/22 19:25 Sodium 141 mmol/L (136-145) 10/27/22 15:12 Potassium 4.4 mmol/L (3.5-5.1) 10/27/22 15:12 Chloride 96 mmol/L (98-107) L 10/27/22 15:12 Carbon Dioxide 43 mmol/L (21-32) H* 10/27/22 15:12 Anion Gap 2 (3-11) L 10/27/22 15:12 BUN 30 mg/dl (6-23) H 10/27/22 15:12 Creatinine 0.57 mg/dl (0.6-1.2) L 10/27/22 15:12 Est Cr Clr Drug Dosing Not Reportable 10/27/22 15:12 Est GFR ( Amer) 101.5 ml/min 10/27/22 15:12 Est GFR (Non-Af Amer) 87.6 ml/min 10/27/22 15:12 BUN/Creatinine Ratio 52.6 (10-20) H 10/27/22 15:12 Glucose 163 mg/dl (70-99(Fasting)) H 10/27/22 15:12 Lactate 1.4 mmol/L (0.4-2.0) 10/27/22 16:06 Calcium 9.3 mg/dl (8.6-10.3) 10/27/22 15:12 Magnesium Cancelled 10/27/22 15:26 Total Bilirubin 0.3 mg/dl (0.2-1.0) 10/27/22 15:12 AST 25 U/L (13-39) 10/27/22 15:12 ALT 21 U/L (7-52) 10/27/22 15:12 Alkaline Phosphatase 54 U/L (34-104) 10/27/22 15:12 Troponin I High Sens 8.7 pg/ml (0-14) 10/27/22 15:12 Total Protein 7.0 gm/dl (6.0-8.3) 10/27/22 15:12 Albumin 4.0 gm/dl (3.4-5.0) 10/27/22 15:12 Globulin 3.0 gm/dl (2.5-4.0) 10/27/22 15:12 Albumin/Globulin Ratio 1.3 (0.9-2) 10/27/22 15:12 Lipase 33 U/L (11-82) 10/27/22 15:12 Procalcitonin < 0.05 ng/ml (0-0.5) 10/27/22 15:12 Urine Color Yellow 10/27/22 Unknown Urine Appearance Turbid (Clear) A 10/27/22 Unknown Urine pH 8.5 (4.5-7.5) H 10/27/22 Unknown Ur Specific [place] 1.013 (1.000-1.030) 10/27/22 Unknown Urine Protein Negative (Negative) 10/27/22 Unknown Urine Glucose (UA) Negative (Negative) 10/27/22 Unknown Urine Ketones Negative (Negative) 10/27/22 Unknown Urine Blood Negative (Negative) 10/27/22 Unknown Urine Nitrite Negative (Negative) 10/27/22 Unknown Urine Bilirubin Negative (Negative) 10/27/22 Unknown Urine Urobilinogen Negative (Negative) 10/27/22 Unknown Ur Leukocyte Esterase 3+ (Negative) H 10/27/22 Unknown Urine WBC (Auto) >30 /hpf (0-5) H 10/27/22 Unknown Urine RBC (Auto) 0-4 /hpf (0-4) 10/27/22 Unknown U Hyaline Cast (Auto) 0 /lpf (0-5) 10/27/22 Unknown U Epithel Cells (Auto) 0-5 /lpf (0-5) 10/27/22 Unknown Urine Bacteria (Auto) 4+ (Negative) H 10/27/22 Unknown SARS-CoV-2, RNA, NAAT NEGATIVE (NEGATIVE) 10/27/22 19:30 Impressions Chest X-Ray 10/27/22 15:26 XR chest 1V portable HISTORY: 82 years-old Female Sepsis acute sepsis COMPARISON: 02/03/2022 TECHNIQUE: Supine AP view of the chest FINDINGS: Cardiac silhouette is enlarged. The patient's chin partially obscures the lung apices. No pneumothorax, pleural effusion, airspace consolidation or pulmonary edema. Suggested gastric tube. Bones of the chest appear grossly intact. IMPRESSION: No acute process. ACT 112: Negative or not required by law. The above report was generated using voice recognition software. It may contain grammatical, syntax or spelling errors. Electronically signed by: Otf Sin M.D. 10/27/2022 4:13 PM Renal Ultrasound 10/27/22 18:33 Exam(s): US RENAL EXAM: US Retroperitoneal Limited, Renal CLINICAL HISTORY: Reason for exam: L flank pain uti. TECHNIQUE: Real-time limited ultrasound of the retroperitoneum with image documentation. COMPARISON: CT abdomen and pelvis February 02, 2022 FINDINGS: Right kidney: Unremarkable. No stones. No solid mass. No hydronephrosis. Left kidney: LEFT kidney mass identified on CT scan from February 02, 2022 is not visualized. Consider repeat CT scan with contrast. Bladder: Debris in the urinary bladder. Correlate with urinalysis. Bladder ureteral jets are not visualized. IMPRESSION: 1. LEFT kidney mass identified on CT scan from February 02, 2022 is not visualized. Consider repeat CT scan with contrast. 2. Debris in the urinary bladder. Correlate with urinalysis. Electronically signed by: Corey Lira MD 10/27/22 20:19 PM Diagnostic Findings EKG as per my interpretation :Rate 90, NSR, LAD, LAFB, no ischemia
[2022-10-27] MEDS ORDERED: SODIUM CHLORIDE 0.45 % 1,000 ML IV STA (21:26)
[2022-10-27] MEDS ORDERED: KETOROLAC TROMETHAMINE 15 MG/ML VIAL IV STA (21:26)
[2022-10-27] MEDS ORDERED: PROMETHAZINE HCL 6.25 MG in SODIUM CHLORIDE 0.9% 50 ML IV PRN (22:49)
[2022-10-27] MEDS ORDERED: METOPROLOL TARTRATE 25 MG TAB OG SCH (23:00)
[2022-10-27] MEDS: METOPROLOL TARTRATE 25 MG TAB PEG SCH (23:54)
[2022-10-28] LABS: D Dimer 400 ug/L FEU (0-500)
[2022-10-28] MEDS ORDERED: Heparin IV Adult Wt-Based Standard *NO* Bolus Protocol IV ONE (01:18)
[2022-10-28] MEDS ORDERED: HEPARIN SODIUM/DEXTROSE 25,000 UNITS/500 ML BAG IV SCH (01:45)
[2022-10-28] MEDS ORDERED: ASPIRIN 300 MG SUPP PR ONE (01:45)
[2022-10-28 03:13] LABS: Basophils # (auto) 0.02 K/uL (0-0.2); Basophils % (auto) 0.2 %; Eosinophils # (auto) 0.08 K/uL (0-0.50); Eosinophils % (auto) 0.9 %; Hematocrit (blood only) 41.2 % (37.0-47.0); Hemoglobin 12.5 g/dl (12.0-16.0); Immature Granulocytes # (auto) 0.02 K/uL (0.01-0.20); Immature Granulocytes % (auto) 0.2 %; Lymphocytes # (auto) 1.18 K/uL (1.2-3.4); Lymphocytes % (auto) 13.5 %; Mean Corpuscular Hemoglobin 28.6 pg (25.0-34.0); Mean Corpuscular Hgb Conc 30.3 g/dL (32.0-36.0); Mean Corpuscular Volume 94.3 fL (80.0-100.0); Mean Platelet Volume 11.2 fL (9.4-12.4); Monocytes % (auto) 5.7 %; Neutrophils # (auto) 6.96 K/uL (1.40-6.50); Neutrophils % (auto) 79.5 %; Platelet Count 220 K/uL (130-400); RDW Coefficient of Variation 13.8 % (11.5-14.5); RDW Standard Deviation 47.6 fL (36.4-46.3); Red Blood Count 4.37 M/uL (4.20-5.40); White Blood Count 8.76 K/ul (4.8-10.8)
[2022-10-28 03:15] LABS: INR 0.9 (0.9-1.1); Partial Thromboplastin Ratio 0.9; Partial Thromboplastin Time 26.6 Seconds (21.0-31.0); Prothrombin Time 10.3 Seconds (9.0-12.0)
[2022-10-28] MEDS: MoRPHine SULFATE 2 MG/ML CARP IV PRN ×2 (04:01→18:42)
[2022-10-28 06:17] LABS: Base Excess ABG 14.9 mEq/L (-9-1.8); HCO3 ABG 48 mmol/L (19-24); Oxygen Saturation ABG 99.3 % (90-95); PCO2 ABG 111 mmHg (35-46); PO2 ABG 140 mmHg (80-95); pH ABG 7.24 (7.35-7.45)
[2022-10-28 06:20] LABS: Allen Test Pos (Pos)
[2022-10-28] MEDS ORDERED: NON-FORMULARY MEDICATION (Lactose-Reduced Food With Fibr [Jevity 1.5 Cal] 0.06 gram-1.5 kc feeding tube SCH (09:00)
[2022-10-28] MEDS ORDERED: ATORVASTATIN 40 MG TAB PEG SCH (09:00)
[2022-10-28] MEDS: METOPROLOL TARTRATE 25 MG TAB PEG SCH ×2 (09:23→21:05)
[2022-10-28] MEDS: FAMOTIDINE 20 MG TAB JT SCH (09:24)
[2022-10-28] MEDS: ACETAMINOPHEN SUSP 325 MG/10.15 ML UDC PEG PRN ×2 (09:29→14:56)
[2022-10-28 10:23] LABS: Hematocrit (blood only) 37.4 % (37.0-47.0); Hemoglobin 11.7 g/dl (12.0-16.0); Mean Corpuscular Hemoglobin 28.7 pg (25.0-34.0); Mean Corpuscular Hgb Conc 31.3 g/dL (32.0-36.0); Mean Corpuscular Volume 91.9 fL (80.0-100.0); Mean Platelet Volume 10.8 fL (9.4-12.4); Platelet Count 211 K/uL (130-400); RDW Coefficient of Variation 13.6 % (11.5-14.5); RDW Standard Deviation 46.4 fL (36.4-46.3); Red Blood Count 4.07 M/uL (4.20-5.40); White Blood Count 15.06 K/ul (4.8-10.8)
[2022-10-28 10:34] LABS: Calcium 8.9 mg/dl (8.6-10.3); Creatinine Clr Calc Pharmacy 68.9 ml/min; Est GFR (African American) 105.3 ml/min; Est GFR (Non-African American) 90.8 ml/min; Potassium 5.1 mmol/L (3.5-5.1)
[2022-10-28 10:38] LABS: Troponin I High Sensitivity 9.2 pg/ml (0-14)
[2022-10-28 10:49] LABS: Partial Thromboplastin Ratio 1.4; Partial Thromboplastin Time 38.1 Seconds (21.0-31.0)
[2022-10-28 11:00] LABS: Basophils # (auto) 0.03 K/uL (0-0.2); Basophils % (auto) 0.2 %; Eosinophils # (auto) 0.01 K/uL (0-0.50); Eosinophils % (auto) 0.1 %; Immature Granulocytes # (auto) 0.07 K/uL (0.01-0.20); Immature Granulocytes % (auto) 0.5 %; Lymphocytes # (auto) 0.51 K/uL (1.2-3.4); Lymphocytes % (auto) 3.4 %; Monocytes # (auto) 0.46 K/uL (0.11-0.59); Monocytes % (auto) 3.1 %; Neutrophils # (auto) 13.98 K/uL (1.40-6.50); Neutrophils % (auto) 92.7 %
--- NOTE | 2022-10-28 11:12 | Hospitalist Progress Note ---
Date of Service October 28, 2022 Assessment & Plan (1) Acute and chronic respiratory failure with hypercapnia: Plan: ALS -- Currently on 2 L but with tachypnea ABG showing pH of 7.24, PCO2 111, PO2 140, bicarb 48 --Chest x-ray no infiltrates or effusion -- BiPAP ordered Repeat ABG at 12 noon -- Pulmonary service consulted UTI --Urine culture: Negative bacilli Blood cultures: Pending -- On IV ceftriaxone Troponin elevation --Troponin elevated to 14 Third troponin negative --EKG no signs of acute ischemia or infarct --We will DC heparin drip -- Continues on metoprolol, aspirin, Lipitor hx PVD aspirin hypertension, improving Hyperlipidemia, not on statin Rx right breast cancer status post surgery/radiation, patient in remission aspiration risk status post PEG tube placement chronic anemia, hemoglobin at baseline Worsening functional disability DVT prophylaxis heparin subcutaneous DNR as per patient's prior directives. Admission and Anticipated Discharge Date Admission Date: October 27, 2022 Subjective Follow-up for weakness, ALS, etc. Seen resting in bed, on 2 L of oxygen, appears tachypneic Nods, shakes head to answer questions Reports some shortness of breath, no cough Denies chest pain, dizziness, nausea Review of systems difficult to obtain due to patient's nonverbal status no other issues noted Review of Systems Review of Systems: all noted and negative except for above Physical Exam Physical Exam: General- awake, not in distress, mild tachypnea, breathing with no accessory muscle use Eyes- anicteric Neck- no JVD Lungs- clear breath sounds bilaterally, no rales/wheezes Heart- normal rate, regular rhythm; no murmurs Abdomen- normal bowel sounds, nondistended, soft, nontender Extremities- no pretibial edema, no calf tenderness Neuro- alert, non verbal, moves all extremities equally Skin- warm & dry Results & Data Results & Data Vital Signs (Past 12 Hours) Vital Signs Temp Pulse Pulse Resp BP Pulse Ox O2 Del Method 10/28/22 10:12 68 25 H 92 10/28/22 07:51 36.3 C L 80 16 140/63 98 Nasal Cannula 10/28/22 04:12 Nasal Cannula 10/28/22 03:35 36.8 C 86 145/63 H 100 Nasal Cannula 10/28/22 01:16 84 10/28/22 00:08 36.6 C 89 20 128/68 100 Room Air O2 Flow Rate 10/28/22 10:12 3 10/28/22 07:51 2 10/28/22 04:12 2 10/28/22 03:35 2 10/28/22 01:16 10/28/22 00:08 2 all noted and reviewed including below
[2022-10-28] MEDS ORDERED: HEPARIN STOP ORDER ONE (11:15)
[2022-10-28 12:51] LABS: Base Excess ABG 16.9 mEq/L (-9-1.8); HCO3 ABG 46 mmol/L (19-24); PCO2 ABG 76 mmHg (35-46); PO2 ABG 92 mmHg (80-95); pH ABG 7.39 (7.35-7.45)
[2022-10-28 12:58] LABS: Allen Test Pos (Pos)
--- NOTE | 2022-10-28 14:00 | Electrocardiogram Report ---
Test Reason : Blood Pressure : / mmHG Vent. Rate : 086 BPM Atrial Rate : 086 BPM P-R Int : 144 ms QRS Dur : 072 ms QT Int : 350 ms P-R-T Axes : 059 -09 045 degrees QTc Int : 418 ms Poor data quality, interpretation may be adversely affected Normal sinus rhythm Normal ECG When compared with ECG of 27-OCT-2022 15:04, Borderline criteria for Lateral infarct are no longer Present Confirmed by Kaiden Cutler ([id number]) on 10/28/2022 2:00:15 PM Referred By: REFERRED SELF Confirmed By:Kaiden Cutler
--- NOTE | 2022-10-28 14:35 | Cardiology Consultation ---
Date of Consultation October 28, 2022 Assessment & Plan (1) Acute and chronic respiratory failure with hypercapnia: (2) IBALS (isolated bulbar amyotrophic lateral sclerosis): (3) Atypical chest pain: Plan Patient admitted for weakness, SOB, acute on chronic respiratory failure with hy percapnia from ALS. Also diagnosed with UTI. She reported atypical chest pain on admission during review of systems. Chest pain at time of consult was reproducible with palpitation to the left ch est wall/sternum. Her 2nd troponin was just minimally elevated at 14, with 1st and 3rd markers unremarkable. Not indicative of NSTEMI. Heparin stopped EKG without acute changes. Echo revealed structurally normal heart. Continue home meds of ASA and statin. Chart history of PVD. Can continue metorolol for HR/BP support. Recommend treatment of UTI with antibiotics. Blood cultures pending. She appears euvolemic if not volume depleted. No indication for diuretic therapy. No further cardiac testing warranted at this time. Case discussed with Dr. Chua I spent a total of 60 minutes on the date of service in preparation, delivery, and documentation of the care provided to this patient, excluding any time spent in the performance of separately billed services. Charity Kumar PA-C Department of Cardiology, [facility] This chart was completed in part utilizing Speech Voice Recognition Software. Grammatical errors, random word insertions, prounoun errors, and incomplete sen tences are an occasional consequence of this system due to software limitations, ambient noise, and hardware issues. Any formal questions or concerns about the content, text, or information contained within the body of this dictation should be directly addressed to the provider for clarification. Supervising Physician Co-Signing Physician Notes Supervising Physician Attestation: I have personally performed a history and physical examination on the patient. I agree with the physician food and beverage assistant's findings and plan as documented with the following additions. -Refer to separate note dated 10/28/2022 for additional details. Sebas Chua, DO History of Present Illness Reason for Consultation: Elevated troponin; Chest pain Requesting Physician: Dr. Stroud Attending Physician: Dr. Chua History of Present Illness Patient is a complex 82 year old female. Patient is non verbal due to ALS. She does answer questions by shaking her head "yes or no". history includes: 1. ALS 2. Dysphagia with PEG tube 3. Chronic respiratory failure/hypoxia/hypercapnia 4. Hypertension 5. dyslipidemia Previously saw Dr. Dent in 2020 for SOB. ECHO at that time revealed preserved LV systolic function without significant valvular heart disease. Patient admitted to [facility] for multifactorial weakness, "not feeling well", SOB and atypical chest pain. Per outpatient records, family and patient feel they are no longer able to care for her at home, and this was also reason for admission and possible placement. No family present at time of consult. all info obtained from inpatient/outpatient records. Patient reported left sided chest pain for several days. 2nd HS troponin only minimally elevated at 14 so cardiology was consulted. She has been on BIPAP for hypoxia and chronic respiratory failure due to ALS. Echo with preserved LVEF no wall motion abnormalities. EKG x2 without acute changes. Diagnosed with UTI as well and started on antibiotics At time of consult, patient reports left sided chest pain. Pain is reproducible upon palpation to the chest wall. She notes ongoing SOB. Review of systems is limited. Allergies Allergy/AdvReac Type Severity Reaction Status Date / Time No Known Drug Allergies Allergy Unknown Verified 10/27/22 19:23 Home Medications Medication Instructions Recorded Confirmed Type famotidine 20 mg tablet 20 mg PO QAM 10/27/22 10/27/22 History lactose-reduced food with fiber 1 ea feeding tube QID 10/27/22 10/27/22 History 0.06 gram-1.5 kcal/mL oral liquid (Jevity 1.5 Vaughn) metoprolol tartrate 25 mg tablet 12.5 mg feeding tube AMHS 10/27/22 10/27/22 History ondansetron 4 mg disintegrating 4 mg translingual Q8 PRN Nausea 10/27/22 10/27/22 History tablet Patient History Medical History Encounter for pre-operative examination History of breast cancer Alejandrina Gehrig disease Osteoarthritis Renal mass "PET scan 05/14/2010- partially calcified left renal lower pole 30x36 mm mass. PET scan 09/27/13 showed stable partially calcified mass lower pole L kidney." Uterine leiomyoma Surgical History History of carpal tunnel release History of partial mastectomy of right breast (04/14/10) Family History Mother Diabetes Other Heart disease Social History Smoking Status: Never smoker Second Hand Exposure: No; Do You Dip or Chew Tobacco: No; Hx Alcohol Use: No Hx Substance Use: No Preferred Language: Moroccan Communication Ability: Impaired Communication Ability Comment: Patient understands some Vietnamese and is able to answer yes and no questions Communication Tools: Facial Expression, Writing Tablet and Physical Gestures Play Back Operator Required: Yes Beliefs That Will Affect Care: None marital status: Single Current Living Situation: Alone How many Children do You have: 0 Feels Safe at Home: Yes Assistive Devices: None Review of Systems Review of Systems: Other (limited due to non verbal and on BIPAP. able to shake head 'yes/no') Physical Exam Constitutional: WD/WN, vitals as above + ill appearing and + frail appearing Respiratory: + labored breathing and + tachypneic Auscultation: + diminished lung sounds Cardiovascular: Rate/Rhythm: regular rate and regular rhythm Heart Sounds: no murmur Vessels: no JVD Extremities: no edema Gastrointestinal (Abdomen): normal bowel sounds, soft, nontender, no hepatosplenomegaly Skin: no rashes, warm and dry Results & Data Vital Signs (Past 12 Hours) Vital Signs Temp Pulse Pulse Resp BP Pulse Ox O2 Del Method 10/28/22 11:51 36.4 C L 69 20 99/51 L 92 CPAP 10/28/22 11:17 81 10/28/22 11:08 CPAP 10/28/22 10:12 68 25 H 92 10/28/22 07:51 36.3 C L 80 16 140/63 98 Nasal Cannula 10/28/22 04:12 Nasal Cannula 10/28/22 03:35 36.8 C 86 145/63 H 100 Nasal Cannula O2 Flow Rate 10/28/22 11:51 10/28/22 11:17 10/28/22 11:08 10/28/22 10:12 3 10/28/22 07:51 2 10/28/22 04:12 2 10/28/22 03:35 2 Laboratory Results Cardiac Enzymes 10/27/22 10/27/22 10/28/22 Range/Units 15:12 23:01 09:43 AST 25 (13-39) U/L Troponin I High Sens 8.7 14.1 H D 9.2 D (0-14) pg/ml Coagulation 10/27/22 10/27/22 10/28/22 Range/Units 15:12 23:01 09:43 PT 10.4 10.3 (9.0-12.0) Seconds APTT 26.5 26.6 38.1 H (21.0-31.0) Seconds Lipids 10/28/22 Range/Units 09:43 Triglycerides 178 H (0-150) mg/dl Cholesterol 202 H (0-200) mg/dl HDL Cholesterol 67 mg/dl Cholesterol/HDL Ratio 3.0 (0-5) CBC 10/27/22 10/27/22 10/28/22 Range/Units 15:12 23:01 09:43 WBC 10.72 8.76 15.06 H (4.8-10.8) K/ul RBC 4.12 L 4.37 4.07 L (4.20-5.40) M/uL Hgb 11.9 L 12.5 11.7 L (12.0-16.0) g/dl Hct 37.2 41.2 37.4 (37.0-47.0) % Plt Count 215 220 211 (130-400) K/uL Neut # (Auto) 9.07 H 6.96 H 13.98 H (1.40-6.50) K/uL Lymph # (Auto) 1.16 L 1.18 L 0.51 L (1.2-3.4) K/uL Charles # (Auto) 0.39 0.50 0.46 (0.11-0.59) K/uL Eos # (Auto) 0.05 0.08 0.01 (0-0.50) K/uL Baso # (Auto) 0.02 0.02 0.03 (0-0.2) K/uL Comprehensive Metabolic Panel 10/27/22 10/28/22 Range/Units 15:12 09:43 Sodium 141 139 (136-145) mmol/L Potassium 4.4 5.1 (3.5-5.1) mmol/L Chloride 96 L 97 L (98-107) mmol/L Carbon Dioxide 43 H* 41 H* (21-32) mmol/L BUN 30 H 25 H (6-23) mg/dl Creatinine 0.57 L 0.51 L (0.6-1.2) mg/dl Glucose 163 H 171 H (70-99(Fasting)) mg/dl Calcium 9.3 8.9 (8.6-10.3) mg/dl AST 25 (13-39) U/L ALT 21 (7-52) U/L Alkaline Phosphatase 54 (34-104) U/L Total Protein 7.0 (6.0-8.3) gm/dl Albumin 4.0 (3.4-5.0) gm/dl Intake and Output 10/28/22 10/28/22 10/28/22 06:59 14:59 22:59 Intake Total 130.533 / 130.533 Output Total 350 / 350 300 / 300 Balance -350 / -300 -169.467 / -169.467 Intake: IV 130.533 / 130.533 Heparin Sodium/Dextrose 25,000 130.533 / 130.533 units In 500 ml @ 900 UNITS/HR 18 mls/hr IV .Q24H [facility] Rx#: [id number] Output: Urine 350 / 350 Urine Amount (Catheter) 0 / 0 300 / 300 Rodgers/Indwelling 0 / 0 300 / 300 Other: Other Intake Source NPO Weight 55.7 kg Weight Measurement Method Built in [facility] Diagnostic Findings Telemetry reviewed: NSR, no arrhythmias Repeat EKG this morning: Normal sinus rhythm Normal ECG EKG on admission: Normal sinus rhythm Minimal voltage criteria for LVH, may be normal variant ( R in aVL ) Possible Lateral infarct (cited on or before 10-FEB-2022) Abnormal ECG When compared with ECG of 10-FEB-2022 14:00, No significant change Echocardiogram this admission: Normal LV systolic function with ejection fraction 65-70% no regional wall motion abnormalities. Grade 1 diastolic dysfunction. No significant valvular heart disease. Prior outpatient records: Echocardiogram 08/03/2019: Interpretation Summary The examination is adequate to evaluate the referral indication. The left ventricular cavity size is normal. The LV wall thickness is moderately increased (concentric). The basal septum is thickened and angulated consistent with sigmoid septum. The left ventricular wall motion is normal. The qualitative LV ejection fraction is 60-64% (normal). The left ventricular diastolic function is mildly abnormal (grade I). No significant valvular disease The right ventricular systolic function is normal as assessed by tricuspid annular plane systolic excursion (TAPSE) (normal >1.7 cm). There is no evidence of pulmonary hypertension. Medications Administered Current Inpatient Medications Acetaminophen (Acetaminophen Susp 325 Mg/10.15 Ml Udc) 650 mg PEG Q4H PRN PRN Reason: Pain or Fever Stop: 11/26/22 22:48 Last Admin: 10/28/22 14:56 Dose: 650 mg Aspirin (Aspirin 81 Mg Chew) 81 mg PEG DAILY [facility] Stop: 11/28/22 08:59 Atorvastatin Calcium (Atorvastatin 40 Mg Tab) 40 mg PEG QAM [facility] Stop: 11/27/22 08:59 Last Admin: 10/28/22 09:24 Dose: 40 mg Famotidine (Famotidine 20 Mg Tab) 20 mg JT QAM [facility] Stop: 11/27/22 08:59 Last Admin: 10/28/22 09:24 Dose: 20 mg Promethazine HCl 6.25 mg/ (Sodium Chloride) 50.25 mls @ 201 mls/hr IV Q6H PRN PRN Reason: Nausea And Vomiting Stop: 11/26/22 22:48 Ceftriaxone Sodium 2,000 mg/ (Dextrose) 70 mls @ 100 mls/hr IV Q24H [facility]; Protocol Stop: 11/07/22 17:59 Metoprolol Tartrate (Metoprolol Tartrate 25 Mg Tab) 12.5 mg PEG BID [facility] Stop: 11/26/22 23:44 Last Admin: 10/28/22 09:23 Dose: 12.5 mg Morphine Sulfate (Morphine Sulfate 2 Mg/Ml Carp) 2 mg IV Q3H PRN PRN Reason: Pain Stop: 11/11/22 01:48 Last Admin: 10/28/22 04:01 Dose: 2 mg
--- NOTE | 2022-10-28 15:53 | Communication Note ---
Date of Service: October 28, 2022 Supervising Physician Attestation: I have personally performed a history and physical examination on the patient. I agree with the physician physical therapist assistant's findings and plan as documented with the following additions. Subjective: At the time of my assessment, patient was on positive pressure ventilation. An arterial blood gas obtained on 10/28/2022 at 603 revealed CO2 retention with pH of 7.24, and PCO2 of 111. PO2 is 140, HCO3 48. A repeat sample was obtained at 1228 after she had been on positive pressure ventilation, with interval improvement with pH of 7.39, PCO2 of 76, PO2 92, HCO3 of 46. Difficult to obtain history patient able to answer yes/no questions. Exam: Cardiovascular regular rhythm, no murmurs, no edema Pulmonary: Clear lungs Data: Echocardiogram performed 10/28/2022 and interpreted independently: Normal left ventricular systolic function, LVEF 65 to 70%, no significant valvular heart disease Normal wall motion. EKG tracing obtained 10/27/2022 at 1504 and another repeat study performed today revealed sinus rhythm with chronic possible lateral infarct pattern noted in the precordial leads. No acute repolarization changes. High-sensitivity troponin levels 8.7--> 14.1--> 9.2 Assessment and Plan: -Patient presents with generalized illness, urinalysis is abnormal, and urine culture preliminarily now growing gram-negative bacilli. -History is insufficient to characterize patient is having or not having angina. -- High-sensitivity troponin levels are reassuring as is normal wall motion on echocardiogram and EKG tracings that are not reflective of ischemia. -Continue prior to hospital treatment with metoprolol. -We will discontinue aspirin and atorvastatin with noted LDL level of 99 mg/dL. -Unfractioned heparin infusion discontinued. Consider transitioning to DVT prophylaxis dose subcutaneous heparin or Lovenox. -Agree with antibiotic therapy for urinary tract infection. -Potassium levels trended up to 5.1 and will need to be followed. -Patient's family is bringing in her home CPAP machine without that she will be more comfortable with her mask. Sebas Chua, DO
--- NOTE | 2022-10-28 16:51 | Pulmonary Consultation ---
Date of Consultation October 28, 2022 Assessment & Plan (1) Acute and chronic respiratory failure with hypercapnia: (2) IBALS (isolated bulbar amyotrophic lateral sclerosis): (3) Metabolic alkalosis: Plan Chest x-ray 10/27/2022 personally reviewed: Portable film, poor inspiratory effort, bilateral costophrenic and cardiophrenic units are clean, gastric bubble on the left side, no clear lung infiltrate appreciated 2D echo 10/28/2022: EF 65 to 70%, grade 1 diastolic dysfunction, RV normal in size and function ABG 10/28/2022: 7.24/111/140 on 2 L nasal cannula -- Acute hypercapnic respiratory failure Multifactorial Likely sepsis from UTI as well as component of underlying ALS and decreased respiratory drive Procalcitonin negative SARS 19 NAAT negative -- Metabolic alkalosis Likely secondary to compensation from chronic respiratory acidosis --Gram-negative UTI Management as per primary care --DNR/DNI Plan: Patient's hypercapnic respiratory failure was likely from her not being on BiPAP/AVAPS overnight. Do not over oxygenate the patient, keep O2 saturation between 88-92% Whenever patient is dozing off/sleeping would recommend to put her on AVAPS Repeat ABG in the morning, if the pH is within normal limit then we will give the patient acetazolamide for the metabolic alkalosis which she has Case was discussed with RN at bedside Please note the above document was generated using voice recognition software. It may contain grammatical, syntax or spelling errors.Any formal questions or concerns about the content, text or information contained within the body of this dictation should be directly addressed to the provider for clarification. History of Present Illness Attending Physician: Tristian Swift MD History of Present Illness 82-year-old female presented to the hospital because of generalized weakness Past medical history: Chronic hypercapnic respiratory failure on nocturnal CPAP as well as home oxygen, hypertension, dyslipidemia, right-sided breast cancer s/p lumpectomy and radiation, PEG tube placement secondary to aspiration episodes Pulmonary consulted for respiratory issues At the time of examination patient was saturating 98% on 2 L. I went down to 1 L and the nurse to gradually titrate her off She was awake and alert. She is nonverbal She was following commands Denied any headache, no nausea vomiting No chest pain, no abdominal pain. Was moving all extremities on command. Social history: Lifetime non-smoker, no alcohol. Used to work as a dentist Allergies Allergy/AdvReac Type Severity Reaction Status Date / Time No Known Drug Allergies Allergy Unknown Verified 10/27/22 19:23 Home Medications Medication Instructions Recorded Confirmed Type famotidine 20 mg tablet 20 mg PO QAM 10/27/22 10/27/22 History lactose-reduced food with fiber 1 ea feeding tube QID 10/27/22 10/27/22 History 0.06 gram-1.5 kcal/mL oral liquid (Jevity 1.5 Vaughn) metoprolol tartrate 25 mg tablet 12.5 mg feeding tube AMHS 10/27/22 10/27/22 History ondansetron 4 mg disintegrating 4 mg translingual Q8 PRN Nausea 10/27/22 10/27/22 History tablet Patient History Medical History Encounter for pre-operative examination History of breast cancer Alejandrina Gehrig disease Osteoarthritis Renal mass "PET scan 05/14/2010- partially calcified left renal lower pole 30x36 mm mass. PET scan 09/27/13 showed stable partially calcified mass lower pole L kidney." Uterine leiomyoma Surgical History History of carpal tunnel release History of partial mastectomy of right breast (04/14/10) Family History Mother Diabetes Other Heart disease Social History Smoking Status: Never smoker Second Hand Exposure: No; Do You Dip or Chew Tobacco: No; Hx Alcohol Use: No Hx Substance Use: No Preferred Language: Tanzanian Communication Ability: Impaired Communication Ability Comment: Patient understands some Indian and is able to answer yes and no questions Communication Tools: Writing Tablet Commercial Baker Helper Required: Yes Beliefs That Will Affect Care: None marital status: Single Current Living Situation: Alone How many Children do You have: 0 Feels Safe at Home: Yes Assistive Devices: None Review of Systems Review of Systems: All systems reviewed & are unremarkable except as noted in HPI & below Physical Exam Physical Exam: Constitutional: No acute distress HEENT: EOMI, PERRLA Respiratory system: Good air entry bilaterally, no wheeze, no rhonchi, no crackles CVS: S1-S2 positive, positive 2 out of 6 systolic murmur appreciated best at aorta Abdomen: Soft, nontender, nondistended, positive bowel sounds x4 Extremities: +2 pulses bilaterally radialis/ dorsalis pedis, no cyanosis, +3 pitting edema bilateral lower extremity Neuro: Awake alert oriented x3 Psych: Normal mood and affect G/U: Positive Rodgers Skin: no rashes, warm and dry Lymphatic: no cervical or axillary lymphadenopathy Results & Data Results & Data Vital Signs (Past 12 Hours) Vital Signs Temp Pulse Pulse Resp BP Pulse Ox O2 Del Method 10/28/22 14:42 36.4 C L 78 22 139/68 97 Nasal Cannula 10/28/22 11:51 36.4 C L 69 20 99/51 L 92 CPAP 10/28/22 11:17 81 10/28/22 11:08 CPAP 10/28/22 10:12 68 25 H 92 10/28/22 07:51 36.3 C L 80 16 140/63 98 Nasal Cannula O2 Flow Rate 10/28/22 14:42 2 10/28/22 11:51 10/28/22 11:17 10/28/22 11:08 10/28/22 10:12 3 10/28/22 07:51 2 Laboratory Results 10/28/22 09:43 10/28/22 09:43 PG Care Time/CCT Total # of Minutes Spent Total Time Spent with Patient: Total time spent is greater than 50% in coordination of care (as documented) at patient's floor/unit and/or counseling patient: Coding Level of Care Code 53633 INT INP/OBS CARE 3/75MIN Diagnoses Acute and chronic respiratory failure with hypercapnia J96.22 IBALS (isolated bulbar amyotrophic lateral sclerosis) G12.21 Metabolic alkalosis E87.3
[2022-10-28] MEDS: cefTRIAXone SODIUM 2,000 MG in DEXTROSE 5% 50 ML IV SCH (17:08)
[2022-10-28] MEDS: D5W AND NSS 1,000 ML IV SCH (17:16)
[2022-10-29] MEDS: D5W AND NSS 1,000 ML IV SCH (06:06)
[2022-10-29 06:14] LABS: HCO3 ABG 44 mmol/L (19-24); Oxygen Saturation ABG 92.5 % (90-95); PCO2 ABG 66 mmHg (35-46); PO2 ABG 55 mmHg (80-95); pH ABG 7.43 (7.35-7.45)
[2022-10-29 06:58] LABS: Allen Test Pos (Pos)
--- NOTE | 2022-10-29 08:45 | Pulmonology Progress Note ---
Date of Service October 29, 2022 Assessment & Plan (1) Acute and chronic respiratory failure with hypercapnia: (2) IBALS (isolated bulbar amyotrophic lateral sclerosis): (3) Metabolic alkalosis: Plan Chest x-ray 10/27/2022 personally reviewed: Portable film, poor inspiratory effort, bilateral costophrenic and cardiophrenic units are clean, gastric bubble on the left side, no clear lung infiltrate appreciated 2D echo 10/28/2022: EF 65 to 70%, grade 1 diastolic dysfunction, RV normal in size and function ABG 10/28/2022: 7.24/111/140 on 2 L nasal cannula -- Acute hypercapnic respiratory failure Multifactorial Likely sepsis from UTI leading to noncompliance of her AVAPS As well as component of underlying ALS and decreased respiratory drive Procalcitonin negative SARS 19 NAAT negative -- Metabolic alkalosis Likely secondary to compensation from chronic respiratory acidosis --Gram-negative UTI Management as per primary care --DNR/DNI Plan: ABG 10/29/2022: 7.43/66/55 on room air l will give the patient acetazolamide for the metabolic alkalosis, 250 mg twice daily for 3 days Patient's hypercapnic respiratory failure was likely from her not being on BiPAP/AVAPS overnight. Do not over oxygenate the patient, keep O2 saturation between 88-92% Whenever patient is dozing off/sleeping would recommend to put her on AVAPS Case was discussed with RN at bedside Please note the above document was generated using voice recognition software. It may contain grammatical, syntax or spelling errors.Any formal questions or concerns about the content, text or information contained within the body of this dictation should be directly addressed to the provider for clarification. Admission and Anticipated Discharge Date Admission Date: October 27, 2022 Subjective Patient seen and examined at bedside. No acute distress, no new symptoms overnight She did use her AVAPS machine She was alert sitting on the chair. Saturating 95% on 2 L nasal cannula Denies any chest pain No headache. Review of Systems Review of Systems: All systems reviewed & are unremarkable except as noted in Subjective Physical Exam Physical Exam: Constitutional: No acute distress HEENT: EOMI, PERRLA Respiratory system: Good air entry bilaterally, no wheeze, no rhonchi, no crackles CVS: S1-S2 positive, positive 2 out of 6 systolic murmur appreciated best at aorta Abdomen: Soft, nontender, nondistended, positive bowel sounds x4 Extremities: +2 pulses bilaterally radialis/ dorsalis pedis, no cyanosis, +2 pitting edema bilateral lower extremity Neuro: Awake alert oriented x3 Psych: Normal mood and affect G/U: Positive Rodgers Skin: no rashes, warm and dry Lymphatic: no cervical or axillary lymphadenopathy Results & Data Results & Data Vital Signs (Past 12 Hours) Vital Signs Temp Pulse Pulse Resp BP Pulse Ox Pulse Ox 10/29/22 08:00 36.8 C 75 20 158/69 H 98 10/29/22 03:57 36.7 C 70 22 121/66 97 10/29/22 03:56 73 28 H 92 10/29/22 00:00 60 10/28/22 23:59 94 10/28/22 23:44 36.3 C L 69 20 113/61 94 10/28/22 23:12 62 21 O2 Del Method O2 Del Method O2 Flow Rate O2 Flow Rate 10/29/22 08:00 Room Air 10/29/22 03:57 BiPAP 10/29/22 03:56 2 10/29/22 00:00 10/28/22 23:59 CPAP 2 10/28/22 23:44 BiPAP 10/28/22 23:12 2 Laboratory Results 10/28/22 09:43 10/28/22 09:43 PG Care Time/CCT Total # of Minutes Spent Total Time Spent with Patient: Total time spent is greater than 50% in coordination of care (as documented) at patient's floor/unit and/or counseling patient: Coding Level of Care Code 00469 SUB INP/OBS CARE 3/50MIN Diagnoses Acute and chronic respiratory failure with hypercapnia J96.22 IBALS (isolated bulbar amyotrophic lateral sclerosis) G12.21 Metabolic alkalosis E87.3
[2022-10-29] MEDS ORDERED: ASPIRIN 81 MG ECTAB PO SCH (09:00)
[2022-10-29] MEDS ORDERED: acetaZOLAMIDE 250 MG in DEXTROSE 5% 100 ML IV SCH (09:00)
[2022-10-29] MEDS ORDERED: ASPIRIN 81 MG CHEW PEG SCH (09:00)
[2022-10-29 09:12] LABS: Basophils # (auto) 0.03 K/uL (0-0.2); Basophils % (auto) 0.2 %; Eosinophils # (auto) 0.05 K/uL (0-0.50); Eosinophils % (auto) 0.4 %; Hematocrit (blood only) 35.8 % (37.0-47.0); Immature Granulocytes # (auto) 0.06 K/uL (0.01-0.20); Immature Granulocytes % (auto) 0.5 %; Lymphocytes # (auto) 0.78 K/uL (1.2-3.4); Lymphocytes % (auto) 6.2 %; Mean Corpuscular Hemoglobin 28.3 pg (25.0-34.0); Mean Corpuscular Hgb Conc 30.7 g/dL (32.0-36.0); Mean Platelet Volume 10.5 fL (9.4-12.4); Monocytes # (auto) 0.53 K/uL (0.11-0.59); Monocytes % (auto) 4.2 %; Neutrophils # (auto) 11.14 K/uL (1.40-6.50); Neutrophils % (auto) 88.5 %; Platelet Count 178 K/uL (130-400); RDW Coefficient of Variation 13.6 % (11.5-14.5); RDW Standard Deviation 45.8 fL (36.4-46.3); Red Blood Count 3.89 M/uL (4.20-5.40); White Blood Count 12.59 K/ul (4.8-10.8)
[2022-10-29 09:20] LABS: BUN Creatinine Ratio 36.2 (10-20); Calcium 8.5 mg/dl (8.6-10.3); Creatinine Clr Calc Pharmacy 68.6 ml/min; Est GFR (African American) 108.1 ml/min; Est GFR (Non-African American) 93.3 ml/min; Potassium 4.2 mmol/L (3.5-5.1)
[2022-10-29] MEDS: FAMOTIDINE 20 MG TAB JT SCH (09:28)
[2022-10-29] MEDS: METOPROLOL TARTRATE 25 MG TAB PEG SCH ×2 (09:28→21:16)
[2022-10-29] MEDS ORDERED: ondansetron HCL 6 MG in DEXTROSE 5% 50 ML IV PRN (09:29)
[2022-10-29] MEDS ORDERED: PANTOprazole 40 MG in SYRINGE 0 ML IV STA (09:30)
--- NOTE | 2022-10-29 10:33 | Electrocardiogram Report ---
Test Reason : Blood Pressure : / mmHG Vent. Rate : 072 BPM Atrial Rate : 072 BPM P-R Int : 148 ms QRS Dur : 074 ms QT Int : 376 ms P-R-T Axes : 059 -04 047 degrees QTc Int : 411 ms Normal sinus rhythm Normal ECG When compared with ECG of 28-OCT-2022 07:32, No significant change was found Confirmed by Kaiden Cutler ([id number]) on 10/29/2022 10:32:40 AM Referred By: REFERRED SELF Confirmed By:Kaiden Cutler
[2022-10-29] MEDS ORDERED: TUBE FEEDING WATER FLUSH PEG SCH (11:00)
--- NOTE | 2022-10-29 11:07 | Cardiology Progress Note ---
Date of Service October 29, 2022 Assessment & Plan (1) Acute and chronic respiratory failure with hypercapnia: (2) IBALS (isolated bulbar amyotrophic lateral sclerosis): (3) Atypical chest pain: Plan Patient admitted for weakness, SOB, acute on chronic respiratory failure with hypercapnia from ALS. Also diagnosed with UTI. She reported atypical chest pain on admission during review of systems. Chest pain at time of consult was reproducible with palpitation to the left chest wall/sternum. Her 2nd troponin was just minimally elevated at 14, with 1st and 3rd markers unremarkable. her echo revealed normal LVEF without wall motion abnormalities. No valvular disease. CP and minimally elevated troponin is not indicative of NSTEMI. Heparin stopped EKG without acute changes. Can continue metoprolol for HR/BP support. Recommend treatment of UTI with antibiotics. Prelim blood cultures are negative. Pulm following for acute on chronic respiratory failure with hypercapnia. She appears euvolemic if not volume depleted. No indication for diuretic therapy. No further cardiac testing warranted at this time. Case discussed with Dr. Chua I spent a total of 30 minutes on the date of service in preparation, delivery, and documentation of the care provided to this patient, excluding any time spent in the performance of separately billed services. Charity Kumar PA-C Department of Cardiology, [facility] This chart was completed in part utilizing Speech Voice Recognition Software. Grammatical errors, random word insertions, prounoun errors, and incomplete sentences are an occasional consequence of this system due to software limitations, ambient noise, and hardware issues. Any formal questions or concerns about the content, text, or information contained within the body of this dictation should be directly addressed to the provider for clarification. Admission and Anticipated Discharge Date Admission Date: October 27, 2022 Supervising Physician Co-Signing Physician Notes Supervising Physician Attestation: I have personally performed a history and physical examination on the patient. I agree with the physician portfolio assistant's findings and plan as documented with the following additions. Subjective: Patient with more energy today. No acute complaints. Exam: Patient was off of positive pressure ventilation at the time of my exam Cardiovascular: Regular rhythm, no murmurs, no edema Pulmonary: Lungs clear to auscultation bilaterally Assessment and Plan: -Clinical presentation not suggestive of an acute coronary syndrome at present. Work-up thus far reassuring -Per review of outpatient medication list she is not on aspirin or statin at baseline, and therefore these have been discontinued in effort to avoid bleeding complication, also related complication. -Continue metoprolol. DVT prophylaxis: Consider pharmacologic DVT prophylaxis given her risk I spent a total of 20 minutes on the date of service in preparation, delivery, and documentation of the care provided to this patient, excluding any time spent in the performance of separately billed services. Sebas Chua, DO Subjective Patient resting out of bed in chair. Tolerating NC. Tachypnea improved from yesterday. communicates by shaking head 'yes/no'. She denies worsening CP. SOB improved. Review of Systems Review of Systems: Other (Limited due to being non verbal) Physical Exam Constitutional: WD/WN, vitals as above + ill appearing and + frail appearing Respiratory: no respiratory distress Auscultation: + diminished lung sounds Cardiovascular: Rate/Rhythm: regular rate and regular rhythm Heart Sounds: no murmur Vessels: no JVD Extremities: no edema Gastrointestinal (Abdomen): normal bowel sounds, soft, nontender, no hepatosplenomegaly Skin: no rashes, warm and dry Results & Data Vital Signs (Past 12 Hours) Vital Signs Temp Pulse Pulse Resp BP Pulse Ox Pulse Ox 10/29/22 08:00 36.8 C 75 20 158/69 H 98 10/29/22 03:57 36.7 C 70 22 121/66 97 10/29/22 03:56 73 28 H 92 10/29/22 00:00 60 10/28/22 23:59 94 10/28/22 23:44 36.3 C L 69 20 113/61 94 10/28/22 23:12 62 21 O2 Del Method O2 Del Method O2 Flow Rate O2 Flow Rate 10/29/22 08:00 Room Air 10/29/22 03:57 BiPAP 10/29/22 03:56 2 10/29/22 00:00 10/28/22 23:59 CPAP 2 10/28/22 23:44 BiPAP 10/28/22 23:12 2 Laboratory Results Cardiac Enzymes 10/28/22 Range/Units 17:03 B-Natriuretic Peptide 136 H (0-100) pg/ml Coagulation 10/28/22 Range/Units 17:03 B-Natriuretic Peptide 136 H (0-100) pg/ml CBC 10/29/22 Range/Units 08:35 WBC 12.59 H (4.8-10.8) K/ul RBC 3.89 L (4.20-5.40) M/uL Hgb 11.0 L (12.0-16.0) g/dl Hct 35.8 L (37.0-47.0) % Plt Count 178 (130-400) K/uL Neut # (Auto) 11.14 H (1.40-6.50) K/uL Lymph # (Auto) 0.78 L (1.2-3.4) K/uL [place] # (Auto) 0.53 (0.11-0.59) K/uL Eos # (Auto) 0.05 (0-0.50) K/uL Baso # (Auto) 0.03 (0-0.2) K/uL Comprehensive Metabolic Panel 10/29/22 Range/Units 08:35 Sodium 142 (136-145) mmol/L Potassium 4.2 (3.5-5.1) mmol/L Chloride 99 (98-107) mmol/L Carbon Dioxide 42 H* (21-32) mmol/L BUN 17 (6-23) mg/dl Creatinine 0.47 L (0.6-1.2) mg/dl Glucose 127 H (70-99(Fasting)) mg/dl Calcium 8.5 L (8.6-10.3) mg/dl Intake and Output 10/28/22 10/29/22 10/29/22 22:59 06:59 14:59 Intake Total 1070 / 2213.283 1012.75 / 2213.283 Output Total 450 / 1200 450 / 1200 Balance 620 / 1013.283 562.75 / 1013.283 Intake: IV 1070 / 2213.283 1012.75 / 2213.283 D5w and Nss 1,000 ml @ 75 mls/ 962.5 / 962.5 hr IV .[id number] [facility] Rx#:[id number] Promethazine HCl 6.25 mg In 50.25 / 50.25 Sodium Chloride 0.9% 50 ml @ 201 mls/hr IV Q6H PRN Rx#: [id number] Sodium Chloride 0.45 % 1,000 ml 1000 / 1000 @ 75 mls/hr IV .[id number] STA Rx #:[id number] cefTRIAXone SODIUM 2,000 mg In 70 / 70 Dextrose 5% 50 ml @ 100 mls/hr IV Q24H [facility] Rx#:[id number] Output: Urine Amount (Catheter) 450 / 1200 450 / 1200 Rodgers/Indwelling 450 / 1200 450 / 1200 Other: Other Intake Source NPO NPO Weight 55.7 kg 52.1 kg Weight Measurement Method Standing Scale Diagnostic Findings Telemetry reviewed: NSR in the 60-70 range. No arrhythmias. Echo yesterday with preserved LVEF. no significant valvular disease. No wall motion abnormalities. Medications Administered Current Inpatient Medications Acetaminophen (Acetaminophen Susp 325 Mg/10.15 Ml Udc) 650 mg PEG Q4H PRN PRN Reason: Pain or Fever Stop: 11/26/22 22:48 Last Admin: 10/28/22 14:56 Dose: 650 mg Enteral Nutritional Formula (Peptamen 1.5 Vaughn 1,000 Ml Bag) 1,000 ml PEG .See Protocol [facility]; Protocol Stop: 11/28/22 10:59 Famotidine (Famotidine 20 Mg Tab) 20 mg JT QAM [facility] Stop: 11/27/22 08:59 Last Admin: 10/29/22 09:28 Dose: 20 mg Promethazine HCl 6.25 mg/ (Sodium Chloride) 50.25 mls @ 201 mls/hr IV Q6H PRN PRN Reason: Nausea And Vomiting Stop: 11/26/22 22:48 Last Infusion: 10/29/22 06:17 Dose: Infused Ceftriaxone Sodium 2,000 mg/ (Dextrose) 70 mls @ 100 mls/hr IV Q24H [facility]; Protocol Stop: 11/07/22 17:59 Last Infusion: 10/28/22 17:54 Dose: Infused Dextrose/Sodium Chloride (D5w And Nss) 1,000 mls @ 75 mls/hr IV .[id number] [facility] Stop: 11/27/22 16:59 Last Admin: 10/29/22 06:06 Dose: 75 mls/hr Acetazolamide 250 mg/ Dextrose 102.5 mls @ 100 mls/hr IV BID [facility] Stop: 10/31/22 22:02 Last Admin: 10/29/22 10:18 Dose: 100 mls/hr Ondansetron HCl 6 mg/ Dextrose 53 mls @ 200 mls/hr IV Q6H PRN PRN Reason: Nausea And Vomiting Stop: 11/28/22 09:28 Last Admin: 10/29/22 10:40 Dose: 200 mls/hr Pantoprazole Sodium 40 mg/ (Syringe) 10 mls @ 5 mls/min IV DAILY ONE Stop: 10/30/22 09:01 Metoprolol Tartrate (Metoprolol Tartrate 25 Mg Tab) 12.5 mg PEG BID [facility] Stop: 11/26/22 23:44 Last Admin: 10/29/22 09:28 Dose: 12.5 mg Morphine Sulfate (Morphine Sulfate 2 Mg/Ml Carp) 2 mg IV Q3H PRN PRN Reason: Pain Stop: 11/11/22 01:48 Last Admin: 10/28/22 18:42 Dose: 2 mg Multivitamins/Minerals (Multi Vit W/Minerals Liquid 15 Ml Udp) 15 ml PEG QAM [facility] Stop: 11/29/22 08:59 Sterile Water (Tube Feeding Water Flush) 175 ml PEG Q4H [facility] Stop: 11/28/22 10:59
--- NOTE | 2022-10-29 14:32 | Hospitalist Progress Note ---
Date of Service October 29, 2022 Assessment & Plan (1) Acute and chronic respiratory failure with hypercapnia: Plan: ALS -- Currently on 2 L but with tachypnea ABG showing pH of 7.24, PCO2 111, PO2 140, bicarb 48 --Chest x-ray no infiltrates or effusion -- BiPAP ordered Repeat ABG at 12 noon -- Pulmonary service consulted / respiratory status stable ABG this morning ok Pulm recommendations noted Acetazolimide started Bipap while sleeping O2 sat goal 88-92% monitor closely UTI --Urine culture: Klebsiella Blood cultures: negative so far -- On IV ceftriaxone day 2 Troponin elevation --Troponin elevated to 14 Third troponin negative --EKG no signs of acute ischemia or infarct -- Continues on metoprolol, aspirin, Lipitor -- Cardiology service on board hx PVD aspirin hypertension,monitor Hyperlipidemia, not on statin Rx right breast cancer status post surgery/radiation, patient in remission aspiration risk status post PEG tube placement-- resume peg tube feeding today chronic anemia, hemoglobin at baseline Worsening functional disability-- will need to transition to SNF DVT prophylaxis heparin subcutaneous DNR as per patient's prior directives. plan of care discussed with patient all questions answered she is understanding, agreeable, comfortable with the plan of care Admission and Anticipated Discharge Date Admission Date: October 27, 2022 Subjective ff up for UTI, etc seen resting in chair, comfortable alert, responding to all questions appropriately states she feels ok, still somewhat weak no abdominal pain, nausea, fever/chills no dyspnea, cough no other new symptoms Review of Systems Review of Systems: all noted and negative except for above Physical Exam Physical Exam: General- oriented x 3, not in distress, breathing with no effort or accessory muscle use Eyes- anicteric Neck- no JVD Lungs- clear breath sounds bilaterally, no rales/wheezes Heart- normal rate, regular rhythm; no murmurs Abdomen- normal bowel sounds, nondistended, soft, nontender Extremities- no pretibial edema, no calf tenderness Neuro- alert, oriented x 3; no new gross focal neurologic deficits Skin- warm & dry Results & Data Results & Data Vital Signs (Past 12 Hours) Vital Signs Temp Pulse Pulse Resp BP Pulse Ox O2 Del Method 10/29/22 12:21 Nasal Cannula, BiPAP 10/29/22 12:04 70 21 95 10/29/22 11:30 36.6 C 72 17 155/72 H 100 Nasal Cannula 10/29/22 08:00 36.8 C 75 20 158/69 H 98 Room Air 10/29/22 03:57 36.7 C 70 22 121/66 97 BiPAP 10/29/22 03:56 73 28 H 92 O2 Flow Rate 10/29/22 12:21 1 10/29/22 12:04 1 10/29/22 11:30 1 10/29/22 08:00 10/29/22 03:57 10/29/22 03:56 2 all noted and reviewed including below
[2022-10-29] MEDS: TUBE FEEDING WATER FLUSH PEG SCH ×4 (14:43→23:00)
[2022-10-29] MEDS: PEPTAMEN 1.5 CAL 1,000 ML BAG PEG SCH (14:43)
[2022-10-29] MEDS: cefTRIAXone SODIUM 2,000 MG in DEXTROSE 5% 50 ML IV SCH (18:28)
--- NOTE | 2022-10-29 18:45 | CT Scan Report ---
HEAD CT NONCONTRAST CT DOSE: 1421.31 mGycm HISTORY: s/p fall, r/o bleed TECHNIQUE: Multiaxial CT images of the head were performed without the use of intravenous contrast. A utomated exposure control was utilized for this study. A dose lowering technique was utilized adheri ng to the principles of ALARA. Comparison: Head CT 02/07/2022. Findings: The paranasal sinuses and mastoid air cells are clear. The calvarium and skull base are int act. There is no mass, hematoma, midline shift, acute infarct. White matter hypodensity is nonspecifi c but suggestive of microvascular ischemic change. The ventricles and sulci demonstrate mild age-rela bia involutional changes. Impression: No acute intracranial abnormality. ACT 112: Negative or not required by law. Electronically signed by: Ramirez Cunningham M.D. 10/29/2022 6:43 PM
[2022-10-29] MEDS: acetaZOLAMIDE 250 MG in SYRINGE 0 ML IV SCH (21:17)
[2022-10-29] MEDS: ACETAMINOPHEN SUSP 325 MG/10.15 ML UDC PEG PRN (22:54)
[2022-10-30] MEDS ORDERED: KETOROLAC TROMETHAMINE 15 MG/ML VIAL IV ONE (01:40)
[2022-10-30] MEDS ORDERED: oxyCODONE HCL SOLN 5 MG/5 ML UDC GT PRN (01:55)
[2022-10-30] MEDS: DICLOFENAC SOD 1% GEL 100 GM TUBE EXT PRN ×2 (02:05→09:09)
[2022-10-30] MEDS: TUBE FEEDING WATER FLUSH PEG SCH ×6 (03:00→23:00)
--- NOTE | 2022-10-30 08:45 | Pulmonology Progress Note ---
Date of Service October 30, 2022 Assessment & Plan (1) Acute and chronic respiratory failure with hypercapnia: (2) IBALS (isolated bulbar amyotrophic lateral sclerosis): (3) Metabolic alkalosis: Plan Chest x-ray 10/27/2022 personally reviewed: Portable film, poor inspiratory effort, bilateral costophrenic and cardiophrenic units are clean, gastric bubble on the left side, no clear lung infiltrate appreciated 2D echo 10/28/2022: EF 65 to 70%, grade 1 diastolic dysfunction, RV normal in size and function ABG 10/28/2022: 7.24/111/140 on 2 L nasal cannula -- Acute hypercapnic respiratory failure Multifactorial Likely sepsis from UTI leading to noncompliance of her AVAPS As well as component of underlying ALS and decreased respiratory drive Procalcitonin negative SARS 19 NAAT negative -- Metabolic alkalosis Likely secondary to compensation from chronic respiratory acidosis --Gram-negative UTI Management as per primary care --DNR/DNI Plan: Continue with acetazolamide for the metabolic alkalosis, 250 mg twice daily for total of 3 days Patient's hypercapnic respiratory failure was likely from her not being on BiPAP/AVAPS overnight. Do not over oxygenate the patient, keep O2 saturation between 88-92% Whenever patient is dozing off/sleeping would recommend to put her on AVAPS No further recommendation from pulmonary perspective, will sign off Please call directly with any questions Case was discussed with RN at bedside Please note the above document was generated using voice recognition software. It may contain grammatical, syntax or spelling errors.Any formal questions or concerns about the content, text or information contained within the body of this dictation should be directly addressed to the provider for clarification. Admission and Anticipated Discharge Date Admission Date: October 27, 2022 Subjective Patient seen and examined at bedside. No acute distress Patient was seen to be little lethargic compared to yesterday Complain of mild headache No chest pain, no shortness of breath Has been getting tube feeds On speaking with the nurse I found out that she did not use her throughout the night. Review of Systems Review of Systems: All systems reviewed & are unremarkable except as noted in Subjective Physical Exam Physical Exam: Constitutional: No acute distress HEENT: EOMI, PERRLA Respiratory system: Good air entry bilaterally, no wheeze, no rhonchi, no crackles CVS: S1-S2 positive, positive 2 out of 6 systolic murmur appreciated best at aorta Abdomen: Soft, nontender, nondistended, positive bowel sounds x4 Extremities: +2 pulses bilaterally radialis/ dorsalis pedis, no cyanosis, +1 pitting edema bilateral lower extremity Neuro: Awake alert oriented self and place Psych: Normal mood and affect G/U: Positive Rodgers Skin: no rashes, warm and dry Lymphatic: no cervical or axillary lymphadenopathy Results & Data Results & Data Vital Signs (Past 12 Hours) Vital Signs Temp Pulse Pulse Resp BP Pulse Ox O2 Del Method 10/30/22 07:00 36.6 C 81 20 152/77 H 99 Nasal Cannula 10/30/22 04:48 36.6 C 74 24 131/68 94 CPAP 10/30/22 02:16 27 H 10/29/22 22:50 67 24 94 10/29/22 22:00 66 10/29/22 21:00 Nasal Cannula 10/29/22 22:33 36.6 C 65 18 123/67 97 CPAP O2 Flow Rate 10/30/22 07:00 1 10/30/22 04:48 1 10/30/22 02:16 1 10/29/22 22:50 1 10/29/22 22:00 10/29/22 21:00 1 10/29/22 22:33 1 Laboratory Results 10/29/22 08:35 10/29/22 08:35 PG Care Time/CCT Total # of Minutes Spent Total Time Spent with Patient: Total time spent is greater than 50% in coordination of care (as documented) at patient's floor/unit and/or counseling patient: Coding Level of Care Code 41580 SUB INP/OBS CARE 2/35MIN Diagnoses Acute and chronic respiratory failure with hypercapnia J96.22 IBALS (isolated bulbar amyotrophic lateral sclerosis) G12.21 Metabolic alkalosis E87.3
[2022-10-30] MEDS: MULTI VIT W/MINERALS LIQUID 15 ML UDP PEG SCH (08:54)
[2022-10-30] MEDS: METOPROLOL TARTRATE 25 MG TAB PEG SCH ×2 (08:54→20:41)
[2022-10-30] MEDS: FAMOTIDINE 20 MG TAB JT SCH (08:54)
[2022-10-30] MEDS ORDERED: PANTOprazole 40 MG in SYRINGE 0 ML IV ONE (09:00)
[2022-10-30] MEDS: acetaZOLAMIDE 250 MG in SYRINGE 0 ML IV SCH ×2 (09:06→20:42)
[2022-10-30 09:30] LABS: Basophils # (auto) 0.04 K/uL (0-0.2); Basophils % (auto) 0.4 %; Eosinophils # (auto) 0.06 K/uL (0-0.50); Eosinophils % (auto) 0.6 %; Hematocrit (blood only) 37.8 % (37.0-47.0); Hemoglobin 11.4 g/dl (12.0-16.0); Immature Granulocytes # (auto) 0.06 K/uL (0.01-0.20); Immature Granulocytes % (auto) 0.6 %; Lymphocytes # (auto) 1.02 K/uL (1.2-3.4); Lymphocytes % (auto) 9.8 %; Mean Corpuscular Hemoglobin 28.7 pg (25.0-34.0); Mean Corpuscular Hgb Conc 30.2 g/dL (32.0-36.0); Mean Corpuscular Volume 95.2 fL (80.0-100.0); Mean Platelet Volume 10.6 fL (9.4-12.4); Monocytes # (auto) 0.67 K/uL (0.11-0.59); Monocytes % (auto) 6.4 %; Neutrophils # (auto) 8.59 K/uL (1.40-6.50); Neutrophils % (auto) 82.2 %; Platelet Count 197 K/uL (130-400); RDW Coefficient of Variation 13.6 % (11.5-14.5); RDW Standard Deviation 47.6 fL (36.4-46.3); Red Blood Count 3.97 M/uL (4.20-5.40); White Blood Count 10.44 K/ul (4.8-10.8)
[2022-10-30 09:47] LABS: Calcium 8.8 mg/dl (8.6-10.3); Creatinine Clr Calc Pharmacy 60.8 ml/min; Est GFR (African American) 100.9 ml/min; Est GFR (Non-African American) 87.1 ml/min; Potassium 4.1 mmol/L (3.5-5.1)
--- NOTE | 2022-10-30 10:37 | Cardiology Progress Note ---
Date of Service October 30, 2022 Assessment & Plan (1) Acute and chronic respiratory failure with hypercapnia: (2) IBALS (isolated bulbar amyotrophic lateral sclerosis): (3) Atypical chest pain: Plan Patient admitted for weakness, SOB, acute on chronic respiratory failure with hypercapnia from ALS. Also diagnosed with UTI. She reported atypical chest pain on admission during review of systems. Chest pain at time of consult was reproducible with palpitation to the left chest wall/sternum. Her 2nd troponin was just minimally elevated at 14, with 1st and 3rd markers unremarkable. her echo revealed normal LVEF without wall motion abnormalities. No valvular disease. Symptoms and findings are not indicative of NSTEMI. Heparin stopped EKG without acute changes. Can continue metoprolol for HR/BP support. Recommend treatment of UTI with antibiotics. Prelim blood cultures are negative. Pulm following for acute on chronic respiratory failure with hypercapnia. She appears euvolemic if not volume depleted. No indication for diuretic therapy. No further cardiac testing warranted at this time. Will sign off. Please notify pulmonary function technologist quality control associate with additional questions or concerns. Case discussed with Dr. Chua I spent a total of 25 minutes on the date of service in preparation, delivery, and documentation of the care provided to this patient, excluding any time spent in the performance of separately billed services. Charity Kumar PA-C Department of Cardiology, [facility] This chart was completed in part utilizing Speech Voice Recognition Software. Grammatical errors, random word insertions, prounoun errors, and incomplete sentences are an occasional consequence of this system due to software limitations, ambient noise, and hardware issues. Any formal questions or concerns about the content, text, or information contained within the body of t his dictation should be directly addressed to the provider for clarification. Admission and Anticipated Discharge Date Admission Date: October 27, 2022 Supervising Physician Co-Signing Physician Notes Supervising Physician Attestation: I have personally performed a history and physical examination on the patient. I agree with the physician assistant vice president's findings and plan as documented with the following additions. Subjective: Patient on one-to-one supervision. She apparently became restless overnight and was placed back on positive pressure ventilation, having moved to the chair for a few hours. She is now back in bed, remains on CPAP. Resting comfortably. Telemetry reveals sinus rhythm in the 50s beat to 80 bpm range Exam: General: Mild somnolence Pulm: mildly reduced BS at bases CV: regular , no murmurs Patient on CPAP, PEG tube in place receiving tube feeding at present, Rodgers catheter in place draining clear yellow urine Data: AGB performed this morning at 6:02 AM, pH 7.3, PCO2 66, PO2 55 HCO3 44 Assessment and Plan: -Acute respiratory failure with hypercapnia, progressive failure to thrive due to underlying amyotrophic lateral sclerosis, mild high-sensitivity troponin elevation in the setting of acute illness Pulmonary input noted and appreciated. -Continue TRAP SETTER metoprolol. Dr Sethi rounding this weekend. Call with questions or concerns. I spent a total of 20 minutes on the date of service in preparation, delivery, and documentation of the care provided to this patient, excluding any time spent in the performance of separately billed services. DVT prophylaxis: Consider pharmacologic DVT prophylaxis Sebas Chua, DO Subjective Patient being placed back in bed and CPAP at time of evaluation. Patient with mild tachypnea and pulm recommended resuming therapy. Patient denies chest pain. Limited review of systems. Review of Systems Review of Systems: Other (Limited due to ALS and non verbal) Physical Exam Constitutional: WD/WN, vitals as above + ill appearing and + frail appearing Respiratory: + labored breathing and + tachypneic Auscultation: + diminished lung sounds Cardiovascular: Rate/Rhythm: regular rate and regular rhythm Heart Sounds: no murmur Vessels: no JVD Extremities: no edema Gastrointestinal (Abdomen): normal bowel sounds, soft, nontender, no hepatosplenomegaly Skin: no rashes, warm and dry Results & Data Vital Signs (Past 12 Hours) Vital Signs Temp Pulse Pulse Resp BP Pulse Ox O2 Del Method 10/30/22 09:52 65 21 95 10/30/22 08:30 Nasal Cannula 10/30/22 07:00 36.6 C 81 20 152/77 H 99 Nasal Cannula 10/30/22 04:48 36.6 C 74 24 131/68 94 CPAP 10/30/22 02:16 27 H 10/29/22 22:50 67 24 94 O2 Flow Rate 10/30/22 09:52 2 10/30/22 08:30 2 10/30/22 07:00 1 10/30/22 04:48 1 10/30/22 02:16 1 10/29/22 22:50 1 Laboratory Results CBC 10/30/22 Range/Units 09:08 WBC 10.44 (4.8-10.8) K/ul RBC 3.97 L (4.20-5.40) M/uL Hgb 11.4 L (12.0-16.0) g/dl Hct 37.8 (37.0-47.0) % Plt Count 197 (130-400) K/uL Neut # (Auto) 8.59 H (1.40-6.50) K/uL Lymph # (Auto) 1.02 L (1.2-3.4) K/uL Cassia # (Auto) 0.67 H (0.11-0.59) K/uL Eos # (Auto) 0.06 (0-0.50) K/uL Baso # (Auto) 0.04 (0-0.2) K/uL Comprehensive Metabolic Panel 10/30/22 Range/Units 09:08 Sodium 143 (136-145) mmol/L Potassium 4.1 (3.5-5.1) mmol/L Chloride 102 (98-107) mmol/L Carbon Dioxide 38 H (21-32) mmol/L BUN 18 (6-23) mg/dl Creatinine 0.58 L (0.6-1.2) mg/dl Glucose 160 H (70-99(Fasting)) mg/dl Calcium 8.8 (8.6-10.3) mg/dl Intake and Output 10/29/22 10/30/22 10/30/22 22:59 06:59 14:59 Intake Total 747.5 / 903.0 Output Total 999 700 / 2300 Balance -252.5 / -1397.0 -700 / -1397.0 Intake: IV 747.5 / 903.0 D5w and Nss 1,000 ml @ 75 mls/ 677.5 / 677.5 hr IV .[id number] [facility] Rx#:[id number] cefTRIAXone SODIUM 2,000 mg In 70 / 70 Dextrose 5% 50 ml @ 100 mls/hr IV Q24H [facility] Rx#:[id number] Output: Urine Amount (Catheter) 999 / 0 700 / 2300 Rodgers/Indwelling 999 700 / 2300 Other: Other Intake Source npo Weight 52.1 kg 56.2 kg Weight Measurement Method Built in Bedscale Diagnostic Findings Telemetry reviewed: NSR with occ PVC. no sustained arrhyhtmias Medications Administered Current Inpatient Medications Acetaminophen (Acetaminophen Susp 325 Mg/10.15 Ml Udc) 650 mg PEG Q4H PRN PRN Reason: Pain or Fever Stop: 11/26/22 22:48 Last Admin: 10/29/22 22:54 Dose: 650 mg Diclofenac Sodium (Diclofenac Sod 1% Gel 100 Gm Tube) 2 gm EXT QID PRN; Protocol PRN Reason: flank pain Stop: 11/29/22 01:39 Last Admin: 10/30/22 09:09 Dose: 2 gm Enteral Nutritional Formula (Peptamen 1.5 Vaughn 1,000 Ml Bag) 1,000 ml PEG UD [facility]; Protocol Stop: 11/28/22 10:59 Last Admin: 10/29/22 14:43 Dose: 1,000 ml Famotidine (Famotidine 20 Mg Tab) 20 mg JT QAM [facility] Stop: 11/27/22 08:59 Last Admin: 10/30/22 08:54 Dose: 20 mg Promethazine HCl 6.25 mg/ (Sodium Chloride) 50.25 mls @ 201 mls/hr IV Q6H PRN PRN Reason: Nausea And Vomiting Stop: 11/26/22 22:48 Last Infusion: 10/29/22 06:17 Dose: Infused Ceftriaxone Sodium 2,000 mg/ (Dextrose) 70 mls @ 100 mls/hr IV Q24H [facility]; Protocol Stop: 11/07/22 17:59 Last Infusion: 10/29/22 19:24 Dose: Infused Ondansetron HCl 6 mg/ Dextrose 53 mls @ 200 mls/hr IV Q6H PRN PRN Reason: Nausea And Vomiting Stop: 11/28/22 09:28 Last Infusion: 10/29/22 10:56 Dose: Infused Acetazolamide 250 mg/ Syringe 2.5 mls @ 0.833 mls/min IV BID [facility] Stop: 10/31/22 21:02 Last Admin: 10/30/22 09:06 Dose: 0.833 mls/min Metoprolol Tartrate (Metoprolol Tartrate 25 Mg Tab) 12.5 mg PEG BID [facility] Stop: 11/26/22 23:44 Last Admin: 10/30/22 08:54 Dose: 12.5 mg Morphine Sulfate (Morphine Sulfate 2 Mg/Ml Carp) 2 mg IV Q3H PRN PRN Reason: Pain Stop: 11/11/22 01:48 Last Admin: 10/28/22 18:42 Dose: 2 mg Multivitamins/Minerals (Multi Vit W/Minerals Liquid 15 Ml Udp) 15 ml PEG QAM [facility] Stop: 11/29/22 08:59 Last Admin: 10/30/22 08:54 Dose: 15 ml Oxycodone HCl (Oxycodone Hcl Soln 5 Mg/5 Ml Udc) 2.5 mg GT QID PRN PRN Reason: Pain not relieved by tylenol Stop: 11/13/22 01:54 Sterile Water (Tube Feeding Water Flush) 175 ml PEG Q4H [facility] Stop: 11/28/22 10:59 Last Admin: 10/30/22 07:00 Dose: 175 ml
[2022-10-30] MEDS: ACETAMINOPHEN SUSP 325 MG/10.15 ML UDC PEG PRN (14:24)
[2022-10-30] MEDS: PEPTAMEN 1.5 CAL 1,000 ML BAG PEG SCH (15:38)
--- NOTE | 2022-10-30 16:20 | Hospitalist Progress Note ---
Date of Service October 30, 2022 Assessment & Plan (1) Acute and chronic respiratory failure with hypercapnia: Plan: ALS -- Currently on 2 L but with tachypnea ABG showing pH of 7.24, PCO2 111, PO2 140, bicarb 48 --Chest x-ray no infiltrates or effusion -- BiPAP ordered Repeat ABG at 12 noon -- Pulmonary service consulted 5/5 Feeling weak and tired this morning secondary to poor sleep, unable to use BiPAP overnight for longer than 2 hours BiPAP ordered Continue acetazolamide Pulmonary service on board UTI --Urine culture: Klebsiella Blood cultures: negative x48 hours -- On IV ceftriaxone day 3 Troponin elevation --Troponin elevated to 14 Third troponin negative --EKG no signs of acute ischemia or infarct -- Continues on metoprolol, aspirin, Lipitor -- Cardiology service on board hx PVD aspirin hypertension,monitor Hyperlipidemia, not on statin Rx right breast cancer status post surgery/radiation, patient in remission aspiration risk status post PEG tube placement-- resumed peg tube feeding, tolerating well chronic anemia, hemoglobin at baseline Worsening functional disability-- will need to transition to SNF DVT prophylaxis-hold heparin subcutaneous secondary to fall yesterday DNR as per patient's prior directives. plan of care discussed with patient all questions answered she is understanding, agreeable, comfortable with the plan of care Admission and Anticipated Discharge Date Admission Date: October 27, 2022 Subjective Follow-up for UTI, ALS, etc. 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 Review of Systems Review of Systems: all noted and negative except for above Physical Exam Physical Exam: General- oriented x 3, not in distress, speaks in sentences with no effort or accessory muscle use Eyes- anicteric Neck- no JVD Lungs- clear breath sounds bilaterally, no wheezing, no rales bilaterally Heart- normal rate, regular rhythm; no murmurs Abdomen- normal bowel sounds, nondistended, soft, nontender Extremities- no pretibial edema, no calf tenderness Neuro- alert, oriented x 3; no gross focal neurologic deficits Skin- warm & dry Results & Data Results & Data Vital Signs (Past 12 Hours) Vital Signs Temp Pulse Pulse Resp BP Pulse Ox O2 Del Method 10/30/22 15:04 36.3 C L 75 20 154/66 H 98 Nasal Cannula 10/30/22 11:21 36.2 C L 62 22 120/72 93 CPAP 10/30/22 09:52 65 21 95 10/30/22 08:30 Nasal Cannula 10/30/22 07:00 36.6 C 81 20 152/77 H 99 Nasal Cannula 10/30/22 04:48 36.6 C 74 24 131/68 94 CPAP O2 Flow Rate 10/30/22 15:04 2 10/30/22 11:21 2 10/30/22 09:52 2 10/30/22 08:30 2 10/30/22 07:00 1 10/30/22 04:48 1 all noted and reviewed including below
[2022-10-30] MEDS: cefTRIAXone SODIUM 2,000 MG in DEXTROSE 5% 50 ML IV SCH (17:04)
[2022-10-31] MEDS: TUBE FEEDING WATER FLUSH PEG SCH ×5 (03:37→17:33)
[2022-10-31 05:15] LABS: Base Excess ABG 10.7 mEq/L (-9-1.8); HCO3 ABG 40 mmol/L (19-24); Oxygen Saturation ABG 99.4 % (90-95); PCO2 ABG 78 mmHg (35-46); PO2 ABG 142 mmHg (80-95); pH ABG 7.32 (7.35-7.45)
[2022-10-31 05:22] LABS: Allen Test Pos (Pos)
[2022-10-31 05:39] LABS: BUN Creatinine Ratio 44.6 (10-20); Calcium 8.8 mg/dl (8.6-10.3); Creatinine Clr Calc Pharmacy 57.6 ml/min; Est GFR (African American) 102.1 ml/min; Est GFR (Non-African American) 88.1 ml/min; Potassium 4.3 mmol/L (3.5-5.1)
[2022-10-31] MEDS: MULTI VIT W/MINERALS LIQUID 15 ML UDP PEG SCH (07:28)
[2022-10-31] MEDS: acetaZOLAMIDE 250 MG in SYRINGE 0 ML IV SCH (07:28)
[2022-10-31] MEDS: FAMOTIDINE 20 MG TAB JT SCH (07:28)
[2022-10-31] MEDS: METOPROLOL TARTRATE 25 MG TAB PEG SCH ×2 (07:28→21:07)
--- NOTE | 2022-10-31 08:48 | Pulmonology Progress Note ---
Date of Service October 31, 2022 Assessment & Plan (1) Acute and chronic respiratory failure with hypercapnia: (2) IBALS (isolated bulbar amyotrophic lateral sclerosis): (3) Metabolic alkalosis: Plan Chest x-ray 10/27/2022 personally reviewed: Portable film, poor inspiratory effort, bilateral costophrenic and cardiophrenic units are clean, gastric bubble on the left side, no clear lung infiltrate appreciated 2D echo 10/28/2022: EF 65 to 70%, grade 1 diastolic dysfunction, RV normal in size and function ABG 10/28/2022: 7.24/111/140 on 2 L nasal cannula -- Acute hypercapnic respiratory failure Multifactorial Likely sepsis from UTI leading to noncompliance of her AVAPS As well as component of underlying ALS and decreased respiratory drive Procalcitonin negative SARS 19 NAAT negative -- Metabolic alkalosis Likely secondary to compensation from chronic respiratory acidosis --Gram-negative UTI Management as per primary care --DNR/DNI Plan: pH from ABG today is a little bit acidotic. I am going to discontinue acetazolamide. Patient already got 5 doses of it. Patient's hypercapnic respiratory failure was likely from her not being on BiPAP/AVAPS overnight. Do not over oxygenate the patient, keep O2 saturation between 88-92% Whenever patient is dozing off/sleeping would recommend to put her on AVAPS Stat CT head to make sure there is no intracranial abnormality especially given the history of fall 2 days ago. Continue with the setting of BiPAP 20/8, 30% and aim for tidal volume of around 350. We will repeat ABG in 1 and half hour. Case was discussed with RN at bedside, RT and Dr. Swift Please note the above document was generated using voice recognition software. It may contain grammatical, syntax or spelling errors.Any formal questions or concerns about the content, text or information contained within the body of this dictation should be directly addressed to the provider for clarification. Admission and Anticipated Discharge Date Admission Date: October 27, 2022 Subjective Patient seen and examined at bedside. Patient was not responding, having agonal breathing when I entered the room. Put the patient on BiPAP, increased respiratory to 20, and change the BiPAP setting to 20/8 to get the tidal volumes of 350-400 RN was also at bedside Review of Systems Review of Systems: All systems reviewed & are unremarkable except as noted in Subjective Physical Exam Physical Exam: Constitutional: No acute distress HEENT: EOMI, PERRLA Respiratory system: Good air entry bilaterally, no wheeze, no rhonchi, no crackles CVS: S1-S2 positive, positive 2 out of 6 systolic murmur appreciated best at aorta Abdomen: Soft, nontender, nondistended, positive bowel sounds x4 Extremities: +2 pulses bilaterally radialis/ dorsalis pedis, no cyanosis, no yelena ma Neuro: Somnolent Psych: Unable to assess G/U: Positive Rodgers Skin: no rashes, warm and dry Lymphatic: no cervical or axillary lymphadenopathy Results & Data Results & Data Vital Signs (Past 12 Hours) Vital Signs Temp Pulse Pulse Resp BP Pulse Ox O2 Del Method 10/31/22 07:54 36.9 C 80 19 169/72 H 96 Nasal Cannula 10/31/22 02:45 36.4 C L 66 24 139/72 97 CPAP 10/31/22 01:49 66 24 10/30/22 22:56 36.4 C L 70 22 133/69 95 CPAP 10/30/22 22:29 19 95 10/30/22 21:50 Nasal Cannula O2 Flow Rate 10/31/22 07:54 2 10/31/22 02:45 2 10/31/22 01:49 2 10/30/22 22:56 2 10/30/22 22:29 2 10/30/22 21:50 Laboratory Results 10/30/22 09:08 10/31/22 05:04 PG Care Time/CCT Total # of Minutes Spent Total Time Spent with Patient: Total time spent is greater than 50% in coordination of care (as documented) at patient's floor/unit and/or counseling patient: Coding Level of Care Code 63417 SUB INP/OBS CARE 3/50MIN Diagnoses Acute and chronic respiratory failure with hypercapnia J96.22 IBALS (isolated bulbar amyotrophic lateral sclerosis) G12.21 Metabolic alkalosis E87.3
--- NOTE | 2022-10-31 11:43 | CT Scan Report ---
HEAD CT NONCONTRAST CT DOSE: 537.48 mGy.cm HISTORY: altered mental status, r/o cva, bleed TECHNIQUE: Multiaxial CT images of the head were performed without the use of intravenous contrast. A utomated exposure control was utilized for this study. A dose lowering technique was utilized adheri ng to the principles of ALARA. Comparison: Head CT 10/29/2022. Findings: The paranasal sinuses and mastoid air cells are clear. The calvarium and skull base are int act. There is no mass, hematoma, midline shift, acute infarct. White matter hypodensity is nonspecifi c but suggestive of microvascular ischemic change. The ventricles and sulci demonstrate mild age-rela bia involutional changes. Impression: No significant change compared to the prior study. No acute intracranial abnormality. ACT 112: Negative or not required by law. Electronically signed by: Ramirez Cunningham M.D. 10/31/2022 11:41 AM
--- NOTE | 2022-10-31 11:49 | XRay Report ---
XR chest 1V portable HISTORY: altered mental status COMPARISON: Chest 10/27/2022. FINDINGS: No pneumothorax. No pleural effusions. A gastrostomy tube is noted within the left upper qu adrant. No new focal lung consolidations to suggest a pneumonia. No evidence for pulmonary edema. The cardiac silhouette is stable in size. Mildly distended gastric bubble is noted. IMPRESSION: No significant change compared to the prior study. No acute process. ACT 112: Negative or not required by law. Electronically signed by: Ramirez Cunningham M.D. 10/31/2022 11:48 AM
[2022-10-31 13:19] LABS: HCO3 ABG 37 mmol/L (19-24); PCO2 ABG 76 mmHg (35-46); PO2 ABG 87 mmHg (80-95)
[2022-10-31 13:21] LABS: Allen Test POS (Pos)
[2022-10-31] MEDS ORDERED: SODIUM CHLORIDE 0.9% 1000ML 1,000 ML IV ONE (14:06)
[2022-10-31] MEDS: SODIUM CHLORIDE 0.9% 1000ML 1,000 ML IV SCH (14:29)
[2022-10-31] MEDS: PEPTAMEN 1.5 CAL 1,000 ML BAG PEG SCH (15:40)
--- NOTE | 2022-10-31 17:05 | Hospitalist Progress Note ---
Date of Service October 31, 2022 Assessment & Plan (1) Acute and chronic respiratory failure with hypercapnia: Plan: ALS -- Currently on 2 L but with tachypnea ABG showing pH of 7.24, PCO2 111, PO2 140, bicarb 48 --Chest x-ray no infiltrates or effusion -- BiPAP ordered Repeat ABG at 12 noon -- Pulmonary service consulted 10/30 Feeling weak and tired this morning secondary to poor sleep, unable to use BiPAP overnight for longer than 2 hours BiPAP ordered Continue acetazolamide Pulmonary service on board 10/31 Patient significantly lethargic today this morning, discussed with pipe crew foreman, BiPAP settings increased, maintain on BiPAP CT head: No acute process Continue to monitor closely UTI --Urine culture: Klebsiella Blood cultures: negative x48 hours -- On IV ceftriaxone day 10/02 Troponin elevation --Troponin elevated to 14 Third troponin negative --EKG no signs of acute ischemia or infarct -- Continues on metoprolol, aspirin, Lipitor -- Cardiology service on board hx PVD aspirin hypertension -- Blood pressure on the lower side, hold metoprolol, IV fluid bolus and IV NSS at 100 cc/h ordered Hyperlipidemia, not on statin Rx right breast cancer status post surgery/radiation, patient in remission aspiration risk status post PEG tube placement-- resumed peg tube feeding, tolerating well chronic anemia, hemoglobin at baseline Worsening functional disability-- will need to transition to SNF DVT prophylaxis-hold heparin subcutaneous secondary to fall yesterday DNR as per patient's prior directives. Admission and Anticipated Discharge Date Admission Date: October 27, 2022 Subjective ff up for UTI, ALS, etc. Patient noted to be lethargic, unresponsive Seen and examined at the bedside BiPAP already in place, patient very lethargic Not following commands CT head ordered Discussed with pipe crew foreman at the bedside, BiPAP settings adjusted Review of Systems Review of Systems: all noted and negative except for above Physical Exam Physical Exam: General-very lethargic, not in distress, breathing with no effort or accessory muscle use Eyes- anicteric Neck- no JVD Lungs- clear breath sounds bilaterally, no rales/wheezes Heart- normal rate, regular rhythm; no murmurs Abdomen- normal bowel sounds, nondistended, soft, nontender Extremities- no pretibial edema, no calf tenderness Neuro-lethargic Skin- warm & dry Results & Data Results & Data Vital Signs (Past 12 Hours) Vital Signs Temp Pulse Pulse Resp BP Pulse Ox O2 Del Method 10/31/22 15:00 36.8 C 79 22 102/66 97 BiPAP 10/31/22 14:40 81 21 98 10/31/22 13:15 93 10/31/22 11:58 73 18 96/59 L 96 BiPAP 10/31/22 11:40 80 22 94 10/31/22 10:54 85 20 96 10/31/22 10:50 82 15 188/82 H 94 BiPAP 10/31/22 07:54 36.9 C 80 19 169/72 H 96 Nasal Cannula O2 Flow Rate FiO2 10/31/22 15:00 10/31/22 14:40 25 10/31/22 13:15 25 10/31/22 11:58 10/31/22 11:40 30 10/31/22 10:54 1 10/31/22 10:50 10/31/22 07:54 2 all noted and reviewed including below
[2022-10-31] MEDS: cefTRIAXone SODIUM 2,000 MG in DEXTROSE 5% 50 ML IV SCH (17:32)
[2022-10-31] MEDS ORDERED: ACETAMINOPHEN 1,000 MG/100 ML VIAL IV STA (21:31)
--- NOTE | 2022-10-31 21:36 | Communication Note ---
Date of Service: October 31, 2022 Patient complaining of abdominal pain but unable to lie down for CAT scan. Struggling to comply with BiPAP as per RN. Consider palliative care consultation to discuss goals of care.
[2022-10-31 23:25] LABS: Albumin Globulin Ratio 1.3 (0.9-2); Albumin Level 3.1 gm/dl (3.4-5.0); BUN Creatinine Ratio 56.6 (10-20); Bilirubin,Total 0.1 mg/dl (0.2-1.0); Calcium 7.9 mg/dl (8.6-10.3); Creatinine Clr Calc Pharmacy 60.8 ml/min; Est GFR (African American) 103.9 ml/min; Est GFR (Non-African American) 89.7 ml/min; Globulin 2.4 gm/dl (2.5-4.0); Potassium 3.7 mmol/L (3.5-5.1); Total Protein 5.5 gm/dl (6.0-8.3)
[2022-11-01] MEDS: SODIUM CHLORIDE 0.9% 1000ML 1,000 ML IV SCH ×3 (00:38→20:24)
[2022-11-01 05:54] LABS: BUN Creatinine Ratio 50.8 (10-20); Calcium 8.9 mg/dl (8.6-10.3); Creatinine Clr Calc Pharmacy 49.6 ml/min; Est GFR (African American) 97.2 ml/min; Est GFR (Non-African American) 83.9 ml/min; Potassium 3.6 mmol/L (3.5-5.1)
[2022-11-01 08:34] LABS: Base Excess ABG 6.9 mEq/L (-9-1.8); HCO3 ABG 32 mmol/L (19-24); PCO2 ABG 46 mmHg (35-46); PO2 ABG 117 mmHg (80-95); pH ABG 7.45 (7.35-7.45)
[2022-11-01 08:36] LABS: Allen Test Pos (Pos)
[2022-11-01] MEDS: METOPROLOL TARTRATE 25 MG TAB PEG SCH ×2 (08:44→20:22)
[2022-11-01] MEDS: FAMOTIDINE 20 MG TAB JT SCH (08:44)
[2022-11-01] MEDS: MULTI VIT W/MINERALS LIQUID 15 ML UDP PEG SCH (08:44)
[2022-11-01] MEDS ORDERED: LEVALBUTEROL 1.25MG/0.5ML NEB NEB STA (08:58)
--- NOTE | 2022-11-01 09:16 | XRay Report ---
XR chest 1V portable CLINICAL HISTORY: wheezing COMPARISON STUDY: Chest radiograph October 31, 2022. FINDINGS: Lung volumes are normal. Lungs are clear. There is no pneumothorax or pleural effusion. Car diac size is normal. Mediastinal contours are normal. There is no evidence for pulmonary edema. Gastr ostomy tube is incidentally noted. Gastric distention has decreased. IMPRESSION: No acute cardiopulmonary findings. ACT 112: Negative or not required by law. Electronically signed by: Luc Salvador M.D. 11/01/2022 9:15 AM
[2022-11-01] MEDS ORDERED: FUROSEMIDE INJ 20 MG/2 ML VIAL IV STA (09:23)
--- NOTE | 2022-11-01 09:31 | Pulmonology Progress Note ---
Date of Service November 01, 2022 Assessment & Plan (1) Acute and chronic respiratory failure with hypercapnia: (2) IBALS (isolated bulbar amyotrophic lateral sclerosis): (3) Metabolic alkalosis: Plan Chest x-ray 10/27/2022 personally reviewed: Portable film, poor inspiratory effort, bilateral costophrenic and cardiophrenic units are clean, gastric bubble on the left side, no clear lung infiltrate appreciated 2D echo 10/28/2022: EF 65 to 70%, grade 1 diastolic dysfunction, RV normal in size and function ABG 10/28/2022: 7.24/111/140 on 2 L nasal cannula -- Acute hypercapnic respiratory failure Multifactorial Likely sepsis from UTI leading to noncompliance of her AVAPS As well as component of underlying ALS and decreased respiratory drive Procalcitonin negative SARS 19 NAAT negative -- Metabolic alkalosis Likely secondary to compensation from chronic respiratory acidosis S/p 5 doses of 250 mg of acetazolamide --Gram-negative UTI Management as per primary care --DNR/DNI Plan: Chest x-ray July does not show any infiltrate or congestion. Bilateral costophrenic and cardiophrenic needle site clean AB.45/46/117 on 25 % Patient's ABG is alkalotic today. I went down on the IPAP to 16 from 20. For the secretion glycopyrrolate could be used For anxiety Xanax can be used but whenever any respiratory depressant medications are used would recommend to put the patient on BiPAP/AVAPS Patient's hypercapnic respiratory failure was likely from her not being on Bi PAP/AVAPS overnight. Do not over oxygenate the patient, keep O2 saturation between 88-92% Whenever patient is dozing off/sleeping would recommend to put her on AVAPS Case was discussed with RN at bedsideand Dr. Swift Please note the above document was generated using voice recognition software. It may contain grammatical, syntax or spelling errors.Any formal questions or concerns about the content, text or information contained within the body of this dictation should be directly addressed to the provider for clarification. Admission and Anticipated Discharge Date Admission Date: October 27, 2022 Subjective Patient seen and examined at bedside. No acute distress Overnight patient was awake and was pulling mask frequently. She was complaining of secretions to the nurse. She got Xanax 0.25 mg before I saw her She was somnolent She was on BiPAP 20/6 25%, getting tidal volumes of 500 Has been afebrile Patient was also complaining of abdominal pain overnight Review of Systems Review of Systems: All systems reviewed & are unremarkable except as noted in Subjective Physical Exam Physical Exam: Constitutional: No acute distress HEENT: EOMI, PERRLA Respiratory system: Good air entry bilaterally, no wheeze, no rhonchi, no crackles CVS: S1-S2 positive, positive 2 out of 6 systolic murmur appreciated best at aorta Abdomen: Soft, nontender, nondistended, positive bowel sounds x4 Extremities: +2 pulses bilaterally radialis/ dorsalis pedis, no cyanosis, no edema Neuro: Somnolent Psych: Unable to assess G/U: Positive Rodgers Skin: no rashes, warm and dry Lymphatic: no cervical or axillary lymphadenopathy Results & Data Results & Data Vital Signs (Past 12 Hours) Vital Signs Temp Pulse Pulse Resp BP Pulse Ox O2 Del Method 11/01/22 09:23 100 H 27 H 11/01/22 09:23 100 H 27 H 9 L BiPAP 11/01/22 07:17 82 22 96 11/01/22 07:06 36.6 C 90 19 122/68 99 BiPAP 11/01/22 02:41 74 18 98 11/01/22 03:00 36.4 C L 79 24 151/66 H 100 BiPAP 10/31/22 23:56 71 19 99 10/31/22 23:00 36.7 C 66 22 105/50 L 98 BiPAP FiO2 11/01/22 09:23 25 11/01/22 09:23 25 11/01/22 07:17 25 11/01/22 07:06 25 11/01/22 02:41 25 11/01/22 03:00 10/31/22 23:56 25 10/31/22 23:00 Laboratory Results 11/01/22 05:10 PG Care Time/CCT Total # of Minutes Spent Total Time Spent with Patient: Total time spent is greater than 50% in coordination of care (as documented) at patient's floor/unit and/or counseling patient: Coding Level of Care Code 03608 SUB INP/OBS CARE 3/50MIN Diagnoses Acute and chronic respiratory failure with hypercapnia J96.22 IBALS (isolated bulbar amyotrophic lateral sclerosis) G12.21 Metabolic alkalosis E87.3
[2022-11-01] MEDS ORDERED: LORazepam 2 MG/1 ML VIAL IV STA (09:33)
[2022-11-01 09:45] LABS: Basophils # (auto) 0.04 K/uL (0-0.2); Basophils % (auto) 0.3 %; Eosinophils # (auto) 0.06 K/uL (0-0.50); Eosinophils % (auto) 0.5 %; Hematocrit (blood only) 33.9 % (37.0-47.0); Hemoglobin 10.8 g/dl (12.0-16.0); Immature Granulocytes # (auto) 0.06 K/uL (0.01-0.20); Immature Granulocytes % (auto) 0.5 %; Lymphocytes # (auto) 1.55 K/uL (1.2-3.4); Lymphocytes % (auto) 12.6 %; Mean Corpuscular Hemoglobin 28.5 pg (25.0-34.0); Mean Corpuscular Hgb Conc 31.9 g/dL (32.0-36.0); Mean Corpuscular Volume 89.4 fL (80.0-100.0); Mean Platelet Volume 10.3 fL (9.4-12.4); Monocytes # (auto) 0.77 K/uL (0.11-0.59); Monocytes % (auto) 6.2 %; Neutrophils # (auto) 9.86 K/uL (1.40-6.50); Neutrophils % (auto) 79.9 %; Platelet Count 196 K/uL (130-400); RDW Coefficient of Variation 13.8 % (11.5-14.5); RDW Standard Deviation 44.9 fL (36.4-46.3); Red Blood Count 3.79 M/uL (4.20-5.40); White Blood Count 12.34 K/ul (4.8-10.8)
[2022-11-01] MEDS: cefTRIAXone SODIUM 2,000 MG in DEXTROSE 5% 50 ML IV SCH (17:26)
--- NOTE | 2022-11-01 17:33 | Neurology Consultation ---
Date of Consultation November 01, 2022 Assessment & Plan (1) IBALS (isolated bulbar amyotrophic lateral sclerosis): Impression: The patient was diagnosed with ALS, bulbar type, who has been having progressive weakness, nonverbal, with dysphagia. She has been having respiratory failure with hypercapnia, which has been managed on BiPAP/AVAPS. Recommendations: Management of respiratory symptoms per pulmonology. Management of additional metabolic and infectious disorder and supportive care. Follow-up by clinic, specialized on ALS. She might be a candidate for ALS trials. We do not have additional recommendations at this time. (2) Acute and chronic respiratory failure with hypercapnia: Impression: The patient has chronic respiratory failure with recent acute respiratory symptoms with hypercapnia. She has been managed on BiPAP/AVAPS. She has been followed by pulmonology. (3) Acute UTI: Impression: The patient was diagnosed with urinary tract infection on admission, which has been treated on antibiotics. Plan As seen above. Thank you for the consultation. History of Present Illness Reason for Consultation: ALS, AMS Requesting Physician: Tristian Swift MD Attending Physician: Tristian Swift MD History of Present Illness The patient is a 82-year-old female, with bulbar type ALS, admitted to hospital for gradually worsening weakness, shortness of breath, acute on chronic respiratory failure with hypercapnia from ALS. The patient was seen by cardiology as well as pulmonology. The patient has been on BiPAP/AVAPS for respiratory failure. She was also diagnosed with urinary tract infection. She is nonverbal because of ALS. She has PEG tube for feeding. She gets intermittent agitation because of respiratory symptoms and mental status change. She is currently resting comfortably. She answers questions with signs, yes or no. There has been no new neurological symptoms. Head CT was unremarkable on admission. The patient is waiting for placement. She has no history of seizures and cerebrovascular accidents. She gets agitated with increased anxiety at times. She has been followed by pulmonology. She is currently calm after receiving Ativan. It is not clear to me whether the patient has been followed by clinic, specialized for ALS. I have reviewed the patient's chart including imaging studies and visualized them personally. I have discussed the case with nursing staff. Allergies Allergy/AdvReac Type Severity Reaction Status Date / Time No Known Drug Allergies Allergy Unknown Verified 05/02/23 19:23 Home Medications Medication Instructions Recorded Confirmed Type famotidine 20 mg tablet 20 mg PO QAM 10/27/22 10/27/22 History lactose-reduced food with fiber 1 ea feeding tube QID 10/27/22 10/27/22 History 0.06 gram-1.5 kcal/mL oral liquid (Jevity 1.5 Vaughn) metoprolol tartrate 25 mg tablet 12.5 mg feeding tube AMHS 10/27/22 10/27/22 History ondansetron 4 mg disintegrating 4 mg translingual Q8 PRN Nausea 10/27/22 10/27/22 History tablet Patient History Medical History Encounter for pre-operative examination History of breast cancer Alejandrian Gehrig disease Osteoarthritis Renal mass "PET scan 05/14/2010- partially calcified left renal lower pole 30x36 mm mass. PET scan 09/27/13 showed stable partially calcified mass lower pole L kidney." Uterine leiomyoma Surgical History History of carpal tunnel release History of partial mastectomy of right breast (04/14/10) Family History Mother Diabetes Other Heart disease Social History Smoking Status: Never smoker Second Hand Exposure: No; Do You Dip or Chew Tobacco: No; Hx Alcohol Use: No Hx Substance Use: No Preferred Language: British Communication Ability: Impaired Communication Ability Comment: Patient understands some Mauritanian and is able to answer yes and no questions Communication Tools: Writing Tablet and Other Supervisor Special Effects Required: Yes Beliefs That Will Affect Care: None marital status: Single Current Living Situation: Alone How many Children do You have: 0 Feels Safe at Home: Yes Assistive Devices: None Review of Systems Review of Systems: Unobtainable due to cognitive status Physical Exam Physical Exam: General Examination: Constitutional: Well developed person in no acute distress. HENT: Normal exam with inspection. CV: Hearth rhythm is regular. Neck: Supple, no carotid bruits. Lungs: Comfortable breathing on BiPAP. Abdomen: Soft, non-tender, non-distended. Skin: No rash or ecchymosis. Extremities: No edema or cyanosis NEUROLOGICAL EXAMINATION: Mental Status: Alert and oriented to her name and place. Limited examination because of language barrier and being nonverbal. She follows verbal commands appropriately. Cranial Nerves: Pupils are 5 mm and reactive to light bilaterally. Extraocular muscles are intact. Facial symmetry is preserved. There is obvious bulbar w eakness. Funduscopy: Not examined. Motor: There is significant bulbar muscle weakness. The patient moves all extremities symmetrically, around 4+ out of 5 strength. Somewhat limited examination because of poor cooperation. Tone: Normal without spasticity or rigidity. Sensory: Unable to assess. Coordination: No dysmetria with FTN testing. Speech: Nonverbal. Comprehension is essentially intact as the patient follows verbal commands. Gait: Unable to assess. Results & Data Vital Signs (Past 12 Hours) Vital Signs Temp Pulse Pulse Resp BP Pulse Ox O2 Del Method 11/01/22 15:01 95 H 22 96 11/01/22 12:00 36.6 C 72 18 98/61 L 98 BiPAP 11/01/22 07:00 92 H 11/01/22 11:08 91 H 18 97 11/01/22 07:00 BiPAP 11/01/22 09:23 100 H 27 H 11/01/22 09:23 100 H 27 H 9 L BiPAP 11/01/22 07:17 82 22 96 11/01/22 07:06 36.6 C 90 19 122/68 99 BiPAP FiO2 11/01/22 15:01 25 11/01/22 12:00 11/01/22 07:00 11/01/22 11:08 25 11/01/22 07:00 11/01/22 09:23 25 11/01/22 09:23 25 11/01/22 07:17 25 11/01/22 07:06 25 Laboratory Results Laboratory Results - last 24 hr 10/31/22 11/01/22 11/01/22 22:15 05:10 08:27 WBC Cancelled RBC Cancelled Hgb Cancelled Hct Cancelled MCV Cancelled MCH Cancelled MCHC Cancelled RDW Std Deviation Cancelled RDW Coeff of Jazmin Cancelled Plt Count Cancelled MPV Cancelled Immature Gran % (Auto) Cancelled Neut % (Auto) Cancelled Lymph % (Auto) Cancelled Whiteside % (Auto) Cancelled Eos % (Auto) Cancelled Baso % (Auto) Cancelled Neut # (Auto) Cancelled Lymph # (Auto) Cancelled Whiteside # (Auto) Cancelled Eos # (Auto) Cancelled Baso # (Auto) Cancelled Immature Gran # (Auto) Cancelled Absolute Nucleated RBC Cancelled Nucleated RBC % (auto) Cancelled Neutrophils % (Manual) Cancelled Band Neutrophils % Cancelled Lymphocytes % (Manual) Cancelled Prolymphocyte % Cancelled Reactive Lymphs % (Man) Cancelled Monocytes % (Manual) Cancelled Eosinophils % (Manual) Cancelled Basophils % (Manual) Cancelled Metamyelocytes % (Man) Cancelled Myelocytes % (Man) Cancelled Promyelocytes % (Man) Cancelled Blast Cells % (Manual) Cancelled Plasma Cell % (Manual) Cancelled Other Cells % Cancelled Nucleated RBC % Cancelled Neutrophils # (Manual) Cancelled Band Neutrophils # Cancelled Total Absolute Neuts Cancelled Lymphocytes # (Manual) Cancelled Prolymphocyte # Cancelled Reactive Lymphs # Cancelled Total Abs Lymphocytes Cancelled Monocytes # (Manual) Cancelled Eosinophils # (Manual) Cancelled Basophils # (Manual) Cancelled Metamyelocytes # (Man) Cancelled Myelocytes # (Manual) Cancelled Promyelocytes # (Man) Cancelled Blast Cells # (Man) Cancelled Plasma Cell # (Manual) Cancelled Other Cells # Cancelled Nucleated RBCs # (Man) Cancelled Hypersegmented Neuts Cancelled Hyposegmented Neuts Cancelled Hypogranular Neuts Cancelled Large Granular Lymphs Cancelled # Lrg Granular Lymphs Cancelled Hairy Cells Cancelled Smudge Cells Cancelled Toxic Granulation Cancelled Toxic Vacuolation Cancelled Dohle Bodies Cancelled Marvin Rods Cancelled Platelet Estimate Cancelled Hypogranular Platelets Cancelled Giant Platelets Cancelled Platelet Satelliting Cancelled RBC Morphology Cancelled Polychromasia Cancelled Hypochromasia Cancelled Poikilocytosis Cancelled Basophilic Stippling Cancelled Anisocytosis Cancelled Microcytosis Cancelled Macrocytosis Cancelled Spherocytes Cancelled Pappenheimer Bodies Cancelled Sickle Cells Cancelled Target Cells Cancelled Tear Drop Cells Cancelled Ovalocytes Cancelled Stomatocytes Cancelled Calle-Ellport Bodies Cancelled Echinocytes Cancelled Acanthocytes (Spur) Cancelled Rouleaux Cancelled RBC Agglutinates Cancelled Schistocytes Cancelled Sezary Cell Cancelled ABG pH ABG pCO2 ABG pO2 ABG HCO3 ABG O2 Saturation ABG Base Excess Chester Test Oxygen Given Sodium 139 140 Potassium 3.7 3.6 Chloride 103 103 Carbon Dioxide 31 32 Anion Gap 5 5 BUN 30 H 33 H Creatinine 0.53 L 0.65 Est Cr Clr Drug Dosing 60.8 49.6 Est GFR ( Amer) 103.9 97.2 Est GFR (Non-Af Amer) 89.7 83.9 BUN/Creatinine Ratio 56.6 H 50.8 H Glucose 119 H 115 H Calcium 7.9 L 8.9 Total Bilirubin 0.1 L AST 14 ALT 12 Alkaline Phosphatase 38 Total Protein 5.5 L Albumin 3.1 L Globulin 2.4 L Albumin/Globulin Ratio 1.3 Lipase 18 Blood Parasites ID Cancelled 11/01/22 11/01/22 08:27 09:09 WBC 12.34 H RBC 3.79 L Hgb 10.8 L Hct 33.9 L MCV 89.4 D MCH 28.5 MCHC 31.9 L RDW Std Deviation 44.9 RDW Coeff of Jazmin 13.8 Plt Count 196 MPV 10.3 Immature Gran % (Auto) 0.5 Neut % (Auto) 79.9 Lymph % (Auto) 12.6 Whiteside % (Auto) 6.2 Eos % (Auto) 0.5 Baso % (Auto) 0.3 Neut # (Auto) 9.86 H Lymph # (Auto) 1.55 Whiteside # (Auto) 0.77 H Eos # (Auto) 0.06 Baso # (Auto) 0.04 Immature Gran # (Auto) 0.06 Absolute Nucleated RBC Nucleated RBC % (auto) Neutrophils % (Manual) Band Neutrophils % Lymphocytes % (Manual) Prolymphocyte % Reactive Lymphs % (Man) Monocytes % (Manual) Eosinophils % (Manual) Basophils % (Manual) Metamyelocytes % (Man) Myelocytes % (Man) Promyelocytes % (Man) Blast Cells % (Manual) Plasma Cell % (Manual) Other Cells % Nucleated RBC % Neutrophils # (Manual) Band Neutrophils # Total Absolute Neuts Lymphocytes # (Manual) Prolymphocyte # Reactive Lymphs # Total Abs Lymphocytes Monocytes # (Manual) Eosinophils # (Manual) Basophils # (Manual) Metamyelocytes # (Man) Myelocytes # (Manual) Promyelocytes # (Man) Blast Cells # (Man) Plasma Cell # (Manual) Other Cells # Nucleated RBCs # (Man) Hypersegmented Neuts Hyposegmented Neuts Hypogranular Neuts Large Granular Lymphs # Lrg Granular Lymphs Hairy Cells Smudge Cells Toxic Granulation Toxic Vacuolation Dohle Bodies Marvin Rods Platelet Estimate Hypogranular Platelets Giant Platelets Platelet Satelliting RBC Morphology Polychromasia Hypochromasia Poikilocytosis Basophilic Stippling Anisocytosis Microcytosis Macrocytosis Spherocytes Pappenheimer Bodies Sickle Cells Target Cells Tear Drop Cells Ovalocytes Stomatocytes Calle-Ellport Bodies Echinocytes Acanthocytes (Spur) Rouleaux RBC Agglutinates Schistocytes Sezary Cell ABG pH 7.45 ABG pCO2 46 ABG pO2 117 H ABG HCO3 32 H ABG O2 Saturation 99.0 H ABG Base Excess 6.9 H Chester Test Pos Oxygen Given 25% Sodium Potassium Chloride Carbon Dioxide Anion Gap BUN Creatinine Est Cr Clr Drug Dosing Est GFR ( Amer) Est GFR (Non-Af Amer) BUN/Creatinine Ratio Glucose Calcium Total Bilirubin AST ALT Alkaline Phosphatase Total Protein Albumin Globulin Albumin/Globulin Ratio Lipase Blood Parasites ID Diagnostic Findings Chest X-Ray 10/27/22 15:26 XR chest 1V portable HISTORY: 82 years-old Female Sepsis acute sepsis COMPARISON: 02/03/2022 TECHNIQUE: Supine AP view of the chest FINDINGS: Cardiac silhouette is enlarged. The patient's chin partially obscures the lung apices. No pneumothorax, pleural effusion, airspace consolidation or pulmonary edema. Suggested gastric tube. Bones of the chest appear grossly intact. IMPRESSION: No acute process. ACT 112: Negative or not required by law. The above report was generated using voice recognition software. It may contain grammatical, syntax or spelling errors. Electronically signed by: Otf Sin M.D. 10/27/2022 4:13 PM Renal Ultrasound 10/27/22 18:33 Exam(s): US RENAL EXAM: US Retroperitoneal Limited, Renal CLINICAL HISTORY: Reason for exam: L flank pain uti. TECHNIQUE: Real-time limited ultrasound of the retroperitoneum with image documentation. COMPARISON: CT abdomen and pelvis February 02, 2022 FINDINGS: Right kidney: Unremarkable. No stones. No solid mass. No hydronephrosis. Left kidney: LEFT kidney mass identified on CT scan from February 02, 2022 is not visualized. Consider repeat CT scan with contrast. Bladder: Debris in the urinary bladder. Correlate with urinalysis. Bladder ureteral jets are not visualized. IMPRESSION: 1. LEFT kidney mass identified on CT scan from February 02, 2022 is not visualized. Consider repeat CT scan with contrast. 2. Debris in the urinary bladder. Correlate with urinalysis. Electronically signed by: Corey Lira MD 10/27/22 20:[address] 10/29/22 17:[address] DOSE: 1421.31 mGycm HISTORY: s/p fall, r/o bleed TECHNIQUE: Multiaxial CT images of the head were performed without the use of intravenous contrast. Automated exposure control was utilized for this study. A dose lowering technique was utilized adhering to the principles of ALARA. Comparison: Head CT 02/07/2022. Findings: The paranasal sinuses and mastoid air cells are clear. The calvarium and skull base are intact. There is no mass, hematoma, midline shift, acute infarct. White matter hypodensity is nonspecific but suggestive of microvascular ischemic change. The ventricles and sulci demonstrate mild age-related involutional changes. Impression: No acute intracranial abnormality. ACT 112: Negative or not required by law. Electronically signed by: Ramirez Cunningham M.D. 10/29/2022 6:43 PM Chest X-Ray 10/31/22 10:48 XR chest 1V portable HISTORY: altered mental status COMPARISON: Chest 10/27/2022. FINDINGS: No pneumothorax. No pleural effusions. A gastrostomy tube is noted within the left upper quadrant. No new focal lung consolidations to suggest a pneumonia. No evidence for pulmonary edema. The cardiac silhouette is stable in size. Mildly distended gastric bubble is noted. IMPRESSION: No significant change compared to the prior study. No acute process. ACT 112: Negative or not required by law. Electronically signed by: Ramirez Cunningham M.D. 10/31/2022 11:[address] 10/31/22 10:[address] DOSE: 537.48 mGy.cm HISTORY: altered mental status, r/o cva, bleed TECHNIQUE: Multiaxial CT images of the head were performed without the use of intravenous contrast. Automated exposure control was utilized for this study. A dose lowering technique was utilized adhering to the principles of ALARA. Comparison: Head CT 10/29/2022. Findings: The paranasal sinuses and mastoid air cells are clear. The calvarium and skull base are intact. There is no mass, hematoma, midline shift, acute infa rct. White matter hypodensity is nonspecific but suggestive of microvascular ischemic change. The ventricles and sulci demonstrate mild age-related involutional changes. Impression: No significant change compared to the prior study. No acute intracranial abnormality. ACT 112: Negative or not required by law. Electronically signed by: Ramirez Cunningham M.D. 10/31/2022 11:41 AM Chest X-Ray 11/01/22 08:58 XR chest 1V portable CLINICAL HISTORY: wheezing COMPARISON STUDY: Chest radiograph October 31, 2022. FINDINGS: Lung volumes are normal. Lungs are clear. There is no pneumothorax or pleural effusion. Cardiac size is normal. Mediastinal contours are normal. There is no evidence for pulmonary edema. Gastrostomy tube is incidentally noted. Gastric distention has decreased. IMPRESSION: No acute cardiopulmonary findings. ACT 112: Negative or not required by law. Electronically signed by: Luc Salvador M.D. 11/01/2022 9:15 AM
--- NOTE | 2022-11-01 18:32 | Hospitalist Progress Note ---
Date of Service November 01, 2022 Assessment & Plan (1) Acute and chronic respiratory failure with hypercapnia: Plan: ALS -- Currently on 2 L but with tachypnea ABG showing pH of 7.24, PCO2 111, PO2 140, bicarb 48 --Chest x-ray no infiltrates or effusion -- BiPAP ordered Repeat ABG at 12 noon -- Pulmonary service consulted 10/30 Feeling weak and tired this morning secondary to poor sleep, unable to use BiPAP overnight for longer than 2 hours BiPAP ordered Continue acetazolamide Pulmonary service on board 10/31 Patient significantly lethargic today this morning, discussed with truck trailer mechanic, BiPAP settings increased, maintain on BiPAP CT head: No acute process Continue to monitor closely 11/01 Awake and alert ABG okay Chest x-ray no pulmonary edema Reporting shortness of breath, mostly from anxiety per pulmonary service Ativan as needed, Robinul for secretions Neb treatment given Neurologist consulted, treat underlying issues, no further recommendations at this point UTI --Urine culture: Klebsiella Blood cultures: negative x48 hours -- On IV ceftriaxone day 11/01 Abdominal pain Resolved Troponin elevation --Troponin elevated to 14 Third troponin negative --EKG no signs of acute ischemia or infarct -- Continues on metoprolol, aspirin, Lipitor -- Cardiology service on board hx PVD aspirin hypertension -- Blood pressure on the lower side, hold metoprolol, IV NSS Hyperlipidemia, not on statin Rx right breast cancer status post surgery/radiation, patient in remission aspiration risk status post PEG tube placement--hold PEG tube feeding for today until respiratory status is more stable chronic anemia, hemoglobin at baseline Worsening functional disability-- will need to transition to SNF DVT prophylaxis-hold heparin subcutaneous secondary to fall the other day DNR as per patient's prior directives. Admission and Anticipated Discharge Date Admission Date: October 27, 2022 Subjective Follow-up for UTI, weakness, etc. Sitting up in bed, on BiPAP, awake and alert, gestures to communicate States she is not feeling well today, having some shortness of breath No abdominal pain, nausea Chest x-ray: No pulmonary edema Discussed with pulmonology service, recommend treating anxiety BiPAP setting adjusted Robinul as needed Review of Systems Review of Systems: all noted and negative except for above Physical Exam Physical Exam: General- oriented, not in distress, breathing with mild effort & accessory muscle use Eyes- anicteric Neck- no JVD Lungs-faint wheeze scattered, bilaterally, good air entry bilaterally Heart- normal rate, regular rhythm; no murmurs Abdomen- normal bowel sounds, nondistended, soft, nontender Extremities- no pretibial edema, no calf tenderness Neuro- alert, oriented x , no new gross focal neurologic deficits Skin- warm & dry Results & Data Results & Data Vital Signs (Past 12 Hours) Vital Signs Temp Pulse Pulse Resp BP Pulse Ox O2 Del Method 11/01/22 14:00 71 11/01/22 15:00 36.4 C L 72 18 118/70 97 BiPAP 11/01/22 15:01 95 H 22 96 11/01/22 12:00 36.6 C 72 18 98/61 L 98 BiPAP 11/01/22 07:00 92 H 11/01/22 11:08 91 H 18 97 11/01/22 07:00 BiPAP 11/01/22 09:23 100 H 27 H 11/01/22 09:23 100 H 27 H 9 L BiPAP 11/01/22 07:17 82 22 96 11/01/22 07:06 36.6 C 90 19 122/68 99 BiPAP FiO2 11/01/22 14:00 11/01/22 15:00 11/01/22 15:01 25 11/01/22 12:00 11/01/22 07:00 11/01/22 11:08 25 11/01/22 07:00 11/01/22 09:23 25 11/01/22 09:23 25 11/01/22 07:17 25 11/01/22 07:06 25 all noted and reviewed including below
[2022-11-01] MEDS: MoRPHine SULFATE 2 MG/ML CARP IV PRN (19:58)
[2022-11-01] MEDS: GLYCOPYRROLATE 1 MG TAB PO PRN (20:24)
[2022-11-02] MEDS: MoRPHine SULFATE 2 MG/ML CARP IV PRN ×2 (01:56→23:51)
[2022-11-02] MEDS: GLYCOPYRROLATE 1 MG TAB PO PRN (08:20)
[2022-11-02] MEDS: FAMOTIDINE 20 MG TAB JT SCH (08:21)
[2022-11-02] MEDS: MULTI VIT W/MINERALS LIQUID 15 ML UDP PEG SCH (08:21)
[2022-11-02] MEDS: METOPROLOL TARTRATE 25 MG TAB PEG SCH ×2 (08:21→20:07)
[2022-11-02 11:20] LABS: BUN Creatinine Ratio 52.8 (10-20); Creatinine Clr Calc Pharmacy 66.8 ml/min; Est GFR (African American) 103.9 ml/min; Est GFR (Non-African American) 89.7 ml/min; Potassium 3.7 mmol/L (3.5-5.1)
[2022-11-02] MEDS: PEPTAMEN 1.5 CAL 1,000 ML BAG PEG SCH (11:44)
--- NOTE | 2022-11-02 12:40 | Pulmonology Progress Note ---
Date of Service November 02, 2022 Assessment & Plan (1) Acute and chronic respiratory failure with hypercapnia: (2) IBALS (isolated bulbar amyotrophic lateral sclerosis): (3) Metabolic alkalosis: Plan Chest x-ray 10/27/2022 personally reviewed: Portable film, poor inspiratory effort, bilateral costophrenic and cardiophrenic units are clean, gastric bubble on the left side, no clear lung infiltrate appreciated 2D echo 10/28/2022: EF 65 to 70%, grade 1 diastolic dysfunction, RV normal in size and function ABG 10/28/2022: 7.24/111/140 on 2 L nasal cannula -- Acute hypercapnic respiratory failure Multifactorial Likely sepsis from UTI leading to noncompliance of her AVAPS As well as component of underlying ALS and decreased respiratory drive Procalcitonin negative SARS 19 NAAT negative -- Metabolic alkalosis Likely secondary to compensation from chronic respiratory acidosis S/p 5 doses of 250 mg of acetazolamide --Gram-negative UTI Management as per primary care --DNR/DNI Plan: Patient is more alert today. Would recommend continuing with AVAPS to keep tidal volume around 350 I did discuss the patient that it is a normal progression of ALS were patient is dependent more on NIV. Tracheostomy and vent can also be thought up in future. She would not like that to happen. She will continue with AVAPS as and when needed. Patient's hypercapnic respiratory failure was likely from her not being on BiPAP/AVAPS overnight. Do not over oxygenate the patient, keep O2 saturation between 88-92% Whenever patient is dozing off/sleeping would recommend to put her on AVAPS Case was discussed with RN at bedside and Dr. Swift Please note the above document was generated using voice recognition software. It may contain grammatical, syntax or spelling errors.Any formal questions or concerns about the content, text or information contained within the body of this dictation should be directly addressed to the provider for clarification. Admission and Anticipated Discharge Date Admission Date: October 27, 2022 Subjective Patient seen and examined at bedside. No acute distress Patient was on AVAPS machine at the time of examination She was alert today. Answering all the questions appropriately Denied any headache, no nausea, no vomiting. No chest pain Review of Systems Review of Systems: All systems reviewed & are unremarkable except as noted in Subjective Physical Exam Physical Exam: Constitutional: No acute distress HEENT: EOMI, PERRLA Respiratory system: Good air entry bilaterally, no wheeze, no rhonchi, no crackles CVS: S1-S2 positive, positive 2 out of 6 systolic murmur appreciated best at aorta Abdomen: Soft, nontender, nondistended, positive bowel sounds x4 Extremities: +2 pulses bilaterally radialis/ dorsalis pedis, no cyanosis, no edema Neuro: Awake alert and oriented to self Psych: Normal mood and affect G/U: Positive Rodgers Skin: no rashes, warm and dry Lymphatic: no cervical or axillary lymphadenopathy Results & Data Results & Data Vital Signs (Past 12 Hours) Vital Signs Temp Pulse Pulse Resp BP Pulse Ox O2 Del Method 11/02/22 12:13 36.6 C 71 20 156/71 H 98 BiPAP 11/02/22 08:00 BiPAP 11/02/22 07:40 36.4 C L 73 19 151/69 H 98 BiPAP 11/02/22 07:39 65 11/02/22 07:12 77 23 93 11/02/22 03:00 36.4 C L 69 24 119/61 100 BiPAP 11/02/22 02:39 18 98 FiO2 11/02/22 12:13 25 11/02/22 08:00 11/02/22 07:40 25 11/02/22 07:39 11/02/22 07:12 25 11/02/22 03:00 11/02/22 02:39 25 Laboratory Results 11/01/22 09:09 11/02/22 10:25 PG Care Time/CCT Total # of Minutes Spent Total Time Spent with Patient: Total time spent is greater than 50% in coordination of care (as documented) at patient's floor/unit and/or counseling patient: Coding Level of Care Code 19236 SUB INP/OBS CARE 2/35MIN Diagnoses Acute and chronic respiratory failure with hypercapnia J96.22 IBALS (isolated bulbar amyotrophic lateral sclerosis) G12.21 Metabolic alkalosis E87.3
--- NOTE | 2022-11-02 12:48 | Hospitalist Progress Note ---
Date of Service November 02, 2022 Assessment & Plan (1) Acute and chronic respiratory failure with hypercapnia: Plan: ALS -- Currently on 2 L but with tachypnea ABG showing pH of 7.24, PCO2 111, PO2 140, bicarb 48 --Chest x-ray no infiltrates or effusion -- BiPAP ordered Repeat ABG at 12 noon -- Pulmonary service consulted 10/30 Feeling weak and tired this morning secondary to poor sleep, unable to use BiPAP overnight for longer than 2 hours BiPAP ordered Continue acetazolamide Pulmonary service on board 10/31 Patient significantly lethargic today this morning, discussed with onion topper, BiPAP settings increased, maintain on BiPAP CT head: No acute process Continue to monitor closely 11/01 Awake and alert ABG okay Chest x-ray no pulmonary edema Reporting shortness of breath, mostly from anxiety per pulmonary service Ativan as needed, Robinul for secretions Neb treatment given Neurologist consulted, treat underlying issues, no further recommendations at this point 11/02 Discussed with pulmonology service Respiratory status secondary to underlying infection, progression of ALS Continue AVAPS continuously for now Options include possible trach if with no improvement in the next coming days, patient declined states Monitor closely UTI --Urine culture: Klebsiella Blood cultures: negative x48 hours -- On IV ceftriaxone day 12/02 Abdominal pain Resolved Troponin elevation --Troponin elevated to 14 Third troponin negative --EKG no signs of acute ischemia or infarct -- Continues on metoprolol, aspirin, Lipitor -- Cardiology service on board hx PVD aspirin hypertension -- Monitor BP Hyperlipidemia, not on statin Rx right breast cancer status post surgery/radiation, patient in remission aspiration risk status post PEG tube placement--resume PEG tube feeding chronic anemia, hemoglobin at baseline Worsening functional disability-- will need to transition to SNF DVT prophylaxis-heparin SQ twice daily DNR as per patient's prior directives. Admission and Anticipated Discharge Date Admission Date: October 27, 2022 Subjective ff up for UTI, hypercapnic respiratory failure, weakness, ALS, etc. Seen sitting up in bed, comfortable, on BiPAP States she feels about the same overall Denies Shortness of breath Frustrated as she is still on BiPAP continuously Denies abdominal pain, nausea No other new symptoms Review of Systems Review of Systems: all noted and negative except for above Physical Exam Physical Exam: General- oriented x 3, not in distress,breathing with no effort or accessory muscle use On BiPAP Eyes- anicteric Neck- no JVD Lungs- clear breath sounds bilaterally, no rales/wheezes Heart- normal rate, regular rhythm; no murmurs Abdomen- normal bowel sounds, nondistended, soft, nontender PEG tube site with no signs of infection Extremities- no pretibial edema, no calf tenderness Neuro- alert, oriented x 3; no new gross focal neurologic deficits Skin- warm & dry Results & Data Results & Data Vital Signs (Past 12 Hours) Vital Signs Temp Pulse Pulse Resp BP Pulse Ox O2 Del Method 11/02/22 12:13 36.6 C 71 20 156/71 H 98 BiPAP 11/02/22 08:00 BiPAP 11/02/22 07:40 36.4 C L 73 19 151/69 H 98 BiPAP 11/02/22 07:39 65 11/02/22 07:12 77 23 93 11/02/22 03:00 36.4 C L 69 24 119/61 100 BiPAP 11/02/22 02:39 18 98 FiO2 11/02/22 12:13 25 11/02/22 08:00 11/02/22 07:40 25 11/02/22 07:39 11/02/22 07:12 25 11/02/22 03:00 11/02/22 02:39 25 all noted and reviewed including below
[2022-11-02] MEDS: SODIUM CHLORIDE 0.9% 1000ML 1,000 ML IV SCH ×2 (13:06→16:11)
[2022-11-02] MEDS: cefTRIAXone SODIUM 2,000 MG in DEXTROSE 5% 50 ML IV SCH (17:35)
[2022-11-02] MEDS: HEPARIN SOD 5,000 UNIT/0.5 ML VIAL SQ SCH (20:08)
[2022-11-03] MEDS: GLYCOPYRROLATE 1 MG TAB PO PRN ×2 (00:40→12:05)
[2022-11-03] MEDS: SODIUM CHLORIDE 0.9% 1000ML 1,000 ML IV SCH (05:14)
[2022-11-03 06:53] LABS: BUN Creatinine Ratio 46.8 (10-20); Est GFR (African American) 108.1 ml/min; Est GFR (Non-African American) 93.3 ml/min; Potassium 3.4 mmol/L (3.5-5.1)
--- NOTE | 2022-11-03 08:00 | Pulmonology Progress Note ---
Date of Service November 03, 2022 Assessment & Plan (1) Acute and chronic respiratory failure with hypercapnia: (2) IBALS (isolated bulbar amyotrophic lateral sclerosis): (3) Metabolic alkalosis: Plan Chest x-ray 10/27/2022 personally reviewed: Portable film, poor inspiratory effort, bilateral costophrenic and cardiophrenic units are clean, gastric bubble on the left side, no clear lung infiltrate appreciated 2D echo 10/28/2022: EF 65 to 70%, grade 1 diastolic dysfunction, RV normal in size and function ABG 10/28/2022: 7.24/111/140 on 2 L nasal cannula -- Acute hypercapnic respiratory failure Multifactorial Likely sepsis from UTI leading to noncompliance of her AVAPS As well as component of underlying ALS and decreased respiratory drive Procalcitonin negative SARS 19 NAAT negative -- Metabolic alkalosis Likely secondary to compensation from chronic respiratory acidosis S/p 5 doses of 250 mg of acetazolamide --Gram-negative UTI Management as per primary care --DNR/DNI Plan: Patient was saturating 99% on 2 L nasal cannula. I turned it off and told her that I turned it off at that time she started complaining of shortness of breath Reported to 1 L and she says she is doing well. I do think anxiety is also playing a role on top of her underlying ALS. Whenever patient is dozing off/sleeping would recommend to put her on AVAPS Do not over oxygenate the patient, keep O2 saturation between 88-92% Case was discussed with RN at bedside and Dr. Swift Please note the above document was generated using voice recognition software. It may contain grammatical, syntax or spelling errors.Any formal questions or concerns about the content, text or information contained within the body of this dictation should be directly addressed to the provider for clarification. Admission and Anticipated Discharge Date Admission Date: October 27, 2022 Subjective Patient seen and examined at bedside. No acute distress, no adverse events overnight Patient was on 2 L nasal cannula saturating 99%. Denied any chest pain, no headache, no nausea, no vomiting She prefers her home AVAPS machine rather than the one that we have in the hospital Denied any headache. When I went down on the oxygen to 0 and I told her she panicked and says she is not able to breathe. I put it to 1 L and she says she is feeling better. Review of Systems Review of Systems: All systems reviewed & are unremarkable except as noted in Subjective Physical Exam Physical Exam: Constitutional: No acute distress HEENT: EOMI, PERRLA Respiratory system: Good air entry bilaterally, no wheeze, no rhonchi, no crackles CVS: S1-S2 positive, positive 2 out of 6 systolic murmur appreciated best at aorta Abdomen: Soft, nontender, nondistended, positive bowel sounds x4 Extremities: +2 pulses bilaterally radialis/ dorsalis pedis, no cyanosis, no edema Neuro: Awake alert and oriented to self Psych: Normal mood and affect G/U: Positive Rodgers Skin: no rashes, warm and dry Lymphatic: no cervical or axillary lymphadenopathy Results & Data Results & Data Vital Signs (Past 12 Hours) Vital Signs Temp Pulse Pulse Pulse Resp BP Pulse Ox 11/03/22 07:51 36.6 C 69 22 156/80 H 99 11/02/22 23:00 66 11/03/22 03:45 71 96 11/03/22 03:17 78 18 144/69 H 98 11/02/22 23:39 75 152/62 H 97 O2 Del Method O2 Flow Rate 11/03/22 07:51 CPAP 11/02/22 23:00 11/03/22 03:45 CPAP 2 11/03/22 03:17 BiPAP 11/02/22 23:39 BiPAP Laboratory Results 11/01/22 09:09 11/03/22 05:47 PG Care Time/CCT Total # of Minutes Spent Total Time Spent with Patient: Total time spent is greater than 50% in coordination of care (as documented) at patient's floor/unit and/or counseling patient: Coding Level of Care Code 36827 SUB INP/OBS CARE 2/35MIN Diagnoses Acute and chronic respiratory failure with hypercapnia J96.22 IBALS (isolated bulbar amyotrophic lateral sclerosis) G12.21 Metabolic alkalosis E87.3
[2022-11-03] MEDS: MULTI VIT W/MINERALS LIQUID 15 ML UDP PEG SCH (08:09)
[2022-11-03] MEDS: METOPROLOL TARTRATE 25 MG TAB PEG SCH ×2 (08:09→20:53)
[2022-11-03] MEDS: HEPARIN SOD 5,000 UNIT/0.5 ML VIAL SQ SCH ×2 (08:10→20:53)
[2022-11-03] MEDS: FAMOTIDINE 20 MG TAB JT SCH (08:10)
[2022-11-03] MEDS ORDERED: POTASSIUM CHLORIDE 20 MEQ/15 ML UDC PO STA (08:58)
--- NOTE | 2022-11-03 12:43 | Hospitalist Progress Note ---
Date of Service November 03, 2022 Assessment & Plan (1) Acute and chronic respiratory failure with hypercapnia: Plan: ALS -- Patient having acute on chronic hypoxic and hypercapnic respiratory failure, Likely secondary to underlying UTI, progression of ALS -- Initial presentation: ABG showing pH of 7.24, PCO2 111, PO2 140, bicarb 48 --Chest x-ray no infiltrates or effusion -- BiPAP ordered -- Pulmonary service consulted BiPAP settings adjusted Course of acetazolamide IV given for metabolic alkalosis Over the weekend, patient was noted to be lethargic Repeat CT head: No acute process Chest x-ray: No pneumonia, pleural effusions BiPAP settings further adjusted Neurologist consulted, treat underlying issues, no further recommendations at this point 11/03 Today patient seen sitting up in bed side chair, awake and alert, on BiPAP Denies new symptoms Awaiting pulmonology service recommendations regarding BiPAP management UTI --Urine culture: Klebsiella Blood cultures: negative x48 hours -- On IV ceftriaxone day 01/01 Abdominal pain Resolved Status post fall event --Occurred on October 29, 2022 Patient stood up from bedside chair, and fell on the floor CT head: No acute process One-to-one observation provided for 2 days Denies pain in her body at this time Reminded, emphasized to patient today to not get up on her own, always call for assistance when she needs to move Patient expressed understanding Troponin elevation --Troponin elevated to 14 Third troponin negative --EKG no signs of acute ischemia or infarct -- Continues on metoprolol, aspirin, Lipitor -- Cardiology service consulted hx PVD aspirin hypertension -- BP improving Hyperlipidemia, not on statin Rx right breast cancer status post surgery/radiation, patient in remission aspiration risk status post PEG tube placement--usually on Jevity 1 carton 5 times a day at home, currently on continuous tube feeding at 40 cc/h, no issues so far chronic anemia, hemoglobin at baseline Worsening functional disability-- will need to transition to SNF, discussed with family DVT prophylaxis-heparin SQ twice daily DNR as per patient's prior directives. Disposition will need to transition to SNF, discussed with family Admission and Anticipated Discharge Date Admission Date: October 27, 2022 Subjective Follow-up for UTI, acute on chronic hypercapnic respiratory failure, etc. Seen resting in the chair, on BiPAP Awake and alert, answers questions by gesturing, follows all commands Breathing is about the same Denies cough Denies abdominal pain, nausea Denies any other pain No other symptoms Review of Systems Review of Systems: all noted and negative except for above Physical Exam Physical Exam: General- oriented , not in distress, speaks in sentences with no effort or accessory muscle use Eyes- anicteric Neck- no JVD Lungs- clear breath sounds bilaterally, no wheezing, no crackles noted Heart- normal rate, regular rhythm; no murmurs Abdomen- normal bowel sounds, nondistended, soft, no tenderness Extremities- no pretibial edema, no calf tenderness Neuro- alert, oriented x2; no new gross focal neurologic deficits Skin- warm & dry Results & Data Results & Data Vital Signs (Past 12 Hours) Vital Signs Temp Pulse Pulse Pulse Resp BP Pulse Ox 11/03/22 11:10 36.6 C 72 20 129/64 99 11/03/22 09:13 11/03/22 08:31 71 11/03/22 07:51 36.6 C 69 22 156/80 H 99 11/03/22 03:45 71 96 11/03/22 03:17 78 18 144/69 H 98 O2 Del Method O2 Flow Rate 11/03/22 11:10 CPAP 11/03/22 09:13 BiPAP 11/03/22 08:31 11/03/22 07:51 CPAP 11/03/22 03:45 CPAP 2 11/03/22 03:17 BiPAP all noted and reviewed including below
[2022-11-03] MEDS ORDERED: TUBE FEEDING WATER FLUSH PEG SCH (14:03)
[2022-11-03] MEDS: PEPTAMEN 1.5 CAL 1,000 ML BAG PEG SCH (17:05)
[2022-11-03] MEDS: cefTRIAXone SODIUM 2,000 MG in DEXTROSE 5% 50 ML IV SCH (17:11)
[2022-11-03] MEDS: MoRPHine SULFATE 2 MG/ML CARP IV PRN (22:16)
[2022-11-04 06:59] LABS: BUN Creatinine Ratio 39.6 (10-20); Calcium 8.6 mg/dl (8.6-10.3); Est GFR (African American) 107.4 ml/min; Est GFR (Non-African American) 92.6 ml/min; Phosphorus 3.4 mg/dl (2.5-4.9); Potassium 4.2 mmol/L (3.5-5.1)
[2022-11-04] MEDS: HEPARIN SOD 5,000 UNIT/0.5 ML VIAL SQ SCH ×2 (09:05→20:16)
[2022-11-04] MEDS: FAMOTIDINE 20 MG TAB JT SCH (09:05)
[2022-11-04] MEDS: METOPROLOL TARTRATE 25 MG TAB PEG SCH ×2 (09:06→20:16)
[2022-11-04] MEDS: MULTI VIT W/MINERALS LIQUID 15 ML UDP PEG SCH (09:06)
--- NOTE | 2022-11-04 10:00 | Hospitalist Progress Note ---
Date of Service November 04, 2022 Assessment & Plan (1) Acute and chronic respiratory failure with hypercapnia: Plan: ALS -- Patient having acute on chronic hypoxic and hypercapnic respiratory failure, Likely secondary to underlying UTI, progression of ALS -- Initial presentation: ABG showing pH of 7.24, PCO2 111, PO2 140, bicarb 48 --Chest x-ray no infiltrates or effusion -- BiPAP ordered -- Pulmonary service consulted BiPAP settings adjusted Course of acetazolamide IV given for metabolic alkalosis Over the weekend, patient was noted to be lethargic Repeat CT head: No acute process Chest x-ray repeated (11/01): No pneumonia, pleural effusions BiPAP settings further adjusted Neurologist consulted, treat underlying issues, no further recommendations at this point 11/04 Today patient seen sitting up in bed side chair, awake and alert, on suppl. O2 via [place] Pulmonary medicine following - recommendations: Explained the importance of her using the AVAPS machine whenever she is short of breath and whenever she is sleeping Whenever patient is dozing off/sleeping would recommend to put her on AVAPS Do not over oxygenate the patient, keep O2 saturation between 88-92% Discussed w/ pulm. medicine - ok to DC. UTI --Urine culture: Klebsiella Blood cultures: negative -- On IV ceftriaxone Abdominal pain Resolved Status post fall event --Occurred on October 29, 2022 Patient stood up from bedside chair, and fell on the floor CT head: No acute process One-to-one observation provided for 2 days Denies pain in her body at this time Reminded, emphasized to patient to not get up on her own, always call for assistance when she needs to move Patient expressed understanding Troponin elevation --Troponin elevated to 14 Third troponin negative --EKG no signs of acute ischemia or infarct -- Continues on metoprolol, aspirin, Lipitor -- Cardiology service consulted hx PVD aspirin hypertension -- BP improving Hyperlipidemia, not on statin Rx right breast cancer status post surgery/radiation, patient in remission aspiration risk status post PEG tube placement--usually on Jevity 1 carton 5 times a day at home, currently on continuous tube feeding at 40 cc/h, no issues so far chronic anemia, hemoglobin at baseline Worsening functional disability-- will need to transition to SNF, discussed with family DVT prophylaxis-heparin SQ twice daily DNR as per patient's prior directives. Disposition will need to transition to SNF, family and CM involved Admission and Anticipated Discharge Date Admission Date: October 27, 2022 Subjective Follow-up for UTI, acute on chronic hypercapnic respiratory failure, in the setting of ALS etc. Seen resting in the chair, on suppl. O2 via [place] 2L saturating 97% Awake and alert, answers questions by gesturing, writes on her phone, follows all commands Reports shortness of breath however appears comfortable and in no distress Denies abdominal pain, nausea Denies any other pain No other symptoms Pt called cousin over the phone at the bedside - updated. Discussed w/ pulm. medicine - ok for DC. Review of Systems Review of Systems: All systems reviewed & are unremarkable except as noted in Subjective Physical Exam Physical Exam: General- alert oriented , in NAD , nonverbal at baseline, on 2L of suppl. O2 (saturating 97%) Eyes- anicteric Neck- no JVD Lungs- clear breath sounds bilaterally, no wheezing, no crackles noted Heart- normal rate, regular rhythm; + soft syst. murmur Abdomen- normal bowel sounds, nondistended, soft, no tenderness Extremities- no pretibial edema, no calf tenderness Neuro- awake, alert, oriented; able to answer simple questions - uses phone or gestures. Skin- warm & dry Results & Data Results & Data Vital Signs (Past 12 Hours) Vital Signs Temp Pulse Pulse Pulse Resp BP Pulse Ox 11/04/22 08:00 36.9 C 74 101 H 18 148/75 H 97 11/04/22 03:53 111 H 16 153/69 H 90 11/03/22 23:00 67 11/03/22 23:12 63 18 139/70 98 O2 Del Method 11/04/22 08:00 Room Air 11/04/22 03:53 BiPAP 11/03/22 23:00 11/03/22 23:12 BiPAP Laboratory Results 11/04/22 Range/Units 06:07 Sodium 145 (136-145) mmol/L Potassium 4.2 D (3.5-5.1) mmol/L Chloride 108 H (98-107) mmol/L Carbon Dioxide 34 H (21-32) mmol/L Anion Gap 3 (3-11) BUN 19 (6-23) mg/dl Creatinine 0.48 L (0.6-1.2) mg/dl Est Cr Clr Drug Dosing 74.0 ml/min Est GFR ( Amer) 107.4 ml/min Est GFR (Non-Af Amer) 92.6 ml/min BUN/Creatinine Ratio 39.6 H (10-20) Glucose 124 H (70-99(Fasting)) mg/dl Calcium 8.6 (8.6-10.3) mg/dl Phosphorus 3.4 (2.5-4.9) mg/dl Magnesium 2.0 (1.7-2.4) mg/dl Medications Administered Current Inpatient Medications Acetaminophen (Acetaminophen Susp 325 Mg/10.15 Ml Udc) 650 mg PEG Q4H PRN PRN Reason: Pain or Fever Stop: 11/26/22 22:48 Last Admin: 10/30/22 14:24 Dose: 650 mg Diclofenac Sodium (Diclofenac Sod 1% Gel 100 Gm Tube) 2 gm EXT QID PRN; Protocol PRN Reason: flank pain Stop: 11/29/22 01:39 Last Admin: 10/30/22 09:09 Dose: 2 gm Enteral Nutritional Formula (Peptamen 1.5 Vaughn 1,000 Ml Bag) 1,000 ml PEG UD MELITA; Protocol Stop: 11/28/22 10:59 Last Admin: 11/03/22 17:05 Dose: 1,000 ml Famotidine (Famotidine 20 Mg Tab) 20 mg JT QAM [facility] Stop: 11/27/22 08:59 Last Admin: 11/04/22 09:05 Dose: 20 mg Glycopyrrolate (Glycopyrrolate 1 Mg Tab) 1 mg PO BID PRN PRN Reason: secretions Stop: 12/01/22 20:59 Last Admin: 11/03/22 12:05 Dose: 1 mg Heparin Sodium (Porcine) (Heparin Sod 5,000 Unit/0.5 Ml Vial) 5,000 units SQ Q12 MELITA Stop: 12/02/22 20:59 Last Admin: 11/04/22 09:05 Dose: 5,000 units Promethazine HCl 6.25 mg/ (Sodium Chloride) 50.25 mls @ 201 mls/hr IV Q6H PRN PRN Reason: Nausea And Vomiting Stop: 11/26/22 22:48 Last Infusion: 10/29/22 06:17 Dose: Infused Ceftriaxone Sodium 2,000 mg/ (Dextrose) 70 mls @ 100 mls/hr IV Q24H MELITA; Protoc ol Stop: 11/07/22 17:59 Last Infusion: 11/03/22 18:12 Dose: Infused Ondansetron HCl 6 mg/ Dextrose 53 mls @ 200 mls/hr IV Q6H PRN PRN Reason: Nausea And Vomiting Stop: 11/28/22 09:28 Last Infusion: 10/29/22 10:56 Dose: Infused Metoprolol Tartrate (Metoprolol Tartrate 25 Mg Tab) 12.5 mg PEG BID [facility] Stop: 11/26/22 23:44 Last Admin: 11/04/22 09:06 Dose: 12.5 mg Morphine Sulfate (Morphine Sulfate 2 Mg/Ml Carp) 2 mg IV Q3H PRN PRN Reason: Pain Stop: 11/11/22 01:48 Last Admin: 11/03/22 22:16 Dose: 2 mg Multivitamins/Minerals (Multi Vit W/Minerals Liquid 15 Ml Udp) 15 ml PEG QAM [facility] Stop: 11/29/22 08:59 Last Admin: 11/04/22 09:06 Dose: 15 ml Oxycodone HCl (Oxycodone Hcl Soln 5 Mg/5 Ml Udc) 2.5 mg GT QID PRN PRN Reason: Pain not relieved by tylenol Stop: 11/13/22 01:54 Sterile Water (Tube Feeding Water Flush) 200 ml PEG Q4H [facility] Stop: 12/03/22 14:02
--- NOTE | 2022-11-04 12:20 | Pulmonology Progress Note ---
Date of Service November 04, 2022 Assessment & Plan (1) Acute and chronic respiratory failure with hypercapnia: (2) IBALS (isolated bulbar amyotrophic lateral sclerosis): (3) Metabolic alkalosis: Plan Chest x-ray 10/27/2022 personally reviewed: Portable film, poor inspiratory effort, bilateral costophrenic and cardiophrenic units are clean, gastric bubble on the left side, no clear lung infiltrate appreciated 2D echo 10/28/2022: EF 65 to 70%, grade 1 diastolic dysfunction, RV normal in size and function ABG 10/28/2022: 7.24/111/140 on 2 L nasal cannula -- Acute hypercapnic respiratory failure Multifactorial Likely sepsis from UTI leading to noncompliance of her AVAPS As well as component of underlying ALS and decreased respiratory drive Procalcitonin negative SARS 19 NAAT negative -- Metabolic alkalosis Likely secondary to compensation from chronic respiratory acidosis S/p 5 doses of 250 mg of acetazolamide --Gram-negative UTI Management as per primary care --DNR/DNI Plan: Patient clinically today looks much better. She is more alert, asking to go home. I did explain the importance of her using the AVAPS machine whenever she is short of breath and whenever she is sleeping Whenever patient is dozing off/sleeping would recommend to put her on AVAPS Do not over oxygenate the patient, keep O2 saturation between 88-92% Case was discussed with RN at bedside and Dr. Riggs No further recommendation from pulmonary perspective. We will sign off Please call directly with any questions Please note the above document was generated using voice recognition software. It may contain grammatical, syntax or spelling errors.Any formal questions or concerns about the content, text or information contained within the body of this dictation should be directly addressed to the provider for clarification. Admission and Anticipated Discharge Date Admission Date: October 27, 2022 Subjective Patient seen and examined at bedside. No acute distress, no adverse events overnight Did use her AVAPS machine at night She was very alert today. Answering all the questions appropriately Denies any chest pain, no headache, no nausea, no vomiting When it comes to her breathing she says she is doing okay. Was asking when she can go home. Review of Systems Review of Systems: All systems reviewed & are unremarkable except as noted in Subjective Physical Exam Physical Exam: Constitutional: No acute distress HEENT: EOMI, PERRLA Respiratory system: Good air entry bilaterally, no wheeze, no rhonchi, no crackles CVS: S1-S2 positive, positive 2 out of 6 systolic murmur appreciated best at aorta Abdomen: Soft, nontender, nondistended, positive bowel sounds x4 Extremities: +2 pulses bilaterally radialis/ dorsalis pedis, no cyanosis, no edema Neuro: Awake alert and oriented to self Psych: Normal mood and affect G/U: Positive Rodgers Skin: no rashes, warm and dry Lymphatic: no cervical or axillary lymphadenopathy Results & Data Results & Data Vital Signs (Past 12 Hours) Vital Signs Temp Pulse Pulse Resp BP Pulse Ox O2 Del Method 11/04/22 08:00 Nasal Cannula 11/04/22 08:00 36.9 C 74 101 H 18 148/75 H 97 Room Air 11/04/22 03:53 111 H 16 153/69 H 90 BiPAP O2 Flow Rate 11/04/22 08:00 2 11/04/22 08:00 11/04/22 03:53 Laboratory Results 11/01/22 09:09 11/04/22 06:07 PG Care Time/CCT Total # of Minutes Spent Total Time Spent with Patient: Total time spent is greater than 50% in coordination of care (as documented) at patient's floor/unit and/or counseling patient: Coding Level of Care Code 50067 SUB INP/OBS CARE 2/35MIN Diagnoses Acute and chronic respiratory failure with hypercapnia J96.22 IBALS (isolated bulbar amyotrophic lateral sclerosis) G12.21 Metabolic alkalosis E87.3
[2022-11-04] MEDS: guaiFENesin SUGAR FREE 200 MG/10 ML UDC PO SCH ×2 (17:53→20:16)
[2022-11-04] MEDS ORDERED: SODIUM CHLORIDE 0.65% NA SOLN 45 ML (OCEAN) ONE (18:10)
[2022-11-04] MEDS: PEPTAMEN 1.5 CAL 1,000 ML BAG PEG SCH (18:12)
[2022-11-04] MEDS: cefTRIAXone SODIUM 2,000 MG in DEXTROSE 5% 50 ML IV SCH (18:18)
[2022-11-04] MEDS: GLYCOPYRROLATE 1 MG TAB PO PRN (20:30)
[2022-11-05] MEDS: guaiFENesin SUGAR FREE 200 MG/10 ML UDC PO SCH ×2 (04:59→08:34)
[2022-11-05] MEDS: METOPROLOL TARTRATE 25 MG TAB PEG SCH (08:30)
[2022-11-05] MEDS: FAMOTIDINE 20 MG TAB JT SCH (08:30)
[2022-11-05] MEDS: MULTI VIT W/MINERALS LIQUID 15 ML UDP PEG SCH (08:31)
[2022-11-05] MEDS: HEPARIN SOD 5,000 UNIT/0.5 ML VIAL SQ SCH (08:38)
[2022-11-05 10:08] LABS: Hematocrit (blood only) 33.3 % (37.0-47.0); Hemoglobin 10.3 g/dl (12.0-16.0); Mean Corpuscular Hemoglobin 28.1 pg (25.0-34.0); Mean Corpuscular Hgb Conc 30.9 g/dL (32.0-36.0); Mean Corpuscular Volume 90.7 fL (80.0-100.0); Mean Platelet Volume 10.2 fL (9.4-12.4); Platelet Count 195 K/uL (130-400); RDW Coefficient of Variation 13.9 % (11.5-14.5); RDW Standard Deviation 46.6 fL (36.4-46.3); Red Blood Count 3.67 M/uL (4.20-5.40); White Blood Count 8.04 K/ul (4.8-10.8)
[2022-11-05 10:31] LABS: BUN Creatinine Ratio 44.2 (10-20); Calcium 8.9 mg/dl (8.6-10.3); Creatinine Clr Calc Pharmacy 68.4 ml/min; Est GFR (African American) 104.6 ml/min; Est GFR (Non-African American) 90.2 ml/min; Magnesium 2.1 mg/dl (1.7-2.4); Phosphorus 3.4 mg/dl (2.5-4.9); Potassium 4.5 mmol/L (3.5-5.1)
--- NOTE | 2022-11-05 12:14 | Discharge Summary ---
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 Strokelike episode confinement status post TNKase. Carotid ultrasound showed proximal left ICA stenosis 50 to 69%. Patient discharged on aspirin. Patient has been feeling increasingly weak over the last few days. Can no longer take care of self. Patient noted achy left flank pain and increased urinary frequency. Patient also complained of substernal pain with some shortness of breath. No unusual cough symptoms. IV ceftriaxone administered at the ER for possible UTI. Medical Historyas above Surgical History : Arm surgery, right knee surgery, partial mastectomy right, endometrial polyp removal, PEG tube placement Family History : DM, heart disease Personal/Social history : Non-smoker, no EtOH intake, retired dentist originally from [place] Admission Exam Per Admitting Provider GENERAL: Slightly uncomfortable, nonverbal, no respiratory distress SKIN: Normal color, warm HEENT: Bespectacled, pink palpebral conjunctivae, no ptosis, dry buccal mucosa, nasal cannula in place NECK : Supple, no tenderness CHEST : Decreased breath sounds, no tenderness HEART : RRR, no obvious murmurs ABDOMEN: Some distention, PEG tube in place, nontender EXTREMITIES : No LE swelling/tenderness, no other conspicuous deformities noted NEUROLOGIC : Coherent, no facial asymmetry, nonverbal, gait and stance not assessed Principal Diagnosis Acute and chronic respiratory failure with hypercapnia ALS UTI Discharge Exam General- alert oriented , in NAD , nonverbal at baseline, on 2L of suppl. O2 (saturating 98%) Eyes- anicteric Neck- no JVD Lungs- clear breath sounds bilaterally, no wheezing, no crackles noted Heart- normal rate, regular rhythm; + soft syst. murmur Abdomen- normal bowel sounds, nondistended, soft, no tenderness Extremities- no pretibial edema, no calf tenderness Neuro- awake, alert, oriented; able to answer simple questions - uses phone or gestures. Skin- warm & dry Discharge Data Allergies Allergy/AdvReac Type Severity Reaction Status Date / Time No Known Drug Allergies Allergy Unknown Verified 10/27/22 19:23 Consultations 10/27/22 19:06 ED Decision to Admit Stat 10/28/22 01:49 Consult Cardiology Routine 10/28/22 09:40 Consult Pulmonology Routine 10/31/22 17:40 Consult Neurology Routine 11/01/22 09:29 Consult Neurology Routine Ordered Studies 10/27/22 18:33 US renal/blad retro comp Stat IMPRESSION: 1. LEFT kidney mass identified on CT scan from February 02, 2022 is not visualized. Consider repeat CT scan with contrast. 2. Debris in the urinary bladder. Correlate with urinalysis. 10/29/22 17:44 CT head/brain wo con Stat 10/31/22 10:55 CT head/brain wo con Stat Findings: The paranasal sinuses and mastoid air cells are clear. The calvarium and skull base are intact. There is no mass, hematoma, midline shift, acute infarct. White matter hypodensity is nonspecific but suggestive of microvascular ischemic change. The ventricles and sulci demonstrate mild age-related involutional changes. Impression: No significant change compared to the prior study. No acute intracranial abnormality. Hospital Course (1) Acute and chronic respiratory failure with hypercapnia: ALS -- Patient having acute on chronic hypoxic and hypercapnic respiratory failure, Likely secondary to underlying UTI, progression of ALS -- Initial presentation: ABG showing pH of 7.24, PCO2 111, PO2 140, bicarb 48 --Chest x-ray no infiltrates or effusion -- BiPAP ordered -- Pulmonary service consulted BiPAP settings adjusted Course of acetazolamide IV given for metabolic alkalosis Over the weekend, patient was noted to be lethargic Repeat CT head: No acute process Chest x-ray repeated (11/01): No pneumonia, pleural effusions BiPAP settings further adjusted Neurologist consulted, treat underlying issues, no further recommendations at this point 11/04 Today patient seen sitting up in bed side chair, awake and alert, on suppl. O2 via MD Pulmonary medicine following - recommendations: Explained the importance of her using the AVAPS machine whenever she is short of breath and whenever she is sleeping Whenever patient is dozing off/sleeping would recommend to put her on AVAPS Do not over oxygenate the patient, keep O2 saturation between 88-92% Discussed w/ pulm. medicine - ok to DC. UTI --Urine culture: Klebsiella Blood cultures: negative -- On IV ceftriaxone - finished Abx course Abdominal pain Resolved Renal US IMPRESSION: 1. LEFT kidney mass identified on CT scan from February 02, 2022 is not visualized. Consider repeat CT scan with contrast. 2. Debris in the urinary bladder. Correlate with urinalysis. Status post fall event --Occurred on October 29, 2022 Patient stood up from bedside chair, and fell on the floor CT head: No acute process One-to-one observation provided for 2 days Denies pain in her body at this time Reminded, emphasized to patient to not get up on her own, always call for assistance when she needs to move Patient expressed understanding Troponin elevation --Troponin elevated to 14 Third troponin negative --EKG no signs of acute ischemia or infarct -- Continues on metoprolol, aspirin, Lipitor -- Cardiology service consulted hx PVD aspirin hypertension -- BP improving, monitor Hyperlipidemia, not on statin Rx right breast cancer status post surgery/radiation, patient in remission aspiration risk status post PEG tube placement--usually on Jevity 1 carton 5 times a day at home, currently on continuous tube feeding Peptamen 1.5 at 40 cc/h, no issues so far. Discussed with senior database administrator, patient was continued with Peptamen 1.5 while inpt, to save her home supplies. Patient can continue with either of these feeds. chronic anemia, hemoglobin at baseline Worsening functional disability-- will need to transition to SNF, discussed with family Disposition will need to transition to SNF, family and CM involved Total Time Total Time Spent Total Time Spent (In Minutes): 40 Discharge Plan Discharge Items Patient Disposition: Transfer [facility] Reason For Visit: CP, SOMP UTI Discharge Diagnosis: Acute and chronic respiratory failure with hypercapnia ALS UTI Activity: Per Instructions section Non-emergency contact: Primary Care Provider, Neurologist and Breaker Hand Call non-emergency contact if: you have any medication questions and your symptoms worsen Follow-up/Referrals: Cindy Borrero MD [Primary Care Provider] - Diet: Other - See Diet Comment Diet Comment: PEG tube feeds Addtl Attending Provider Instructions: Follow-up with primary care provider within 1 week. Make sure to use your AVAPS machine at night, or whenever you are sleeping/napping, or when feeling short of breath. You are being discharged with a Rodgers catheter, you may need to further follow- up with urology. Discussed with senior database administrator, patient can continue on her home tube feeds Jevity 1.5. She was using Peptamen 1.5 while in the hospital, to save her home supplies. Patient can continue with either of these options. Pending Studies at Discharge: No Stand-Alone Forms: [facility] Skilled Items Patient informed of condition?: Yes DNR: Yes Discharge Level of Care: Skilled Communicable Disease: No Discharge Prognosis: Other Lines: None Urinary Catheter: Yes Medications and DC Order Prescriptions: New glycopyrrolate 1 mg Tablet 1 mg PO BID PRN (Reason: secretions) Qty: 10 0RF Centrum 9 mg iron/15 mL Liquid 15 ml PEG QAM Qty: 236 0RF Continued famotidine 20 mg tablet 20 mg PO QAM Jevity 1.5 Vaughn 0.06 gram-1.5 kcal/mL Liquid 1 ea feeding tube QID Rx Instructions: 240 ml bolus feedings 4 times a day....50 ml of water before and after each feeding ondansetron 4 mg tablet,disintegrating 4 mg translingual Q8 PRN (Reason: Nausea) metoprolol tartrate 25 mg tablet 12.5 mg feeding tube [facility] Discharge Orders: Discharge Order (Routine); Ordered 11/05/22 Ordered By: Albaro Riggs Admission Data Admit Date/Time: 10/27/22 21:22 Attending Provider: Albaro Riggs Admit Provider: Edis Stroud Primary Care Provider: Cindy Borrero Other Providers: Edis Stroud ; Ester Sanchez ; Sebas Chua ; Fahad Sethi ; Tristen Patricio ; Kenneth Flores ; Cesar Coyne ; Charity Kumar ; Leah Herman ; Ester Noyola ; Avelino Dent ; Michelle Peña ; Shaheed Schwartz ; Milind Ceron ; Tristian Swift
== END 2022-11-05 14:48 | DRG 871 ==
LOC: ED 14:45 → SUATTDRO 21:22 → 2N 21:22 → 4W 10-28 03:30

== ENCOUNTER 2022-11-16 18:58 | Observation (INO) ==
--- NOTE | 2022-11-16 19:26 | Emergency Department Note ---
History of Present Illness General Chief complaint: Cardiac Assessment Stated complaint: CHEST PAIN Time Seen by Provider: 11/16/22 19:11 Source: patient, family (I talked to 2 family members who is came in), RN notes reviewed and old records reviewed (I reviewed records from the [facility] as well as previous admission) Mode of arrival: ambulatory Limitations: no limitations History of Present Illness This patient is a 82-year-old female with multiple medical problems, comes in after apparently having chest pain. She is nonverbal at baseline. Apparently had chest pain starting about an hour and a half ago. She understands Armenian only but does not speak. It is difficult to get a history out of her because of this. Reviewing her records she was admitted earlier this month on October 28 and had atypical chest pain at the time she has a history of cardiac disease as well as a stroke in the past she also has a history of isolated bulbar ALS. Home Medications Medication Instructions Recorded Confirmed Type famotidine 20 mg tablet 20 mg feeding tube DAILY 10/27/22 11/16/22 History lactose-reduced food with fiber 1 ea feeding tube 5XD 10/27/22 11/16/22 History 0.06 gram-1.5 kcal/mL oral liquid (Jevity 1.5 Vaughn) metoprolol tartrate 25 mg tablet 12.5 mg feeding tube . EVERY 12 10/27/22 11/16/22 History HOURS multivit and minerals-ferrous 15 ml PEG QAM #236 mL 11/05/22 11/16/22 Rx gluconate 9 mg iron/15 mL oral liquid (Centrum) acetaminophen 325 mg tablet 650 mg feeding tube .EVERY 6 HOURS 11/16/22 11/16/22 History PRN Fever Or Pain glycopyrrolate 1 mg tablet 1 mg PO .EVERY 12 HOURS PRN 11/16/22 11/16/22 History secretions guaifenesin 400 mg tablet 400 mg QID 11/16/22 11/16/22 History Allergies Allergy/AdvReac Type Severity Reaction Status Date / Time No Known Drug Allergies Allergy Unknown Verified 10/27/22 19:23 Past Med/Surg History Medical History Encounter for pre-operative examination History of breast cancer Alejandrina Gehrig disease Osteoarthritis Renal mass "PET scan 05/14/2010- partially calcified left renal lower pole 30x36 mm mass. PET scan 09/27/13 showed stable partially calcified mass lower pole L kidney." Uterine leiomyoma Surgical History History of carpal tunnel release History of partial mastectomy of right breast (04/14/10) Family History Mother Diabetes Other Heart disease Social History Smoking Status: Unknown if ever smoked Second Hand Exposure: No; Do You Dip or Chew Tobacco: No; Hx Alcohol Use: No Hx Substance Use: No Preferred Language: Armenian Communication Ability: Impaired Communication Ability Comment: Patient understands some Armenian and is able to answer yes and no questions Communication Tools: IPad Associate Media Planner Required: Yes Beliefs That Will Affect Care: None marital status: Single Current Living Situation: Alone How many Children do You have: 0 Feels Safe at Home: Yes Assistive Devices: None Review of Systems Unobtainable due to cognitive status Physical Exam Vital Signs Vital Signs - 24 hr 11/16/22 19:07 11/16/22 19:17 11/16/22 19:25 Pulse Rate 75 Respiratory Rate Respiratory Effort / Characteristics Respiratory Depth Respiratory Pattern Blood Pressure Blood Pressure Mean Pulse Oximetry 100 Oxygen Delivery Method Nasal Cannula Nasal Cannula Oxygen Flow Rate 2 2 Sepsis Recent Fever Within 48 Hours Sepsis New/Unexplained Change in Mental Status Sepsis Action Taken by Nursing 11/16/22 19:25 11/16/22 19:05 11/16/22 19:15 Pulse Rate 77 78 80 Respiratory Rate 18 25 H 24 Respiratory Effort / Characteristics Non-Labored Respiratory Depth Normal Respiratory Pattern Regular Blood Pressure 92/50 L Blood Pressure Mean 64 Pulse Oximetry 93 94 94 Oxygen Delivery Method Room Air Room Air Room Air Oxygen Flow Rate Sepsis Recent Fever Within 48 Hours No Sepsis New/Unexplained Change in Mental Status N/A Sepsis Action Taken by Nursing No Action Required 11/16/22 19:30 11/16/22 19:45 11/16/22 20:00 Pulse Rate 77 74 79 Respiratory Rate 23 17 24 Respiratory Effort / Characteristics Respiratory Depth Respiratory Pattern Blood Pressure Blood Pressure Mean Pulse Oximetry 91 90 Oxygen Delivery Method Room Air Room Air Oxygen Flow Rate Sepsis Recent Fever Within 48 Hours Sepsis New/Unexplained Change in Mental Status Sepsis Action Taken by Nursing 11/16/22 20:15 11/16/22 20:30 11/16/22 20:39 Pulse Rate 80 73 71 Respiratory Rate 22 24 24 Respiratory Effort / Characteristics Respiratory Depth Respiratory Pattern Blood Pressure 129/81 Blood Pressure Mean 97 Pulse Oximetry 100 Oxygen Delivery Method Nasal Cannula Oxygen Flow Rate 2 Sepsis Recent Fever Within 48 Hours Sepsis New/Unexplained Change in Mental Status Sepsis Action Taken by Nursing 11/16/22 20:45 11/16/22 21:00 11/16/22 21:01 Pulse Rate 75 77 74 Respiratory Rate 27 H 22 26 H Respiratory Effort / Characteristics Respiratory Depth Respiratory Pattern Blood Pressure 145/70 H Blood Pressure Mean 95 Pulse Oximetry Oxygen Delivery Method Oxygen Flow Rate Sepsis Recent Fever Within 48 Hours Sepsis New/Unexplained Change in Mental Status Sepsis Action Taken by Nursing 11/16/22 21:15 11/16/22 21:30 11/16/22 21:45 Pulse Rate 74 77 85 Respiratory Rate 28 H 27 H 26 H Respiratory Effort / Characteristics Respiratory Depth Respiratory Pattern Blood Pressure 135/84 Blood Pressure Mean 101 Pulse Oximetry 100 Oxygen Delivery Method Nasal Cannula Oxygen Flow Rate 3 Sepsis Recent Fever Within 48 Hours Sepsis New/Unexplained Change in Mental Status Sepsis Action Taken by Nursing 11/16/22 22:00 11/16/22 22:01 11/16/22 22:15 Pulse Rate 83 81 80 Respiratory Rate 22 26 H 20 Respiratory Effort / Characteristics Respiratory Depth Respiratory Pattern Blood Pressure 86/55 L Blood Pressure Mean 65 Pulse Oximetry 98 100 Oxygen Delivery Method Nasal Cannula Nasal Cannula Oxygen Flow Rate 3 3 Sepsis Recent Fever Within 48 Hours Sepsis New/Unexplained Change in Mental Status Sepsis Action Taken by Nursing 11/16/22 22:30 11/16/22 22:31 Pulse Rate 78 80 Respiratory Rate 21 19 Respiratory Effort / Characteristics Respiratory Depth Respiratory Pattern Blood Pressure 95/80 L Blood Pressure Mean 85 Pulse Oximetry Oxygen Delivery Method Oxygen Flow Rate Sepsis Recent Fever Within 48 Hours Sepsis New/Unexplained Change in Mental Status Sepsis Action Taken by Nursing General: Well developed well nourished chronically ill-appearing older female who is nonverbal at baseline but seems understand Armenian from the circuit court judge using language line. In no acute distress, breathing comfortably on room air. Normal speech HEENT: Normal cephalic atraumatic. Pupils are equal round and reactive to light. Extraocular movements are intact. Oropharynx is pink with moist mucous membranes. No swelling of the mouth lips or tongue. She has a towel in her mouth which apparently is baseline as well Neck: Supple with a midline trachea. No meningeal signs or stiffness, no JVD or bruits. No Stridor. Chest: Clear to auscultation bilaterally. No wheezes or rhonchi. No increased work of breathing. Heart: Regular rate and rhythm without murmurs or gallops. Abdomen: Soft nontender, nondistended without rebound guarding or rigidity. Extremities: No cyanosis clubbing or edema. No calf tenderness or assymetry Spine/Back. Non tender to palpation. No CVA tenderness Skin: Good turgor without rashes. Neurologic exam: Nonfocal moving all 4 extremities symmetrically. Course Administered Medications Sodium Chloride (Nss 1000ml) 1,000 mls @ 75 mls/hr IV .[id number] MELITA Stop: 11/17/22 14:51 Last Admin: 11/17/22 02:04 Dose: 75 mls/hr Documented By: AICHA Discontinued Medications Sodium Chloride (Nss) 500 mls @ 500 mls/hr IV .Q1H MELITA Stop: 11/16/22 23:29 Last Infusion: 11/17/22 00:27 Dose: 0 mls/hr Documented By: Admin: 11/16/22 23:27 Dose: 500 mls/hr Documented By: CHANTE Medical Decision Making Differential Diagnosis Acute coronary syndrome, arrhythmia, infection, cardiac disease, electrolyte or metabolic abnormality Medical Records Attestation: I reviewed the patient's medical records. Home Medications Current Medication List: was personally reviewed by me Laboratory Data Attestation: I reviewed the patient's lab results. 11/16/22 19:35 11/16/22 19:35 Lab Results 11/16/22 11/16/22 11/16/22 Range/Units 19:35 19:35 19:35 WBC 7.73 (4.8-10.8) K/ul RBC 3.70 L (4.20-5.40) M/uL Hgb 10.5 L (12.0-16.0) g/dl Hct 34.7 L (37.0-47.0) % MCV 93.8 (80.0-100.0) fL MCH 28.4 (25.0-34.0) pg MCHC 30.3 L (32.0-36.0) g/dL RDW Std Deviation 49.2 H (36.4-46.3) fL RDW Coeff of Jazmin 14.2 (11.5-14.5) % Plt Count 188 (130-400) K/uL MPV 10.6 (9.4-12.4) fL Immature Gran % (Auto) 0.3 % Neut % (Auto) 76.3 % Lymph % (Auto) 15.0 % [place] % (Auto) 6.5 % Eos % (Auto) 1.6 % Baso % (Auto) 0.3 % Neut # (Auto) 5.91 (1.40-6.50) K/uL Lymph # (Auto) 1.16 L (1.2-3.4) K/uL [place] # (Auto) 0.50 (0.11-0.59) K/uL Eos # (Auto) 0.12 (0-0.50) K/uL Baso # (Auto) 0.02 (0-0.2) K/uL Immature Gran # (Auto) 0.02 (0.01-0.20) K/uL PT Cancelled INR Cancelled APTT Cancelled PTT Ratio Cancelled VBG pH (7.36-7.41) VBG pCO2 (38-50) mmHg VBG pO2 mmHg VBG HCO3 mmol/L VBG O2 Saturation % VBG Base Excess mEq/L Sodium 142 (136-145) mmol/L Potassium 5.0 (3.5-5.1) mmol/L Chloride 96 L (98-107) mmol/L Carbon Dioxide 45 H* (21-32) mmol/L Anion Gap 1 L (3-11) BUN 27 H (6-23) mg/dl Creatinine 0.56 L (0.6-1.2) mg/dl Est Cr Clr Drug Dosing Not Reportable Est GFR ( Amer) 102.1 ml/min Est GFR (Non-Af Amer) 88.1 ml/min BUN/Creatinine Ratio 48.2 H (10-20) Glucose 125 H (70-99(Fasting)) mg/dl Calcium 9.0 (8.6-10.3) mg/dl Total Bilirubin 0.3 (0.2-1.0) mg/dl AST 23 (13-39) U/L ALT 22 (7-52) U/L Alkaline Phosphatase 47 (34-104) U/L Troponin I High Sens 5.5 (0-14) pg/ml Total Protein 6.8 (6.0-8.3) gm/dl Albumin 3.9 (3.4-5.0) gm/dl Globulin 2.9 (2.5-4.0) gm/dl Albumin/Globulin Ratio 1.3 (0.9-2) Lipase 27 (11-82) U/L SARS-CoV-2, RNA, NAAT (NEGATIVE) 11/16/22 11/16/22 11/16/22 Range/Units 19:35 19:36 20:10 WBC (4.8-10.8) K/ul RBC (4.20-5.40) M/uL Hgb (12.0-16.0) g/dl Hct (37.0-47.0) % MCV (80.0-100.0) fL MCH (25.0-34.0) pg MCHC (32.0-36.0) g/dL RDW Std Deviation (36.4-46.3) fL RDW Coeff of Jazmin (11.5-14.5) % Plt Count (130-400) K/uL MPV (9.4-12.4) fL Immature Gran % (Auto) % Neut % (Auto) % Lymph % (Auto) % [place] % (Auto) % Eos % (Auto) % Baso % (Auto) % Neut # (Auto) (1.40-6.50) K/uL Lymph # (Auto) (1.2-3.4) K/uL [place] # (Auto) (0.11-0.59) K/uL Eos # (Auto) (0-0.50) K/uL Baso # (Auto) (0-0.2) K/uL Immature Gran # (Auto) (0.01-0.20) K/uL PT 10.2 INR 0.9 APTT 21.2 PTT Ratio 0.8 VBG pH 7.38 (7.36-7.41) VBG pCO2 85 H (38-50) mmHg VBG pO2 39 mmHg VBG HCO3 50 mmol/L VBG O2 Saturation 70.9 % VBG Base Excess 20.2 mEq/L Sodium (136-145) mmol/L Potassium (3.5-5.1) mmol/L Chloride (98-107) mmol/L Carbon Dioxide (21-32) mmol/L Anion Gap (3-11) BUN (6-23) mg/dl Creatinine (0.6-1.2) mg/dl Est Cr Clr Drug Dosing Est GFR ( Amer) ml/min Est GFR (Non-Af Amer) ml/min BUN/Creatinine Ratio (10-20) Glucose (70-99(Fasting)) mg/dl Calcium (8.6-10.3) mg/dl Total Bilirubin (0.2-1.0) mg/dl AST (13-39) U/L ALT (7-52) U/L Alkaline Phosphatase (34-104) U/L Troponin I High Sens (0-14) pg/ml Total Protein (6.0-8.3) gm/dl Albumin (3.4-5.0) gm/dl Globulin (2.5-4.0) gm/dl Albumin/Globulin Ratio (0.9-2) Lipase (11-82) U/L SARS-CoV-2, RNA, NAAT NEGATIVE (NEGATIVE) 11/16/22 Range/Units 22:32 WBC (4.8-10.8) K/ul RBC (4.20-5.40) M/uL Hgb (12.0-16.0) g/dl Hct (37.0-47.0) % MCV (80.0-100.0) fL MCH (25.0-34.0) pg MCHC (32.0-36.0) g/dL RDW Std Deviation (36.4-46.3) fL RDW Coeff of Jazmin (11.5-14.5) % Plt Count (130-400) K/uL MPV (9.4-12.4) fL Immature Gran % (Auto) % Neut % (Auto) % Lymph % (Auto) % [place] % (Auto) % Eos % (Auto) % Baso % (Auto) % Neut # (Auto) (1.40-6.50) K/uL Lymph # (Auto) (1.2-3.4) K/uL [place] # (Auto) (0.11-0.59) K/uL Eos # (Auto) (0-0.50) K/uL Baso # (Auto) (0-0.2) K/uL Immature Gran # (Auto) (0.01-0.20) K/uL PT INR APTT PTT Ratio VBG pH (7.36-7.41) VBG pCO2 (38-50) mmHg VBG pO2 mmHg VBG HCO3 mmol/L VBG O2 Saturation % VBG Base Excess mEq/L Sodium (136-145) mmol/L Potassium (3.5-5.1) mmol/L Chloride (98-107) mmol/L Carbon Dioxide (21-32) mmol/L Anion Gap (3-11) BUN (6-23) mg/dl Creatinine (0.6-1.2) mg/dl Est Cr Clr Drug Dosing Est GFR ( Amer) ml/min Est GFR (Non-Af Amer) ml/min BUN/Creatinine Ratio (10-20) Glucose (70-99(Fasting)) mg/dl Calcium (8.6-10.3) mg/dl Total Bilirubin (0.2-1.0) mg/dl AST (13-39) U/L ALT (7-52) U/L Alkaline Phosphatase (34-104) U/L Troponin I High Sens 7.4 (0-14) pg/ml Total Protein (6.0-8.3) gm/dl Albumin (3.4-5.0) gm/dl Globulin (2.5-4.0) gm/dl Albumin/Globulin Ratio (0.9-2) Lipase (11-82) U/L SARS-CoV-2, RNA, NAAT (NEGATIVE) Imaging Data Attestation: I personally reviewed and interpreted this imaging study as follows: My Impression: Chest x-rayno acute infiltrate, failure, pneumothorax seen. ECG Data Attestation: I personally reviewed and interpreted this ECG as follows: Indication: + chest pain Rate (beats per minute): 77 Rhythm: + normal sinus ECG Intervals/blocks: + Normal QRS, + Normal QT and + Normal DE ECG [place]: + Normal ECG ST segments: + Normal ST segments ECG Findings: no PACs or no PVCs Comparison ECG Date: from (10/28/22) Change: no significant change MDM Narrative This patient comes in as described above. She was placed on a monitoring and evaluation advisor in room C7. She has been having chest pain she appears in no distress and is stable vital signs. IV access established EKG initially shows no ischemic changes. she was placed on a monitoring and evaluation advisor multiple blood testing was obtained chest x-ray obtained we did attempt to use language line which even with that was difficult for. Her family members came in as well. I talked to them at length. The patient actually does understand Armenian she just cannot respond verbally. She answered all questions appropriately with yes and no answers. EKG does not show any ischemic changes or ectopy troponin is not elevated chest x-ray was unremarkable her CO2 is high at 45 and this appears to be more of a chronic issue, she does not appear to be altered. On her VBG, she has normal pH although the CO2 level is high. I did discuss CODE STATUS with the patient and her family and they all state that she is definitely DO NOT RESUSCITATE. The patient is in full agreement with this. I do think she needs to be admitted/observed for further evaluation of her chest pain I have consulted Dr. Anna to see the patient in the ER and discussed the case with him. Continuous cart monitoringorders placed in EMR for continuous cardiac monitoring. Upon my evaluation she was noted to be in normal sinus rhythm with a rate of 72 Impression & Plan Chest pain, Alejandrina Gehrig disease, Lab test negative for COVID-19 virus, Elevated carbon dioxide level Discharge Plan Visit Data Chief Complaint: Cardiac Assessment Stated Complaint: CHEST PAIN ED Provider: Ace Anderson Discharge Problem: Chest pain, Alejandrina Gehrig disease, Lab test negative for COVID-19 virus, Elevated carbon dioxide level Patient Disposition: Admitted As Inpatient Discharge Instructions Interventions: ED Discharge Assessment Last Done: 11/16/22 23:55
[2022-11-16 19:52] LABS: Basophils # (auto) 0.02 K/uL (0-0.2); Basophils % (auto) 0.3 %; Eosinophils # (auto) 0.12 K/uL (0-0.50); Eosinophils % (auto) 1.6 %; Hematocrit (blood only) 34.7 % (37.0-47.0); Hemoglobin 10.5 g/dl (12.0-16.0); Immature Granulocytes # (auto) 0.02 K/uL (0.01-0.20); Immature Granulocytes % (auto) 0.3 %; Lymphocytes # (auto) 1.16 K/uL (1.2-3.4); Mean Corpuscular Hemoglobin 28.4 pg (25.0-34.0); Mean Corpuscular Hgb Conc 30.3 g/dL (32.0-36.0); Mean Corpuscular Volume 93.8 fL (80.0-100.0); Mean Platelet Volume 10.6 fL (9.4-12.4); Monocytes % (auto) 6.5 %; Neutrophils # (auto) 5.91 K/uL (1.40-6.50); Neutrophils % (auto) 76.3 %; Platelet Count 188 K/uL (130-400); RDW Coefficient of Variation 14.2 % (11.5-14.5); RDW Standard Deviation 49.2 fL (36.4-46.3); White Blood Count 7.73 K/ul (4.8-10.8)
[2022-11-16 19:57] LABS: Base Excess VBG 20.2 mEq/L; HCO3 VBG 50 mmol/L; Oxygen Saturation VBG 70.9 %; PCO2 VBG 85 mmHg (38-50); PO2 VBG 39 mmHg; pH VBG 7.38 (7.36-7.41)
[2022-11-16 20:17] LABS: Alanine Aminotransferase 22 U/L (7-52); Albumin Globulin Ratio 1.3 (0.9-2); Albumin Level 3.9 gm/dl (3.4-5.0); Alkaline Phosphatase 47 U/L (34-104); Anion Gap 1 (3-11); Aspartate Aminotransferase 23 U/L (13-39); BUN Creatinine Ratio 48.2 (10-20); Bilirubin,Total 0.3 mg/dl (0.2-1.0); Blood Urea Nitrogen 27 mg/dl (6-23); Carbon Dioxide 45 mmol/L (21-32); Chloride 96 mmol/L (98-107); Est GFR (African American) 102.1 ml/min; Est GFR (Non-African American) 88.1 ml/min; Globulin 2.9 gm/dl (2.5-4.0); Glucose 125 mg/dl (70-99(Fasting)); Lipase 27 U/L (11-82); Sodium 142 mmol/L (136-145); Total Protein 6.8 gm/dl (6.0-8.3)
[2022-11-16 20:30] LABS: Troponin I High Sensitivity 5.5 pg/ml (0-14)
[2022-11-16 20:48] LABS: INR 0.9 (0.9-1.1); Partial Thromboplastin Ratio 0.8; Partial Thromboplastin Time 21.2 Seconds (21.0-31.0); Prothrombin Time 10.2 Seconds (9.0-12.0)
[2022-11-16] MEDS ORDERED: SODIUM CHLORIDE 0.9% 500 ML IV SCH (22:30)
--- NOTE | 2022-11-17 00:09 | History and Physical Report ---
DATE OF ADMISSION: 11/16/2022 CHIEF COMPLAINT: Chest pain. HISTORY OF PRESENT ILLNESS: This is an 82-year-old female with past medical history significant for ALS. 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 The patient is currently nonverbal . Can understand Albanian and can write on paper simple answers. as per daughter. Currently seems to be comfortable asking for BIPAP seems wants to go to sleep. Talked to the daughter and the daughter says on Wednesday, she went to see her and she was fine and on Wednesday night, she called seems not doing good. She went to see her today and she complained of chest pain, says her chest hurts and also her left shoulder hurts when they decided to bring her to the ER. In the ER, initial workup was negative and the patient wanted to go back but agreed to stay overnight. As per daughter, the patient has no fever, no cough, no nausea, could not get much history currently. The patient seems comfortable. ALLERGIES: No known drug allergies. PAST MEDICAL HISTORY: As mentioned above. PAST SURGICAL HISTORY: Right breast lesion excision, colonoscopy, cystoscopy, EGD, knee arthroscopy, partial meniscectomy, endometrial polyp removal. MEDICATIONS: The patient is on Tylenol 650 mg p.o. q. 4 hours p.r.n. via feeding tube, famotidine 20 mg p.o. daily via feeding tube, glycopyrrolate 1 mg p.o. b.i.d. p.r.n. for secretions, guaifenesin 400 mg p.o. via feeding tube q.i.d., Jevity 1.5 calories via feeding tube, metoprolol tartrate 12.5 mg b.i.d. via feeding tube, centrum 15 mL via PEG daily. FAMILY HISTORY: Significant for mother had diabetes; father had heart disorder; brother had heart disorder with bypass and stent placement. SOCIAL HISTORY: Currently living in a senior living. No smoking, no alcohol, no drug use. REVIEW OF SYSTEMS: Unobtainable at this time. PHYSICAL EXAMINATION: GENERAL: The patient is alert and awake, seems comfortable. VITAL SIGNS: Temperature afebrile, pulse 80, respiratory rate 20, blood pressure 86/50, oxygen 100% on 3 liters. HEENT: Pupils equal, round and reactive to light. Oral mucosa moist. NECK: No JVD, no neck masses. CARDIOVASCULAR: S1 and S2 heard, regular rate and rhythm. No murmur, no gallop. RESPIRATORY SYSTEM: Normal AP diameter. No accessory muscle use. No wheezing, no crackles. ABDOMEN: Soft, bowel sounds present, nontender, no distention. CENTRAL NERVOUS SYSTEM: Alert and awake. Obeys simple commands. Moves extremities. EXTREMITIES: No edema, no erythema. LABORATORY DATA: WBC 7.7, hemoglobin 10.5, hematocrit 34.7, platelets 188. PT 10.2, INR 0.9, APTT 21.2. Venous blood gas, pH of 7.38. Sodium 142, potassium 5, chloride 96, CO2 45, BUN 27, creatinine 0.5, serum glucose 125, calcium 9, total bilirubin 0.3, AST 23, ALT 22, alkaline phosphatase 47. Troponin I high sensitivity 5.5. Lipase 27. SARS-CoV-2 rapid test negative. IMAGING DATA: Chest x-ray, no acute findings. ELECTROCARDIOGRAM: Normal sinus rhythm, rate of 77, no significant change was found. ASSESSMENT AND PLAN: This is an 82-year-old female who presents with chest pain. 1. Chest pain: Rule out acute coronary syndrome. Initial workup is negative. Follow serial enzymes, echocardiogram. Keep her n.p.o. Consult cardiology in the a.m. Monitor in [facility] [employer]. 2. History of amyotrophic lateral sclerosis, history of chronic respiratory failure with hypoxia and hypercapnia. Continue home oxygen and continue BIPAP in the nighttime. 3. Nonverbal, dysphagia, status post PEG tube. We will hold the feeding for now. 4. History of hypertension: Continue metoprolol. 5. History of gastroesophageal reflux disease: Continue famotidine. 6. Deep venous thrombosis prophylaxis. We will keep sequential compression devices for now. 7. History of hyperlipidemia, not on statin treatment. Follow the lipid profile. 8. History of breast cancer, status post surgery and radiation. 9. Chronic anemia, hemoglobin stable. DISPOSITION: Observation in [facility]. Discharge back to senior living when stable. Code status DNR/DNI as per discussion with the daughter. Job ID: [id number]
[2022-11-17] MEDS ORDERED: NITROGLYCERIN SL 0.4 MG/TAB TAB SL PRN (01:32)
[2022-11-17] MEDS ORDERED: GLYCOPYRROLATE 1 MG TAB PO PRN (01:32)
[2022-11-17] MEDS ORDERED: SODIUM CHLORIDE 0.9% 1000ML 1,000 ML IV SCH (01:32)
[2022-11-17] MEDS ORDERED: ACETAMINOPHEN SUSP 325 MG/10.15 ML UDC PEG PRN (01:38)
--- NOTE | 2022-11-17 06:47 | XRay Report ---
XR chest 1V portable CLINICAL HISTORY: Chest pain, nonspecific COMPARISON STUDY: Chest radiograph November 01, 2022. FINDINGS: Lung volumes are mildly diminished. There is no pneumothorax or pleural effusion. There is no consolidation or evidence for pulmonary edema. No consolidation is present. There is mild cardiome lilo. No evidence for pulmonary edema. Gastrostomy tube is incidentally noted. IMPRESSION: No acute cardiopulmonary findings. ACT 112: Negative or not required by law. Electronically signed by: Luc Salvador M.D. 11/17/2022 6:46 AM
[2022-11-17 06:49] LABS: Basophils # (auto) 0.02 K/uL (0-0.2); Basophils % (auto) 0.3 %; Eosinophils % (auto) 2.6 %; Hematocrit (blood only) 29.6 % (37.0-47.0); Immature Granulocytes # (auto) 0.02 K/uL (0.01-0.20); Immature Granulocytes % (auto) 0.3 %; Lymphocytes # (auto) 1.36 K/uL (1.2-3.4); Lymphocytes % (auto) 17.4 %; Mean Corpuscular Hemoglobin 28.2 pg (25.0-34.0); Mean Corpuscular Hgb Conc 30.4 g/dL (32.0-36.0); Mean Corpuscular Volume 92.8 fL (80.0-100.0); Mean Platelet Volume 10.4 fL (9.4-12.4); Monocytes # (auto) 0.42 K/uL (0.11-0.59); Monocytes % (auto) 5.4 %; Neutrophils # (auto) 5.78 K/uL (1.40-6.50); Platelet Count 170 K/uL (130-400); RDW Coefficient of Variation 14.2 % (11.5-14.5); RDW Standard Deviation 47.8 fL (36.4-46.3); Red Blood Count 3.19 M/uL (4.20-5.40)
[2022-11-17 07:40] LABS: BUN Creatinine Ratio 44.2 (10-20); Calcium 8.9 mg/dl (8.6-10.3); Chol HDL Ratio 3.2 (0-5); Creatinine Clr Calc Pharmacy 65.1 ml/min; Est GFR (African American) 104.6 ml/min; Est GFR (Non-African American) 90.2 ml/min; Potassium 4.3 mmol/L (3.5-5.1); Troponin I High Sensitivity 7.6 pg/ml (0-14)
--- NOTE | 2022-11-17 09:05 | Electrocardiogram Report ---
Test Reason : Blood Pressure : / mmHG Vent. Rate : 077 BPM Atrial Rate : 077 BPM P-R Int : 148 ms QRS Dur : 068 ms QT Int : 362 ms P-R-T Axes : 031 -03 041 degrees QTc Int : 409 ms Normal sinus rhythm Normal ECG When compared with ECG of 28-OCT-2022 18:26, No significant change was found Confirmed by Cesar Flood ([id number]) on 11/17/2022 9:04:54 AM Referred By: REFERRED SELF Confirmed By:Cesra Flood
--- NOTE | 2022-11-17 09:38 | Cardiology Consultation ---
Date of Consultation November 17, 2022 Assessment & Plan (1) Chronic hypercapnic respiratory failure: (2) Chest pain: (3) IBALS (isolated bulbar amyotrophic lateral sclerosis): Plan Patient admitted for atypical chest pain. Negative cardiac evaluation including HS troponin x4 and normal EKG x2 Chest pain is reproducible with palpation to the left sternal ridge and left chest wall. Likely musculoskeletal in nature based on findings and exam. Continue ASA, metoprolol BP controlled Appears euvolemic. No further cardiac testing warranted at this time. Case discussed with Dr. Chua I spent a total of 50 minutes on the date of service in preparation, delivery, and documentation of the care provided to this patient, excluding any time spent in the performance of separately billed services. Charity Kumar PA-C Department of Cardiology, [facility] This chart was completed in part utilizing Speech Voice Recognition Software. Grammatical errors, random word insertions, pronoun errors, and incomplete sentences are an occasional consequence of this system due to software limitations, ambient noise, and hardware issues. Any formal questions or concerns about the content, text, or information contained within the body of this dictation should be directly addressed to the provider for clarification. Supervising Physician Co-Signing Physician Notes Supervising Physician Attestation: I have personally performed a history and physical examination on the patient. I agree with the physician podiatric assistant's findings and plan as documented with the following additions. Subjective: Subjective, appears comfortable at the time of my assessment. Off of positive pressure ventilation. Exam: Kyphosis noted. Lungs clear to auscultation Cardiovascular: Regular rhythm no murmurs Data: Serial high-sensitivity troponin within normal limits. EKG performed today 11/17/2022 reveals sinus rhythm at 75 bpm with occasional PVCs. No significant repolarization changes. Assessment and Plan: EKG and troponin levels are reassuring. No further cardiac testing felt to be indicated at present. Sebas Chua, DO History of Present Illness Reason for Consultation: CP Requesting Physician: Dr. Anna Attending Physician: Dr. Chua History of Present Illness History of Present Illness Patient is a complex 82 year old female. Patient is non verbal due to ALS. She does answer questions by shaking her head "yes or no". history includes: 1. ALS 2. Dysphagia with PEG tube 3. Chronic respiratory failure/hypoxia/hypercapnia 4. Hypertension 5. dyslipidemia She was initially evaluated by [facility] cardiology during her last admission several weeks ago when she was admitted for worsening shortness of breath due to chronic respiratory failure with hypoxia/hypercapnia due to her ALS. During admission she reported intermittent left-sided chest pain. Cardiology was consulted. High-sensitivity troponins were unremarkable except for 1 reading just minimally elevated at 14.1. She had no acute EKG changes. Echocardiogram revealed preserved LV systolic function with no wall motion abnormalities, grade 1 diastolic dysfunction, and no significant valvular heart disease. Her symptoms were consistent with possible musculoskeletal chest pain as she had reproducible chest pain with palpation to the left side of her chest and sternum. Patient was discharged during that visit to senior care facility due to high level of care needed. Per admission notes, patient's family visits her daily at the nursing facility. She has been doing well until this past weekend they felt she did not "look good". Yesterday she complained of left-sided chest pain and she was brought to the emergency room. Since admission, she has had 4 high-sensitivity troponins which were unremarkable. EKG demonstrated normal sinus rhythm without acute changes although it was a poor tracing with artifact. At time of consult, patient resting in chair. She is always hunched forward due to her musculoskeletal weakness from ALS. She denies chest pain right now. She notes soreness on left sternal border, similar to past admission. She is in no acute distress. repeat EKG this morning without acute changes. Allergies Allergy/AdvReac Type Severity Reaction Status Date / Time No Known Drug Allergies Allergy Unknown Verified 10/27/22 19:23 Home Medications Medication Instructions Recorded Confirmed Type famotidine 20 mg tablet 20 mg feeding tube DAILY 10/27/22 11/16/22 History lactose-reduced food with fiber 1 ea feeding tube 5XD 10/27/22 11/16/22 History 0.06 gram-1.5 kcal/mL oral liquid (Jevity 1.5 Vaughn) metoprolol tartrate 25 mg tablet 12.5 mg feeding tube . EVERY 12 10/27/22 11/16/22 History HOURS multivit and minerals-ferrous 15 ml PEG QAM #236 mL 11/05/22 11/16/22 Rx gluconate 9 mg iron/15 mL oral liquid (Centrum) acetaminophen 325 mg tablet 650 mg feeding tube .EVERY 6 HOURS 11/16/22 11/16/22 History PRN Fever Or Pain glycopyrrolate 1 mg tablet 1 mg PO .EVERY 12 HOURS PRN 11/16/22 11/16/22 History secretions guaifenesin 400 mg tablet 400 mg QID 11/16/22 11/16/22 History Patient History Medical History Encounter for pre-operative examination History of breast cancer Alejandrina Gehrig disease Osteoarthritis Renal mass "PET scan 05/14/2010- partially calcified left renal lower pole 30x36 mm mass. PET scan 09/27/13 showed stable partially calcified mass lower pole L kidney." Uterine leiomyoma Surgical History History of carpal tunnel release History of partial mastectomy of right breast (04/14/10) Family History Mother Diabetes Other Heart disease Social History Smoking Status: Never smoker Second Hand Exposure: No; Do You Dip or Chew Tobacco: No; Hx Alcohol Use: No Hx Substance Use: No Preferred Language: Chinese Communication Ability: Impaired Communication Ability Comment: Patient understands some Guamanian and is able to answer yes and no questions Communication Tools: IPad Respiratory Director Required: Yes Beliefs That Will Affect Care: None marital status: Single Current Living Situation: Alone How many Children do You have: 0 Feels Safe at Home: Yes Assistive Devices: CPAP, Glasses, Oxygen - Continuous and Walker Review of Systems Review of Systems: Other (limited due to non verbal state) Physical Exam Constitutional: WD/WN, vitals as above Respiratory: no labored breathing Auscultation: + diminished lung sounds Cardiovascular: Rate/Rhythm: regular rate and regular rhythm Heart Sounds: no murmur Extremities: no edema Gastrointestinal (Abdomen): normal bowel sounds, soft, nontender, no hepatosplenomegaly Results & Data Vital Signs (Past 12 Hours) Vital Signs Temp Pulse Pulse Resp BP BP Pulse Ox 11/17/22 08:02 11/17/22 07:39 11/17/22 07:39 36.9 C 82 18 148/68 H 100 11/17/22 01:32 11/17/22 01:35 66 11/17/22 04:00 36.1 C L 72 20 125/68 100 11/17/22 03:26 29 H 11/17/22 00:50 72 23 99 11/16/22 23:00 80 20 100 11/16/22 23:31 73 23 128/67 92 11/16/22 23:30 75 18 11/16/22 23:15 73 20 96 11/16/22 23:01 81 20 118/91 99 11/16/22 23:00 79 21 99 11/16/22 22:45 86 17 100 11/16/22 22:31 80 19 95/80 L 11/16/22 22:30 78 21 11/16/22 23:20 80 11/16/22 22:15 80 20 100 11/16/22 22:01 81 26 H 86/55 L 98 11/16/22 22:00 83 22 11/16/22 21:45 85 26 H Pulse Ox O2 Del Method O2 Del Method O2 Flow Rate O2 Flow Rate 11/17/22 08:02 Nasal Cannula 2 11/17/22 07:39 Nasal Cannula 2 11/17/22 07:39 Nasal Cannula 2 11/17/22 01:32 100 Nasal Cannula 2 11/17/22 01:35 11/17/22 04:00 CPAP 2 11/17/22 03:26 2 11/17/22 00:50 2 11/16/22 23:00 2 11/16/22 23:31 BiPAP 11/16/22 23:30 11/16/22 23:15 Nasal Cannula 3 11/16/22 23:01 Nasal Cannula 3 11/16/22 23:00 Nasal Cannula 3 11/16/22 22:45 Nasal Cannula 3 11/16/22 22:31 11/16/22 22:30 11/16/22 23:20 11/16/22 22:15 Nasal Cannula 3 11/16/22 22:01 Nasal Cannula 3 11/16/22 22:00 11/16/22 21:45 Laboratory Results Cardiac Enzymes 11/16/22 11/16/22 11/17/22 Range/Units 19:35 22:32 06:01 AST 23 (13-39) U/L Troponin I High Sens 5.5 7.4 7.6 (0-14) pg/ml 11/17/22 Range/Units 11:19 AST (13-39) U/L Troponin I High Sens 6.6 (0-14) pg/ml Coagulation 11/16/22 11/16/22 Range/Units 19:35 20:10 PT Cancelled 10.2 APTT Cancelled 21.2 Lipids 11/17/22 Range/Units 06:01 Triglycerides 151 H (0-150) mg/dl Cholesterol 168 (0-200) mg/dl HDL Cholesterol 52 mg/dl Cholesterol/HDL Ratio 3.2 (0-5) CBC 11/16/22 11/17/22 Range/Units 19:35 06:01 WBC 7.73 7.80 (4.8-10.8) K/ul RBC 3.70 L 3.19 L (4.20-5.40) M/uL Hgb 10.5 L 9.0 L (12.0-16.0) g/dl Hct 34.7 L 29.6 L (37.0-47.0) % Plt Count 188 170 (130-400) K/uL Neut # (Auto) 5.91 5.78 (1.40-6.50) K/uL Lymph # (Auto) 1.16 L 1.36 (1.2-3.4) K/uL Schleicher # (Auto) 0.50 0.42 (0.11-0.59) K/uL Eos # (Auto) 0.12 0.20 (0-0.50) K/uL Baso # (Auto) 0.02 0.02 (0-0.2) K/uL Comprehensive Metabolic Panel 11/16/22 11/17/22 Range/Units 19:35 06:01 Sodium 142 145 (136-145) mmol/L Potassium 5.0 4.3 (3.5-5.1) mmol/L Chloride 96 L 100 (98-107) mmol/L Carbon Dioxide 45 H* 43 H* (21-32) mmol/L BUN 27 H 23 (6-23) mg/dl Creatinine 0.56 L 0.52 L (0.6-1.2) mg/dl Glucose 125 H 99 (70-99(Fasting)) mg/dl Calcium 9.0 8.9 (8.6-10.3) mg/dl AST 23 (13-39) U/L ALT 22 (7-52) U/L Alkaline Phosphatase 47 (34-104) U/L Total Protein 6.8 (6.0-8.3) gm/dl Albumin 3.9 (3.4-5.0) gm/dl Intake and Output 11/16/22 11/17/22 11/17/22 22:59 06:59 14:59 Intake Total 500 / 500 Output Total 200 / 200 Balance 300 / 300 Intake: IV 500 / 500 Sodium Chloride 0.9% 500 ml @ 500 / 500 500 mls/hr IV .Q1H [facility] Rx#: [id number] Output: Urine Amount (Catheter) 200 / 200 Rodgers/Indwelling 200 / 200 Other: Weight 57.1 kg 51.6 kg Weight Measurement Method Built in Bedscale Standing Scale Patient Weight 11/18/22 06:59 Weight 51.6 kg Diagnostic Findings Telemetry reviewed: NSR in the 80's EKG on arrival: NSR without acute changes. Baseline artifact limits interpretation repeat EKG: NSR, normal EKG Echo report reviewed, from last admission dated October 28, 2022: normal LVEF, no wall motion abnormalities, grade I diastolic dysfunction. no valvular disease Chest xray report reviewed: IMPRESSION: No acute cardiopulmonary findings. Medications Administered Current Inpatient Medications Acetaminophen (Acetaminophen Susp 325 Mg/10.15 Ml Udc) 650 mg PEG Q6H PRN PRN Reason: Fever Or Pain Stop: 12/17/22 01:37 Aspirin (Aspirin 81 Mg Chew) 81 mg PEG DAILY [facility] Stop: 12/17/22 08:59 Last Admin: 11/17/22 10:15 Dose: 81 mg Enteral Nutritional Formula (Peptamen 1.5 Vaughn 1,000 Ml Bag) 1,000 ml GT UD [facility]; Protocol Stop: 12/17/22 12:29 Last Admin: 11/17/22 13:27 Dose: 1,000 ml Famotidine (Famotidine 40 Mg/5 Ml 50ml Btl) 20 mg PO DAILY [facility] Stop: 12/17/22 08:59 Last Admin: 11/17/22 10:15 Dose: 20 mg Glycopyrrolate (Glycopyrrolate 1 Mg Tab) 1 mg PO Q12H PRN PRN Reason: secretions Stop: 12/17/22 01:31 Heparin Sodium (Porcine) (Heparin Sod 5,000 Unit/0.5 Ml Vial) 5,000 units SQ Q12 [facility] Stop: 12/17/22 20:59 Sodium Chloride (Nss 1000ml) 1,000 mls @ 75 mls/hr IV .[id number] [facility] Stop: 11/17/22 14:51 Last Admin: 11/17/22 02:04 Dose: 75 mls/hr Metoprolol Tartrate (Metoprolol Tartrate 25 Mg Tab) 12.5 mg PEG Q12H [facility] Stop: 12/17/22 08:59 Last Admin: 11/17/22 10:15 Dose: 12.5 mg Multivitamins/Minerals (Multi Vit W/Minerals Liquid 15 Ml Udp) 15 ml PEG QAM [facility] Stop: 12/17/22 08:59 Last Admin: 11/17/22 10:15 Dose: 15 ml Nitroglycerin (Nitroglycerin Sl 0.4 Mg/Tab Tab) 0.4 mg SL UD PRN PRN Reason: Chest Pain Stop: 12/17/22 01:31 Sterile Water (Tube Feeding Water Flush) 150 ml GT Q4H [facility] Stop: 12/17/22 11:29 Last Admin: 11/17/22 11:28 Dose: 150 ml (2) Chest pain Chest pain type: precordial pain Qualified Code(s): R07.2 - Precordial pain
[2022-11-17] MEDS: ASPIRIN 81 MG CHEW PEG SCH (10:15)
[2022-11-17] MEDS: FAMOTIDINE 40 MG/5 ML 50ML BTL PO SCH (10:15)
[2022-11-17] MEDS: MULTI VIT W/MINERALS LIQUID 15 ML UDP PEG SCH (10:15)
[2022-11-17] MEDS: METOPROLOL TARTRATE 25 MG TAB PEG SCH ×2 (10:15→22:14)
[2022-11-17] MEDS ORDERED: PEPTAMEN 1.5 CAL 1,000 ML BAG GT SCH ×2 (11:15→12:30)
[2022-11-17] MEDS: TUBE FEEDING WATER FLUSH GT SCH ×4 (11:28→23:19)
--- NOTE | 2022-11-17 12:01 | Electrocardiogram Report ---
Test Reason : Blood Pressure : / mmHG Vent. Rate : 075 BPM Atrial Rate : 075 BPM P-R Int : 150 ms QRS Dur : 072 ms QT Int : 380 ms P-R-T Axes : 033 003 042 degrees QTc Int : 424 ms Sinus rhythm with occasional Premature ventricular complexes Otherwise normal ECG When compared with ECG of 16-NOV-2022 19:07, Premature ventricular complexes are now Present Confirmed by Cesar Flood ([id number]) on 11/17/2022 12:00:49 PM Referred By: REFERRED SELF Confirmed By:Cesar Flood
--- NOTE | 2022-11-17 12:48 | Hospitalist Progress Note ---
Date of Service November 17, 2022 Assessment & Plan (1) IBALS (isolated bulbar amyotrophic lateral sclerosis): (2) Atypical chest pain: Plan: History of chronic hypercapnic respiratory failure secondary to ALS on home oxygen and nocturnal CPAP/BIPAP, PVD, hypertension, hyperlipidemia, history of right breast cancer, status post surgery and radiation, dysphagia s/p PEG tube placement Presents with atypical chest pain. EKG personally reviewed; NSR with occasionally PVCs. High sensitive troponin negative Chest x-rayno infiltrates. Cardiology on board; appreciate recs Telemetry monitoring (3) Chronic hypercapnic respiratory failure: Plan: On 2 L of oxygen at baseline. ABG personally reviewed; has compensated chronic respiratory acidosis with pH of 7.38. Monitor for now. Plan Hyperlipidemia, not on statin Rx right breast cancer status post surgery/radiation, patient in remission aspiration risk status post PEG tube placement--consulted dietitian. Tube feeds. chronic anemia, hemoglobin at baseline DNR/DNI Heparin subcu Admission and Anticipated Discharge Date Admission Date: November 16, 2022 Subjective Patient seen and examined at bedside. She is sitting on the chair; not in distress. She is on 2 L of oxygen by nasal cannula. Denies chest pain. Review of Systems Review of Systems: All systems reviewed & are unremarkable except as noted in Subjective Physical Exam Physical Exam: Constitutional: Awake, alert. Communicates with writing Respiratory: Bilateral clear breath sound. Cardiovascular: RRR, no murmur, no edema Vessels: no JVD or carotid bruit Chest: normal inspection of chest Abdomen: normal bowel sounds, soft, nontender, no hepatosplenomegaly. PEG tube in place. Musculoskeletal: no cyanosis or clubbing Skin: no rashes, warm and dry normal turgor Neurologic: Awake, alert, oriented. Psychiatric: A+Ox3, euthymic affect Results & Data Results & Data Vital Signs (Past 12 Hours) Vital Signs Temp Pulse Pulse Resp BP Pulse Ox Pulse Ox 11/17/22 12:07 36.6 C 78 18 138/76 99 11/17/22 08:02 11/17/22 07:39 11/17/22 07:39 36.9 C 82 18 148/68 H 100 11/17/22 01:32 100 11/17/22 01:35 66 11/17/22 04:00 36.1 C L 72 20 125/68 100 11/17/22 03:26 29 H 11/17/22 00:50 72 23 99 O2 Del Method O2 Del Method O2 Flow Rate O2 Flow Rate 11/17/22 12:07 Nasal Cannula 2 11/17/22 08:02 Nasal Cannula 2 11/17/22 07:39 Nasal Cannula 2 11/17/22 07:39 Nasal Cannula 2 11/17/22 01:32 Nasal Cannula 2 11/17/22 01:35 11/17/22 04:00 CPAP 2 11/17/22 03:26 2 11/17/22 00:50 2 Laboratory Results Laboratory Results WBC 7.80 K/ul (4.8-10.8) 11/17/22 06:01 RBC 3.19 M/uL (4.20-5.40) L 11/17/22 06:01 Hgb 9.0 g/dl (12.0-16.0) L 11/17/22 06:01 Hct 29.6 % (37.0-47.0) L 11/17/22 06:01 MCV 92.8 fL (80.0-100.0) 11/17/22 06:01 MCH 28.2 pg (25.0-34.0) 11/17/22 06:01 MCHC 30.4 g/dL (32.0-36.0) L 11/17/22 06:01 RDW Std Deviation 47.8 fL (36.4-46.3) H 11/17/22 06:01 RDW Coeff of Jazmin 14.2 % (11.5-14.5) 11/17/22 06:01 Plt Count 170 K/uL (130-400) 11/17/22 06:01 MPV 10.4 fL (9.4-12.4) 11/17/22 06:01 Immature Gran % (Auto) 0.3 % 11/17/22 06:01 Neut % (Auto) 74.0 % 11/17/22 06:01 Lymph % (Auto) 17.4 % 11/17/22 06:01 [place] % (Auto) 5.4 % 11/17/22 06:01 Eos % (Auto) 2.6 % 11/17/22 06:01 Baso % (Auto) 0.3 % 11/17/22 06:01 Neut # (Auto) 5.78 K/uL (1.40-6.50) 11/17/22 06:01 Lymph # (Auto) 1.36 K/uL (1.2-3.4) 11/17/22 06:01 [place] # (Auto) 0.42 K/uL (0.11-0.59) 11/17/22 06:01 Eos # (Auto) 0.20 K/uL (0-0.50) 11/17/22 06:01 Baso # (Auto) 0.02 K/uL (0-0.2) 11/17/22 06:01 Immature Gran # (Auto) 0.02 K/uL (0.01-0.20) 11/17/22 06:01 PT 10.2 Seconds (9.0-12.0) 11/16/22 20:10 INR 0.9 (0.9-1.1) 11/16/22 20:10 APTT 21.2 Seconds (21.0-31.0) 11/16/22 20:10 PTT Ratio 0.8 11/16/22 20:10 VBG pH 7.38 (7.36-7.41) 11/16/22 19:35 VBG pCO2 85 mmHg (38-50) H 11/16/22 19:35 VBG pO2 39 mmHg 11/16/22 19:35 VBG HCO3 50 mmol/L 11/16/22 19:35 VBG O2 Saturation 70.9 % 11/16/22 19:35 VBG Base Excess 20.2 mEq/L 11/16/22 19:35 Sodium 145 mmol/L (136-145) 11/17/22 06:01 Potassium 4.3 mmol/L (3.5-5.1) 11/17/22 06:01 Chloride 100 mmol/L (98-107) 11/17/22 06:01 Carbon Dioxide 43 mmol/L (21-32) H* 11/17/22 06:01 Anion Gap 2 (3-11) L 11/17/22 06:01 BUN 23 mg/dl (6-23) 11/17/22 06:01 Creatinine 0.52 mg/dl (0.6-1.2) L 11/17/22 06:01 Est Cr Clr Drug Dosing 65.1 ml/min 11/17/22 06:01 Est GFR ( Amer) 104.6 ml/min 11/17/22 06:01 Est GFR (Non-Af Amer) 90.2 ml/min 11/17/22 06:01 BUN/Creatinine Ratio 44.2 (10-20) H 11/17/22 06:01 Glucose 99 mg/dl (70-99(Fasting)) 11/17/22 06:01 Calcium 8.9 mg/dl (8.6-10.3) 11/17/22 06:01 Magnesium 2.0 mg/dl (1.7-2.4) 11/17/22 06:01 Total Bilirubin 0.3 mg/dl (0.2-1.0) 11/16/22 19:35 AST 23 U/L (13-39) 11/16/22 19:35 ALT 22 U/L (7-52) 11/16/22 19:35 Alkaline Phosphatase 47 U/L (34-104) 11/16/22 19:35 Troponin I High Sens 6.6 pg/ml (0-14) 11/17/22 11:19 Total Protein 6.8 gm/dl (6.0-8.3) 11/16/22 19:35 Albumin 3.9 gm/dl (3.4-5.0) 11/16/22 19:35 Globulin 2.9 gm/dl (2.5-4.0) 11/16/22 19:35 Albumin/Globulin Ratio 1.3 (0.9-2) 11/16/22 19:35 Triglycerides 151 mg/dl (0-150) H 11/17/22 06:01 Cholesterol 168 mg/dl (0-200) 11/17/22 06:01 LDL Cholesterol, Calc 86 mg/dl 11/17/22 06:01 VLDL Cholesterol, Calc 30 mg/dl (0-30) 11/17/22 06:01 HDL Cholesterol 52 mg/dl 11/17/22 06:01 Cholesterol/HDL Ratio 3.2 (0-5) 11/17/22 06:01 Lipase 27 U/L (11-82) 11/16/22 19:35 SARS-CoV-2, RNA, NAAT NEGATIVE (NEGATIVE) 11/16/22 19:36 Impressions Chest X-Ray 11/16/22 19:17 XR chest 1V portable CLINICAL HISTORY: Chest pain, nonspecific COMPARISON STUDY: Chest radiograph November 01, 2022. FINDINGS: Lung volumes are mildly diminished. There is no pneumothorax or pleural effusion. There is no consolidation or evidence for pulmonary edema. No consolidation is present. There is mild cardiomegaly. No evidence for pulmonary edema. Gastrostomy tube is incidentally noted. IMPRESSION: No acute cardiopulmonary findings. ACT 112: Negative or not required by law. Electronically signed by: Luc Salvador M.D. 11/17/2022 6:46 AM Diagnostic Findings Laboratory Results WBC 7.80 K/ul (4.8-10.8) 11/17/22 06:01 RBC 3.19 M/uL (4.20-5.40) L 11/17/22 06:01 Hgb 9.0 g/dl (12.0-16.0) L 11/17/22 06:01 Hct 29.6 % (37.0-47.0) L 11/17/22 06:01 MCV 92.8 fL (80.0-100.0) 11/17/22 06:01 MCH 28.2 pg (25.0-34.0) 11/17/22 06:01 MCHC 30.4 g/dL (32.0-36.0) L 11/17/22 06:01 RDW Std Deviation 47.8 fL (36.4-46.3) H 11/17/22 06:01 RDW Coeff of Jazmin 14.2 % (11.5-14.5) 11/17/22 06:01 Plt Count 170 K/uL (130-400) 11/17/22 06:01 MPV 10.4 fL (9.4-12.4) 11/17/22 06:01 Immature Gran % (Auto) 0.3 % 11/17/22 06:01 Neut % (Auto) 74.0 % 11/17/22 06:01 Lymph % (Auto) 17.4 % 11/17/22 06:01 [place] % (Auto) 5.4 % 11/17/22 06:01 Eos % (Auto) 2.6 % 11/17/22 06:01 Baso % (Auto) 0.3 % 11/17/22 06:01 Neut # (Auto) 5.78 K/uL (1.40-6.50) 11/17/22 06:01 Lymph # (Auto) 1.36 K/uL (1.2-3.4) 11/17/22 06:01 [place] # (Auto) 0.42 K/uL (0.11-0.59) 11/17/22 06:01 Eos # (Auto) 0.20 K/uL (0-0.50) 11/17/22 06:01 Baso # (Auto) 0.02 K/uL (0-0.2) 11/17/22 06:01 Immature Gran # (Auto) 0.02 K/uL (0.01-0.20) 11/17/22 06:01 PT 10.2 Seconds (9.0-12.0) 11/16/22 20:10 INR 0.9 (0.9-1.1) 11/16/22 20:10 APTT 21.2 Seconds (21.0-31.0) 11/16/22 20:10 PTT Ratio 0.8 11/16/22 20:10 VBG pH 7.38 (7.36-7.41) 11/16/22 19:35 VBG pCO2 85 mmHg (38-50) H 11/16/22 19:35 VBG pO2 39 mmHg 11/16/22 19:35 VBG HCO3 50 mmol/L 11/16/22 19:35 VBG O2 Saturation 70.9 % 11/16/22 19:35 VBG Base Excess 20.2 mEq/L 11/16/22 19:35 Sodium 145 mmol/L (136-145) 11/17/22 06:01 Potassium 4.3 mmol/L (3.5-5.1) 11/17/22 06:01 Chloride 100 mmol/L (98-107) 11/17/22 06:01 Carbon Dioxide 43 mmol/L (21-32) H* 11/17/22 06:01 Anion Gap 2 (3-11) L 11/17/22 06:01 BUN 23 mg/dl (6-23) 11/17/22 06:01 Creatinine 0.52 mg/dl (0.6-1.2) L 11/17/22 06:01 Est Cr Clr Drug Dosing 65.1 ml/min 11/17/22 06:01 Est GFR ( Amer) 104.6 ml/min 11/17/22 06:01 Est GFR (Non-Af Amer) 90.2 ml/min 11/17/22 06:01 BUN/Creatinine Ratio 44.2 (10-20) H 11/17/22 06:01 Glucose 99 mg/dl (70-99(Fasting)) 11/17/22 06:01 Calcium 8.9 mg/dl (8.6-10.3) 11/17/22 06:01 Magnesium 2.0 mg/dl (1.7-2.4) 11/17/22 06:01 Total Bilirubin 0.3 mg/dl (0.2-1.0) 11/16/22 19:35 AST 23 U/L (13-39) 11/16/22 19:35 ALT 22 U/L (7-52) 11/16/22 19:35 Alkaline Phosphatase 47 U/L (34-104) 11/16/22 19:35 Troponin I High Sens 6.6 pg/ml (0-14) 11/17/22 11:19 Total Protein 6.8 gm/dl (6.0-8.3) 11/16/22 19:35 Albumin 3.9 gm/dl (3.4-5.0) 11/16/22 19:35 Globulin 2.9 gm/dl (2.5-4.0) 11/16/22 19:35 Albumin/Globulin Ratio 1.3 (0.9-2) 11/16/22 19:35 Triglycerides 151 mg/dl (0-150) H 11/17/22 06:01 Cholesterol 168 mg/dl (0-200) 11/17/22 06:01 LDL Cholesterol, Calc 86 mg/dl 11/17/22 06:01 VLDL Cholesterol, Calc 30 mg/dl (0-30) 11/17/22 06:01 HDL Cholesterol 52 mg/dl 11/17/22 06:01 Cholesterol/HDL Ratio 3.2 (0-5) 11/17/22 06:01 Lipase 27 U/L (11-82) 11/16/22 19:35 SARS-CoV-2, RNA, NAAT NEGATIVE (NEGATIVE) 11/16/22 19:36 Impressions Chest X-Ray 11/16/22 19:17 XR chest 1V portable CLINICAL HISTORY: Chest pain, nonspecific COMPARISON STUDY: Chest radiograph November 01, 2022. FINDINGS: Lung volumes are mildly diminished. There is no pneumothorax or pleural effusion. There is no consolidation or evidence for pulmonary edema. No consolidation is present. There is mild cardiomegaly. No evidence for pulmonary edema. Gastrostomy tube is incidentally noted.
[2022-11-17] MEDS: PEPTAMEN 1.5 CAL 1,000 ML BAG GT SCH ×2 (13:25→13:27)
[2022-11-17] MEDS: HEPARIN SOD 5,000 UNIT/0.5 ML VIAL SQ SCH (22:14)
[2022-11-18] MEDS: TUBE FEEDING WATER FLUSH GT SCH ×3 (03:42→11:30)
[2022-11-18 07:09] LABS: Basophils # (auto) 0.02 K/uL (0-0.2); Basophils % (auto) 0.3 %; Eosinophils # (auto) 0.15 K/uL (0-0.50); Eosinophils % (auto) 2.6 %; Hematocrit (blood only) 33.4 % (37.0-47.0); Hemoglobin 10.2 g/dl (12.0-16.0); Immature Granulocytes # (auto) 0.01 K/uL (0.01-0.20); Immature Granulocytes % (auto) 0.2 %; Lymphocytes # (auto) 1.09 K/uL (1.2-3.4); Lymphocytes % (auto) 18.8 %; Mean Corpuscular Hemoglobin 28.3 pg (25.0-34.0); Mean Corpuscular Hgb Conc 30.5 g/dL (32.0-36.0); Mean Corpuscular Volume 92.5 fL (80.0-100.0); Mean Platelet Volume 10.9 fL (9.4-12.4); Monocytes # (auto) 0.34 K/uL (0.11-0.59); Monocytes % (auto) 5.9 %; Neutrophils % (auto) 72.2 %; Platelet Count 163 K/uL (130-400); RDW Coefficient of Variation 14.1 % (11.5-14.5); RDW Standard Deviation 48.2 fL (36.4-46.3); Red Blood Count 3.61 M/uL (4.20-5.40); White Blood Count 5.81 K/ul (4.8-10.8)
[2022-11-18 07:38] LABS: BUN Creatinine Ratio 34.6 (10-20); Calcium 9.5 mg/dl (8.6-10.3); Est GFR (African American) 104.6 ml/min; Est GFR (Non-African American) 90.2 ml/min; Potassium 4.1 mmol/L (3.5-5.1)
[2022-11-18] MEDS: HEPARIN SOD 5,000 UNIT/0.5 ML VIAL SQ SCH (09:37)
[2022-11-18] MEDS: METOPROLOL TARTRATE 25 MG TAB PEG SCH (09:38)
[2022-11-18] MEDS: ASPIRIN 81 MG CHEW PEG SCH (09:39)
[2022-11-18] MEDS: FAMOTIDINE 40 MG/5 ML 50ML BTL PO SCH (09:40)
[2022-11-18] MEDS: MULTI VIT W/MINERALS LIQUID 15 ML UDP PEG SCH (09:41)
--- NOTE | 2022-11-18 11:25 | Electrocardiogram Report ---
Test Reason : Blood Pressure : / mmHG Vent. Rate : 074 BPM Atrial Rate : 074 BPM P-R Int : 152 ms QRS Dur : 076 ms QT Int : 374 ms P-R-T Axes : 052 006 044 degrees QTc Int : 415 ms Poor data quality, interpretation may be adversely affected Normal sinus rhythm Cannot rule out Anterior infarct , age undetermined Abnormal ECG When compared with ECG of 17-NOV-2022 05:33, Premature ventricular complexes are no longer Present Confirmed by Cesar Flood ([id number]) on 11/18/2022 11:24:49 AM Referred By: REFERRED SELF Confirmed By:Cesar Flood
--- NOTE | 2022-11-18 13:41 | Discharge Summary ---
Date of Service November 18, 2022 Admission HPI Per Admitting Provider This is an 82-year-old female with past medical history significant for ALS. The patient is currently nonverbal for almost two and half years as per the family, chronic hypercapnic respiratory failure secondary to ALS on home oxygen and nocturnal CPAP/BIPAP, PVD, hypertension, hyperlipidemia, history of right breast cancer, status post surgery and radiation, dysphagia s/p PEG tube placement, chronic anemia, baseline hemoglobin around 11, history of aspiration pneumonia in the past, history of stroke, status post TNKase in the past with left proximal ICA stenosis of 50-69%The patient currently lives in a nursing [facility], was brought in due to chest pain. The patient is currently nonverbal . Can understand Korean and can write on paper simple answers. as per daughter. Currently seems to be comfortable asking for BIPAP seems wants to go to sleep. Talked to the daughter and the daughter says on Wednesday, she went to see her and she was fine and on Wednesday night, she called seems not doing good. She went to see her today and she complained of chest pain, says her chest hurts and also her left shoulder hurts when they decided to bring her to the ER. In the ER, initial workup was negative and the patient wanted to go back but agreed to stay overnight. As per daughter, the patient has no fever, no cough, no nausea, could not get much history currently. The patient seems comfortable. Admission Exam Per Admitting Provider GENERAL: The patient is alert and awake, seems comfortable. VITAL SIGNS: Temperature afebrile, pulse 80, respiratory rate 20, blood pressure 86/50, oxygen 100% on 3 liters. HEENT: Pupils equal, round and reactive to light. Oral mucosa moist. NECK: No JVD, no neck masses. CARDIOVASCULAR: S1 and S2 heard, regular rate and rhythm. No murmur, no gallop. RESPIRATORY SYSTEM: Normal AP diameter. No accessory muscle use. No wheezing, no crackles. ABDOMEN: Soft, bowel sounds present, nontender, no distention. CENTRAL NERVOUS SYSTEM: Alert and awake. Obeys simple commands. Moves extremities. EXTREMITIES: No edema, no erythema. Principal Diagnosis Chest pain, likely MSK. Discharge Exam Constitutional: Awake, alert. Communicates with writing Respiratory: Bilateral clear breath sound. Cardiovascular: RRR, no murmur, no edema Vessels: no JVD or carotid bruit Chest: normal inspection of chest Abdomen: normal bowel sounds, soft, nontender, no hepatosplenomegaly. PEG tube in place. Musculoskeletal: no cyanosis or clubbing Skin: no rashes, warm and dry normal turgor Neurologic: Awake, alert, oriented. Psychiatric: A+Ox3, euthymic affect Discharge Data Allergies Allergy/AdvReac Type Severity Reaction Status Date / Time No Known Drug Allergies Allergy Unknown Verified 10/27/22 19:23 Consultations 11/17/22 08:00 Consult Cardiology Routine Hospital Course (1) IBALS (isolated bulbar amyotrophic lateral sclerosis): (2) Atypical chest pain: History of chronic hypercapnic respiratory failure secondary to ALS on home oxygen and nocturnal CPAP/BIPAP, PVD, hypertension, hyperlipidemia, history of right breast cancer, status post surgery and radiation, dysphagia s/p PEG tube placement Presents with atypical chest pain. EKG personally reviewed; NSR with occasionally PVCs. High sensitive troponin negative Chest x-rayno infiltrates. In the hospitalization, cardiology evaluated patient. Recommended aspirin. No other further cardiac work-up was needed. The pain is likely musculoskeletal in nature. (3) Chronic hypercapnic respiratory failure: On 2 L of oxygen at baseline. ABG personally reviewed; has compensated chronic respiratory acidosis with pH of 7.38. Monitor for now. Patient was at baseline oxygen requirement at discharge. Plan Hyperlipidemia, not on statin Rx right breast cancer status post surgery/radiation, patient in remission aspiration risk status post PEG tube placement--consulted dietitian. Tube feeds. chronic anemia, hemoglobin at baseline DNR/DNI Heparin subcu Total Time Total Time Spent Total Time Spent (In Minutes): 45 Total Time Includes: Examination of the Patient, Discharge Planning, Medication Reconciliation, Communication With Other Providers and Other Discharge Plan Discharge Items Patient Disposition: Transfer Alf Fac Reason For Visit: CHEST PAIN Discharge Diagnosis: Chest pain, ACS rule out. Activity: Resume your previous activity Non-emergency contact: Primary Care Provider Call non-emergency contact if: you have any medication questions and your symptoms worsen Follow-up/Referrals: Cindy Borrero MD [Primary Care Provider] - Diet: Nothing by Mouth Addtl Attending Provider Instructions: You were admitted to the hospital with chest pain. Cardiology evaluated you during the hospitalization. They recommend to start aspirin. Continue other medication as previously. You are also prescribed nitroglycerin tablets as needed for chest pain. Please follow-up with your primary care doctor in 1 week. Pending Studies at Discharge: No Stand-Alone Forms: [facility] [employer] Skilled Items Patient informed of condition?: Yes DNR: Yes Discharge Level of Care: Skilled Communicable Disease: No Discharge Prognosis: Stable Lines: None Urinary Catheter: No Medications and DC Order Prescriptions: New nitroglycerin [Nitrostat] 0.4 mg Tablet, Sublingual 0.4 mg sublingual UD PRN (Reason: chest pain) Qty: 30 0RF aspirin [Children's Aspirin] 81 mg Tablet,Chewable 81 mg PEG DAILY Qty: 30 0RF Continued famotidine 20 mg tablet 20 mg feeding tube DAILY Jevity 1.5 Vaughn 0.06 gram-1.5 kcal/mL Liquid 1 ea feeding tube 5XD Rx Instructions: 240 ml bolus feedings 5 times a day....75 ml of water before and after each feeding metoprolol tartrate 25 mg tablet 12.5 mg feeding tube . EVERY 12 HOURS Centrum 9 mg iron/15 mL Liquid 15 ml PEG QAM Qty: 236 0RF guaifenesin 400 mg Tablet 400 mg QID Rx Instructions: via g-tube acetaminophen 325 mg Tablet 650 mg feeding tube .EVERY 6 HOURS MDD 3g PRN (Reason: Fever Or Pain) Rx Instructions: use for mild pain 1-3 or temp > 101 glycopyrrolate 1 mg tablet 1 mg PO .EVERY 12 HOURS PRN (Reason: secretions) Discharge Orders: Discharge Order (Routine); Ordered 11/18/22 Ordered By: Russ Joyner Admission Data Admit Date/Time: 11/16/22 22:37 Attending Provider: Russ Joyner Admit Provider: Norbert Anna Primary Care Provider: Cindy Borrero Other Providers: Sebas Chua
== END 2022-11-18 14:52 ==
LOC: ED 18:58 → 2W 18:58